=== PATIENT | female | born 1945 | race Caucasian/White ===

== ENCOUNTER 2017-06-29 10:20 | Emergency (ER) | payer MEDICARE, OTHER, SELFPAY ==
[2017-06-29 10:22] VITALS: BP 117/51; PULSE 70; RESP 19; TEMP 36.2; O2SAT 96; BMI 32.8
--- NOTE | 2017-06-29 10:34 | CT_ITS ---
STUDY: CTA CHEST REASON FOR EXAM: Female, 71 years old. Right-sided chest pain following a fall. RADIATION DOSAGE (If Supplied By Facility): CTDIvol = ( 14.44 ) mGy, DLP = ( 654.43 ) mGycm TECHNIQUE: The examination was performed with the intravenous administration of 100 ml of Isovue 370 contrast material. Post-processing of the angiographic images was performed, with multiplanar reformation and 3D reconstruction. Individualized dose optimization techniques were used for this CT. COMPARISON: None. FINDINGS: Small bilateral axillary lymph nodes. Normal enhancement of the main pulmonary artery and right and left pulmonary arteries. Normal enhancement of the bilateral peripheral pulmonary arteries. There is no demonstrated pulmonary embolism. Normal thoracic aorta and visualized great vessels. There is no demonstrated aortic dissection. There are calcifications of the coronary arteries. There are visualized mediastinal lymph nodes, which are within normal size limits, and with normal morphology. Normal hilar regions. Normal visualized trachea and bronchi. The lungs are well expanded. Focal increased markings in the posterior aspect of the left upper lobe abutting the left major fissure. Patchy infiltrate in the right middle lobe. Atelectasis and/or infiltrate in both lower lobes slightly more prominent on the right side. Minimal right pleural effusion. Normal pleura. Normal chest wall structures. There are degenerative changes of thoracic spine. Increased kyphosis. 1.5 cm cyst in the left lobe of the liver. CT/CTA Chest W/WO Contrast IMPRESSION: Mild degree of bibasilar atelectasis and/or infiltrate slightly worse on the right side. Patchy atelectasis and/or infiltrate in the left upper lobe and right middle lobe. Electronically Signed: Phillip Moran MD at 12:34 EST Tel [phone], Service support ,
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
[2017-06-29 10:58] VITALS: PULSE 68; RESP 20
[2017-06-29] MEDS: Ipratropium/Albuterol Sulfate 3 ML AMPUL.NEB INHALATION (10:58)
[2017-06-29 10:59] LABS: Absolute Lymphocyte Count 1.24 X10^3/ul (0.83-4.51); Absolute Neutrophil Count 3.3 X10^3/uL (2.0-7.7); Basophil# 0.05 X10^3/uL; Basophil% 0.9 % (0-1); Eosinophil# 0.07 X10^3/uL; Eosinophils% 1.2 % (0-5); Hematocrit 43.5 % (37-47); Hemoglobin 13.9 g/dl (12.0-15.0); Lymphocyte # 1.24 X10^3/ul (4.0); Lymphocyte % 21.9 % (19-41); Mean Corpuscular Hgb 26.9 pg (27.0-32.0); Mean Corpuscular Volume 84.1 fL (81-99); Mean Platelet Vol. 9.8 fl (6.2-12.0); Monocyte# 0.99 X10^3/uL; Monocyte% 17.5 % (0-10); Neutrophil # 3.31 X10^3/uL (2.7-7.7); Neutrophil % 58.3 % (47-70); POSITIVE COUNT NO; POSITIVE DIFFERENTIAL NO; POSITIVE MORPHOLOGY NO; Platelet Count 332 K/mm3 (150-450); RBC Distribution Width SD 48.6 fl (35.1-43.9); Red Blood Count 5.17 M/mm3 (4.2-5.4); White Blood Count 5.7 K/mm3 (4.4-11.0)
[2017-06-29] MEDS: Ondansetron 4 MG/2 ML Vial IV (11:03)
[2017-06-29 11:09] LABS: Anion Gap 5 (5-15); BUN 13 mg/dL (7-18); BUN/Creat Ratio 22.9 RATIO (10-20); Calcium,Total 8.8 mg/dL (8.5-10.1); Chloride 105 mmol/L (98-107); Creatinine, Serum 0.57 mg/dL (0.55-1.02); EST Glomerular Filtration Rate 112 mL/min (>60); Est Glom Filt Rate - Afr Amer 135 mL/min (>60); Glucose 103 mg/dL (74-106); Potassium 4.3 mmol/L (3.5-5.1); Sodium Level 140 mmol/L (136-145)
--- NOTE | 2017-06-29 12:51 | ED.DEP ---
ED Disposition - Plan for ED Patient: Chief Complaint: Chest Other Instructions: ED Contusion Chest Wall, ED Pneumonia Adult Prescriptions: Hydrocodone Bitart/Apap 5-325 [[place] 5/325] 1 - 2 tab PO Q4H PRN PRN 5 Days #20 tab PRN Reason: Pain Azithromycin [Zithromax] 250 mg PO DAILY #4 tab Referrals: Angeles Chaudhry MD [Primary Care Provider] - 3-5 Days
[2017-06-29 13:03] VITALS: BP 117/53; PULSE 60; RESP 18; O2SAT 98
[2017-06-29] MEDS: Azithromycin 250 MG Tablet 500 MG PO (13:05)
--- NOTE | 2017-06-29 13:16 | ED.RN ---
1310-VERBAL AND WRITTEN D/C INSTRUCTIONS GIVEN. ALL QUESTIONS ANSWERED. SKIN W/D. ABCS INTACT. VIA W/C OUT OF DEPARTMENT WITH VOLUNTEER.
== END 2017-06-29 13:18 | disposition home or self-care (01) ==
PROVIDERS: Emergency Provider Emergency Medicine; Family Provider Family Medicine; PCP Family Medicine
DX: S20.211A Contusion of right front wall of thorax, initial encounter (principal); W17.89XA Other fall from one level to another, initial encounter; Y93.9 Activity, unspecified; Y92.9 Unspecified place or not applicable; Y99.9 Unspecified external cause status; J18.9 Pneumonia, unspecified organism; R06.2 Wheezing; F32.9 Major depressive disorder, single episode, unspecified; Z79.82 Long term (current) use of aspirin; Z79.899 Other long term (current) drug therapy
CPT/HCPCS: 71275; 80048; 85025; 94640; 96374; 96375; 99284; Q9967; A4216; J2405

== ENCOUNTER → 2017-07-16 07:41 | Outpatient (CLI) | payer MEDICARE, OTHER, SELFPAY ==
--- NOTE | 2017-07-17 07:15 | PFTCOMP_ITS ---
COMPLETE PULMONARY FUNCTION TEST INTERPRETATION Brief HPI: Patient is a 71 year old female, currently under the care of myself, who presents to [facility] for complete pulmonary function tests secondary to diagnosis of chronic bronchitis. Respiratory therapist reports good effort and reproducible results. Interpretation: Forced expiration spirometry shows a moderately-severe large airways obstructive ventilatory defect with an FEV1 of 57 % predicted. There is no significant bronchodilator response by strict ATS criteria. Spirograms are of good quality and plateau slowly, indicating slowly emptying areas of the lungs. The respiratory flow volume loop shows decreased expiratory flow rates at all lung volumes consistent with airway obstruction. Lung volumes by body plethysmography show a decreased total lung capacity at 3.56 L, 70 % predicted. There is a trend towards air-trapping, but this does not reach clinical significance by ATS criteria. Diffusion capacity by carbon monoxide is at the lower limit of normal at 66 % predicted. The airway resistance is elevated. No previous pulmonary function tests were available for review. Impression: Moderately severe mixed ventilatory defect with a symmetric reduction diffusing capacity.
== END ==
PROVIDERS: Family Provider Family Medicine; PCP Family Medicine; Visit Provider Nurse Practitioner Acute Care
DX: J42 Unspecified chronic bronchitis (principal)
CPT/HCPCS: 94060; 94726; 94729

== ENCOUNTER → 2017-07-28 12:17 | Outpatient (CLI) | payer MEDICARE, OTHER, SELFPAY ==
[2017-07-28 12:37] VITALS: PULSE 66; PULSE 70; PULSE 80; PULSE 83; PULSE 85; PULSE 86; PULSE 90; O2SAT 91; O2SAT 92; O2SAT 93; O2SAT 94
--- NOTE | 2017-07-29 08:29 | WT_ITS ---
PSN 6 Minute Walk Test - 6 Minute Walk Test 6 Minute Walk Test: 6 Minute Walk Test PSN:6-Minute Walk Test Start: 07/28/17 12: 36 Freq: Status: Active Protocol: [id number] Document 07/28/17 12:37 SMB (Rec: 07/28/17 12:41 SMB [id number]) 6 Minute Walk Test Date Performed 07/28/17 Time Performed 12:20 Height 5 ft 3 in Weight: 83.915 kg Weight in Pounds 185.[address]: Chidi Parra Assistive device used: None Pre-test Oxygen Delivery Method Room Air Pulse Ox (%) 94 Pulse Rate (60-100 beats/min) 66 Dyspnea Berhane Scale (0-10) 0 Exertion Berhane Scale (6-20) 6 1st minute Oxygen Delivery Method Room Air Pulse Ox (%) 94 Pulse Rate (60-100 beats/min) 80 2nd minute Oxygen Delivery Method Room Air Pulse Ox (%) 93 Pulse Rate (60-100 beats/min) 83 3rd minute Oxygen Delivery Method Room Air Pulse Ox (%) 93 Pulse Rate (60-100 beats/min) 86 4th minute Oxygen Delivery Method Room Air Pulse Ox (%) 93 Pulse Rate (60-100 beats/min) 83 5th minute Oxygen Delivery Method Room Air Pulse Ox (%) 91 Pulse Rate (60-100 beats/min) 90 6th minute Oxygen Delivery Method Room Air Pulse Ox (%) 92 Pulse Rate (60-100 beats/min) 85 Dyspnea Berhane Scale (0-10) 0 Exertion Berhane Scale (6-20) 12 Post-test Oxygen Delivery Method Room Air Pulse Ox (%) 92 Pulse Rate (60-100 beats/min) 70 Full Laps Walked 16 Partial Lap, Number of Tiles Walked 0 Total Distance Walked (ft) 944 - Interpretation Interpretation: The patient was able to ambulate 944 feet over the course of 6 minutes on room air with no assistive devices or breaks. The patient experienced desaturation as low as 91% in the fifth minute, but no tachycardia was appreciated. These findings are consistent with a respiratory limitation exercise tolerance. - Recommendations Recommendations: No supplemental oxygen is indicated at this time. However, patient will need to be followed closely given level of desaturation.
== END ==
PROVIDERS: Family Provider Family Medicine; PCP Family Medicine; Visit Provider Nurse Practitioner Acute Care
DX: J96.01 Acute respiratory failure with hypoxia (principal)
CPT/HCPCS: 94618

== ENCOUNTER 2017-09-03 06:22 | Emergency (ER) | payer MEDICARE, OTHER, SELFPAY ==
[2017-09-03 06:23] VITALS: BP 143/65; PULSE 73; RESP 18; TEMP 37; O2SAT 96; BMI 31.8
--- NOTE | 2017-09-03 07:04 | ED.VISSUMM ---
- ER Visit Summary Date of Service: 09/03/17 Chief Complaint: Scalp laceration History of Present Illness: The patient is a 71 F mechanical fall at 3 AM. States getting out of bed with slipped hitting the bed rail. No loss of consciousness. No visual changes. No neck or back pain. No nausea or vomiting. Patient is on baby aspirin. Tetanus unknown. Physical Examination: General: Alert and oriented ?3, no acute distress HEENT: Normocephalic, 6 cm horizontal laceration occiput, no active bleeding, no depression of scope. Moist mucosa membranes Neck: supple, nontender. No midline tenderness. Cardiovascular: Regular rate and rhythm, no murmurs Respiratory: Normal breath sounds, symmetric, no distress Abdomen: Soft, nontender, nondistended Extremities: Nontender, no edema, pulses intact ?4 Neuro: no focal neurological deficits. GCS 15. Test Results: [] Emergency Department Course and Treatment: Patient vital signs stable. No active bleeding. Tetanus updated. Patient's age baby aspirin, discussed with patient recommendations for obtaining CT scan of the head, however she declines. Patient currently with no focal neurological deficits. Verbal consent for stapling which was performed with a total of 6 oneyda with good approximation. Wound care discussed. Patient will follow with PCP in 10 days for staple removal. Discussed with spouse and patient, worsening symptoms neurological deficits return immediately for reevaluation. Treatment Plan: [] Disposition: Discharge Impression: 1. Scalp laceration 2. Closed head injury This note was generated with [employer] dictation software. It may contain incorrect words, spelling, and punctuation that were not noted in review of the chart prior to signing ED Disposition - Plan for ED Patient: Disposition: Home or Assisted Living Chief Complaint: Laceration Diagnosis: Scalp laceration, Closed head injury Instructions: ED Laceration Scalp Stitch Or Stap, ED Head Injury Closed Referrals: Angeles Chaudhry MD [Primary Care Provider] - 10 Day for suture removal
[2017-09-03] MEDS: Diphth,Pertuss(Acell),Tet Vac 0.5 ML Vial IM (07:08)
[2017-09-03 07:09] VITALS: RESP 18
== END 2017-09-03 07:28 | disposition home or self-care (01) ==
PROVIDERS: Emergency Provider Emergency Medicine; Family Provider Family Medicine; PCP Family Medicine
DX: S01.01XA Laceration without foreign body of scalp, initial encounter (principal); W06.XXXA Fall from bed, initial encounter; Y93.9 Activity, unspecified; Y92.9 Unspecified place or not applicable; Y99.9 Unspecified external cause status; Z23 Encounter for immunization; J44.9 Chronic obstructive pulmonary disease, unspecified; I10 Essential (primary) hypertension; F32.9 Major depressive disorder, single episode, unspecified; Z79.82 Long term (current) use of aspirin; Z79.899 Other long term (current) drug therapy; Z87.891 Personal history of nicotine dependence
CPT/HCPCS: 12002; 90471; 90715; 99282

== ENCOUNTER → 2017-09-07 22:50 | Outpatient (CLI) | payer MEDICARE, OTHER, SELFPAY | PROVIDERS: Family Provider Family Medicine; PCP Family Medicine; Visit Provider Internal Medicine Critical Care Medicine | DX: G47.10 Hypersomnia, unspecified (principal) | CPT/HCPCS: 95810 ==

== ENCOUNTER → 2017-11-15 20:00 | Outpatient (CLI) | payer MEDICARE, OTHER, SELFPAY ==
[2017-11-15] MEDS: Zolpidem Tartrate 5 MG Tablet PO (22:00)
== END ==
PROVIDERS: Family Provider Family Medicine; PCP Family Medicine; Visit Provider Nurse Practitioner Acute Care
DX: G47.33 Obstructive sleep apnea (adult) (pediatric) (principal)
CPT/HCPCS: 95811

== ENCOUNTER 2017-12-11 14:17 | Emergency (ER) | payer MEDICARE, OTHER, SELFPAY ==
[2017-12-11 14:18] VITALS: BP 148/68; PULSE 70; RESP 21; TEMP 37.6; O2SAT 95; BMI 36.1
--- NOTE | 2017-12-11 14:47 | EKG12_ITS ---
Test Reason : CP Blood Pressure : / mmHG Vent. Rate : 069 BPM Atrial Rate : 069 BPM P-R Int : 134 ms QRS Dur : 092 ms QT Int : 424 ms P-R-T Axes : 041 -13 006 degrees QTc Int : 454 ms Normal sinus rhythm Leftward axis Confirmed by AILEEN GARCIAS, MILLICENT ([id number]), content editor MEGAN DILLON ([id number]) on 12/14/2017 1:00:00 PM Referred By: JEREMIAH/JHON Confirmed By:MILLICENT GALLAGHER MD
--- NOTE | 2017-12-11 14:47 | RAD_ITS ---
STUDY: X-RAY CHEST REASON FOR EXAM: Female, 72 years old. Chest pain. TECHNIQUE: Single AP portable view of the chest. COMPARISON: 05/21/2017. FINDINGS: There again are prominent markings in lung bases but no new infiltrate is seen. There is no demonstrated pleural abnormality. The cardiac silhouette remains enlarged. Normal mediastinum and mika. Normal visualized pulmonary arteries. There is atherosclerotic tortuosity of the aortic arch and descending thoracic aorta. The thoracic spine is obscured. Normal visualized ribs, clavicles, and shoulders. There is no demonstrated abnormality of the visualized soft tissue structures of the upper abdomen. RAD/Chest 1 View (Portable) IMPRESSION: Enlargement of the cardiac silhouette. No new infiltrate is seen. Electronically Signed: Benjamín Jane MD at 15:24 EDT Tel , Service support ,
[2017-12-11 14:55] LABS: Absolute Lymphocyte Count 1.48 X10^3/ul (0.83-4.51); Absolute Neutrophil Count 11.3 X10^3/uL (2.0-7.7); Basophil# 0.03 X10^3/uL; Basophil% 0.2 % (0-1); Eosinophil# 0.11 X10^3/uL; Eosinophils% 0.8 % (0-5); Hematocrit 41.8 % (37-47); Hemoglobin 13.6 g/dl (12.0-15.0); Lymphocyte # 1.48 X10^3/ul (4.0); Lymphocyte % 10.2 % (19-41); Mean Corp Hgb Conc 32.5 g/gl (32-36); Mean Corpuscular Hgb 27.1 pg (27.0-32.0); Mean Corpuscular Volume 83.3 fL (81-99); Mean Platelet Vol. 10.3 fl (6.2-12.0); Monocyte# 1.47 X10^3/uL; Monocyte% 10.2 % (0-10); Neutrophil # 11.34 X10^3/uL (2.7-7.7); Neutrophil % 78.4 % (47-70); POSITIVE COUNT NO; POSITIVE DIFFERENTIAL NO; POSITIVE MORPHOLOGY NO; Platelet Count 330 K/mm3 (150-450); RBC Distribution Width CV 15.3 % (11.6-14.6); RBC Distribution Width SD 46.5 fl (35.1-43.9); Red Blood Count 5.02 M/mm3 (4.2-5.4); White Blood Count 14.5 K/mm3 (4.4-11.0)
[2017-12-11] MEDS: Aspirin 81 MG TAB.CHEW 324 MG PO (14:59)
[2017-12-11] MEDS: 0.9% Normal Saline 1,000 ML 150 ML IV (14:59)
[2017-12-11 15:02] VITALS: O2SAT 95
[2017-12-11 15:08] LABS: Anion Gap 5 (5-15); BUN 14 mg/dL (7-18); BUN/Creat Ratio 19.9 RATIO (10-20); Calcium,Total 8.9 mg/dL (8.5-10.1); Chloride 103 mmol/L (98-107); EST Glomerular Filtration Rate 87 mL/min (>60); Est Glom Filt Rate - Afr Amer 105 mL/min (>60); Estimated Creatinine Clearance 42.68 ml/min; Glucose 102 mg/dL (74-106); Potassium 3.8 mmol/L (3.5-5.1); Sodium Level 137 mmol/L (136-145)
[2017-12-11 15:31] VITALS: BP 147/74; PULSE 75; RESP 20; O2SAT 94
--- NOTE | 2017-12-11 16:04 | ED.VISSUMM ---
- ER Visit Summary Date of Service: 12/11/17 Chief Complaint: Chest pain History of Present Illness: He started using CPAP 2 weeks ago for sleep apnea. Patient states after taking off her CPAP mask today she felt chest pressure. It persisted throughout the day. She does report increased pain with a deep breath. She has had prior stress test and cardiac cath with no known cardiac disease. Past history significant for COPD, hypertension, high cholesterol, sleep apnea, diverticulitis, depression. Physical Examination: Blood pressure is 148/68, temperature 99.7, heart rate 70, respiratory rate 21, pulse ox 95% on room air. Patient sitting upright in bed no acute distress. She is alert and talkative. Head and neck examination is unremarkable. Heart is regular rate and rhythm. Lung sounds are clear. She does have mild anterior chest wall tenderness. There is no crepitus. Abdomen is soft nontender. Lower extremity examination was no calf tenderness or edema. Test Results: EKG is sinus at 69 with no sign of acute ischemia. Portable chest x-ray shows enlargement of the cardiac silhouette. No new focal infiltrate noted. CBC was a white count of 14.5 with 70% neutrophils. Chemistry studies unremarkable. Troponin is less than 0.015. Emergency Department Course and Treatment: Patient was given aspirin and IV fluids. Repeat temperature is 98.1. Due to persistent pain she is given a dose of morphine and Zofran. On repeat evaluation she states her pain is significantly improved. She wishes to go home. Pain is reproducible with palpation over her chest and troponin obtained after >6 hours of symptoms is negative. I do not believe this represents cardiac etiology. Due to her elevated temperature and white count, I have advised her to monitor for further fever or signs of infection at home. She voices understanding and agreement. Treatment Plan: Disposition: Discharge Impression: Atypical chest pain This note was generated with [employer] dictation software. It may contain incorrect words, spelling, and punctuation that were not noted in review of the chart prior to signing ED Disposition - Plan for ED Patient: Disposition: Home or Assisted Living Chief Complaint: Chest Pain Instructions: ED Paraesthesias Referrals: Angeles Chaudhry MD [Primary Care Provider] - 3-5 Days if not improving
--- NOTE | 2017-12-11 16:07 | ED.DEP ---
ED Disposition - Plan for ED Patient: Disposition: Home or Assisted Living Chief Complaint: Chest Pain Instructions: ED Paraesthesias Referrals: Angeles Chaudhry MD [Primary Care Provider] - 3-5 Days if not improving
[2017-12-11] MEDS: Ondansetron 4 MG/2 ML Vial IV (16:20)
[2017-12-11] MEDS: Morphine 4 MG/ML Syringe IV (16:20)
--- NOTE | 2017-12-11 16:53 | ED.DEP ---
ED Disposition - Plan for ED Patient: Disposition: Home or Assisted Living Chief Complaint: Chest Pain Instructions: ED Chest Pain Atypical Unkn Cause Referrals: Angeles Chaudhry MD [Primary Care Provider] - 3-5 Days if not improving Additional Instructions: Return to ED immediately for any worsening symptoms or concerns. Monitor for signs of infection as discussed.
[2017-12-11 17:08] VITALS: BP 111/62; PULSE 70; RESP 17; O2SAT 94
== END 2017-12-11 17:11 | disposition home or self-care (01) ==
PROVIDERS: Emergency Provider Emergency Medicine; Family Provider Family Medicine; PCP Family Medicine
DX: R07.89 Other chest pain (principal); J44.9 Chronic obstructive pulmonary disease, unspecified; I10 Essential (primary) hypertension; E78.00 Pure hypercholesterolemia, unspecified; G47.33 Obstructive sleep apnea (adult) (pediatric); F32.9 Major depressive disorder, single episode, unspecified; Z79.82 Long term (current) use of aspirin; Z79.899 Other long term (current) drug therapy; Z87.19 Personal history of other diseases of the digestive system
CPT/HCPCS: 71045; 80048; 84484; 85025; 93005; 96361; 96374; 96375; 99284; J7030; J2405

== ENCOUNTER → 2017-12-21 06:48 | Outpatient (CLI) | payer MEDICARE, OTHER, SELFPAY ==
--- NOTE | 2017-12-21 11:30 | STRESSREP ---
Stress Test Report Date: 12/21/2017 Procedure: Exercise tolerance test/imaging study Indications: Chest pain Consent: Per the patient Procedure: The patient exercised on a Chidi protocol for 4 minutes completing Stage I and 1 minute of Stage II achieving a peak heart rate of 125 bpm (83 % predicted maximal heart rate) with a peak blood pressure 142/80 mmHg and a peak MET capacity of 5 METs. The baseline ECG demonstrated sinus bradycardia. The peak exercise ECG demonstrated no obvious ECG changes. There were occasional PVCs during exercise. The functional capacity was considered decreased. There was [no complaint of chest discomfort during exercise or recovery]. The examination was discontinued secondary to fatigue. Impression: 1. Technically inadequate (percent predicted maximal heart rate greater than 85%) exercise tolerance test 2. Peak exercise ECG with no obvious ECG changes 3. There were occasional PVCs during exercise. 4. Pharmacologic menses Regadenoson) evaluation pending Procedure: Pharmacologic stress nuclear imaging study The patient underwent pharmacologic (Regadenoson) evaluation with a peak heart rate of 86 beats per minute (57 predicted maximal heart rate) and a peak blood pressure of 136/76 mmHg. The baseline ECG demonstrated sinus bradycardia. The peak pharmacologic ECG demonstrated no obvious ECG changes. [There were no cardiac dysrhythmias pretest, during pharmacologic infusion, or recovery]. [There was no complaint of chest discomfort during pharmacologic infusion or recovery]. The examination was discontinued secondary to completion of protocol. Impression: 1. Pharmacologic (Regadenoson) evaluation 2. Peak pharmacologic ECG with no obvious ECG changes. 3. There were no cardiac dysrhythmias pretest, during pharmacologic infusion, or recovery 4. Nuclear images pending Myocardial perfusion imaging study: Technique: The patient was injected with 14.6 mCi of technetium 99m Cardiolite and subsequently rest SPECT Cardiolite nuclear imaging was obtained in the horizontal long, vertical long, and short axis views. The patient exercised on a Chidi protocol for 4 minutes completing Stage I and 1 minute of Stage II achieving a peak heart rate of 125 bpm (83 % predicted maximal heart rate) with a peak blood pressure 142/80 mmHg and a peak MET capacity of 5 METs. The patient underwent pharmacologic (Regadenoson) evaluation with a peak heart rate of 86 beats per minute (57 % percent predicted maximal heart rate) and a peak blood pressure of 136/76 mmHg. The patient was injected with 44.4 millicuries of technetium 99m Cardiolite and subsequently stress SPECT Cardiolite nuclear imaging was obtained in the horizontal long, vertical long, and short axis views. A gated Cardiolite study at peak stress was obtained. Interpretation: Rest and stress SPECT Cardiolite nuclear imaging status post realignment, normalization, and attenuation correction demonstrate areas of extracardiac/gastrointestinal tracer uptake near the inferior segments, otherwise, they appear to demonstrate relative uniform tracer uptake and myocardial perfusion appearing within normal limits. [There is end systolic thickening and brightening]. [The gated Cardiolite study demonstrates myocardial thickening and inward wall motion]. The reported LVEF is 71 %. Impression: 1. [Rest and stress SPECT Cardiolite nuclear imaging demonstrate relative uniform tracer uptake and myocardial perfusion appearing within normal limits]. 2. The gated Cardiolite study reports an LVEF of 71 %. This note was generated with [employer] software. It may contain incorrect words, spelling, and punctuation that were not noted in checking the note before signing.
--- NOTE | 2017-12-21 11:59 | STRESSREP_ITS ---
Stress Test Report Date: 12/21/2017 Procedure: Exercise tolerance test/imaging study Indications: Chest pain Consent: Per the patient Procedure: The patient exercised on a Chidi protocol for 4 minutes completing Stage I and 1 minute of Stage II achieving a peak heart rate of 125 bpm (83 % predicted maximal heart rate) with a peak blood pressure 142/80 mmHg and a peak MET capacity of 5 METs. The baseline ECG demonstrated sinus bradycardia. The peak exercise ECG demonstrated no obvious ECG changes. There were occasional PVCs during exercise. The functional capacity was considered decreased. There was [no complaint of chest discomfort during exercise or recovery]. The examination was discontinued secondary to fatigue. Impression: 1. Technically inadequate (percent predicted maximal heart rate greater than 85 %) exercise tolerance test 2. Peak exercise ECG with no obvious ECG changes 3. There were occasional PVCs during exercise. 4. Pharmacologic menses Regadenoson) evaluation pending Procedure: Pharmacologic stress nuclear imaging study The patient underwent pharmacologic (Regadenoson) evaluation with a peak heart rate of 86 beats per minute (57 predicted maximal heart rate) and a peak blood pressure of 136/76 mmHg. The baseline ECG demonstrated sinus bradycardia. The peak pharmacologic ECG demonstrated no obvious ECG changes. [There were no cardiac dysrhythmias pretest, during pharmacologic infusion, or recovery]. [There was no complaint of chest discomfort during pharmacologic infusion or recovery]. The examination was discontinued secondary to completion of protocol. Impression: 1. Pharmacologic (Regadenoson) evaluation 2. Peak pharmacologic ECG with no obvious ECG changes. 3. There were no cardiac dysrhythmias pretest, during pharmacologic infusion, or recovery 4. Nuclear images pending Myocardial perfusion imaging study: Technique: The patient was injected with 14.6 mCi of technetium 99m Cardiolite and subsequently rest SPECT Cardiolite nuclear imaging was obtained in the horizontal long, vertical long, and short axis views. The patient exercised on a Chidi protocol for 4 minutes completing Stage I and 1 minute of Stage II achieving a peak heart rate of 125 bpm (83 % predicted maximal heart rate) with a peak blood pressure 142/80 mmHg and a peak MET capacity of 5 METs. The patient underwent pharmacologic (Regadenoson) evaluation with a peak heart rate of 86 beats per minute (57 % percent predicted maximal heart rate) and a peak blood pressure of 136/76 mmHg. The patient was injected with 44.4 millicuries of technetium 99m Cardiolite and subsequently stress SPECT Cardiolite nuclear imaging was obtained in the horizontal long, vertical long, and short axis views. A gated Cardiolite study at peak stress was obtained. Interpretation: Rest and stress SPECT Cardiolite nuclear imaging status post realignment, normalization, and attenuation correction demonstrate areas of extracardiac/ gastrointestinal tracer uptake near the inferior segments, otherwise, they appear to demonstrate relative uniform tracer uptake and myocardial perfusion appearing within normal limits. [There is end systolic thickening and brightening]. [The gated Cardiolite study demonstrates myocardial thickening and inward wall motion]. The reported LVEF is 71 %. Impression: 1. [Rest and stress SPECT Cardiolite nuclear imaging demonstrate relative uniform tracer uptake and myocardial perfusion appearing within normal limits]. 2. The gated Cardiolite study reports an LVEF of 71 %. This note was generated with [employer] software. It may contain incorrect words, spelling, and punctuation that were not noted in checking the note before signing.
== END ==
PROVIDERS: Family Provider Family Medicine; PCP Family Medicine; Visit Provider Family Medicine
DX: R07.9 Chest pain, unspecified (principal)
CPT/HCPCS: 78452; 93017; A9500; A4216; J2785

== ENCOUNTER → 2018-01-13 07:36 | Outpatient (CLI) | payer MEDICARE, OTHER, SELFPAY ==
--- NOTE | 2018-01-13 11:25 | PFTCOMP ---
COMPLETE PULMONARY FUNCTION TEST INTERPRETATION Brief HPI: Patient is a 72 year old female, currently under the care of myself, who presents to [facility] for complete pulmonary function tests secondary to diagnosis of COPD. Respiratory therapist reports good effort and reproducible results. Interpretation: Forced expiration spirometry shows a severe large airways obstructive ventilatory defect with an FEV1 of 54% predicted. There is some bronchodilator response, but this does not reach clinical significance by strict ATS criteria. Spirograms are of good quality and plateau slowly, indicating slowly emptying areas of the lungs. The respiratory flow volume loop shows decreased expiratory flow rates at all lung volumes consistent with airway obstruction. Lung volumes by body plethysmography show a decreased total lung capacity at 3.27 L, 71% predicted. All other lung volumes are within normal limits. Diffusion capacity by carbon monoxide is normal at 76% predicted. The airway resistance is elevated. Compared to previous pulmonary function tests from 07/16/2017, there has been a significant improvement in DLCO. Impression: Severe mixed ventilatory defect with some improvement in DLCO compared to previous testing.
== END ==
PROVIDERS: Family Provider Family Medicine; PCP Family Medicine; Visit Provider Internal Medicine Critical Care Medicine
DX: J44.9 Chronic obstructive pulmonary disease, unspecified (principal)
CPT/HCPCS: 94060; 94726; 94729

== ENCOUNTER 2018-07-29 13:00 | Outpatient (RCR) | payer MEDICARE, OTHER, SELFPAY ==
[2018-07-05 16:51] VITALS: BMI 32.8
--- NOTE | 2018-07-11 10:08 | HP.PTEVAL_ITS ---
Patient's Visit Information TAM SANCHEZ is a 72 year old F referred to Physical Therapy by Bruce Virk MD with a diagnosis of LBP. Date of Evaluation: 07/11/18 Physical Therapist: Maximus Hudson, PHILLT, OCS, CSCS - Visit Plan Frequency: 2x /Week Duration: 4-6 Weeks Plan: 2x/week for 3-6, start with NS based pool therapy and L/s AROM and progress to General ex in pool - Subjective Findings: Was in [facility] for a month even with back pain. saw doctor prior to departure adn was given prednisone adn muscle relaxers. Pain started 05/18/18 for no sera-arent reason but was busy in the kitchen for the days prior. More stadning bending and twisting than usual. Could not get out of bed in [facility] as hse had spasms. Slept in chair with TENS and hot pad. Has CPAP. Pain is not keeping her up. Moving in the morning is no good. nHad catscan in ER in [facility]. Has history of lumbar tumor in 1992. Improving overall. Not employed, watches grandchildren. 2 yo, 4 yo adn 4 month old. Can't bend over to pick them up. Hard to watch them appropriately. No problem prior to . Lives with elvia who is in [facility] currently. Has steps which she does nto use. Hurts to stand too long. Comfortable sitting until she gets up. Can do basic ADLs. Seen chiropractor. No leg symptoms. - Pain LBP Pain Intensity (Out of 10): 0 Pain Intensity Range: 0, 6 - Objective Left leg shorter than other and wears pavan lift adn has back brace but it is in VAA. Tens unit in VAA also. Transfer out of chair is painful and noisy. Slow to stadn but I, UE help. Bed trasnfer is poor, rolling and getting to sit adn to supien is very painful. Stand and walk I but slow. L/S AROM ext very limited and painful, R SB> L SB painful in mid low back. flexion is tight but not painful. reflexes 1/3 patella and achilles. Sensation LE WNl to gross light touch. Strength LE 4+/5 without myotomal abnormalities. HS and gastroc mod tight. - SLR. - SLump. shear force seem to be the big problem, unstable. 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 Goal Time Frame: 4-6 Weeks Goal 3:: Pt I in appropriate HEP for minimize future problems. Goal Time Frame: 4-6 Weeks - Rehabilitation Potential Physical Therapy Diagnosis: LBP Rehabilitation Potential: Fair - Anticipated Interventions Patient/Client Instruction: Educate patient on: Condition, Plan of Care For the Purpose of:: To decrease pain, To increase ROM Therapeutic Exercise to Include: Strength training, Flexibilty training, In an aquatic setting, Passive ROM, Active ROM, Dynamic Lumbar Stabilization For the Purpose of:: To decrease pain, To increase ROM, To increase tolerance to activity/condition/position Thank you for the opportunity to evaluate your patient. For Medicare and Medicare HMO plans, please review the plan of care and approve it. It will need to be FAXED BACK to us at [phone] for Medicare purposes. For Medicare only, by signing this I certify the plan of care. Please let me know if there are questions or concerns regarding this plan of care. Physician Signature: Date:
--- NOTE | 2018-07-29 13:14 | HP.PTDCSUM ---
HP - PT D/C Summary It has been my pleasure to treat TAM SANCHEZ under orders from Bruce Virk MD, for the diagnosis of LBP for a total of 5 visit(s). Discharge Date: 07/29/18 Please see the following information for a summary of their discharge status. - Subjective Subjective: 99% better. Not taking anything for pain. Only if I twist wrong. Then transient twinges. Can't sleep in bed yet because it is hard to sit up because feet don't touch floor. Has learned alot about sitting position adn vaccuming. Wants to go back to [employer] and will do open pool. - Pain LBP Pain Intensity (Out of 10): 0 - Overall Improvement % Improvement: 99 - Objective Objective/Function: Good ROM without pain today in L/S except slight with R rotation. Trasnfers easily without pain, walks normal. EXCELLENT PROGRESS AND READY TO BE ON OWN. 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 Goal Progress: Goal Met Goal 3:: Pt I in appropriate HEP for minimize future problems. Goal Progress: in pool. - Plan Plan: D/C - D/C Information Discharge Comments: Will continue in the pool I and let doctor know if pain returns. If there are questions or concerns regarding this patient's physical therapy, please feel free to call me at [phone]. Thank you for the referral of this patient. Sincerely, Maximus Hudson, DPT, OCS, CSCS
== END 2018-07-29 17:00 | disposition home or self-care (01) ==
LOC: PT 13:00
PROVIDERS: Family Provider Family Medicine; PCP Family Medicine; Referring Provider Family Medicine; Visit Provider Family Medicine
DX: M54.9 Dorsalgia, unspecified (principal)
CPT/HCPCS: 97113; 97162; 97530

== ENCOUNTER 2018-08-29 07:41 | Inpatient (IN) | payer MEDICARE, OTHER, SELFPAY ==
[2018-08-22 09:28] VITALS: BMI 33.1
[2018-08-29] VITALS (12 sets, daily range): BP systolic 114–152; BP diastolic 52–83; PULSE 87–108; RESP 18–31; TEMP 36.7–37.5; O2SAT 94–98; BMI 32.4; BMI 33.1; BMI 33.2
--- NOTE | 2018-08-29 07:52 | EKG12_ITS ---
Test Reason : SOB Blood Pressure : / mmHG Vent. Rate : 097 BPM Atrial Rate : 097 BPM P-R Int : 144 ms QRS Dur : 096 ms QT Int : 372 ms P-R-T Axes : 049 -18 085 degrees QTc Int : 472 ms Normal sinus rhythm Cannot rule out Anterior infarct , age undetermined Abnormal ECG Confirmed by AILEEN GARCIAS, MILLICENT ([id number]), legal editor TARIQ VILA ([id number]) on 08/31/2018 1:14:07 PM Referred By: ANGELA Confirmed By:MILLICENT GALLAGHER MD
--- NOTE | 2018-08-29 07:55 | ED.DCSUM_ITS ---
- ER Visit Summary Date of Service: 08/29/18 Chief Complaint: Shortness of breath, cough, fever History of Present Illness: The patient is a 72 F with history of COPD who is not on home oxygen presents to the emergency department shortness of breath. The patient states that she was on 2 L of oxygen at night with her CPAP. She saw Dr. Parra the office over week ago. Her oxygen is been stopped because she is been doing well. She states that at the end of July, she had a mechanical fall. She states she was ironing and was reaching over. She lost her balance and fell. She struck her left ribs. She did not hit her head. Over the past 3 days, she has had worsening shortness of breath, fevers, chills, and cough with productive sputum. She has not been on antibiotics or steroids for over 4 months. She states that at home, she has been checking her pulse ox and if she walks any distance greater than 10 feet, it will drop into the low 80s. She is also been having chills. She denies any chest pain, but did have some pain over her lateral ribs. She denies any hemoptysis. She is been compliant with her medications. Physical Examination: Vital signs reviewed General: Well-nourished, well-developed Head: Normocephalic, atraumatic Eyes: Pupils equal and reactive, extraocular muscles intact Neck, supple, no lymphadenopathy Heart: Regular rate and rhythm Respiratory: No distress, wheezing in all lung richards, ecchymosis over the left breast and left lateral ribs without step-off Abdomen: Soft, nontender, nondistended, no peritoneal signs Back: Nontender Extremities: Nontender, no edema, no cords Skin: Normal color no rash Neuro: Alert and oriented, no focal or lateralizing deficits Test Results: [] Emergency Department Course and Treatment: The patient presents with cough and shortness of breath. She does have history of COPD, but is now requiring 4 L of supplemental oxygen. She has wheezing all richards and rhonchi in the left lung base. This is also where she has ecchymosis. IV was established. Patient was given fluids and steroids. She was given nebulized breathing treatments with improvement of aeration. Chest x-ray does show a left lower lobe infiltrate. She is a leukocytosis of 20,000. Patient does meet sepsis criteria based on tachycardia and tachypnea along with evidence of infection. However, she has no evidence of severe sepsis or endorgan dysfunction. She is covered with broad- spectrum antibiotics. Patient was discussed with the hospitalist and will be admitted. Treatment Plan: [] Disposition: Admission Impression: 1. Community-acquired pneumonia 2. Hypoxia 3. Sepsis This note was generated with [employer] software. It may contain incorrect words, spelling, and punctuation that were not noted in review of the chart prior to signing ED Disposition - Plan for ED Patient: Referrals: Angeles Chaudhry MD [STAFF PHYSICIAN] -
[2018-08-29] MEDS: 0.9% Normal Saline 1,000 ML 150 ML IV (08:10)
[2018-08-29] MEDS: MethylPREDNISolone 125 MG/2 ML Vial IV (08:10)
[2018-08-29 08:23] LABS: Absolute Neutrophil Count 16.9 X10^3/uL (2.0-7.7); Basophil# 0.03 X10^3/uL; Basophil% 0.1 % (0-1); Eosinophil# 0.06 X10^3/uL; Eosinophils% 0.3 % (0-5); Hematocrit 39.7 % (37-47); Hemoglobin 12.6 g/dl (12.0-15.0); Mean Corp Hgb Conc 31.7 g/gl (32-36); Mean Corpuscular Hgb 26.6 pg (27.0-32.0); Mean Corpuscular Volume 83.8 fL (81-99); Mean Platelet Vol. 9.7 fl (6.2-12.0); Monocyte# 2.32 X10^3/uL; Monocyte% 11.5 % (0-10); Neutrophil # 16.89 X10^3/uL (2.7-7.7); Platelet Count 278 K/mm3 (150-450); RBC Distribution Width CV 14.6 % (11.6-14.6); RBC Distribution Width SD 45.2 fl (35.1-43.9); Red Blood Count 4.74 M/mm3 (4.2-5.4); White Blood Count 20.1 K/mm3 (4.4-11.0)
[2018-08-29 08:30] LABS: Differential Indicated SCAN CRITERIA MET; POSITIVE COUNT NO; POSITIVE DIFFERENTIAL YES; POSITIVE MORPHOLOGY NO
--- NOTE | 2018-08-29 08:35 | RAD_ITS ---
STUDY: X-RAY - UNILATERAL RIBS ( LEFT ) WITH CHEST REASON FOR EXAM: Female, 72 years old. Left-sided rib pain following a recent fall. TECHNIQUE - RIBS: 2 view(s) of the ribs. TECHNIQUE - CHEST: Single PA view of the chest. COMPARISON: Comparison is made with prior chest radiograph dated December 11, 2017. FINDINGS - RIBS: Normal visualized ribs without a demonstrated fracture. FINDINGS - CHEST: EKG electrodes are seen. Atelectasis and/or early infiltrate at the left lung base with blunting of left costophrenic angle. Stable mild increased markings at the right lung base. There is moderate cardiac enlargement. Normal mediastinum and mika. Normal visualized pulmonary arteries. There is atherosclerotic calcification of the aortic arch with tortuosity. There are diffuse degenerative changes of the visualized thoracic spine. Normal visualized ribs, clavicles, and shoulders. There is no demonstrated abnormality of the visualized soft tissue structures of the upper abdomen. RAD/Ribs Uni Min 3V w/PA Chest IMPRESSION: RIBS: Normal x-ray examination of the ribs. CHEST: Atelectasis and/or early infiltrate at the left lung base with blunting of left costophrenic angle. Electronically Signed: Phillip Moran, at 9:01 EDT , Service support ,
[2018-08-29 08:40] LABS: Anion Gap 7 (5-15); BUN 13 mg/dL (7-18); BUN/Creat Ratio 17.2 RATIO (10-20); Calcium,Total 8.6 mg/dL (8.5-10.1); Chloride 100 mmol/L (98-107); Creatinine, Serum 0.76 mg/dL (0.55-1.02); EST Glomerular Filtration Rate 80 mL/min (>60); Est Glom Filt Rate - Afr Amer 97 mL/min (>60); Estimated Creatinine Clearance 42.68 ml/min; Glucose 121 mg/dL (74-106); Potassium 3.1 mmol/L (3.5-5.1); Sodium Level 136 mmol/L (136-145)
[2018-08-29 08:52] LABS: Lactic Acid 1.1 mmol/L (0.4-2.0)
[2018-08-29] MEDS: Ipratropium/Albuterol Sulfate 3 ML AMPUL.NEB INHALATION ×3 (08:52→19:28)
[2018-08-29] MEDS: Albuterol 2.5 MG/3 ML VIAL.NEB. INHALATION ×3 (08:52)
--- NOTE | 2018-08-29 09:06 | NURSING ---
DR PHIL GARCIA
--- NOTE | 2018-08-29 09:12 | PCM.HP.STD ---
Problem List (1) Obesity (BMI 30-39.9) Status: Chronic (2) SHAZIA (obstructive sleep apnea) Status: Chronic Comment: CPAP 9 cm of water (3) Hypersomnia Status: Acute (4) Stage 2 moderate COPD by GOLD classification Status: Chronic Comment: 07/2017, FEV1 57% (5) Osteoarthritis Status: Chronic (6) Diverticulitis Status: Chronic (7) Depression Status: Chronic (8) Pneumonia Status: Acute Qualifiers: Laterality: left Lung location: lower lobe of lung (9) acute viral bronchitis secondary to influenza A Status: Acute (10) Acute respiratory failure with hypoxia Status: Acute (11) COPD (chronic obstructive pulmonary disease) with chronic bronchitis Status: Suspected History of Present Illness Date of Admission: 08/29/18 Chief Complaint: Shortness of breath The patient is a 72 year old F with past medical history is again for COPD, obstructive sleep apnea who presented with shortness of breath. Patient symptoms started 2 weeks prior to her admission following a fall during which she bruised her left flank. She did notice significant difficulty breathing about 3 days prior to admission. This has gotten progressively worse. In addition patient did experience subjective fever as well as chills and productive cough. She presented to the emergency department imaging studies demonstrated Atelectasis and/or early infiltrate at the left lung base with blunting of left costophrenic angle. Patient was also found to have significant bronchospasm in the emergency department. A combination of pneumonia as well as COPD exacerbation made admitted to regular nursing floor for further management Past Medical History Past Medical History (Chronic Problems): Chronic Problems (Last Reviewed 08/29/18 @ 10:40 by Valente Castro MD) Obesity (BMI 30-39.9) (Chronic) SHAZIA (obstructive sleep apnea) (Chronic) CPAP 9 cm of water Stage 2 moderate COPD by GOLD classification (Chronic) 07/2017, FEV1 57% Osteoarthritis (Chronic) Diverticulitis (Chronic) Depression (Chronic) Medical History: Medical History (Last Reviewed 08/29/18 @ 10:40 by Valente Castro MD) Osteoarthritis (Chronic) M19.90 Diverticulitis (Chronic) K57.92 Depression (Chronic) F32.9 Pneumonia (Acute) J18.9 acute viral bronchitis secondary to influenza A (Acute) Acute respiratory failure with hypoxia (Acute) J96.01 COPD (chronic obstructive pulmonary disease) with chronic bronchitis (Suspected) J44.9 Bronchitis (Resolved) J40 Influenza A (Resolved) J10.1 Hypertension (Inactive) I10 Allergies No Known Allergies Allergy (Verified 08/22/18 09:29) Home Medications: Ambulatory Orders Medication Instructions Recorded Aspirin [Aspirin, Baby] 81 mg PO DAILY@0800 05/18/17 Cholecalciferol (Vitamin D3) 2,000 unit PO DAILY 05/18/17 [D3-2000] Fluoxetine [Prozac] 20 mg PO DAILY 05/18/17 Metoprolol Tartrate 25 mg PO DAILY 05/18/17 fluticasone fur. 100 mcg-umeclid 1 inh INHALATION DAILY #60 ea 03/10/18 62.5 mcg-vilant 25 mcg inhalat.powder benzonatate 100 mg capsule 100 mg PO TID PRN #30 cap 05/10/18 guaifenesin ER 1,200 mg tablet, 1,200 mg PO Q12H #30 tab 05/11/18 extended release 12 hr nortriptyline 50 mg capsule 50 mg PO QHS 08/22/18 Surgical History: Surgical History (Last Reviewed 08/29/18 @ 10:40 by Valente Castro MD) History of tonsillectomy and adenoidectomy (Resolved) Z98.890 H/O laminectomy (Resolved) Z98.890 Hx of cataract surgery (Resolved) Z98.49 History of bone graft (Resolved) Z98.890 (Resolved) H/O tubal ligation (Resolved) Z98.51 Smoking Status: Former smoker - *Family History Sibling Family History: Family History (Last Reviewed 08/29/18 @ 10:40 by Valente Castro MD) Father Hypertension Mother Cancer History Items: Cancer Review of Systems Constitutional: Reports: Chills, Fever, Malaise, Weakness HEENT: Denies: Head Aches, Sinus Congestion, Sinus Drainage Cardiovascular: Reports: Chest Pain Respiratory: Reports: Cough, Pleuritic Pain, Shortness of Breath Gastrointestinal: Denies: Abdominal Pain, Hematemesis, Hematochezia, Nausea, Melena, Vomiting Musculoskeletal: Denies: Joint Pain, Joint Tenderness Skin: Denies: Rash Neurological: Denies: Focal weakness, Numbness, Tingling Psychiatric: Denies: Homicidal Ideations, Suicidal Ideations Hematologic/ Lymphatic: Denies: Easy Bruising, Easy Bleeding VTE Information - Inpt Only VTE Present on Admission: No VTE Mechan Device Prophylaxis: Knee High ADAM Hose VTE Pharm Prophylaxis ordered?: Yes Objective: GENERAL: cooperative HEENT: Atraumatic; moist oral mucosa EYES; Anicteric, Normal Conjunctiva NECK; supple, normal thyroid, no distended JVD. RESPIRATORY: Diminished to auscultation bilaterally, CARDIOVASCULAR: Regular S1 S2, no audible murmurs GI: soft, non-tender, normoactive bowel sounds, : No Renal angle tenderness; EXTREMITIES: No edema, no clubbing, no cyanosis. MUSCULOSKELETAL: No Joint Tenderness; no muscle waisting NEURO: Awake; no lateralizing signs. SKIN: Bruising left flank PSYCH; Normal affect - Physical Exam Vital Signs Temp Pulse Resp BP Pulse Ox 98.7 F 106 H 31 H 152/72 H 97 08/29/18 07:43 08/29/18 08:17 08/29/18 08:17 08/29/18 07:43 08/29/18 07:43 Oxygen Flow Rate (L/min) 4 Oxygen Delivery Method Nasal Cannula Weight: 83.007 kg Body Mass Index (BMI) 32.4 Microbiology Past 72 Hours 08/29/18 08:10 Influenza Types A,B Direct FA (JUVENTINO) - Final Mucosa - Nose Laboratory Tests Past 24 Hrs 08/29/18 08/29/18 08/29/18 08:10 08:10 08:10 WBC 20.1 H RBC 4.74 Hgb 12.6 Hct 39.7 MCV 83.8 MCH 26.6 L MCHC 31.7 L RDW 14.6 RDW Differential 45.2 H Plt Count 278 MPV 9.7 Immature Gran % (Auto) 0.100 Neut % (Auto) 84.0 H Lymph % (Auto) 4.0 L [place] % (Auto) 11.5 H Eos % (Auto) 0.3 Baso % (Auto) 0.1 Absolute Neuts (auto) 16.9 H Absolute Lymphs (auto) 0.80 L Total Counted Not Reportable Differential Comment COMMENT Diff Path Review May foll Sodium 136 Potassium 3.1 L Chloride 100 Carbon Dioxide 29.0 Anion Gap 7 BUN 13 Creatinine 0.76 Estim Creat Clear Calc 42.68 Est GFR (MDRD) Af Amer 97 Est GFR (MDRD) Non-Af 80 BUN/Creatinine Ratio 17.2 Glucose 121 H Lactic Acid 1.1 Calcium 8.6 Troponin I < 0.015 Assessment/Plan All Active Problems (Last Reviewed 08/29/18 @ 10:40 by Valente Castro MD) Hypersomnia (Acute) Pneumonia (Acute) History of tonsillectomy and adenoidectomy (Resolved) H/O laminectomy (Resolved) Hx of cataract surgery (Resolved) History of bone graft (Resolved) (Resolved) H/O tubal ligation (Resolved) acute viral bronchitis secondary to influenza A (Acute) Acute respiratory failure with hypoxia (Acute) Bronchitis (Resolved) Influenza A (Resolved) Patient is a 72-year-old lady who presented with progressive shortness of breath 1. Community-acquired pneumonia possibly secondary to streptococcal pneumonia. Patient has been admitted to regular nursing floor antibiotics initiated per protocol with (Rocephin as well as azithromycin). Cultures were sent from the emergency department patient was also placed on aerosol treatment and oxygen titrated to keep oxygen saturation greater than 90 2. COPD with acute exacerbation precipitated by above. Management as discussed above in addition to patient being placed on systemic steroids 3. Obstructive sleep apnea 4. Hypertension-blood pressure controlled, home medications continued with dose adjustment as needed 5. Depression patient is on both nortriptyline as well as SSRI 6. DVT prophylaxis SC Lovenox Code Visit Inpatient E&M: 68217 Init Hosp L3
--- NOTE | 2018-08-29 09:17 | NURSING ---
MED SURG DYSPNEA KITTOE
[2018-08-29] MEDS: Ceftriaxone 1 GM/50 ML BAG IV (09:30)
--- NOTE | 2018-08-29 09:48 | NURSING ---
DR VILLARREAL IN ROOM
[2018-08-29] MEDS: Enoxaparin 40 MG/0.4 ML Syringe SC (11:28)
[2018-08-29 11:31] LABS: Color, Urine Straw (Yellow); Glucose, Dipstick Normal (Normal); Ketone-Dipstick 15 mg/dl (Negative); Leukocyte Esterase-Dipstick Negative /ul (Negative); Nitrite-Dipstick Negative (Negative); Occult Blood-Urine Negative /ul (Negative); Protein-Dipstick Negative (Negative); Specific Gravity, Urine 1.005 (1.002-1.030); Urine Bilirubin Dipstick Negative (Negative); Urine Clarity Clear (Clear); Urine Urobilinogen Normal (Normal); Urine pH 6.5 (5.0 - 8.0)
[2018-08-29] MEDS: guaiFENesin 10 ML UDC (200MG/10ML) 20 ML PO ×2 (13:03→17:39)
[2018-08-29] MEDS: guaiFENesin 1,200 MG Tablet 1200 MG PO (21:26)
[2018-08-29] MEDS: DiphenhydrAMINE 25 MG Capsule PO (21:26)
[2018-08-29] MEDS: Nortriptyline 25 MG Capsule 50 MG PO (21:29)
[2018-08-30] VITALS (13 sets, daily range): BP systolic 124–139; BP diastolic 55–74; PULSE 74–110; RESP 18–28; TEMP 36.6–36.8; O2SAT 94–98
[2018-08-30] MEDS: DiphenhydrAMINE 25 MG Capsule PO ×2 (00:13→21:56)
[2018-08-30] MEDS: Ipratropium/Albuterol Sulfate 3 ML AMPUL.NEB INHALATION (00:29)
--- NOTE | 2018-08-30 00:37 | CPS ---
pt had laryngospam during aerosol treatment. tx was stopped. took pt 10 minutes to recover. had to increase o2 to 4L Breath sounds still with wheezing throughout. RN aware.
[2018-08-30] MEDS: Albuterol 2.5 MG/3 ML VIAL.NEB. INHALATION ×6 (00:48→21:23)
[2018-08-30] MEDS: guaiFENesin 10 ML UDC (200MG/10ML) 20 ML PO ×2 (05:01→21:21)
[2018-08-30 06:14] LABS: Absolute Lymphocyte Count 0.64 X10^3/ul (0.83-4.51); Absolute Neutrophil Count 16.4 X10^3/uL (2.0-7.7); Hematocrit 36.1 % (37-47); Hemoglobin 11.5 g/dl (12.0-15.0); Lymphocyte # 0.64 X10^3/ul (4.0); Lymphocyte % 3.6 % (19-41); Mean Corp Hgb Conc 31.9 g/gl (32-36); Mean Corpuscular Hgb 26.3 pg (27.0-32.0); Mean Corpuscular Volume 82.6 fL (81-99); Mean Platelet Vol. 10.3 fl (6.2-12.0); Monocyte% 4.5 % (0-10); Neutrophil # 16.42 X10^3/uL (2.7-7.7); Neutrophil % 91.7 % (47-70); Platelet Count 306 K/mm3 (150-450); RBC Distribution Width CV 14.6 % (11.6-14.6); RBC Distribution Width SD 43.5 fl (35.1-43.9); Red Blood Count 4.37 M/mm3 (4.2-5.4); White Blood Count 17.9 K/mm3 (4.4-11.0)
[2018-08-30 06:21] LABS: POSITIVE COUNT NO; POSITIVE DIFFERENTIAL NO; POSITIVE MORPHOLOGY NO
[2018-08-30 06:33] LABS: Anion Gap 6 (5-15); BUN 10 mg/dL (7-18); BUN/Creat Ratio 16.9 RATIO (10-20); Calcium,Total 8.6 mg/dL (8.5-10.1); Chloride 108 mmol/L (98-107); Creatinine, Serum 0.59 mg/dL (0.55-1.02); EST Glomerular Filtration Rate 106 mL/min (>60); Est Glom Filt Rate - Afr Amer 128 mL/min (>60); Estimated Creatinine Clearance 42.68 ml/min; Glucose 177 mg/dL (74-106); Magnesium 2.2 mg/dL (1.6-2.6); Potassium 3.4 mmol/L (3.5-5.1); Sodium Level 139 mmol/L (136-145)
[2018-08-30] MEDS: Aspirin 81 MG TAB.CHEW PO (07:44)
--- NOTE | 2018-08-30 08:42 | PCM.PN.HOSP ---
Subjective: Patient is a 72-year-old lady who presented with progressive shortness of breath assessment of COPD exacerbation precipitated by community-acquired pneumonia made admitted to regular nursing floor for further management. Patient seen as of the morning of 08/30/2018 still has significant bronchospasm and persistent cough consult placed to pulmonary medicine as a result Objective: GENERAL: cooperative HEENT: Atraumatic; moist oral mucosa EYES; Anicteric, Normal Conjunctiva NECK; supple, normal thyroid, no distended JVD. RESPIRATORY: Diminished to auscultation bilaterally, with occasional wheezes CARDIOVASCULAR: Regular S1 S2, no audible murmurs GI: soft, non-tender, normoactive bowel sounds, : No Renal angle tenderness; EXTREMITIES: No edema, no clubbing, no cyanosis. MUSCULOSKELETAL: No Joint Tenderness; no muscle waisting NEURO: Awake; no lateralizing signs. SKIN: Bruising left flank; blisters low mid back PSYCH; Normal affect Vitals/I&O's: Vital Signs Temp Pulse Resp BP Pulse Ox 98.3 F 95 22 H 124/56 H 97 08/30/18 06:23 08/30/18 06:23 08/30/18 06:23 08/30/18 06:23 08/30/18 06:23 Oxygen Flow Rate (L/min) 2 Oxygen Delivery Method Nasal Cannula Weight: 84.935 kg Body Mass Index (BMI) 33.1 Intake and Output for Last 24 Hours 08/28/18 08/29/18 08/30/18 23:59 23:59 23:59 Intake Total 1313 / 1313 2325 / 2325 Output Total 1750 / 1750 1800 / 1800 Balance -437 / -437 525 / 525 Microbiology Past 72 Hours 08/29/18 10:42 Sputum, Expectorated/Coughed Gram Stain - Final 08/29/18 11:15 Urine, Clean Catch Streptococcus pneumoniae Antigen (M - Final 08/29/18 11:15 Urine, Clean Catch Legionella Antigen - Final 08/29/18 08:10 Mucosa - Nose Influenza Types A,B Direct FA (JUVENTINO) - Final Laboratory Results 08/29/18 08:10: Total Counted Not Reportable, Differential Comment COMMENT, Diff Path Review September08/29/18 08:10: Lactic Acid 1.1 08/29/18 11:15: Urine Color Straw, Urine Clarity Clear, Urine pH 6.5, Ur Specific [place] 1.005, Urine Protein Negative, Urine Glucose (UA) Normal, Urine Ketones 15 H, Urine Occult Blood Negative, Urine Nitrite Negative, Urine Bilirubin Negative, Urine Urobilinogen Normal, Ur Leukocyte Esterase Negative 08/30/18 05:18: Sodium 139, Potassium 3.4 L, Chloride 108 H, Carbon Dioxide 25.0, Anion Gap 6, BUN 10, Creatinine 0.59, Estim Creat Clear Calc 42.68, Est GFR (MDRD) Af Amer 128, Est GFR (MDRD) Non-Af 106, BUN/Creatinine Ratio 16.9, Glucose 177 H, Calcium 8.6, Magnesium 2.2 08/30/18 05:18: WBC 17.9 H, RBC 4.37, Hgb 11.5 L, Hct 36.1 L, MCV 82.6, MCH 26.3 L, MCHC 31.9 L, RDW 14.6, RDW Differential 43.5, Plt Count 306, MPV 10.3, Immature Gran % (Auto) 0.200, Neut % (Auto) 91.7 H, Lymph % (Auto) 3.6 L, [place] % (Auto) 4.5, Eos % (Auto) 0.0, Baso % (Auto) 0.0, Absolute Neuts (auto) 16.4 H, Absolute Lymphs (auto) 0.64 L, Total Counted Not Reportable Current Medications Acetaminophen (Tylenol) 650 mg PO Q4H PRN PRN PRN Reason: FEVER Acetaminophen (Tylenol) 650 mg PO Q6H PRN PRN PRN Reason: Mild Pain (scale 0-3)/T>100.7 Albuterol Sulfate (Ventolin Aerosols) 2.5 mg INHALATION Q2H PRN PRN PRN Reason: SHORTNESS OF BREATH Last Admin: 08/30/18 06:59 Dose: 2.5 mg Albuterol/Ipratropium (Duoneb) [address] [facility] Last Admin: 08/30/18 00:29 Dose: 3 ml Aspirin (Aspirin, Baby) 81 mg PO DAILY@0800 [facility] Last Admin: 08/30/18 07:44 Dose: 81 mg Benzonatate (Tessalon Perle) 100 mg PO TID PRN PRN Reason: cough Cholecalciferol (Vitamin D) 2,[address] [facility] Dextrose (D50w Syringe) 0 gm IV X1 PRN; Protocol PRN Reason: Hypoglycemia Diphenhydramine HCl (Benadryl) 25 - 50 mg PO QHS PRN PRN PRN Reason: SLEEP Last Admin: 08/30/18 00:13 Dose: 25 mg Enoxaparin Sodium (Lovenox) 40 mg SC DAILY@1000 NISHANT Last Admin: 08/29/18 11:28 Dose: 40 mg Fluoxetine HCl (Prozac) [address] [facility] Glucagon () 1 mg IM .X1 PRN PRN Reason: Hypoglycemia Guaifenesin (Mucinex) 1,[address] [facility] Last Admin: 08/29/18 21:26 Dose: 1,200 mg Guaifenesin (Robitussin) 20 ml PO Q4H PRN PRN PRN Reason: COUGH Last Admin: 08/30/18 05:01 Dose: 20 ml Ceftriaxone Sodium (Rocephin) 1 gm in 50 mls @ 100 mls/hr IV Q24 [facility] Azithromycin 500 mg/ Dextrose 255 mls @ 250 mls/hr IV Q24 [facility] Stop: 09/01/18 11:02 Potassium Chloride/Dextrose/Sod Cl (Kcl 20meq In D5.45ns 1000ml) 1,000 mls @ 100 mls/hr IV .Q10H [facility] Last Admin: 08/30/18 06:25 Dose: 100 mls/hr Melatonin (Melatonin) 3 mg PO QHS PRN PRN PRN Reason: INSOMNIA Methylprednisolone (Solu-Medrol) [address] [facility] Last Admin: 08/30/18 05:01 Dose: 40 mg Metoprolol Tartrate (Lopressor (Beta Suad)) [address] [facility] Nortriptyline HCl (Pamelor) [address] [facility] Last Admin: 08/29/18 21:29 Dose: 50 mg Oxycodone HCl (Oxyir) 5 mg PO Q4H PRN PRN PRN Reason: Moderate Pain (pain scale 4-5) Promethazine HCl (Phenergan) 25 mg IM Q6H PRN PRN PRN Reason: Breakthrough nausea/vomiting Senna/Docusate Sodium (Senokot-S, Mandy-Colace) 2 tablet PO BID PRN PRN PRN Reason: Constipation Sodium Chloride () 5 - 15 ml IV UD PRN PRN Reason: SALINE FLUSH Throat Lozenges (Cepacol Sore Throat Lozenge) 1 lozenge MUCOUS MEM Q2H PRN PRN PRN Reason: Sore throat or cough Medical Necessity - Tobacco Use Smoking Status: Former smoker Assessment/Plan All Active Problems (Last Reviewed 08/29/18 @ 10:40 by Valente Castro MD) Hypersomnia (Acute) Pneumonia (Acute) History of tonsillectomy and adenoidectomy (Resolved) H/O laminectomy (Resolved) Hx of cataract surgery (Resolved) History of bone graft (Resolved) (Resolved) H/O tubal ligation (Resolved) acute viral bronchitis secondary to influenza A (Acute) Acute respiratory failure with hypoxia (Acute) Bronchitis (Resolved) Influenza A (Resolved) Patient is a 72-year-old lady who presented with progressive shortness of breath 1. Community-acquired pneumonia possibly secondary to streptococcal pneumonia. Patient has been admitted to regular nursing floor antibiotics initiated per protocol with (Rocephin as well as azithromycin). Cultures were sent from the emergency department patient was also placed on aerosol treatment and oxygen titrated to keep oxygen saturation greater than 90 2. COPD with acute exacerbation precipitated by above. Management as discussed above in addition to patient being placed on systemic steroids. With patient still remaining bronchospastic consultation was placed to pulmonary medicine?Dr. Castillo 3. Obstructive sleep apnea 4. Hypertension-blood pressure controlled, home medications continued with dose adjustment as needed 5. Depression patient is on both nortriptyline as well as SSRI 6. DVT prophylaxis SC Lovenox Code Visit Inpatient E&M: 52572 [facility] Hosp L3
[2018-08-30] MEDS: FLUoxetine 20 MG Capsule PO (09:31)
[2018-08-30] MEDS: Metoprolol Tartrate 25 MG Tablet PO (09:31)
[2018-08-30] MEDS: Enoxaparin 40 MG/0.4 ML Syringe SC (09:35)
[2018-08-30] MEDS: Ceftriaxone 1 GM/50 ML BAG IV (09:35)
--- NOTE | 2018-08-30 09:47 | PCM.CONS.PUL ---
Reason for Consult Date of Consultation: 08/30/18 Reason for Consultation: COPD exacerbation History of Present Illness: The patient is a 72-year-old female, with a history as outlined below, who presented to the emergency department on August 29 with complaints of shortness of breath and a cough which has been productive of sputum. The patient is currently followed in the pulmonary medicine clinic by Dr. Parra and was last seen on August 22. Her last pulmonary function studies completed in December 2017 revealed evidence of a severe mixed ventilatory defect. She is currently on a triple therapy inhaler regimen with daily Trelegy. In addition to the aforementioned, the patient does have a known history of obstructive sleep apnea, for which she is currently prescribed nocturnal CPAP therapy with a pressure support of 9 cm of water. On presentation to the emergency department, the patient was noted to be afebrile and hemodynamically stable. She was initially documented to be saturating 97% on room air. Laboratory evaluation revealed elevated white blood cell count to 20,000. Chemistry profile revealed a potassium of 3.1. Lactate was within normal limits. Troponin was negative. Plain film chest x-ray revealed blunting of the left costophrenic angle with concerns for potential early infiltrate versus atelectasis. The patient was subsequently placed on antibiotics and admitted to the medical surgical floor. Past Medical History Past Medical History (Chronic Problems): Chronic Problems (Last Reviewed 08/29/18 @ 10:40 by Valente Castro MD) Obesity (BMI 30-39.9) (Chronic) SHAZIA (obstructive sleep apnea) (Chronic) CPAP 9 cm of water Stage 2 moderate COPD by GOLD classification (Chronic) 07/2017, FEV1 57% Osteoarthritis (Chronic) Diverticulitis (Chronic) Depression (Chronic) Medical History: Medical History (Last Reviewed 08/29/18 @ 10:40 by Valente Castro MD) Osteoarthritis (Chronic) M19.90 Diverticulitis (Chronic) K57.92 Depression (Chronic) F32.9 Pneumonia (Acute) J18.9 acute viral bronchitis secondary to influenza A (Acute) Acute respiratory failure with hypoxia (Acute) J96.01 COPD (chronic obstructive pulmonary disease) with chronic bronchitis (Suspected) J44.9 Bronchitis (Resolved) J40 Influenza A (Resolved) J10.1 Hypertension (Inactive) I10 Allergies latex Adverse Reaction (Verified 08/29/18 10:48) Other Home Medications: Ambulatory Orders Medication Instructions Recorded Aspirin [Aspirin, Baby] 81 mg PO DAILY@0800 05/18/17 Cholecalciferol (Vitamin D3) 2,000 unit PO DAILY 05/18/17 [D3-2000] Fluoxetine [Prozac] 20 mg PO DAILY 05/18/17 Metoprolol Tartrate 25 mg PO DAILY 05/18/17 benzonatate 100 mg capsule 100 mg PO TID PRN #30 cap 05/10/18 nortriptyline 50 mg capsule 50 mg PO QHS 08/22/18 Fluticasone/Umeclidin/Vilanter 1 inh INHALATION DAILY 08/29/18 [Trelegy Ellipta 100-62.5-25] Guaifenesin [Guaifenesin ER] 1,200 mg PO Q12H 08/29/18 Surgical History: Surgical History (Last Reviewed 08/29/18 @ 10:40 by Valente Castro MD) History of tonsillectomy and adenoidectomy (Resolved) Z98.890 H/O laminectomy (Resolved) Z98.890 Hx of cataract surgery (Resolved) Z98.49 History of bone graft (Resolved) Z98.890 (Resolved) H/O tubal ligation (Resolved) Z98.51 Smoking Status: Former smoker - *Family History Sibling Family History: Family History (Last Reviewed 08/29/18 @ 10:40 by Valente Castro MD) Father Hypertension Mother Cancer History Items: Cancer Review of Systems Constitutional: Reports: Malaise. Denies: Chills, Fever Eyes: Denies: Blurred vision, Double vision HEENT: Denies: Head Aches, Sinus Congestion, Sinus Drainage Cardiovascular: Reports: Chest Tightness. Denies: Chest Pain, Palpitations Respiratory: Reports: Cough, Shortness of Breath, Sputum production, Wheezing Gastrointestinal: Denies: Abdominal Pain, Nausea, Vomiting Genitourinary: Denies: Dysuria Musculoskeletal: Denies: Joint Pain, Joint Tenderness Skin: Denies: Rash, Wounds Neurological: Denies: Numbness, Tingling, Focal weakness Psychiatric: Denies: Anxiety, Depression, Homicidal Ideations, Suicidal Ideations Hematologic/ Lymphatic: Denies: Easy Bruising, Easy Bleeding Objective: The patient's most recent lab work, culture data and imaging studies have all been personally reviewed. Respiratory viral panel is pending. Strep and urine Legionella antigens were both negative. Blood cultures have shown no growth to date. Sputum Gram stain revealed 4+ gram-positive cocci. - Physical Exam General: Alert, Cooperative, No apparent distress HEENT: Atraumatic, PERRLA, Normocephalic Oral: No Gingival or Mucosal Lesions/ Ulcerations Neck: Supple, No Nodes, Trachea Midline Lungs: Diminished, - - Diffuse bilateral expiratory wheezes Cardiovascular: Regular rate, Regular Rhythm, Normal S1, Normal S2, No murmurs Abdomen: Bowel Sounds Present, Soft, Non Tender, Obese Extremities: No clubbing, No cyanosis, No edema Skin: No breakdown Musculoskeletal: No Tenderness to Palpation of Joints or Extremities, No Muscle Wasting Lymphatic: No Cervical, Supraclavicular, or Inguinal Adenopathy Neurological: Cranial nerves II-XII grossly intact, Neuro grossly intact Psych/Mental Status: Alert and oriented to time, place, person, mood and affect Vital Signs Temp Pulse Resp BP Pulse Ox 36.8 C 96 18 139/62 H 94 08/30/18 09:28 08/30/18 09:31 08/30/18 09:28 08/30/18 09:28 08/30/18 09:28 Oxygen Flow Rate (L/min) 2 Oxygen Delivery Method Nasal Cannula Weight: 187 lb 4 oz Body Mass Index (BMI) 33.1 Intake and Output for Last 24 Hours 08/28/18 08/29/18 08/30/18 23:59 23:59 23:59 Intake Total 1313 / 1313 2325 / 2325 Output Total 1750 / 1750 1800 / 1800 Balance -437 / -437 525 / 525 Microbiology Past 72 Hours 08/29/18 10:42 Gram Stain - Final Sputum, Expectorated/Coughed 08/29/18 11:15 Streptococcus pneumoniae Antigen (M - Final Urine, Clean Catch 08/29/18 11:15 Legionella Antigen - Final Urine, Clean Catch 08/29/18 08:10 Influenza Types A,B Direct FA (JUVENTINO) - Final Mucosa - Nose Laboratory Tests Past 24 Hrs 08/29/18 08/30/18 08/30/18 11:15 05:18 05:18 WBC 17.9 H RBC 4.37 Hgb 11.5 L Hct 36.1 L MCV 82.6 MCH 26.3 L MCHC 31.9 L RDW 14.6 RDW Differential 43.5 Plt Count 306 MPV 10.3 Immature Gran % (Auto) 0.200 Neut % (Auto) 91.7 H Lymph % (Auto) 3.6 L Edgar % (Auto) 4.5 Eos % (Auto) 0.0 Baso % (Auto) 0.0 Absolute Neuts (auto) 16.4 H Absolute Lymphs (auto) 0.64 L Total Counted Not Reportable Sodium 139 Potassium 3.4 L Chloride 108 H Carbon Dioxide 25.0 Anion Gap 6 BUN 10 Creatinine 0.59 Estim Creat Clear Calc 42.68 Est GFR (MDRD) Af Amer 128 Est GFR (MDRD) Non-Af 106 BUN/Creatinine Ratio 16.9 Glucose 177 H Calcium 8.6 Magnesium 2.2 Urine Color Straw Urine Clarity Clear Urine pH 6.5 Ur Specific [place] 1.005 Urine Protein Negative Urine Glucose (UA) Normal Urine Ketones 15 H Urine Occult Blood Negative Urine Nitrite Negative Urine Bilirubin Negative Urine Urobilinogen Normal Ur Leukocyte Esterase Negative Clinical Impression(s) from Imaging Studies Ribs w/Chest X-Ray 08/29/18 08:35 IMPRESSION: RIBS: Normal x-ray examination of the ribs. CHEST: Atelectasis and/or early infiltrate at the left lung base with blunting of left costophrenic angle. Electronically Signed: Phillip Moran, at 9:01 EDT , Service support , Assessment/Plan All Active Problems (Last Reviewed 08/29/18 @ 10:40 by Valente Castro MD) Hypersomnia (Acute) Pneumonia (Acute) History of tonsillectomy and adenoidectomy (Resolved) H/O laminectomy (Resolved) Hx of cataract surgery (Resolved) History of bone graft (Resolved) (Resolved) H/O tubal ligation (Resolved) acute viral bronchitis secondary to influenza A (Acute) Acute respiratory failure with hypoxia (Acute) Bronchitis (Resolved) Influenza A (Resolved) RECOMMENDATIONS: 1. Check MRSA panel, given gram-positive cocci noted on sputum Gram stain. 2. Continue antimicrobials. 3. Continue scheduled bronchodilators and IV steroids. 4. Wean supplemental oxygen as tolerated. 5. Continue nocturnal Pap therapy. IMPRESSIONS: 1. Acute hypoxemic respiratory insufficiency with concern for COPD exacerbation due to community-acquired pneumonia The patient presented with decompensation in her baseline respiratory status with radiographic evidence concerning for underlying infiltrate. The patient is producing sputum and is diffusely wheezy on exam. Agree with continuing antibiotics, along with bronchodilators and IV steroids for now. We will plan to check an MRSA screen, given that the patient's sputum Gram stain revealed 4+ gram-positive cocci. Respiratory viral panel is currently pending. Wean supplemental oxygen as tolerated to maintain saturations at or above 90%. Encourage incentive spirometer use. 2. Obstructive sleep apnea Continue nocturnal Pap therapy, per home regimen. 3. Hypokalemia Potassium repletion as ordered. This note was generated with [employer] dictation software. It may contain incorrect words, spelling, and punctuation that were not noted in checking the note before signing. Code Visit Inpatient E&M: 58961 Init Hosp L3
--- NOTE | 2018-08-30 10:27 | CASEMGMT ---
RN CM Assessment Presentation: Pneumonia, shortness of breath Intro role of CM and purpose of RN CM assessment. Demographics, PCP and Pharmacy verified. PCP: Dr. Gaston Lopez Specialists: Dr. Castillo Preferred Pharmacy: [facility] Pharmacy, [place], [place] Insurance: [facility] Prescription Benefit: yes LNOK: Living Arrangements: One story home, one step into home. Transportation: Drives DME: CPAP, Home oxygen through [facility] including concentrator, portable tanks. Pt stated that @ last appointment with Elma, pulmonary VESSEL SLAG WORKER, oxygen @ home was dc'd. Pt called to tell them not to grape picker yet as she was going to hospital. - call to [facility]. Verified that they did receive DC order. Per rep, if oxygen is required on discharge, pt will need new script, testing and physician note. -Pt with hx of falls. Discussed ambulatory device for stability. Pt is very resistant, states she feels it makes her feel her age. Pt does have friend who has offered her a rollator. encouraged pt to try this. HHC: none Patient DC goals:Home DC PLAN: Anticipate home. will need Home oxygen testing prior to dc and new script/documentation faxed to [facility] if home O2 is needed. Vaughn SALAZAR RN ACM
[2018-08-30] MEDS: guaiFENesin 1,200 MG Tablet 1200 MG PO ×2 (10:43→21:57)
[2018-08-30 12:31] LABS: Pathologist Review Reviewed
--- NOTE | 2018-08-30 14:10 | CASEMGMT ---
Social Work MS2 Reason for referral: advanced directives Referral source: MARCIANO Mckeon Date of referral: 08-30-2018 Date of intervention: 08-30-2018 Summary: Met with patient in room. Introduced to self, role, and reason for visit. When topic of advanced directives broached, the pateint reports should complete advanced directives and wishes to do so today. 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 Reviewed with patient the differences between power or core worker for health care and Living Will, what each means and allowed patient time to talk about wishes for future health care decision making. At the onset of discussion patient adamant that wanted daughters to be first in line for power of core worker, as both daughters are RN's. As the forms were being filling out the patient then started to reflect and become concerned that patient's could take issue with patient's decision regarding order of the [facility] designation. Additionally, both daughters live out of state. This senior medical writer encouraged patient, even before comment made by patient about order of designation, regarding having conversations with family members to ensure that family members are willing to follow patient's wishes. Discussed with patient that advanced directive completion is an important decision, and a good idea to talk to family members. Family member's identified as potential agents on advanced directives are: 1. Daughter, Lori Riley, [address] [place], [address]; [phone] 2. Daughter, Anh Nino, [address] [place] [address]; [phone] 3. (3rd marriage), Umesh Telles, [address] [place] [address]; [phone] Left patient blank advanced directives, questions and answer booklet, and Social Service Rack card with more information on advanced directives and number to call should patient want to complete as an outpatient. Left this senior medical writer's contact information in patient's room should patient make the decision to complete while in the hospital. Plan: Patient has been given advanced directive information, as well as case management social worker's contact information should patient decide to complete while still a patient, or even once discharged. -BELINDA Mckeon, RESTAURANT GENERAL MANAGER
[2018-08-30 14:41] LABS: M R Staph aureus DNA By PCR Negative (Negative); Probe Check PASS; Specimen Processing Control PASS
[2018-08-30] MEDS: 0.9% NaCl Peripheral Flush Adult/Peds IV (16:23)
[2018-08-30] MEDS: BENZOCAINE/MENTHOL 1 LOZENGE MUCOUS MEM (21:21)
[2018-08-30] MEDS: LORazepam 0.5 MG Tablet PO (21:57)
[2018-08-30] MEDS: Nortriptyline 25 MG Capsule 50 MG PO (21:57)
[2018-08-31] VITALS (9 sets, daily range): BP systolic 120–151; BP diastolic 62–78; PULSE 81–105; RESP 18–22; TEMP 35.9–36.6; O2SAT 91–96
[2018-08-31] MEDS: Albuterol 2.5 MG/3 ML VIAL.NEB. INHALATION ×4 (02:39→19:56)
[2018-08-31] MEDS: guaiFENesin 10 ML UDC (200MG/10ML) 20 ML PO ×2 (06:04→23:03)
[2018-08-31 06:25] LABS: Absolute Lymphocyte Count 0.59 X10^3/ul (0.83-4.51); Hematocrit 36.1 % (37-47); Hemoglobin 11.4 g/dl (12.0-15.0); Lymphocyte # 0.59 X10^3/ul (4.0); Lymphocyte % 3.1 % (19-41); Mean Corp Hgb Conc 31.6 g/gl (32-36); Mean Corpuscular Hgb 26.3 pg (27.0-32.0); Mean Corpuscular Volume 83.4 fL (81-99); Mean Platelet Vol. 10.3 fl (6.2-12.0); Monocyte# 1.13 X10^3/uL; Neutrophil # 17.01 X10^3/uL (2.7-7.7); Neutrophil % 90.4 % (47-70); Platelet Count 349 K/mm3 (150-450); RBC Distribution Width CV 14.8 % (11.6-14.6); RBC Distribution Width SD 44.7 fl (35.1-43.9); Red Blood Count 4.33 M/mm3 (4.2-5.4); White Blood Count 18.8 K/mm3 (4.4-11.0)
[2018-08-31 06:31] LABS: Anion Gap 8 (5-15); BUN 12 mg/dL (7-18); BUN/Creat Ratio 21.4 RATIO (10-20); Calcium,Total 8.8 mg/dL (8.5-10.1); Chloride 107 mmol/L (98-107); Creatinine, Serum 0.56 mg/dL (0.55-1.02); Differential Indicated SCAN CRITERIA MET; EST Glomerular Filtration Rate 113 mL/min (>60); Est Glom Filt Rate - Afr Amer 137 mL/min (>60); Estimated Creatinine Clearance 42.68 ml/min; Glucose 155 mg/dL (74-106); POSITIVE COUNT NO; POSITIVE DIFFERENTIAL YES; POSITIVE MORPHOLOGY NO; Sodium Level 141 mmol/L (136-145)
--- NOTE | 2018-08-31 07:42 | PCM.PN.HOSP ---
Subjective: Seen still remains significantly dyspneic with minimal activity. Physical examination did demonstrate significant wheezes. Consultation was placed to pulmonary medicine case was discussed with Dr. Castillo. Patient switch from IV site Medrol to prednisone. Objective: GENERAL: cooperative HEENT: Atraumatic; moist oral mucosa EYES; Anicteric, Normal Conjunctiva NECK; supple, normal thyroid, no distended JVD. RESPIRATORY: Diminished to auscultation bilaterally, with occasional wheezes CARDIOVASCULAR: Regular S1 S2, no audible murmurs GI: soft, non-tender, normoactive bowel sounds, : No Renal angle tenderness; EXTREMITIES: No edema, no clubbing, no cyanosis. MUSCULOSKELETAL: No Joint Tenderness; no muscle waisting NEURO: Awake; no lateralizing signs. SKIN: Bruising left flank; blisters low mid back PSYCH; Normal affect Vitals/I&O's: Vital Signs Temp Pulse Resp BP Pulse Ox 97.6 F L 95 18 140/72 H 94 08/31/18 02:10 08/31/18 02:38 08/31/18 02:38 08/31/18 02:10 08/31/18 02:10 Oxygen Flow Rate (L/min) 2 Oxygen Delivery Method Nasal Cannula Weight: 84.935 kg Body Mass Index (BMI) 33.1 Intake and Output for Last 24 Hours 08/29/18 08/30/18 08/31/18 23:59 23:59 23:59 Intake Total 1313 / 1313 4565 / 4565 1725 / 1725 Output Total 1750 / 1750 3200 / 3200 1000 / 1000 Balance -437 / -437 1365 / 1365 725 / 725 Microbiology Past 72 Hours 08/29/18 13:25 Mucosa - Nose Respiratory Panel (PCR) - Final 08/29/18 10:42 Sputum, Expectorated/Coughed Gram Stain - Final 08/29/18 10:42 Sputum, Expectorated/Coughed Respiratory Culture - Preliminary Appears to be normal respiratory anamaria. Further studies to follow. 08/29/18 11:15 Urine, Clean Catch Streptococcus pneumoniae Antigen (M - Final 08/29/18 11:15 Urine, Clean Catch Legionella Antigen - Final 08/29/18 08:10 Mucosa - Nose Influenza Types A,B Direct FA (JUVENTINO) - Final Laboratory Results 08/29/18 08:10: Diff Path Review Reviewed 08/30/18 10:40: MRSA (PCR) Negative 08/31/18 05:38: Sodium 141, Potassium 4.0, Chloride 107, Carbon Dioxide 26.0, Anion Gap 8, BUN 12, Creatinine 0.56, Estim Creat Clear Calc 42.68, Est GFR (MDRD) Af Amer 137, Est GFR (MDRD) Non-Af 113, BUN/Creatinine Ratio 21.4 H, Glucose 155 H, Calcium 8.8 08/31/18 05:38: WBC 18.8 H, RBC 4.33, Hgb 11.4 L, Hct 36.1 L, MCV 83.4, MCH 26.3 L, MCHC 31.6 L, RDW 14.8 H, RDW Differential 44.7 H, Plt Count 349, MPV 10.3, Immature Gran % (Auto) 0.500, Neut % (Auto) 90.4 H, Lymph % (Auto) 3.1 L, [place] % (Auto) 6.0, Eos % (Auto) 0.0, Baso % (Auto) 0.0, Absolute Neuts (auto) 17.0 H, Absolute Lymphs (auto) 0.59 L, Total Counted Not Reportable Current Medications Acetaminophen (Tylenol) 650 mg PO Q4H PRN PRN PRN Reason: FEVER Acetaminophen (Tylenol) 650 mg PO Q6H PRN PRN PRN Reason: Mild Pain (scale 0-3)/T>100.7 Albuterol Sulfate (Ventolin Aerosols) 2.5 mg INHALATION Q2H PRN PRN PRN Reason: SHORTNESS OF BREATH Last Admin: 08/31/18 02:39 Dose: 2.5 mg Albuterol Sulfate (Ventolin Aerosols) 2.5 mg INHALATION Q6H.RT [facility] Last Admin: 08/31/18 07:04 Dose: 2.5 mg Aspirin (Aspirin, Baby) 81 mg PO DAILY@0800 [facility] Last Admin: 08/30/18 07:44 Dose: 81 mg Benzonatate (Tessalon Perle) 100 mg PO TID PRN PRN Reason: cough Cholecalciferol (Vitamin D) 2,000 unit PO DAILY [facility] Last Admin: 08/30/18 09:31 Dose: 2,000 unit Dextrose (D50w Syringe) 0 gm IV X1 PRN; Protocol PRN Reason: Hypoglycemia Diphenhydramine HCl (Benadryl) 25 - 50 mg PO QHS PRN PRN PRN Reason: SLEEP Last Admin: 08/30/18 21:56 Dose: 25 mg Enoxaparin Sodium (Lovenox) 40 mg SC DAILY@1000 [facility] Last Admin: 08/30/18 09:35 Dose: 40 mg Fluoxetine HCl (Prozac) 20 mg PO DAILY [facility] Last Admin: 08/30/18 09:31 Dose: 20 mg Glucagon () 1 mg IM .X1 PRN PRN Reason: Hypoglycemia Guaifenesin (Mucinex) 1,200 mg PO BID [facility] Last Admin: 08/30/18 21:57 Dose: 1,200 mg Guaifenesin (Robitussin) 20 ml PO Q4H PRN PRN PRN Reason: COUGH Last Admin: 08/31/18 06:04 Dose: 20 ml Ceftriaxone Sodium (Rocephin) 1 gm in 50 mls @ 100 mls/hr IV Q24 [facility] Last Admin: 08/30/18 09:35 Dose: 100 mls/hr Azithromycin 500 mg/ Dextrose 255 mls @ 250 mls/hr IV Q24 [facility] Stop: 09/01/18 11:02 Last Admin: 08/30/18 10:43 Dose: 250 mls/hr Potassium Chloride/Dextrose/Sod Cl (Kcl 20meq In D5.45ns 1000ml) 1,000 mls @ 100 mls/hr IV .Q10H [facility] Last Admin: 08/31/18 04:32 Dose: 100 mls/hr Melatonin (Melatonin) 3 mg PO QHS PRN PRN PRN Reason: INSOMNIA Methylprednisolone (Solu-Medrol) 40 mg IV Q8 [facility] Last Admin: 08/31/18 05:39 Dose: 40 mg Metoprolol Tartrate (Lopressor (Beta Suad)) 25 mg PO DAILY [facility] Last Admin: 08/30/18 09:31 Dose: 25 mg Nortriptyline HCl (Pamelor) 50 mg PO QHS [facility] Last Admin: 08/30/18 21:57 Dose: 50 mg Oxycodone HCl (Oxyir) 5 mg PO Q4H PRN PRN PRN Reason: Moderate Pain (pain scale 4-5) Promethazine HCl (Phenergan) 25 mg IM Q6H PRN PRN PRN Reason: Breakthrough nausea/vomiting Senna/Docusate Sodium (Senokot-S, Mandy-Colace) 2 tablet PO BID PRN PRN PRN Reason: Constipation Sodium Chloride () 5 - 15 ml IV UD PRN PRN Reason: SALINE FLUSH Last Admin: 08/30/18 16:23 Dose: 10 ml Throat Lozenges (Cepacol Sore Throat Lozenge) 1 lozenge MUCOUS MEM Q2H PRN PRN PRN Reason: Sore throat or cough Last Admin: 08/30/18 21:21 Dose: 1 lozenge Medical Necessity - Tobacco Use Smoking Status: Former smoker Assessment/Plan All Active Problems (Last Reviewed 08/29/18 @ 10:40 by Valente Castro MD) Hypersomnia (Acute) Pneumonia (Acute) History of tonsillectomy and adenoidectomy (Resolved) H/O laminectomy (Resolved) Hx of cataract surgery (Resolved) History of bone graft (Resolved) (Resolved) H/O tubal ligation (Resolved) acute viral bronchitis secondary to influenza A (Acute) Acute respiratory failure with hypoxia (Acute) Bronchitis (Resolved) Influenza A (Resolved) Patient is a 72-year-old lady who presented with progressive shortness of breath 1. Community-acquired pneumonia possibly secondary to streptococcal pneumonia. Patient has been admitted to regular nursing floor antibiotics initiated per protocol with (Rocephin as well as azithromycin). Cultures were sent from the emergency department patient was also placed on aerosol treatment and oxygen titrated to keep oxygen saturation greater than 90 patient progress is rather been slow. A requisition was placed for patient to be assessed for home oxygen 2. COPD with acute exacerbation precipitated by above. Management as discussed above in addition to patient being placed on systemic steroids. With patient still remaining bronchospastic consultation was placed to pulmonary medicine?Dr. Castillo case was discussed with team on 08/31/18 3. Obstructive sleep apnea 4. Hypertension-blood pressure controlled, home medications continued with dose adjustment as needed 5. Depression patient is on both nortriptyline as well as SSRI 6. DVT prophylaxis SC Lovenox Code Visit Inpatient E&M: 20609 [facility] Hosp L2
--- NOTE | 2018-08-31 07:49 | PCM.PN.PUL ---
Subjective: The patient was seen and examined at the bedside this morning. Events from the last 24 hours have been reviewed. The patient is currently afebrile, hemodynamically stable and maintaining appropriate oxygen saturations on 2 L/min via nasal cannula. She does report feeling significantly better this morning. Objective: The patient's most recent lab work, culture data and imaging studies have all been personally reviewed. Respiratory viral panel was negative. Strep and urine Legionella antigens were both negative. Expectorated sputum culture appears to be normal respiratory anamaria. Blood cultures have revealed no growth to date. MRSA screen was negative. - Physical Exam General: Alert, Oriented x3, Cooperative, No apparent distress HEENT: Atraumatic, PERRLA, Normocephalic Oral: Moist Mucosa, No Gingival or Mucosal Lesions/ Ulcerations Neck: Supple, No Nodes, Trachea Midline, - Lungs: - - Left basilar rales with continued bilateral wheezes Cardiovascular: Regular rate, Regular Rhythm, Normal S1, Normal S2, No murmurs Abdomen: Bowel Sounds Present, Soft, Non Tender, Obese Extremities: No clubbing, No cyanosis, No edema Skin: No breakdown Musculoskeletal: No Tenderness to Palpation of Joints or Extremities, No Muscle Wasting Lymphatic: No Cervical, Supraclavicular, or Inguinal Adenopathy Neurological: Cranial nerves II-XII grossly intact, Neuro grossly intact Psych/Mental Status: Anxious Vital Signs Temp Pulse Resp BP Pulse Ox 36.4 C L 95 18 140/72 H 94 08/31/18 02:10 08/31/18 02:38 08/31/18 02:38 08/31/18 02:10 08/31/18 02:10 Oxygen Flow Rate (L/min) 2 Oxygen Delivery Method Nasal Cannula Weight: 187 lb 4 oz Body Mass Index (BMI) 33.1 Intake and Output for Last 24 Hours 08/29/18 08/30/18 08/31/18 23:59 23:59 23:59 Intake Total 1313 / 1313 4565 / 4565 1725 / 1725 Output Total 1750 / 1750 3200 / 3200 1000 / 1000 Balance -437 / -437 1365 / 1365 725 / 725 Microbiology Past 72 Hours 08/29/18 13:25 Respiratory Panel (PCR) - Final Mucosa - Nose 08/29/18 10:42 Gram Stain - Final Sputum, Expectorated/Coughed Respiratory Culture - Preliminary Appears to be normal respiratory anamaria. Further studies to follow. 08/29/18 11:15 Streptococcus pneumoniae Antigen (M - Final Urine, Clean Catch 08/29/18 11:15 Legionella Antigen - Final Urine, Clean Catch 08/29/18 08:10 Influenza Types A,B Direct FA (JUVENTINO) - Final Mucosa - Nose Laboratory Tests Past 24 Hrs 08/29/18 08/30/18 08/31/18 08:10 10:40 05:38 WBC RBC Hgb Hct MCV MCH MCHC RDW RDW Differential Plt Count MPV Immature Gran % (Auto) Neut % (Auto) Lymph % (Auto) Harper % (Auto) Eos % (Auto) Baso % (Auto) Absolute Neuts (auto) Absolute Lymphs (auto) Total Counted Diff Path Review Reviewed Sodium 141 Potassium 4.0 Chloride 107 Carbon Dioxide 26.0 Anion Gap 8 BUN 12 Creatinine 0.56 Estim Creat Clear Calc 42.68 Est GFR (MDRD) Af Amer 137 Est GFR (MDRD) Non-Af 113 BUN/Creatinine Ratio 21.4 H Glucose 155 H Calcium 8.8 MRSA (PCR) Negative 08/31/18 05:38 WBC 18.8 H RBC 4.33 Hgb 11.4 L Hct 36.1 L MCV 83.4 MCH 26.3 L MCHC 31.6 L RDW 14.8 H RDW Differential 44.7 H Plt Count 349 MPV 10.3 Immature Gran % (Auto) 0.500 Neut % (Auto) 90.4 H Lymph % (Auto) 3.1 L Harper % (Auto) 6.0 Eos % (Auto) 0.0 Baso % (Auto) 0.0 Absolute Neuts (auto) 17.0 H Absolute Lymphs (auto) 0.59 L Total Counted Not Reportable Diff Path Review Sodium Potassium Chloride Carbon Dioxide Anion Gap BUN Creatinine Estim Creat Clear Calc Est GFR (MDRD) Af Amer Est GFR (MDRD) Non-Af BUN/Creatinine Ratio Glucose Calcium MRSA (PCR) Clinical Impression(s) from Imaging Studies Ribs w/Chest X-Ray 08/29/18 08:35 IMPRESSION: RIBS: Normal x-ray examination of the ribs. CHEST: Atelectasis and/or early infiltrate at the left lung base with blunting of left costophrenic angle. Electronically Signed: Phillip Moran, at 9:01 EDT , Service support , Medical Necessity - Tobacco Use Smoking Status: Former smoker Assessment/Plan All Active Problems (Last Reviewed 08/29/18 @ 10:40 by Valente Castro MD) Hypersomnia (Acute) Pneumonia (Acute) History of tonsillectomy and adenoidectomy (Resolved) H/O laminectomy (Resolved) Hx of cataract surgery (Resolved) History of bone graft (Resolved) (Resolved) H/O tubal ligation (Resolved) acute viral bronchitis secondary to influenza A (Acute) Acute respiratory failure with hypoxia (Acute) Bronchitis (Resolved) Influenza A (Resolved) RECOMMENDATIONS: 1. Continue scheduled bronchodilators as ordered. 2. Continue IV antibiotics yet today. Can consider transitioning to p.o. regimen tomorrow. 3. Transition from IV steroids to prednisone 40 mg daily by mouth. 4. Continue to wean supplemental oxygen as tolerated. 5. Continue nocturnal CPAP therapy. 6. Encourage incentive spirometer use and mobilize patient as tolerated. 7. Perform walking oximetry study prior to consideration for discharge. IMPRESSIONS: 1. Acute hypoxemic respiratory insufficiency with concern for COPD exacerbation due to community-acquired pneumonia The patient presented with decompensation in her baseline respiratory status with radiographic evidence concerning for underlying infiltrate. The patient is producing sputum and was noted to be diffusely wheezy on exam. Although the patient's infectious workup has been unrevealing to date, agree with continuing antibiotics, along with bronchodilators and steroids. The patient's IV steroids will be transition to prednisone. We will consider transitioning to p.o. antibiotic regimen beginning tomorrow. Continue to wean supplemental oxygen as tolerated and encourage incentive spirometer use. Perform walking oximetry study prior to consideration for discharge. The patient will require a close follow-up office visit within 2 weeks of her discharge from the hospital in the pulmonary medicine clinic. 2. Obstructive sleep apnea Continue nocturnal Pap therapy, per home regimen. This note was generated with [employer] software. It may contain incorrect words, spelling, and punctuation that were not noted in checking the note before signing. Code Visit Inpatient E&M: 50021 Subs Hosp L2
[2018-08-31] MEDS: Aspirin 81 MG TAB.CHEW PO (08:01)
[2018-08-31] MEDS: Ceftriaxone 1 GM/50 ML BAG IV (10:08)
[2018-08-31] MEDS: guaiFENesin 1,200 MG Tablet 1200 MG PO ×2 (10:12→21:28)
[2018-08-31] MEDS: Metoprolol Tartrate 25 MG Tablet PO (10:12)
[2018-08-31] MEDS: FLUoxetine 20 MG Capsule PO (10:12)
[2018-08-31] MEDS: Enoxaparin 40 MG/0.4 ML Syringe SC (10:13)
[2018-08-31] MEDS: predniSONE 20 MG Tablet 40 MG PO (12:34)
--- NOTE | 2018-08-31 15:07 | NURSING ---
Pt requesting to speak with case management-- notified MARCIANO Rollins- CM- states they saw pt 08/30 and will be able to see pt tomorrow 09/01. Pt also requesting to speak to Ed Rothman in [place]- will attempt to request for him to stop in.
[2018-08-31] MEDS: 0.9% NaCl Peripheral Flush Adult/Peds IV (21:28)
[2018-08-31] MEDS: Nortriptyline 25 MG Capsule 50 MG PO (21:28)
[2018-08-31] MEDS: DiphenhydrAMINE 25 MG Capsule PO (23:03)
[2018-09-01] MEDS: Albuterol 2.5 MG/3 ML VIAL.NEB. INHALATION ×2 (02:08→06:56)
[2018-09-01 02:09] VITALS: PULSE 90; RESP 22
[2018-09-01 02:17] VITALS: BP 158/84; PULSE 81; RESP 18; TEMP 35.9; O2SAT 95
[2018-09-01 06:29] LABS: Absolute Lymphocyte Count 1.47 X10^3/ul (0.83-4.51); Absolute Neutrophil Count 13.1 X10^3/uL (2.0-7.7); Basophil# 0.02 X10^3/uL; Basophil% 0.1 % (0-1); Hematocrit 37.8 % (37-47); Lymphocyte # 1.47 X10^3/ul (4.0); Lymphocyte % 8.9 % (19-41); Mean Corp Hgb Conc 31.7 g/gl (32-36); Mean Corpuscular Hgb 26.5 pg (27.0-32.0); Mean Corpuscular Volume 83.4 fL (81-99); Mean Platelet Vol. 10.4 fl (6.2-12.0); Monocyte# 1.89 X10^3/uL; Monocyte% 11.4 % (0-10); Neutrophil # 13.06 X10^3/uL (2.7-7.7); Neutrophil % 78.9 % (47-70); Platelet Count 414 K/mm3 (150-450); RBC Distribution Width CV 14.7 % (11.6-14.6); RBC Distribution Width SD 44.2 fl (35.1-43.9); Red Blood Count 4.53 M/mm3 (4.2-5.4); White Blood Count 16.6 K/mm3 (4.4-11.0)
[2018-09-01 06:33] LABS: Differential Indicated SCAN CRITERIA MET; POSITIVE COUNT NO; POSITIVE DIFFERENTIAL YES; POSITIVE MORPHOLOGY NO
--- NOTE | 2018-09-01 06:43 | PCM.PN.PUL ---
Subjective: The patient was seen and examined at the bedside this morning. Events from the last 24 hours have been reviewed. The patient is currently afebrile, hemodynamically stable and maintaining appropriate oxygen saturations on room air. The patient reports improvement in her breathing quality this morning. She does report that she is anxious to be discharged home today. Objective: The patient's most recent lab work, culture data and imaging studies have all been personally reviewed. Respiratory viral panel was negative. Strep and urine Legionella antigens were both negative. Expectorated sputum culture appears to be normal respiratory anamaria. Blood cultures have revealed no growth to date. MRSA screen was negative. - Physical Exam General: Alert, Oriented x3, Cooperative, No apparent distress HEENT: Atraumatic, PERRLA, Normocephalic Oral: Moist Mucosa, No Gingival or Mucosal Lesions/ Ulcerations Neck: Supple, No Nodes, Trachea Midline Lungs: - - There is significantly improved air movement today versus yesterday. Although there is still some residual end expiratory wheezes, this is also significantly improved from previous. Cardiovascular: Regular rate, Regular Rhythm, Normal S1, Normal S2, No murmurs Abdomen: Bowel Sounds Present, Soft, Non Tender, Non-Distended, Obese Extremities: No clubbing, No cyanosis, No edema Skin: No breakdown Musculoskeletal: No Tenderness to Palpation of Joints or Extremities, No Muscle Wasting Lymphatic: No Cervical, Supraclavicular, or Inguinal Adenopathy Neurological: Cranial nerves II-XII grossly intact, Neuro grossly intact Psych/Mental Status: Alert and oriented to time, place, person, mood and affect Vital Signs Temp Pulse Resp BP Pulse Ox 35.9 C L 81 18 158/84 H 95 09/01/18 02:17 09/01/18 02:17 09/01/18 02:17 09/01/18 02:17 09/01/18 02:17 Oxygen Flow Rate (L/min) 2 Oxygen Delivery Method CPAP Weight: 187 lb 4 oz Body Mass Index (BMI) 33.1 Intake and Output for Last 24 Hours 08/30/18 08/31/18 09/01/18 23:59 23:59 23:59 Intake Total 4565 / 4565 4380 / 4380 900 / 900 Output Total 3200 / 3200 1800 / 1800 1000 / 1000 Balance 1365 / 1365 2580 / 2580 -100 / -100 Microbiology Past 72 Hours 08/29/18 10:42 Gram Stain - Final Sputum, Expectorated/Coughed Respiratory Culture - Final Mixed normal respiratory anamaria. No Streptococcus pneumoniae, beta-hemolytic Streptococcus or Staphylococcus aureus isolated. 08/29/18 08:10 Blood Culture - Preliminary Blood Culture (Wb) #2 - Anticubital Right No growth in 48 hours. 08/29/18 08:15 Blood Culture - Preliminary Blood Culture (Wb) - Left Hand No growth in 48 hours. 08/29/18 13:25 Respiratory Panel (PCR) - Final Mucosa - Nose 08/29/18 11:15 Streptococcus pneumoniae Antigen (M - Final Urine, Clean Catch 08/29/18 11:15 Legionella Antigen - Final Urine, Clean Catch 08/29/18 08:10 Influenza Types A,B Direct FA (JUVENTINO) - Final Mucosa - Nose Laboratory Tests Past 24 Hrs 08/31/18 09/01/18 09/01/18 05:38 05:35 05:35 WBC 16.6 H RBC 4.53 Hgb 12.0 Hct 37.8 MCV 83.4 MCH 26.5 L MCHC 31.7 L RDW 14.7 H RDW Differential 44.2 H Plt Count 414 MPV 10.4 Immature Gran % (Auto) 0.700 Neut % (Auto) 78.9 H Lymph % (Auto) 8.9 L Logan % (Auto) 11.4 H Eos % (Auto) 0.0 Baso % (Auto) 0.1 Absolute Neuts (auto) 13.1 H Absolute Lymphs (auto) 1.47 Total Counted Not Reportable Pending Sodium Pending Potassium Pending Chloride Pending Carbon Dioxide Pending Anion Gap Pending BUN Pending Creatinine Pending Est GFR (MDRD) Af Amer Pending Est GFR (MDRD) Non-Af Pending BUN/Creatinine Ratio Pending Glucose Pending Calcium Pending Clinical Impression(s) from Imaging Studies Ribs w/Chest X-Ray 08/29/18 08:35 IMPRESSION: RIBS: Normal x-ray examination of the ribs. CHEST: Atelectasis and/or early infiltrate at the left lung base with blunting of left costophrenic angle. Electronically Signed: Phillip Moran, at 9:01 EDT , Service support , Medical Necessity - Tobacco Use Smoking Status: Former smoker Assessment/Plan All Active Problems (Last Reviewed 08/29/18 @ 10:40 by Valente Castro MD) Hypersomnia (Acute) Pneumonia (Acute) History of tonsillectomy and adenoidectomy (Resolved) H/O laminectomy (Resolved) Hx of cataract surgery (Resolved) History of bone graft (Resolved) (Resolved) H/O tubal ligation (Resolved) acute viral bronchitis secondary to influenza A (Acute) Acute respiratory failure with hypoxia (Acute) Bronchitis (Resolved) Influenza A (Resolved) RECOMMENDATIONS: 1. Continue scheduled bronchodilators as ordered. Resume Trelegy at discharge. 2. Transition from IV antibiotics to Levaquin by mouth, with plans for 4 additional days of therapy. 3. Continue prednisone 40 mg daily by mouth. Wean prednisone by 10 mg every 3 days. 4. Continue nocturnal CPAP therapy, per home regimen. 5. Encourage incentive spirometer use and mobilize patient as tolerated. 6. Perform walking oximetry study prior to consideration for discharge. 7. Please have the patient follow-up in the pulmonary medicine clinic within 2 weeks of her discharge from the hospital. IMPRESSIONS: 1. Acute hypoxemic respiratory insufficiency with concern for COPD exacerbation due to community-acquired pneumonia Improved. The patient presented with decompensation in her baseline respiratory status with radiographic evidence concerning for underlying infiltrate. The patient was producing sputum and was noted to be diffusely wheezy on exam. Although the patient's infectious workup has been unrevealing to date, agree with continuing antibiotics, along with bronchodilators and steroids. The patient's antibiotics will be transition to Levaquin by mouth daily, with plans for 4 additional days of therapy. The patient will be continued on prednisone 40 mg daily, with plans to wean by 10 mg every 3 days at discharge. Continue to encourage incentive spirometer use and mobilize patient as tolerated. Please perform walking oximetry study prior to consideration for discharge from the hospital. The patient needs to follow-up in the pulmonary medicine clinic within 2 weeks of her discharge. 2. Obstructive sleep apnea Continue nocturnal Pap therapy, per home regimen. 3. Hypokalemia Electrolyte repletion as ordered. This note was generated with [employer] software. It may contain incorrect words, spelling, and punctuation that were not noted in checking the note before signing. Code Visit Inpatient E&M: 70122 Subs Hosp L2
[2018-09-01 06:45] LABS: Anion Gap 8 (5-15); BUN 17 mg/dL (7-18); BUN/Creat Ratio 25.3 RATIO (10-20); Calcium,Total 8.9 mg/dL (8.5-10.1); Chloride 104 mmol/L (98-107); Creatinine, Serum 0.67 mg/dL (0.55-1.02); EST Glomerular Filtration Rate 92 mL/min (>60); Est Glom Filt Rate - Afr Amer 111 mL/min (>60); Estimated Creatinine Clearance 42.68 ml/min; Glucose 87 mg/dL (74-106); Potassium 3.4 mmol/L (3.5-5.1); Sodium Level 142 mmol/L (136-145)
[2018-09-01 06:56] VITALS: PULSE 84; RESP 16; O2SAT 94
[2018-09-01] MEDS: Aspirin 81 MG TAB.CHEW PO (07:37)
[2018-09-01] MEDS: predniSONE 20 MG Tablet 40 MG PO (07:37)
[2018-09-01 07:39] VITALS: BP 146/69; PULSE 90; RESP 20; TEMP 36.8; O2SAT 93
[2018-09-01 07:40] VITALS: PULSE 90
[2018-09-01] MEDS: Metoprolol Tartrate 25 MG Tablet PO (07:40)
--- NOTE | 2018-09-01 09:41 | PCM.DC ---
You will use the following diet at home:: No restrictions Your food should be the consistency of: Regular Your liquids should be the consistency of: Regular/Thin Discharge Activity: Return to Normal Activity Weight Bearing Status: Full weight bearing Allergies/Adverse Reactions: Allergies latex Adverse Reaction (Verified 08/29/18 10:48) Other Medications to take at Discharge Aspirin [Aspirin, Baby] 81 mg PO DAILY@0800 05/18/17 Cholecalciferol (Vitamin D3) [D3-2000] 2,000 unit PO DAILY 05/18/17 Fluoxetine [Prozac] 20 mg PO DAILY 05/18/17 Metoprolol Tartrate 25 mg PO DAILY 05/18/17 benzonatate 100 mg capsule 100 mg PO TID PRN #30 cap 05/10/18 nortriptyline 50 mg capsule 50 mg PO QHS 08/22/18 Fluticasone/Umeclidin/Vilanter [Trelegy Ellipta 100-62.5-25] 1 inh INHALATION DAILY 08/29/18 Guaifenesin [Guaifenesin ER] 1,200 mg PO Q12H 08/29/18 Prednisone 20 mg PO UD #12 tablet 09/01/18 levoFLOXacin tablet [Levaquin tablet] 750 mg PO DAILY@0600 #4 tablet 09/01/18 The following prescriptions were given: levoFLOXacin tablet [Levaquin tablet] 750 mg PO DAILY@0600 #4 tablet Prednisone 20 mg PO UD #12 tablet Primary Care Physician: Angeles Chaudhry MD [STAFF PHYSICIAN] - Test Results: Test results from this visit will be discussed in further detail at your follow-up appointment, if applicable. Please Follow Up With: Chidi Parra MD When: as scheduled
--- NOTE | 2018-09-01 09:44 | DCINST_ITS ---
You will use the following diet at home:: No restrictions Your food should be the consistency of: Regular Your liquids should be the consistency of: Regular/Thin Discharge Activity: Return to Normal Activity Weight Bearing Status: Full weight bearing Allergies/Adverse Reactions: Allergies latex Adverse Reaction (Verified 08/29/18 10:48) Other Medications to take at Discharge Aspirin [Aspirin, Baby] 81 mg PO DAILY@0800 05/18/17 Cholecalciferol (Vitamin D3) [D3-2000] 2,000 unit PO DAILY 05/18/17 Fluoxetine [Prozac] 20 mg PO DAILY 05/18/17 Metoprolol Tartrate 25 mg PO DAILY 05/18/17 benzonatate 100 mg capsule 100 mg PO TID PRN #30 cap 05/10/18 nortriptyline 50 mg capsule 50 mg PO QHS 08/22/18 Fluticasone/Umeclidin/Vilanter [Trelegy Ellipta 100-62.5-25] 1 inh INHALATION DAILY 08/29/18 Guaifenesin [Guaifenesin ER] 1,200 mg PO Q12H 08/29/18 Prednisone 20 mg PO UD #12 tablet 09/01/18 levoFLOXacin tablet [Levaquin tablet] 750 mg PO DAILY@0600 #4 tablet 09/01/18 The following prescriptions were given: levoFLOXacin tablet [Levaquin tablet] 750 mg PO DAILY@0600 #4 tablet Prednisone 20 mg PO UD #12 tablet Primary Care Physician: Angeles Chaudhry MD [STAFF PHYSICIAN] - Test Results: Test results from this visit will be discussed in further detail at your follow- up appointment, if applicable. Please Follow Up With: Chidi Parra MD When: as scheduled
--- NOTE | 2018-09-01 09:49 | CASEMGMT ---
Addendum entered by Yan Mckeon 09/01/18 11:24: Call from [facility]. They will deliver rollator, but there is upcharge of approx $55.00. Pt is agreeable to pay this. Vaughn RODRIGUES Original Note: MARCIANO CM Note: Spoke with Dr. Draper and Dr. Castillo re: home oxygen. Per Dr. Castillo, pt does not need oxygen @ home and Dr. Draper spoke with pt and stated he updated her. Script for Rollator faxed to [facility] with request to bring to [facility] today. Plan is to return home on discharge with family support. Vaughn GALINDOM
[2018-09-01] MEDS: FLUoxetine 20 MG Capsule PO (09:56)
[2018-09-01] MEDS: levoFLOXacin 750 MG Tablet PO (09:56)
[2018-09-01] MEDS: guaiFENesin 1,200 MG Tablet 1200 MG PO (09:56)
[2018-09-01] MEDS: Enoxaparin 40 MG/0.4 ML Syringe SC (09:57)
--- NOTE | 2018-09-01 11:42 | CASEMGMT ---
SW assisted pt with completing LW/POA forms. SW gave pt originals and copies, copy placed on chart. BELINDA Schrader
[2018-09-01 12:15] LABS: Pathologist Review Reviewed
--- NOTE | 2018-09-01 19:37 | PCM.HOSP.N ---
Hospitalist Note Patient was seen and examined today, she appears to be stable for discharge home, she will require a wheeled walker device to stabilize her walking, I feel she is at risk for falling without this device and she is expected to use it properly and has been instructed on its use. Prescription was signed for the durable medical equipment today by myself.
--- NOTE | 2018-09-02 08:55 | PCM.DC.SUM ---
Discharge Date and Diagnosis Date of Admission: 08/29/18 Date of Discharge: 09/01/18 - Primary Discharge Diagnosis #1 Acute sepsis secondary to community-acquired pneumonia-suspected gram-positive bacterial #2 community-acquired pneumonia-felt to be gram-positive bacterial #3 acute exacerbation of COPD #4 obstructive sleep apnea #5 hypertension #6 acute hypoxic respiratory insufficiency #7 hypokalemia - Secondary Discharge Diagnosis Chronic Problems (Last Reviewed 08/29/18 @ 10:40 by Valente Castro MD) Obesity (BMI 30-39.9) (Chronic) SHAZIA (obstructive sleep apnea) (Chronic) CPAP 9 cm of water Stage 2 moderate COPD by GOLD classification (Chronic) 07/2017, FEV1 57% Osteoarthritis (Chronic) Diverticulitis (Chronic) Depression (Chronic) Hospital Course and Treatment Operations: None Procedures: None Summary of Care Provided: The patient is a 72 year old F was seen in the emergency room at [facility] with chief complaint of shortness of breath, cough, and fever. Patient has a history of chronic obstructive pulmonary disease and obstructive sleep apnea. Workup in the emergency room revealed the patient to require 4 L of supplemental oxygen, chest x-ray showed a left lower lobe infiltrate, CBC showed a leukocytosis of 20,000. Patient was given broad-spectrum antibiotics and admitted to [place] [address], she received aerosol treatments, supplemental oxygen, and seen by pulmonary medicine. Patient improved during her hospitalization and there were no untoward events. Patient was weaned off oxygen. On 09/01/18, patient was seen and examined and felt to be in stable condition for discharge home: On examination she appeared in good health and spirits. Vital signs as documented. Skin warm and dry and without overt rashes. Neck without JVD. Lungs-decreased breath sounds bilaterally, scattered expiratory wheezes were noted. Heart exam notable for regular rhythm, normal sounds and absence of murmurs, rubs or gallops. Abdomen unremarkable and without evidence of organomegaly, masses, or abdominal aortic enlargement. Extremities nonedematous. Neuro: Cranial nerves II through XII are grossly intact, no focal motor deficits were noted, sensation to light touch and pinprick is intact. Psych: Patient is alert and oriented x3, she does not appear anxious or depressed On 09/01/18, patient was seen and examined and felt to be stable for discharge home - Physical Exam Vital Signs Temp Pulse Resp BP Pulse Ox 98.3 F 90 20 H 146/69 H 93 09/01/18 07:39 09/01/18 07:40 09/01/18 07:39 09/01/18 07:39 09/01/18 07:39 Oxygen Flow Rate (L/min) 2 Oxygen Delivery Method Room Air Weight: 84.935 kg Body Mass Index (BMI) 33.1 Intake and Output for Last 24 Hours 08/31/18 09/01/18 09/02/18 23:59 23:59 23:59 Intake Total 4380 / 4380 900 / 900 Output Total 1800 / 1800 1000 / 1000 Balance 2580 / 2580 -100 / -100 Microbiology Past 72 Hours 08/29/18 10:42 Gram Stain - Final Sputum, Expectorated/Coughed Respiratory Culture - Final Mixed normal respiratory anamaria. No Streptococcus pneumoniae, beta-hemolytic Streptococcus or Staphylococcus aureus isolated. 08/29/18 08:10 Blood Culture - Preliminary Blood Culture (Wb) #2 - Anticubital Right No growth in 48 hours. 08/29/18 08:15 Blood Culture - Preliminary Blood Culture (Wb) - Left Hand No growth in 48 hours. 08/29/18 13:25 Respiratory Panel (PCR) - Final Mucosa - Nose Laboratory Tests Past 24 Hrs 09/01/18 05:35 Diff Path Review Reviewed Discharge Activity: Return to Normal Activity Weight Bearing Status: Full weight bearing Home Medications: Medications to take at Discharge Aspirin [Aspirin, Baby] 81 mg PO DAILY@0800 05/18/17 Cholecalciferol (Vitamin D3) [D3-2000] 2,000 unit PO DAILY 05/18/17 Fluoxetine [Prozac] 20 mg PO DAILY 05/18/17 Metoprolol Tartrate 25 mg PO DAILY 05/18/17 benzonatate 100 mg capsule 100 mg PO TID PRN #30 cap 05/10/18 nortriptyline 50 mg capsule 50 mg PO QHS 08/22/18 Fluticasone/Umeclidin/Vilanter [Trelegy Ellipta 100-62.5-25] 1 inh INHALATION DAILY 08/29/18 Guaifenesin [Guaifenesin ER] 1,200 mg PO Q12H 08/29/18 Prednisone 20 mg PO UD #12 tablet 09/01/18 levoFLOXacin tablet [Levaquin tablet] 750 mg PO DAILY@0600 #4 tablet 09/01/18 Following Prescrptions Were Given to Patient: levoFLOXacin tablet [Levaquin tablet] 750 mg PO DAILY@0600 #4 tablet Prednisone 20 mg PO UD #12 tablet Primary Care Physician: Angeles Chaudhry MD [STAFF PHYSICIAN] - Please Follow Up With: Chidi Parra MD When: as scheduled Disposition: Home Minutes spent on discharge:: 31 Patient Condition:: Stable Medical Necessity - Tobacco Use Smoking Status: Former smoker Meaningful Use Info Meaningful Use Diagnoses (Choose all that apply): None applicable Code Visit Inpatient E&M: 27634 Disch Hosp
--- NOTE | 2018-09-02 09:00 | DS.PCM_ITS ---
Discharge Date and Diagnosis Date of Admission: 08/29/18 Date of Discharge: 09/01/18 - Primary Discharge Diagnosis #1 Acute sepsis secondary to community-acquired pneumonia-suspected gram- positive bacterial #2 community-acquired pneumonia-felt to be gram-positive bacterial #3 acute exacerbation of COPD #4 obstructive sleep apnea #5 hypertension #6 acute hypoxic respiratory insufficiency #7 hypokalemia - Secondary Discharge Diagnosis Chronic Problems (Last Reviewed 08/29/18 @ 10:40 by Valente Castro MD) Obesity (BMI 30-39.9) (Chronic) SHAZIA (obstructive sleep apnea) (Chronic) CPAP 9 cm of water Stage 2 moderate COPD by GOLD classification (Chronic) 07/2017, FEV1 57% Osteoarthritis (Chronic) Diverticulitis (Chronic) Depression (Chronic) Hospital Course and Treatment Operations: None Procedures: None Summary of Care Provided: The patient is a 72 year old F was seen in the emergency room at [facility] with chief complaint of shortness of breath, cough, and fever. Patient has a history of chronic obstructive pulmonary disease and obstructive sleep apnea. Workup in the emergency room revealed the patient to require 4 L of supplemental oxygen, chest x-ray showed a left lower lobe infiltrate, CBC showed a leukocytosis of 20,000. Patient was given broad- spectrum antibiotics and admitted to [place] [address], she received aerosol treatments, supplemental oxygen, and seen by pulmonary medicine. Patient improved during her hospitalization and there were no untoward events. Patient was weaned off oxygen. On 09/01/18, patient was seen and examined and felt to be in stable condition for discharge home: On examination she appeared in good health and spirits. Vital signs as documented. Skin warm and dry and without overt rashes. Neck without JVD. Lungs-decreased breath sounds bilaterally, scattered expiratory wheezes were noted. Heart exam notable for regular rhythm, normal sounds and absence of murmurs, rubs or gallops. Abdomen unremarkable and without evidence of organomegaly, masses, or abdominal aortic enlargement. Extremities nonedematous. Neuro: Cranial nerves II through XII are grossly intact, no focal motor deficits were noted, sensation to light touch and pinprick is intact. Psych: Patient is alert and oriented x3, she does not appear anxious or depressed On 09/01/18, patient was seen and examined and felt to be stable for discharge home - Physical Exam Vital Signs Temp Pulse Resp BP Pulse Ox 98.3 F 90 20 H 146/69 H 93 09/01/18 07:39 09/01/18 07:40 09/01/18 07:39 09/01/18 07:39 09/01/18 07:39 Oxygen Flow Rate (L/min) 2 Oxygen Delivery Method Room Air Weight: 84.935 kg Body Mass Index (BMI) 33.1 Intake and Output for Last 24 Hours 08/31/18 09/01/18 09/02/18 23:59 23:59 23:59 Intake Total 4380 / 4380 900 / 900 Output Total 1800 / 1800 1000 / 1000 Balance 2580 / 2580 -100 / -100 Microbiology Past 72 Hours 08/29/18 10:42 Gram Stain - Final Sputum, Expectorated/Coughed Respiratory Culture - Final Mixed normal respiratory anamaria. No Streptococcus pneumoniae, beta-hemolytic Streptococcus or Staphylococcus aureus isolated. 08/29/18 08:10 Blood Culture - Preliminary Blood Culture (Wb) #2 - Anticubital Right No growth in 48 hours. 08/29/18 08:15 Blood Culture - Preliminary Blood Culture (Wb) - Left Hand No growth in 48 hours. 08/29/18 13:25 Respiratory Panel (PCR) - Final Mucosa - Nose Laboratory Tests Past 24 Hrs 09/01/18 05:35 Diff Path Review Reviewed Discharge Activity: Return to Normal Activity Weight Bearing Status: Full weight bearing Home Medications: Medications to take at Discharge Aspirin [Aspirin, Baby] 81 mg PO DAILY@0800 05/18/17 Cholecalciferol (Vitamin D3) [D3-2000] 2,000 unit PO DAILY 05/18/17 Fluoxetine [Prozac] 20 mg PO DAILY 05/18/17 Metoprolol Tartrate 25 mg PO DAILY 05/18/17 benzonatate 100 mg capsule 100 mg PO TID PRN #30 cap 05/10/18 nortriptyline 50 mg capsule 50 mg PO QHS 08/22/18 Fluticasone/Umeclidin/Vilanter [Trelegy Ellipta 100-62.5-25] 1 inh INHALATION DAILY 08/29/18 Guaifenesin [Guaifenesin ER] 1,200 mg PO Q12H 08/29/18 Prednisone 20 mg PO UD #12 tablet 09/01/18 levoFLOXacin tablet [Levaquin tablet] 750 mg PO DAILY@0600 #4 tablet 09/01/18 Following Prescrptions Were Given to Patient: levoFLOXacin tablet [Levaquin tablet] 750 mg PO DAILY@0600 #4 tablet Prednisone 20 mg PO UD #12 tablet Primary Care Physician: Angeles Chaudhry MD [STAFF PHYSICIAN] - Please Follow Up With: Chidi Parra MD When: as scheduled Disposition: Home Minutes spent on discharge:: 31 Patient Condition:: Stable Medical Necessity - Tobacco Use Smoking Status: Former smoker Meaningful Use Info Meaningful Use Diagnoses (Choose all that apply): None applicable Code Visit Inpatient E&M: 61808 Disch Hosp
--- NOTE | 2018-09-02 11:01 | CASEMGMT ---
MARCIANO FERRARA DC PHONE CALL DC DATE: 09/01/18 DC Disposition: Home LACE/STRATA: 03/26 Intro role of CM to patient via phone. Pt states she called Dr. Castillo's office this am and they will re-evaluate her need for home O2 @ night and fax script if needed. (pt did not qualify while in hospital and per Dr. Castillo-did not need @ home anymore). Pt also stated her rollator was too big and [employer] will exchange for another model. No further questions or concerns per patient. Vaughn SIUN RN ACM
== END 2018-09-01 11:55 | disposition home or self-care (01) | DRG 871 ==
LOC: ED 07:57 → MS2 09:27
PROVIDERS: Internal Medicine Critical Care Medicine; Admitting Provider Internal Medicine; Emergency Provider Emergency Medicine; Family Provider Family Medicine; PCP Family Medicine; Visit Provider Internal Medicine
DX: A41.9 Sepsis, unspecified organism (principal); J15.9 Unspecified bacterial pneumonia; J44.1 Chronic obstructive pulmonary disease with (acute) exacerbation; J44.0 Chronic obstructive pulmonary disease with (acute) lower respiratory infection; G47.33 Obstructive sleep apnea (adult) (pediatric); R06.89 Other abnormalities of breathing; R09.02 Hypoxemia; E87.6 Hypokalemia; I10 Essential (primary) hypertension; E66.9 Obesity, unspecified; Z68.33 Body mass index [BMI] 33.0-33.9, adult; F32.9 Major depressive disorder, single episode, unspecified; M19.90 Unspecified osteoarthritis, unspecified site; J98.01 Acute bronchospasm
CPT/HCPCS: 36415; 71101; 80048; 81002; 83605; 83735; 84484; 85025; 87040; 87070; 87205; 87449; 87633; 87641; 87804; 93005; 94640; 97802; 99284; J7030; J7050; A4216

== ENCOUNTER → 2018-10-14 08:51 | Outpatient (CLI) | payer MEDICARE, OTHER, SELFPAY ==
[2018-08-29 10:35] VITALS: BMI 33.1
[2018-09-21 09:56] VITALS: BMI 31.8
--- NOTE | 2018-10-14 08:54 | ECHOCS_ITS ---
Reason For Study: SOB Procedure This was a 2D Doppler, Color Flow transthoracic echocardiogram. The study was technically difficult. Exam performed in department. Left Ventricle Normal size and thickness. The estimated ejection fraction is 55 %. Stage 1 diastolic dysfunction. No regional wall motion abnormalities noted. Right Ventricle Normal RV size. Normal systolic function. Atria The left atrium is mildly enlarged. Normal right atrium. No doppler evidence for ASD. Mitral Valve There is no mitral valve stenosis. Mild (1+) mitral valve insufficiency. Tricuspid Valve There is no tricuspid stenosis. Unable to estimate RV systolic pressure due to insufficient tricuspid regurgitant envelope. Trivial tricuspid valve insufficiency. Aortic Valve Trisinus/trileaflet aortic valve. Mild diffuse aortic valve thickening. Mild aortic stenosis. No aortic valve insufficiency. Pulmonic Valve There is no pulmonic valvular stenosis. Trivial pulmonic valve insufficiency. Great Vessels Normal aortic root. Pericardium/Pleural No pericardial effusion. Medication 22 gauge I.V. with prn adaptor inserted into right arm. Diluted definity 4ml given slow IV push to enhance endocardial definition. MMode/2D Measurements & Calculations LVIDd: 4.9 cm IVSd: 1.1 cm Ao root diam: 3.5 cm LVIDs: 3.4 cm LVPWd: 1.1 cm RVDd: 3.5 cm FS: 31.2 % LAV(MOD-bp): 81.2 ml LA A4 area: 25.0 cm2 LA dimension(2D): 4.0 cm LAV(MOD-bp) Indexed: 43.7 ml/m2 LAV(MOD-sp2): 74.2 ml LAV(MOD-sp4): 87.5 ml RA A4 area: 16.2 cm2 Doppler Measurements & Calculations MV E max danika: 66.4 cm/sec Ao V2 max: 167.5 cm/sec LV V1 max: 125.1 cm/sec MV A max danika: 100.4 cm/sec Ao max P.2 mmHg LV V1 max P.3 mmHg MV E/A: 0.66 PA V2 max: 85.5 cm/sec TR max danika: 233.8 cm/sec TR max P.9 mmHg Interpretation Summary Diluted definity 4ml given slow IV push to enhance endocardial definition. The estimated ejection fraction is 55 %. Stage 1 diastolic dysfunction. The left atrium is mildly enlarged. Mild (1+) mitral valve insufficiency. Mild aortic stenosis. The study was technically difficult. Ordering Physician: Nohelia Brown Referring Physician: Nohelia Brown Performed By: Viky Meadows RDCS
--- NOTE | 2018-10-14 09:48 | BI_ITS ---
MAMMOGRAPHY - BILATERAL SCREENING REASON FOR EXAM: Female, 73 years old. Routine annual screening examination. PERTINENT HISTORY: Grandmother with breast cancer. Aunt with breast cancer TECHNIQUE: Digital bilateral breast thaddeus (3D mammographic acquisition) in the CC and MLO projections. 2-D mediolateral oblique (MLO) and craniocaudad (CC) views of both breasts were obtained. CAD: Full Field Digital Mammography with Computer Added Detection was performed. COMPARISON: Comparison is made with prior study dated April 16, 2017 and May 28, 2014. FINDINGS: Breast Composition: There are scattered areas of fibroglandular density. There are no dominant masses or suspicious calcifications. Stable asymmetry of breast tissue were slightly more breast tissue is seen in the retroareolar region of the left breast as compared to the right side. No other significant abnormalities are identified. There has been no significant change since the prior study. BI/SCREENING MAMM (CAD), BILAT IMPRESSION: Stable bilateral screening mammogram. Yearly follow-up mammogram recommended. (A) ASSESSMENT CATEGORY: BIRADS Category 2: Benign. A letter regarding these results will be sent to the patient by the facility within 30 days. Approximately 10% of breast cancers are not detected by mammography. A normal mammogram should not delay biopsy of a clinically suspicious abnormality. [id number] Electronically Signed: Phillip Moran, at 11:02 EDT , Service support ,
== END ==
PROVIDERS: Family Provider Family Medicine; PCP Family Medicine; Referring Provider Nurse Practitioner Acute Care; Visit Provider Nurse Practitioner Acute Care
DX: Z12.31 Encounter for screening mammogram for malignant neoplasm of breast (principal); I34.0 Nonrheumatic mitral (valve) insufficiency; G47.33 Obstructive sleep apnea (adult) (pediatric)
CPT/HCPCS: 77063; 77067; 93306; Q9957; A4216; C8929

== ENCOUNTER → 2018-10-27 16:08 | Outpatient (CLI) | payer MEDICARE, OTHER, SELFPAY ==
[2018-10-26 10:35] VITALS: BMI 32.9
--- NOTE | 2018-10-27 16:14 | RAD_ITS ---
STUDY: X-RAY - LUMBAR SPINE REASON FOR EXAM: Female, 73 years old. Low back pain TECHNIQUE: 4 view(s) of the lumbar spine were obtained. COMPARISON: None FINDINGS: Neutral view: There is an exaggerated lumbar lordosis. There is no substantial scoliosis. There is a normal alignment of the vertebrae. There is facet arthropathy L4-L5 L5-S1. Flexion view there is some straightening of the physiologic lordosis on the labeled flexion view. Extension view there is little interval change between the extension view and the upright neutral view. There is no evidence of loss of height or alignment. The height of the vertebral bodies of the lumbar spine are maintained. However there is a severe greater than 75% anterior wedge compression fracture the level of T12 causing mild kyphosis at that level. There is severe disc space narrowing at T12-L1 and to lesser degree L1-L2. There is atherosclerotic disease of the aorta. RAD/L/S Spine Min 4 Views IMPRESSION: Severe wedge compression deformity at the level of T12 greater than 75%. This is partially visualized on this study. Could consider dedicated thoracic spine CT or MRI. Exaggerated physiologic lordosis of the lumbar spine without evidence of acute loss of height or alignment or change in alignment on the flexion-extension efforts provided. Electronically Signed: Shraddha Phillip MD at 10:21 EDT Tel , Service support ,
[2018-10-27 17:40] LABS: Creatinine, Serum 0.61 mg/dL (0.55-1.02); EST Glomerular Filtration Rate 102 mL/min (>60); Est Glom Filt Rate - Afr Amer 124 mL/min (>60)
== END ==
PROVIDERS: Family Provider Family Medicine; PCP Family Medicine; Referring Provider Nurse Practitioner; Visit Provider Nurse Practitioner
DX: M48.00 Spinal stenosis, site unspecified (principal)
CPT/HCPCS: 36415; 72110; 82565

== ENCOUNTER → 2018-11-04 12:57 | Outpatient (CLI) | payer MEDICARE, OTHER, SELFPAY ==
[2018-10-26 10:35] VITALS: BMI 32.9
--- NOTE | 2018-11-04 13:45 | MRI_ITS ---
STUDY: MRI LUMBAR SPINE WITH AND WITHOUT CONTRAST REASON FOR EXAM: Female, 73 years old. Back pain history of tumor resection. TECHNIQUE: Standardized fat and water weighted pulse sequences were obtained in the sagittal and axial planes. 15 IV Dotarem was administered for the contrast portion of the examination. COMPARISON: X-ray 10/27/2018 FINDINGS: T12-L1: Acute severe compression fracture of T12 with kyphotic deformity and 2 mm retropulsion of the inferior endplate of T12 into the spinal canal producing mild spinal stenosis and mild bilateral neural foraminal stenosis. Normal lumbar lordosis. There is no substantial scoliosis. Normal conus medullaris that terminates at the L1. L1-2: Normal endplates. Normal disc height, hydration and morphology. Normal bilateral facet joints. Normal central canal and bilateral lateral recesses. Normal bilateral intervertebral neural foramina. L2-3: Status post posterior decompression. No spinal stenosis or neural foraminal stenosis. L3-4: Status post posterior decompression. No spinal stenosis or neural foraminal stenosis. L4-5: Normal endplates. Normal disc height, hydration and morphology. Normal bilateral facet joints. Normal central canal and bilateral lateral recesses. Normal bilateral intervertebral neural foramina. L5-S1: Normal endplates. Normal disc height, hydration and morphology. Normal bilateral facet joints. Normal central canal and bilateral lateral recesses. Normal bilateral intervertebral neural foramina. Normal visualized sacral ala. Normal visualized paraspinous soft tissue structures. There is no demonstrated abnormal enhancement. MRI/Spine Lumbar W/WO Contrast IMPRESSION: Acute severe compression fracture of T12 with focal kyphosis and 2 mm retropulsion of the inferior endplate into the spinal canal producing mild spinal stenosis. Electronically Signed: Juan R Delong MD at 15:43 EDT Tel , Service support ,
== END ==
PROVIDERS: Family Provider Family Medicine; PCP Family Medicine; Referring Provider Orthopaedic Surgery; Visit Provider Orthopaedic Surgery
DX: M48.061 Spinal stenosis, lumbar region without neurogenic claudication (principal)
CPT/HCPCS: 72158; A9575

== ENCOUNTER → 2018-12-16 08:39 | Outpatient (CLI) | payer MEDICARE, OTHER, SELFPAY ==
[2018-10-26 10:35] VITALS: BMI 32.9
[2018-12-16 10:45] LABS: Anion Gap 9 (5-15); BUN 19 mg/dL (7-18); BUN/Creat Ratio 26.8 RATIO (10-20); Chloride 100 mmol/L (98-107); Cholesterol 218 mg/dL (200); Creatinine, Serum 0.71 mg/dL (0.55-1.02); EST Glomerular Filtration Rate 86 mL/min (>60); Est Glom Filt Rate - Afr Amer 104 mL/min (>60); Glucose 96 mg/dL (74-106); High Density Lipoprotein 55 mg/dL; Potassium 4.4 mmol/L (3.5-5.1); Sodium Level 141 mmol/L (136-145); Triglycerides 164 mg/dL; Very Low Density Lipoprotein 33 mg/dL (5-40)
== END ==
PROVIDERS: Family Provider Family Medicine; PCP Family Medicine; Referring Provider Family Medicine; Visit Provider Family Medicine
DX: R00.2 Palpitations (principal)
CPT/HCPCS: 36415; 80048; 80061

== ENCOUNTER 2018-12-30 09:30 | Outpatient (RCR) | payer MEDICARE, OTHER, SELFPAY ==
[2018-10-26 10:35] VITALS: BMI 32.9
--- NOTE | 2018-11-23 10:56 | HP.PTEVAL ---
Patient's Visit Information TAM SANCHEZ is a 73 year old F referred to Physical Therapy by Mata Scott DO with a diagnosis of burst fracture t12 vertebrae. Date of Evaluation: 11/23/18 Physical Therapist: Maximus Hudson DPT, OCS, CSCS - Visit Plan Frequency: 2x /Week Duration: 4-6 Weeks Plan: 2x/week for 4-6 weeks for: Postural focus in all activities. Avoid flexion and extension spine. Work to machine based LE adn postural ex to I. Core strength progression to I. - Subjective Findings: Had back pain early in year and therapy helped. Fell in July and got pneumonia and it has gotten worse again. Back pain cam back in July where she could nto get out of bed. Screamed in pain and went to ER(pain was coming). They did ctscan and recommended MRI. Scan showed compression fractures. MRI a couple weeks ago confirmed compression fracture t11/12. Needs to strengthen her back. Started aquacizing this week whcih she has not done in a long time. Avoided some activities but better afterward. Lost 40# at [facility]. Sleeping is well with CPAP. Pain is if she moves wrong or reaches wrong and is transient spasm at t11/12. Spends day doing not alot. 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 Can shop with cart and is limited by endurance. Wants to go on a cruise in January and needs to be in better shape. 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 - Pain mid back pain. Pain Intensity (Out of 10): 0 Pain Intensity Range: 0, 10 - Objective Posture is flexed and structural kyphosis in thoracic spine. Flat lumbar lordosis. No tenderness to touch in thoracic or lumbar paraspinals today. Walks I and steps recip with one rail. Trasnfers are I. L/S AROM is max limited in extensiona dn unable to lie flat on back due to pain in thsoracic area. B SB mod limited. Flexion is mod limtied and slightly painful. reflexes 2/3 patella and achilles. Sensation LE WNL to gross light touch. strength LE 4-/5 without pain. HS mod tight. UE shoulder flexion resisted 4/5 strength and pian thoracic area but abd 4 and no pain. - Balance Scores Functional Gait Assessment Score: 26 % Disability: 13.3400 - Goals Goal 1:: Pt I in appropriate core strength, machine gym ex and strethes for management. Goal Time Frame: 4-6 Weeks Goal 2:: Patient feel 90% better overall with pain at 1/10 at worst. Goal Time Frame: 4-6 Weeks Goal 3:: Pt walk through grocery store without ccart to show readiness for cruise in january Goal Time Frame: 4-6 Weeks - Rehabilitation Potential Physical Therapy Diagnosis: compression fracture thoracic adn resulting pain and postural abnormalities. Rehabilitation Potential: Fair - Anticipated Interventions Patient/Client Instruction: Educate patient on: Condition, Plan of Care For the Purpose of:: To decrease pain, To increase tolerance to activity/condition/position, To improve ability of physical actions for home/community/work/leisure Therapeutic Exercise to Include: Strength training, Endurance training, Flexibilty training, Dynamic Lumbar Stabilization For the Purpose of:: To decrease pain, To increase ROM, To improve muscle performance and motor function, To improve ability of physical actions for home/community/work/leisure Thank you for the opportunity to evaluate your patient. For Medicare and Medicare HMO plans, please review the plan of care and approve it. It will need to be FAXED BACK to us at [phone] for Medicare purposes. For Medicare only, by signing this I certify the plan of care. Please let me know if there are questions or concerns regarding this plan of care. Physician Signature: Date:
--- NOTE | 2018-12-30 09:50 | HP.PTDCSUM ---
HP - PT D/C Summary It has been my pleasure to treat TAM SANCHEZ under orders from Mata Scott DO, for the diagnosis of burst fracture t12 vertebrae for a total of 9 visit(s). Discharge Date: 12/30/18 Please see the following information for a summary of their discharge status. - Subjective Subjective: Not as many bad spasms, only if moves wrong. Gets them 1-2x/day. Goes away when I stop twisting. Activities pretty normal. Doing elliptical at home 3x/week. Sleep is good. - Pain mid back pain. Pain Intensity (Out of 10): 0 - Overall Improvement % Improvement: 99 - Objective Objective/Function: Walks I and safely, L/S ROM is WNL and without pain today and even rotates without spasms. PT LOOKS VERY GOOD AND DOING MUCH BETTER ADN WILL CONTINUE VIA HEP, NO F/U WITH DOCTOR. - Goals Goal 1:: Pt I in appropriate core strength, machine gym ex and strethes for management. Goal Progress: aquacize adn ellitical Goal 2:: Patient feel 90% better overall with pain at 1/10 at worst. Goal Progress: Goal Met Goal 3:: Pt walk through grocery store without ccart to show readiness for cruise in january Goal Progress: Goal Met - Plan Plan: D/C - D/C Information Discharge Comments: Pt doing well and will continue I with exercises. If there are questions or concerns regarding this patient's physical therapy, please feel free to call me at [phone]. Thank you for the referral of this patient. Sincerely, Maximus Hudson, DPT, OCS, CSCS
== END 2018-12-30 19:00 | disposition home or self-care (01) ==
LOC: PT 09:30
PROVIDERS: Family Provider Family Medicine; PCP Family Medicine; Referring Provider Orthopaedic Surgery; Visit Provider Orthopaedic Surgery
DX: S22.081A Stable burst fracture of T11-T12 vertebra, initial encounter for closed fracture (principal)
CPT/HCPCS: 97110; 97162; 97530

== ENCOUNTER 2019-03-25 22:06 | Inpatient (IN) | payer MEDICARE, OTHER, SELFPAY ==
[2018-10-26 10:35] VITALS: BMI 32.9
[2019-03-25 22:06] VITALS: BP 152/69; BP 197/112; PULSE 98; PULSE 99; RESP 18; RESP 20; TEMP 36.7; O2SAT 93; O2SAT 94; BMI 36.5
--- NOTE | 2019-03-25 22:30 | CT_ITS ---
HISTORY: N/V, UPPER ABD PAIN SINCE 1800, HX HTN EXAMINATION: CT Abdomen And Pelvis W/O Contrast Injection TECHNIQUE: Multiple axial images were obtained of the abdomen without oral or IV contrast. A radiation dose optimization technique was used for this scan. IV Contrast dosage and agent: None. Oral contrast: None. COMPARISON: CTA chest 06/29/2017 lumbar spine MRI report but not images 11/04/2018 FINDINGS: Large body habitus with protuberant abdomen. Lower thorax: Mild cardiomegaly with prominent pericardial fat pad on the left and cardiac mild levoposition. No pericardial effusion. The gallbladder is mildly overdistended or hydropic with low density cholesterol type stones suspected but not definite. No biliary dilatation identified. Limited non-infusion exam. With comparison to previous CTA chest exam, left hepatic lobe 1.7 cm circumscribed cyst without significant change. Normal liver size. Negative spleen and pancreas. Small accessory spleen, unchanged. Both kidneys are normal in position and show central vascular calcifications. No hydronephrosis or hydroureter. The adrenal glands are not enlarged. GI tract: No obstruction. Diverticulosis coli without diverticulitis. Pelvis: Anteverted uterus which is normal in size. Normal urinary bladder. No free fluid or lymph node enlargement. Left inguinal small fat-containing hernia. Ventral abdominal Wall: Small fat-containing umbilical hernia. Bones: Vertebral plana with marked anterior wedge compression deformity of the T12 vertebral body and this is new compared to previous. Stable chronic mild compression deformity of the T11 superior endplate. L4 superior endplate subacute or chronic not compression fracture. CT/Abdomen/Pelvis without Cont IMPRESSION: 1. Overdistended or hydropic gallbladder with questionable low-density cholesterol type stones. Suggest further correlation with gallbladder ultrasound. 2. Diverticulosis coli without diverticulitis. 3. Lumbar and lower thoracic compression fractures, details above. As correlated with previous CTA chest and previous lumbar MRI report, the lower dorsal T11 and T12 compression fractures are chronic. Individualized dose optimization techniques were used for this CT. at 2357 Reported and signed by: Stewart Juarez MD Electronically Signed: Stewart Juarez, at 23:56 EDT Tel , Service support ,
--- NOTE | 2019-03-25 22:32 | ED.VIS.GI ---
History of Present Illness Chief Complaint: Abd Pain Informant: Patient - Abdominal Pain/Flank Pain Onset: Hours - 4 Context: Gradual Onset - about 10 min after eating chicken fingers Timing: Continuous - not colicky Location: Epigastric Current Severity: Severe Maximum Severity: Severe Worsened by: Food Relieved by: Nothing - tried tums, simethicone - Nausea/Vomiting/Emesis GI Symptom: Nausea, Vomiting Quality: Nonbilious. Negative for: Blood streaks, Coffee ground, Hematemesis - Diarrhea/Melena/Hematochezia GI Symptom: - - last BM this AM, normal. Negative for: Diarrhea, Melena, Hematochezia Associated Symptoms: Negative for: Dysuria, Frequency, Hematuria, Urgency Narrative: Had a similar episode of abdominal pain in the epigastrium as well a couple days ago, that was about 2 hours after eating some pasta with Parmesan cheese. No radiation into the back or shoulder. Only abdominal surgery in the past was a . Denies any urinary symptoms. No fevers. No chest discomfort. No shortness of breath or cough. Has a history of COPD that has been stable recently. No home oxygen. 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 Denies: Chills, Fever, Sweats Eyes: Denies: Visual changes - bilaterally, Diplopia ENT: Denies: Rhinorrhea, Sore throat Cardiovascular: Denies: Chest pain, Palpitations Respiratory: Denies: Dyspnea, Cough, Dyspnea on exertion Gastrointestinal: Reports: Abdominal pain, Nausea, Vomiting. Denies: Diarrhea, Melena, Hematochezia Genitourinary: Denies: Dysuria, Hematuria, Frequency Musculoskeletal: Reports: Back pain - Chronic, unrelated to abdominal pain. Denies: Extremity Pain Skin: Denies: Rash, Wounds Neurological: Denies: Headache, Weakness, Numbness Physical Exam Vital Signs/Narrative: Vital Signs Temp Pulse Resp BP Pulse Ox 03/25/19 22:06 98.0 F 99 20 H 197/112 H 94 Inital Vital Signs reviewed: Yes General: Well nourished, Well developed, No Acute Distress Head: Normocephalic, Atraumatic Eyes: Perrl, EOMI ENT: Moist mucous membranes, No rhinorrhea Neck: Supple, Nontender Cardiovascular: Regular rate, Regular rhythm, No murmurs Respiratory: No distress, CTA bilaterally, Chest nontender Abdomen: Soft, No masses, Tender - Epigastrium and right upper quadrant, Hypoactive bowel sounds. Negative for: Nondistended - Mildly distended, soft, Guarding, Rebound tenderness Back: Nontender, Normal Inspection. Negative for: CVA tenderness Extremities: Nontender, Edema - Trace bilateral lower extremity, symmetric. Negative for: Calf Tenderness Skin: Normal color, No rash, No Trauma Neurological: Alert, Oriented x3, Cranial nerves II-XII grossly intact, Normal Strength, Normal Sensation Psychological: Normal affect, Normal Mood Diagnostic/Tx/Re-eval Clinical Impression(s) from Imaging Studies Abdomen/Pelvis CT 03/25/19 22:30 IMPRESSION: 1. Overdistended or hydropic gallbladder with questionable low-density cholesterol type stones. Suggest further correlation with gallbladder ultrasound. 2. Diverticulosis coli without diverticulitis. 3. Lumbar and lower thoracic compression fractures, details above. As correlated with previous CTA chest and previous lumbar MRI report, the lower dorsal T11 and T12 compression fractures are chronic. Individualized dose optimization techniques were used for this CT. at 3332 Reported and signed by: Stewart Juarez MD Electronically Signed: Stewart Juarez, at 23:56 EDT Tel , Service support , Gallbladder Ultrasound 03/26/19 00:30 IMPRESSION: Acute cholecystitis with cholelithiasis suspected. No intra or extrahepatic biliary ductal dilatation, ascites, right hydronephrosis detected. Simple left hepatic cyst. Echogenic pancreas can be seen with fat deposition in the pancreas. Electronically Signed: Amy Ashford MD at 3:23 EST , Service support , Laboratory Results 03/25/19 03/25/19 22:28 22:28 WBC 11.0 RBC 5.20 Hgb 13.7 Hct 43.8 MCV 84.2 MCH 26.3 L MCHC 31.3 L RDW Std Deviation 45.0 H RDW Coeff of Kimberlyn 14.6 Plt Count 373 MPV 9.9 Immature Gran % (Auto) 0.500 Neut % (Auto) 75.2 H Lymph % (Auto) 14.1 L Maries % (Auto) 8.7 Eos % (Auto) 1.0 Baso % (Auto) 0.5 Absolute Neuts (auto) 8.3 H Absolute Lymphs (auto) 1.55 Nucleated RBC % 0 Sodium 140 Potassium 3.9 Chloride 104 Carbon Dioxide 28.0 Anion Gap 8 BUN 18 Creatinine 0.73 Estim Creat Clear Calc 42.07 Est GFR (MDRD) Af Amer 100 Est GFR (MDRD) Non-Af 83 BUN/Creatinine Ratio 24.5 H Glucose 126 H Calcium 9.1 Total Bilirubin 1.30 H AST 110 H ALT 65 H Alkaline Phosphatase 105 Total Protein 7.7 Albumin 3.4 Globulin 4.3 H Albumin/Globulin Ratio 0.8 L Lipase 92 - Rhythm Strip Rhythm Strip: Sinus Rhythm Rate: 75 Ectopy: None - EKG Initial EKG Interpretation: Sinus Rhythm, No Acute Injury Pattern - Medical Decision Making After analgesics and IV fluids patient is feeling much better. Ultrasound not available at the time the patient presents, so CT was obtained and shows what appears to be a hydropic gallbladder with questionable low-density cholesterol type stones. She is very tender in this area, had some mild liver enzyme elevations including a bilirubin of 1.3, consistent with acute cholecystitis here. Her total white blood count is 11.0 with a slight trend toward left on the differential, no bandemia. She is clinically hemodynamically stable. Plan is for admission to medical surgical floor. Discussed with Dr. taylor; she requested an emergent ultrasound be obtained due to the mild hyperbilirubinemia to rule out choledocholithiasis. Ultrasound was obtained and does not show any stones in the duct, which is 0.53 cm. She is agreeable with admission. Patient given Zosyn. She remained comfortable in the emergency department without re-dosing of medications. ED Disposition - Plan for ED Patient: Disposition: Acute Care Hospital [facility] Diagnosis: Acute calculous cholecystitis
[2019-03-25] MEDS: Morphine 4 MG/ML Syringe IV (22:37)
[2019-03-25] MEDS: Ondansetron 4 MG/2 ML Vial IV (22:37)
[2019-03-25] MEDS: 0.9% Normal Saline 1,000 ML 125 ML IV (22:37)
[2019-03-25 22:39] LABS: Absolute Lymphocyte Count 1.55 X10^3/uL (0.83-4.51); Absolute Neutrophil Count 8.3 X10^3/uL (2.0-7.7); Basophil# 0.05 X10^3/uL; Basophil% 0.5 % (0-1); Eosinophil# 0.11 X10^3/uL; Hematocrit 43.8 % (37-47); Hemoglobin 13.7 g/dL (12.0-15.0); Lymphocyte # 1.55 X10^3/ul (4.0); Lymphocyte % 14.1 % (19-41); Mean Corp Hgb Conc 31.3 g/dL (32-36); Mean Corpuscular Hgb 26.3 pg (27.0-32.0); Mean Corpuscular Volume 84.2 fL (81-99); Mean Platelet Vol. 9.9 fl (6.2-12.0); Monocyte# 0.96 X10^3/uL; Monocyte% 8.7 % (0-10); NRBC Flagged by Analyzer 0 % (0-5); Neutrophil # 8.27 X10^3/uL (2.7-7.7); Neutrophil % 75.2 % (47-70); Platelet Count 373 K/mm3 (150-450); RBC Distribution Width CV 14.6 % (11.6-14.6)
[2019-03-25 22:57] LABS: ALB/GLOB Ratio 0.8 RATIO (0.9-2.4); AST(SGOT) 110 U/L (15-37); Alanine Aminotransfer ALT/SGPT 65 U/L (13-56); Albumin, Serum 3.4 g/dL (3.2-5.0); Alkaline Phosphatase 105 U/L (45-117); Anion Gap 8 (5-15); BUN 18 mg/dL (7-18); BUN/Creat Ratio 24.5 RATIO (10-20); Calcium,Total 9.1 mg/dL (8.5-10.1); Chloride 104 mmol/L (98-107); Creatinine, Serum 0.73 mg/dL (0.55-1.02); EST Glomerular Filtration Rate 83 mL/min (>60); Est Glom Filt Rate - Afr Amer 100 mL/min (>60); Estimated Creatinine Clearance 42.07 ml/min; Globulin 4.3 g/dL (2.2-4.2); Glucose 126 mg/dL (74-106); Lipase 92 U/L (73-393); Potassium 3.9 mmol/L (3.5-5.1); Protein, Total 7.7 g/dL (6.4-8.2); Sodium Level 140 mmol/L (136-145)
[2019-03-25 23:31] LABS: Bacteria 0 SEEN /hpf (None Seen); Mucous, Urine 0 SEEN /hpf (<or=2+)
[2019-03-25 23:51] LABS: Color, Urine Yellow (Yellow); Glucose, Dipstick Normal (Normal); Ketone-Dipstick 5 mg/dl (Negative); Leukocyte Esterase-Dipstick 25 /ul (Negative); Nitrite-Dipstick Negative (Negative); Occult Blood-Urine 25 /ul (Negative); Protein-Dipstick 30 mg/dl (Negative); Specific Gravity, Urine 1.025 (1.002-1.030); Urine Clarity Sl. Cloudy (Clear); Urine Urobilinogen 4 mg/dl (Normal)
[2019-03-26] VITALS (22 sets, daily range): BP systolic 102–157; BP diastolic 50–69; PULSE 67–91; RESP 15–20; TEMP 36.7–37.3; O2SAT 77–100; BMI 36.4
[2019-03-26 00:27] LABS: Urine Bilirubin Dipstick 1 mg/dL (Negative)
[2019-03-26 00:29] LABS: Calcium Oxalate Crystals Ur 2+ /hpf (<or=2+); Red Blood Cells-Urine 0-5 SEEN /hpf (0-5); Squamous Epithelial Cells - UA 0-5 SEEN /hpf (5-10); White Blood Cells 0-5 SEEN /hpf (0-5)
--- NOTE | 2019-03-26 00:30 | US_ITS ---
STUDY: ABDOMINAL ULTRASOUND - RIGHT UPPER QUADRANT REASON FOR VISIT: Female, 73 years old right upper quadrant pain TECHNIQUE: Ultrasound evaluation of the right upper quadrant was performed with real-time and static jimenez-scale imaging. TECHNICAL QUALITY: Limited. Examination limited by bowel gas. COMPARISON: CT abdomen and pelvis 03/25/2019. CT chest 06/29/2017. FINDINGS: Liver: The liver measures 16.7 cm. There is increased echogenicity consistent with fatty infiltration. The bile ducts are within normal limits. There is hepatic color flow. The direction of portal flow is hepatopetal. There is a cyst of 1.4 x 1.6 x 1.2 cm a new left hepatic lobe medial segment as seen on CT. Gallbladder: 9.5 cm distended gallbladder. The gallbladder wall measures 3.4 mm. There is a positive sonographic Solo's sign. There is no pericholecystic fluid. There are multiple echogenic structures within the gallbladder, consistent with multiple gallstones. Common Bile Duct (C.B.D.): The common bile duct measures 5.3 mm. Pancreas: Normal size of the head, body and tail of the pancreas. There is increased echogenicity of the pancreas. There is no demonstrated pancreatic mass or cyst. Right Kidney: Normal size of the right kidney. The right kidney measures 10.5 x 5 x 4 2 cm. Normal renal cortex. The right cortex measures 1.5 cm. There is no demonstrated renal mass or cyst. There is no right hydronephrosis. US/Gallbladder IMPRESSION: Acute cholecystitis with cholelithiasis suspected. No intra or extrahepatic biliary ductal dilatation, ascites, right hydronephrosis detected. Simple left hepatic cyst. Echogenic pancreas can be seen with fat deposition in the pancreas. Electronically Signed: Amy Ashford MD at 3:23 EST , Service support ,
--- NOTE | 2019-03-26 03:16 | EKG12_ITS ---
Test Reason : PRE-OP Blood Pressure : / mmHG Vent. Rate : 075 BPM Atrial Rate : 075 BPM P-R Int : 122 ms QRS Dur : 086 ms QT Int : 420 ms P-R-T Axes : 040 -10 015 degrees QTc Int : 469 ms Normal sinus rhythm Low voltage QRS Borderline ECG Confirmed by AILEEN GARCIAS, MILLICENT ([id number]), editorial writer TARIQ VILA ([id number]) on 03/27/2019 9:59:07 AM Referred By: Selina Juárez Confirmed By:MILLICENT GALLAGHER MD
[2019-03-26] MEDS: 0.9% Normal Saline 1,000 ML 125 ML IV ×3 (05:23→23:37)
[2019-03-26] MEDS: 0.9% Saline Lock 10 ML Syringe IV ×2 (05:23→17:27)
[2019-03-26 05:24] LABS: Basophil# 0.05 X10^3/uL; Basophil% 0.6 % (0-1); Eosinophil# 0.09 X10^3/uL; Hematocrit 38.2 % (37-47); Hemoglobin 12.1 g/dL (12.0-15.0); Mean Corp Hgb Conc 31.7 g/dL (32-36); Mean Corpuscular Hgb 27.1 pg (27.0-32.0); Mean Corpuscular Volume 85.7 fL (81-99); Mean Platelet Vol. 9.9 fl (6.2-12.0); Monocyte# 0.89 X10^3/uL; Monocyte% 9.8 % (0-10); NRBC Flagged by Analyzer 0 % (0-5); Neutrophil # 6.02 X10^3/uL (2.7-7.7); Neutrophil % 66.3 % (47-70); Platelet Count 318 K/mm3 (150-450); RBC Distribution Width CV 14.8 % (11.6-14.6); RBC Distribution Width SD 46.7 fl (35.1-43.9); Red Blood Count 4.46 M/mm3 (4.2-5.4); White Blood Count 9.1 K/mm3 (4.4-11.0)
[2019-03-26 05:43] LABS: AST(SGOT) 211 U/L (15-37); Alanine Aminotransfer ALT/SGPT 143 U/L (13-56); Albumin, Serum 2.9 g/dL (3.2-5.0); Alkaline Phosphatase 111 U/L (45-117); Anion Gap 9 (5-15); BUN 17 mg/dL (7-18); BUN/Creat Ratio 23.4 RATIO (10-20); Calcium,Total 8.5 mg/dL (8.5-10.1); Chloride 105 mmol/L (98-107); Creatinine, Serum 0.72 mg/dL (0.55-1.02); EST Glomerular Filtration Rate 84 mL/min (>60); Est Glom Filt Rate - Afr Amer 101 mL/min (>60); Estimated Creatinine Clearance 42.07 ml/min; Globulin 3.6 g/dL (2.2-4.2); Glucose 101 mg/dL (74-106); Potassium 3.9 mmol/L (3.5-5.1); Protein, Total 6.5 g/dL (6.4-8.2); Sodium Level 141 mmol/L (136-145)
--- NOTE | 2019-03-26 06:23 | HP.PCM_ITS ---
History of Present Illness Date of Admission: 03/26/19 The patient is a 73 year old F presented to the ER due to having epigastric pain after eating. Patient states she had this last as well as last night. She had nausea and vomiting. Patient states this happened after eating. Patient had normal bowel movements. Currently patient's pain is controlled with pain medication. Patient's CT abdomen pelvis as well as ultrasound consistent with acute cholecystitis. Patient had normal white blood cell count patient's initial total bili was 1.3 however it has increased to 2.8 this morning. With elevated AST and ALT increased from previous Clinical Impression(s) from Imaging Studies Abdomen/Pelvis CT 03/25/19 22:30 IMPRESSION: 1. Overdistended or hydropic gallbladder with questionable low-density cholesterol type stones. Suggest further correlation with gallbladder ultrasound. 2. Diverticulosis coli without diverticulitis. 3. Lumbar and lower thoracic compression fractures, details above. As correlated with previous CTA chest and previous lumbar MRI report, the lower dorsal T11 and T12 compression fractures are chronic. Individualized dose optimization techniques were used for this CT. at 9668 Reported and signed by: Stewart Juarez MD Electronically Signed: Stewart Juarez, at 23:56 EDT Tel , Service support , Gallbladder Ultrasound 03/26/19 00:30 IMPRESSION: Acute cholecystitis with cholelithiasis suspected. No intra or extrahepatic biliary ductal dilatation, ascites, right hydronephrosis detected. Simple left hepatic cyst. Echogenic pancreas can be seen with fat deposition in the pancreas. Electronically Signed: Amy Ashford MD at 3:23 EST , Service support , Past Medical History Past Medical History (Chronic Problems): Chronic Problems (Last Reviewed 10/26/18 @ 10:48 by GAMAL Ward) Obesity (BMI 30-39.9) (Chronic) SHAZIA (obstructive sleep apnea) (Chronic) CPAP 9 cm of water Stage 2 moderate COPD by GOLD classification (Chronic) 07/2017, FEV1 57% Osteoarthritis (Chronic) Diverticulitis (Chronic) Depression (Chronic) COPD (chronic obstructive pulmonary disease) with chronic bronchitis (Chronic) Medical History: Medical History (Last Reviewed 10/26/18 @ 10:48 by Nohelia Brown NP-Alana) Osteoarthritis (Chronic) M19.90 Diverticulitis (Chronic) K57.92 Depression (Chronic) F32.9 Pneumonia (Acute) J18.9 acute viral bronchitis secondary to influenza A (Acute) Acute respiratory failure with hypoxia (Acute) J96.01 COPD (chronic obstructive pulmonary disease) with chronic bronchitis (Chronic) J44.9 Bronchitis (Resolved) J40 Influenza A (Resolved) J10.1 Hypertension (Inactive) I10 Allergies latex Adverse Reaction (Verified 03/25/19 22:06) Other Home Medications: Ambulatory Orders Medication Instructions Recorded Aspirin [Aspirin, Baby] 81 mg PO DAILY@0800 05/18/17 Cholecalciferol (Vitamin D3) 2,000 unit PO DAILY 05/18/17 [D3-2000] Fluoxetine [Prozac] 20 mg PO DAILY 05/18/17 Metoprolol Tartrate 25 mg PO DAILY 05/18/17 fluticasone fur. 100 mcg-umeclid 1 inh INHALATION DAILY #60 ea 10/18/18 62.5 mcg-vilant 25 mcg inhalat.powder Surgical History: Surgical History (Last Reviewed 10/26/18 @ 10:48 by Nohelia Brown NP-Alana) History of tonsillectomy and adenoidectomy (Resolved) Z98.890 H/O laminectomy (Resolved) Z98.890 Hx of cataract surgery (Resolved) Z98.49 History of bone graft (Resolved) Z98.890 (Resolved) H/O tubal ligation (Resolved) Z98.51 Surgical History: - - Back, Lives: Spouse/ Significant Other Smoking Status: Former smoker Alcohol: None Drugs: None - *Family History Sibling Family History: Family History (Last Reviewed 10/26/18 @ 10:48 by Nohelia Brown NP-Alana) Father Hypertension Mother Cancer History Items: Cancer VTE Information - Inpt Only VTE Present on Admission: Yes VTE Mechan Device Prophylaxis: SCD's VTE Pharm Prophylaxis ordered?: No Reason prophylaxis not ordered:: Medical Contraindication - surgery Patient Problems: Active and Suspected Problems (Last Reviewed 10/26/18 @ 10:48 by GAMAL Ward) Acute calculous cholecystitis (Acute) - Physical Exam Vitals/I&O's: Vital Signs Temp Pulse Resp BP Pulse Ox 99 F 73 16 123/62 H 93 03/26/19 04:50 03/26/19 04:50 03/26/19 04:50 03/26/19 04:50 03/26/19 04:50 Oxygen Delivery Method Room Air Weight: 205 lb 11.06 oz Body Mass Index (BMI) 36.4 Intake and Output for Last 24 Hours 03/24/19 03/25/19 03/26/19 23:59 23:59 22:59 Intake Total 1176.67 / 1176.67 Balance 1176.67 / 1176.67 Laboratory Results 03/25/19 22:28: WBC 11.0, RBC 5.20, Hgb 13.7, Hct 43.8, MCV 84.2, MCH 26.3 L, MCHC 31.3 L, RDW Std Deviation 45.0 H, RDW Coeff of Kimberlyn 14.6, Plt Count 373, MPV 9.9, Immature Gran % (Auto) 0.500, Neut % (Auto) 75.2 H, Lymph % (Auto) 14.1 L, Oldham % (Auto) 8.7, Eos % (Auto) 1.0, Baso % (Auto) 0.5, Absolute Neuts (auto) 8.3 H, Absolute Lymphs (auto) 1.55, Nucleated RBC % 0 03/25/19 22:28: Sodium 140, Potassium 3.9, Chloride 104, Carbon Dioxide 28.0, Anion Gap 8, BUN 18, Creatinine 0.73, Estim Creat Clear Calc 42.07, Est GFR (MDRD) Af Amer 100, Est GFR (MDRD) Non-Af 83, BUN/Creatinine Ratio 24.5 H, Glucose 126 H, Calcium 9.1, Total Bilirubin 1.30 H, AST 110 H, ALT 65 H, Alkaline Phosphatase 105, Total Protein 7.7, Albumin 3.4, Globulin 4.3 H, Albumin/Globulin Ratio 0.8 L, Lipase 92 03/25/19 23:20: Urine Color Yellow, Urine Clarity Sl. Cloudy, Urine pH 6.0, Ur Specific Franklin 1.025, Urine Protein 30 H, Urine Glucose (UA) Normal, Urine Ketones 5 H, Urine Occult Blood 25 H, Urine Nitrite Negative, Urine Bilirubin 1 H, Urine Urobilinogen 4 H, Ur Leukocyte Esterase 25 H, Urine RBC 0-5 SEEN, Urine WBC 0-5 SEEN, Ur Squamous Epith Cells 0-5 SEEN, Calcium Oxalate Crystal 2+, Urine Bacteria 0 SEEN, Urine Mucus 0 SEEN 03/26/19 05:04: WBC 9.1, RBC 4.46, Hgb 12.1, Hct 38.2, MCV 85.7, MCH 27.1, MCHC 31.7 L, RDW Std Deviation 46.7 H, RDW Coeff of Kimberlyn 14.8 H, Plt Count 318, MPV 9.9, Immature Gran % (Auto) 0.300, Neut % (Auto) 66.3, Lymph % (Auto) 22.0, Oldham % (Auto) 9.8, Eos % (Auto) 1.0, Baso % (Auto) 0.6, Absolute Neuts (auto) 6.0, Absolute Lymphs (auto) 2.00, Nucleated RBC % 0 03/26/19 05:04: Sodium 141, Potassium 3.9, Chloride 105, Carbon Dioxide 27.0, Anion Gap 9, BUN 17, Creatinine 0.72, Estim Creat Clear Calc 42.07, Est GFR (MDRD) Af Amer 101, Est GFR (MDRD) Non-Af 84, BUN/Creatinine Ratio 23.4 H, Glucose 101, Calcium 8.5, Total Bilirubin 2.80 H, Direct Bilirubin 1.90 H, AST 211 H, ALT 143 H, Alkaline Phosphatase 111, Total Protein 6.5, Albumin 2.9 L, Globulin 3.6 Current Medications Albuterol Sulfate (Ventolin Aerosols) 2.5 mg INHALATION Q6HWA.RT NISHANT Budesonide (Pulmicort Aerosol) 0.5 mg INHALATION Q12H.RT NISHANT Fluoxetine HCl (Prozac) 20 mg PO DAILY NISHANT Hydromorphone HCl (Dilaudid Inj) 0.25 - 0.5 mg IV Q2H PRN PRN PRN Reason: Pain Score 1-10/10 Sodium Chloride () 1,000 mls @ 125 mls/hr IV .Q8H NISHANT Last Infusion: 03/26/19 05:43 Dose: 125 mls/hr Documented by: Piperacillin Sod/Tazobactam (Sod 3.375 gm/ Sodium Chloride) 50 mls @ 12.5 mls/hr IV Q8 [facility] Last Admin: 03/26/19 06:14 Dose: 12.5 mls/hr Documented by: Pantoprazole Sodium 40 mg/ (Sodium Chloride) 110 mls @ 330 mls/hr IV Q24 NISHANT Last Infusion: 03/26/19 05:43 Dose: Infused Documented by: Sodium Chloride () 250 mls @ 15 mls/hr IV .[id number] PRN PRN Reason: Saline Flush Metoprolol Succinate (Toprol Xl (Beta Suad)) 25 mg PO DAILY NISHANT Ondansetron HCl (Zofran) 4 mg IV Q8H PRN PRN PRN Reason: NAUSEA Sodium Chloride () 10 - 40 ml IV UD PRN PRN Reason: SALINE FLUSH Last Admin: 03/26/19 05:23 Dose: 10 ml Documented by: Assessment/Plan All Active Problems (Last Reviewed 10/26/18 @ 10:48 by Nohelia Brown, IZZY-C) Acute calculous cholecystitis (Acute) Diastolic dysfunction (Acute) Hypersomnia (Acute) Pneumonia (Acute) History of tonsillectomy and adenoidectomy (Resolved) H/O laminectomy (Resolved) Hx of cataract surgery (Resolved) History of bone graft (Resolved) (Resolved) H/O tubal ligation (Resolved) acute viral bronchitis secondary to influenza A (Acute) Acute respiratory failure with hypoxia (Acute) Bronchitis (Resolved) Influenza A (Resolved) 73-year-old female with cholelithiasis, acute cholecystitis, elevated liver functions 1. Due to the increase in liver functions will talk with Dr. Alan whether patient would get an ERCP prior to laparoscopic cholecystectomy. 2. Reviewed the anatomy with the patient and discussed the procedure: laparoscopic cholecystectomy with possible cholangiograms, possible open. Review risks including but not limited to bleeding, infection, hernia, bile leak, retained gallstones requiring another procedure ERCP- Endoscopic Retrograde Cholangiopancreatography, injury to another organ (bile ducts, common bile duct, small bowel, etc.) may require transfer to a tertiary care facility. And conversion to an open procedure. All questions were answered. Addendum: pt will go for ERCP today and lap supa tomorrow. Selina Juárez M.D. Pager: [phone] [facility] [address] [place] [address], Outpatient [place], [address] [place] [address] Office: [phone] Code Visit Inpatient E&M: 52553 Init Hosp L2
[2019-03-26] MEDS: Budesonide Respules 0.5 MG/2 ML AMPUL.NEB. INHALATION ×2 (06:59→19:59)
[2019-03-26] MEDS: Albuterol 2.5 MG/3 ML VIAL.NEB. INHALATION ×2 (06:59→11:30)
[2019-03-26] MEDS: Metoprolol(XL)Succ 25 MG Tablet PO (09:40)
--- NOTE | 2019-03-26 09:45 | GALL_PTH ---
PATIENT: TAM SANCHEZ LOC: MS3 U#:[id number] AGE/SX: 73/F ROOM: MS310 RE03/26/[address]: Dr. Selina Juárez MD : 1945 BED: 1 DIS: 03/28/2019 SPEC #: [id number] RECD: 03/27/19 16:00 STATUS: TERESA PAOLOAmber #: [id number] NAVID: 03/26/19 09:[address]: Selina Juárez DEPT: SURGICAL PATHOLOGY RECD BY: Shilo Morel ENTERED: 03/28/19 07:35 SP TYPE: VINCENT BEAVER DR: MD Bruce Joseph Tissues: Gallbladder, NOS Procedures: Surgery Specimen Level III HEADER OPERATION: ERCP PRE-OP DIAGNOSIS: Acute calculus cholecystitis TISSUE SUBMITTED: Gallbladder MICROSCOPIC DIAGNOSIS Gallbladder, cholecystectomy: Chronic cholecystitis, cholelithiasis and focal cholesterolosis. SJ:deborah 03/29/19 MICROSCOPIC DESCRIPTION Slides are reviewed. GROSS DESCRIPTION Received is one container labeled with the patient's name and designated gallbladder. The specimen consists of a gallbladder measuring 11 cm in length and up to 4.5 cm in diameter. The external surface is pink-nieto, smooth and glistening for the most part. Focally it is granular, hemorrhagic and contains cautery artifact. The gallbladder contains green-yellow mucoid bile and multiple mulberry, yellowish stones measuring in aggregate 3 x 3 x 0.5 cm and 0.3 to 0.5 cm in greatest dimension. The mucosa also shows several yellowish streaks consistent with cholesterolosis. The mucosa is bile-stained and without any mass lesions. The gallbladder wall measures up to 0.5 cm in thickness. An increased amount of subserosal sludge is also noted Mult Au Matic Operator sections from the gallbladder and the cystic duct are submitted in one cassette. / SJ:rg 03/28/19 TC:3 CPT: 60932
--- NOTE | 2019-03-26 09:49 | NURSING ---
Report given to Kaitlin in PACU at this time.
--- NOTE | 2019-03-26 09:59 | PCM.PN.SRG ---
Patient Problems: Active and Suspected Problems (Last Reviewed 10/26/18 @ 10:48 by GAMAL Ward) Acute calculous cholecystitis (Acute) Subjective: Patient reports multiple episodes of right upper quadrant pain over the last week. The patient reports pain in her right upper quadrant currently. - Physical Exam Vitals/I&O's: Vital Signs Temp Pulse Resp BP Pulse Ox 98.7 F 68 16 116/52 L 94 03/26/19 09:53 03/26/19 09:53 03/26/19 09:53 03/26/19 09:53 03/26/19 09:53 Oxygen Delivery Method Room Air Weight: 205 lb 11.06 oz Body Mass Index (BMI) 36.4 Intake and Output for Last 24 Hours 03/24/19 03/25/19 03/26/19 23:59 23:59 22:59 Intake Total 1176.67 / 1176.67 Balance 1176.67 / 1176.67 General: Alert, Oriented x3, Cooperative Lungs: Normal air movement Cardiovascular: Regular rate, Regular Rhythm Abdomen: Soft, Non-Distended, Tender - Tender in the right upper quadrant Laboratory Results 03/25/19 22:28: WBC 11.0, RBC 5.20, Hgb 13.7, Hct 43.8, MCV 84.2, MCH 26.3 L, MCHC 31.3 L, RDW Std Deviation 45.0 H, RDW Coeff of Kimberlyn 14.6, Plt Count 373, MPV 9.9, Immature Gran % (Auto) 0.500, Neut % (Auto) 75.2 H, Lymph % (Auto) 14.1 L, [place] % (Auto) 8.7, Eos % (Auto) 1.0, Baso % (Auto) 0.5, Absolute Neuts (auto) 8.3 H, Absolute Lymphs (auto) 1.55, Nucleated RBC % 0 03/25/19 22:28: Sodium 140, Potassium 3.9, Chloride 104, Carbon Dioxide 28.0, Anion Gap 8, BUN 18, Creatinine 0.73, Estim Creat Clear Calc 42.07, Est GFR (MDRD) Af Amer 100, Est GFR (MDRD) Non-Af 83, BUN/Creatinine Ratio 24.5 H, Glucose 126 H, Calcium 9.1, Total Bilirubin 1.30 H, AST 110 H, ALT 65 H, Alkaline Phosphatase 105, Total Protein 7.7, Albumin 3.4, Globulin 4.3 H, Albumin/Globulin Ratio 0.8 L, Lipase 92 03/25/19 23:20: Urine Color Yellow, Urine Clarity Sl. Cloudy, Urine pH 6.0, Ur Specific [place] 1.025, Urine Protein 30 H, Urine Glucose (UA) Normal, Urine Ketones 5 H, Urine Occult Blood 25 H, Urine Nitrite Negative, Urine Bilirubin 1 H, Urine Urobilinogen 4 H, Ur Leukocyte Esterase 25 H, Urine RBC 0-5 SEEN, Urine WBC 0-5 SEEN, Ur Squamous Epith Cells 0-5 SEEN, Calcium Oxalate Crystal 2+, Urine Bacteria 0 SEEN, Urine Mucus 0 SEEN 03/26/19 05:04: WBC 9.1, RBC 4.46, Hgb 12.1, Hct 38.2, MCV 85.7, MCH 27.1, MCHC 31.7 L, RDW Std Deviation 46.7 H, RDW Coeff of Kimberlyn 14.8 H, Plt Count 318, MPV 9.9, Immature Gran % (Auto) 0.300, Neut % (Auto) 66.3, Lymph % (Auto) 22.0, [place] % (Auto) 9.8, Eos % (Auto) 1.0, Baso % (Auto) 0.6, Absolute Neuts (auto) 6.0, Absolute Lymphs (auto) 2.00, Nucleated RBC % 0 03/26/19 05:04: Sodium 141, Potassium 3.9, Chloride 105, Carbon Dioxide 27.0, Anion Gap 9, BUN 17, Creatinine 0.72, Estim Creat Clear Calc 42.07, Est GFR (MDRD) Af Amer 101, Est GFR (MDRD) Non-Af 84, BUN/Creatinine Ratio 23.4 H, Glucose 101, Calcium 8.5, Total Bilirubin 2.80 H, Direct Bilirubin 1.90 H, AST 211 H, ALT 143 H, Alkaline Phosphatase 111, Total Protein 6.5, Albumin 2.9 L, Globulin 3.6 Current Medications Albuterol Sulfate (Ventolin Aerosols) 2.5 mg INHALATION Q6HWA.RT NISHANT Albuterol/Ipratropium (Duoneb) 3 ml INHALATION Q6H.RT PRN PRN Reason: SOB &/OR WHEEZING Budesonide (Pulmicort Aerosol) 0.5 mg INHALATION Q12H.RT NISHANT Fluoxetine HCl (Prozac) 20 mg PO DAILY NISHANT Hydromorphone HCl (Dilaudid Inj) 0.25 - 0.5 mg IV Q2H PRN PRN PRN Reason: Pain Score 1-10/10 Sodium Chloride () 1,000 mls @ 125 mls/hr IV .Q8H [facility] Last Infusion: 03/26/19 05:43 Dose: 125 mls/hr Documented by: Piperacillin Sod/Tazobactam (Sod 3.375 gm/ Sodium Chloride) 50 mls @ 12.5 mls/hr IV Q8 [facility] Last Admin: 03/26/19 06:14 Dose: 12.5 mls/hr Documented by: Pantoprazole Sodium 40 mg/ (Sodium Chloride) 110 mls @ 330 mls/hr IV Q24 [facility] Last Infusion: 03/26/19 05:43 Dose: Infused Documented by: Sodium Chloride () 250 mls @ 15 mls/hr IV .[id number] PRN PRN Reason: Saline Flush Metoprolol Succinate (Toprol Xl (Beta Suad)) 25 mg PO DAILY [facility] Last Admin: 03/26/19 09:40 Dose: 25 mg Documented by: Ondansetron HCl (Zofran) 4 mg IV Q8H PRN PRN PRN Reason: NAUSEA Sodium Chloride () 10 - 40 ml IV UD PRN PRN Reason: SALINE FLUSH Last Admin: 03/26/19 05:23 Dose: 10 ml Documented by: Medical Necessity - Tobacco Use Smoking Status: Former smoker Assessment/Plan All Active Problems (Last Reviewed 10/26/18 @ 10:48 by Nohelia Brown NP-C) Acute calculous cholecystitis (Acute) Diastolic dysfunction (Acute) Hypersomnia (Acute) Pneumonia (Acute) History of tonsillectomy and adenoidectomy (Resolved) H/O laminectomy (Resolved) Hx of cataract surgery (Resolved) History of bone graft (Resolved) (Resolved) H/O tubal ligation (Resolved) acute viral bronchitis secondary to influenza A (Acute) Acute respiratory failure with hypoxia (Acute) Bronchitis (Resolved) Influenza A (Resolved) 73-year-old female with obstructive jaundice 1. The patient had CT scan and ultrasound yesterday. CT scan revealed a distended gallbladder ultrasound revealed a mildly thickened gallbladder wall with positive Solo sign and gallstones. Patient has slightly elevated LFTs yesterday which have increased this morning. I believe the patient does have choledocholithiasis with obstruction. I recommended ERCP prior to laparoscopic cholecystectomy. 2. I discussed ERCP with the patient in detail. I discussed the risks including but not limited to bleeding, infection, perforation of the bile duct or bowel, pancreatitis. The patient expresses understanding and is willing to proceed. I also discussed the possibility of having to place a stent. Edson Alan MD Pager: [facility] [address] [place] [address], [address] [place] [address] Office:
--- NOTE | 2019-03-26 10:25 | RAD_ITS ---
STUDY: ERCP. REASON FOR EXAM: Female, 73 years old. Acute cholecystitis. FLUOROSCOPY TIME (if supplied): ( 127 seconds ) minutes/seconds TECHNIQUE: An ERCP was performed by the surgeon. 2 images were submitted. COMPARISON: None. FINDINGS: A catheter is seen within the common bile duct. No intraluminal filling defect is seen. According to the history, a sphincterotomy was performed. 2 stones were removed. RAD/ERCP Biliary/Pancreas IMPRESSION: ERCP with removal of 2 stones and sphincterotomy. Electronically Signed: Phillip Moran, at 9:04 EST , Service support ,
--- NOTE | 2019-03-26 10:57 | OP.ENDO_ITS ---
03/26/2019 Bruce Virk Re : ERCP procedure for Nicole Telles Dear Moose This procedure was performed on Tuesday, March 26, 2019. My impressions and recommendations are as follows: Impressions : - The major papilla appeared normal. - A filling defect consistent with a stone and sludge was seen on the cholangiogram. - Choledocholithiasis was found. Complete removal was accomplished by biliary sphincterotomy and balloon extraction. - A biliary sphincterotomy was performed. - The biliary tree was swept. Recommendations : - Observe patient's clinical course. My findings are described in the full procedure note, which is enclosed. If I can be of further assistance, please feel free to contact me at Doctor phone number(s): , Work: . Sincerely, Edson Alan MD 03/26/2019 10:57:12 AM This report has been signed electronically.
--- NOTE | 2019-03-26 13:00 | NURSING ---
PT is aware of new order of clear liquid diet. This nurse got her some water and offered to get more, but she wanted to wait and take a nap.
[2019-03-26] MEDS: FLUoxetine 20 MG Capsule PO (17:27)
[2019-03-26] MEDS: Ipratropium/Albuterol Sulfate 3 ML AMPUL.NEB INHALATION (19:59)
[2019-03-26] MEDS: Acetaminophen 325 MG Tablet 650 MG PO (22:05)
[2019-03-26] MEDS: DiphenhydrAMINE 25 MG Capsule PO (22:07)
[2019-03-27] VITALS (19 sets, daily range): BP systolic 102–159; BP diastolic 46–72; PULSE 69–86; RESP 2–22; TEMP 36.6–37.3; O2SAT 18–98; BMI 37.1; BMI 36.4
[2019-03-27 05:42] LABS: Absolute Lymphocyte Count 0.67 X10^3/uL (0.83-4.51); Absolute Neutrophil Count 6.7 X10^3/uL (2.0-7.7); Basophil# 0.01 X10^3/uL; Basophil% 0.1 % (0-1); Hematocrit 39.9 % (37-47); Hemoglobin 12.2 g/dL (12.0-15.0); Lymphocyte # 0.67 X10^3/ul (4.0); Lymphocyte % 8.7 % (19-41); Mean Corp Hgb Conc 30.6 g/dL (32-36); Mean Corpuscular Hgb 26.5 pg (27.0-32.0); Mean Corpuscular Volume 86.6 fL (81-99); Monocyte# 0.23 X10^3/uL; NRBC Flagged by Analyzer 0 % (0-5); Neutrophil # 6.71 X10^3/uL (2.7-7.7); Neutrophil % 87.4 % (47-70); POSITIVE MORPHOLOGY YES; Platelet Count 318 K/mm3 (150-450); RBC Distribution Width SD 47.8 fl (35.1-43.9); Red Blood Count 4.61 M/mm3 (4.2-5.4); White Blood Count 7.7 K/mm3 (4.4-11.0)
[2019-03-27 05:46] LABS: Differential Indicated SCAN CRITERIA MET
[2019-03-27 06:10] LABS: AST(SGOT) 92 U/L (15-37); Alanine Aminotransfer ALT/SGPT 147 U/L (13-56); Albumin, Serum 2.9 g/dL (3.2-5.0); Alkaline Phosphatase 126 U/L (45-117); Anion Gap 10 (5-15); BUN 10 mg/dL (7-18); BUN/Creat Ratio 12.4 RATIO (10-20); Bilirubin, Direct 1.01 mg/dL (0.00-0.30); Calcium,Total 8.3 mg/dL (8.5-10.1); Chloride 107 mmol/L (98-107); Creatinine, Serum 0.81 mg/dL (0.55-1.02); EST Glomerular Filtration Rate 74 mL/min (>60); Est Glom Filt Rate - Afr Amer 90 mL/min (>60); Estimated Creatinine Clearance 51.93 ml/min; Globulin 3.6 g/dL (2.2-4.2); Glucose 136 mg/dL (74-106); Protein, Total 6.5 g/dL (6.4-8.2); Sodium Level 142 mmol/L (136-145)
[2019-03-27 06:26] LABS: Differential Comment SCANNED; Platelet Estimate SLT INC (ADEQ)
[2019-03-27] MEDS: 0.9% Normal Saline 1,000 ML 125 ML IV (06:28)
[2019-03-27] MEDS: Ipratropium/Albuterol Sulfate 3 ML AMPUL.NEB INHALATION ×2 (06:51→15:42)
[2019-03-27] MEDS: Budesonide Respules 0.5 MG/2 ML AMPUL.NEB. INHALATION (06:51)
--- NOTE | 2019-03-27 07:32 | PCM.PN.SRG ---
Patient Problems: Active and Suspected Problems (Last Reviewed 10/26/18 @ 10:48 by GAMAL Ward) Acute calculous cholecystitis (Acute) Subjective: Patient denies abdominal pain, LFTs are coming down, patient under gone ERCP yesterday with sphincterotomy - Physical Exam Vitals/I&O's: Vital Signs Temp Pulse Resp BP Pulse Ox 97.8 F 79 18 104/48 L 93 03/27/19 07:23 03/27/19 07:23 03/27/19 07:23 03/27/19 07:23 03/27/19 06:53 Oxygen Flow Rate (L/min) 2 Oxygen Delivery Method Room Air Weight: 205 lb 11.06 oz Body Mass Index (BMI) 36.4 Intake and Output for Last 24 Hours 03/26/19 03/26/19 03/27/19 00:59 23:59 23:59 Intake Total 1456.25 / 1456.25 Output Total 800 / 800 Balance 656.25 / 656.25 General: Alert, Oriented x3, Cooperative, No apparent distress HEENT: Atraumatic Lungs: Normal air movement Cardiovascular: Regular rate Abdomen: Soft, Non-Distended, Tender - Mildly epigastric and right upper quadrant Extremities: No cyanosis, No edema Neurological: Cranial nerves II-XII grossly intact Laboratory Results 03/27/19 05:24: WBC 7.7, RBC 4.61, Hgb 12.2, Hct 39.9, MCV 86.6, MCH 26.5 L, MCHC 30.6 L, RDW Std Deviation 47.8 H, RDW Coeff of Kimberlyn 15.0 H, Plt Count 318, MPV 10.0, Immature Gran % (Auto) 0.800, Neut % (Auto) 87.4 H, Lymph % (Auto) 8.7 L, [place] % (Auto) 3.0, Eos % (Auto) 0.0, Baso % (Auto) 0.1, Absolute Neuts (auto) 6.7, Absolute Lymphs (auto) 0.67 L, Nucleated RBC % 0, Differential Comment SCANNED, Platelet Estimate [facility] 03/27/19 05:24: Sodium 142, Potassium 4.0, Chloride 107, Carbon Dioxide 25.0, Anion Gap 10, BUN 10, Creatinine 0.81, Estim Creat Clear Calc 51.93, Est GFR (MDRD) Af Amer 90, Est GFR (MDRD) Non-Af 74, BUN/Creatinine Ratio 12.4, Glucose 136 H, Calcium 8.3 L, Total Bilirubin 1.50 H, Direct Bilirubin 1.01 H, AST 92 H, ALT 147 H, Alkaline Phosphatase 126 H, Total Protein 6.5, Albumin 2.9 L, Globulin 3.6 Current Medications Albuterol Sulfate (Ventolin Aerosols) 2.5 mg INHALATION Q6HWA.RT NISHANT Last Admin: 03/26/19 20:14 Dose: Not Given Documented by: Albuterol/Ipratropium (Duoneb) 3 ml INHALATION Q6H.RT PRN PRN Reason: SOB &/OR WHEEZING Last Admin: 03/27/19 06:51 Dose: 3 ml Documented by: Budesonide (Pulmicort Aerosol) 0.5 mg INHALATION Q12H.RT [facility] Last Admin: 03/27/19 06:51 Dose: 0.5 mg Documented by: Diphenhydramine HCl (Benadryl) 25 mg PO Q8H PRN PRN Reason: ITCHING Last Admin: 03/26/19 22:07 Dose: 25 mg Documented by: Fluoxetine HCl (Prozac) 20 mg PO DAILY [facility] Last Admin: 03/26/19 17:27 Dose: 20 mg Documented by: Hydromorphone HCl (Dilaudid Inj) 0.25 - 0.5 mg IV Q2H PRN PRN PRN Reason: Pain Score 1-10/10 Sodium Chloride () 1,000 mls @ 125 mls/hr IV .Q8H [facility] Last Admin: 03/27/19 06:28 Dose: 125 mls/hr Documented by: Piperacillin Sod/Tazobactam (Sod 3.375 gm/ Sodium Chloride) 50 mls @ 12.5 mls/hr IV Q8 [facility] Last Admin: 03/27/19 05:19 Dose: 12.5 mls/hr Documented by: Pantoprazole Sodium 40 mg/ (Sodium Chloride) 110 mls @ 330 mls/hr IV Q24 [facility] Last Infusion: 03/26/19 05:43 Dose: Infused Documented by: Sodium Chloride () 250 mls @ 15 mls/hr IV .[id number] PRN PRN Reason: Saline Flush Metoprolol Succinate (Toprol Xl (Beta Suad)) 25 mg PO DAILY [facility] Last Admin: 03/26/19 09:40 Dose: 25 mg Documented by: Ondansetron HCl (Zofran) 4 mg IV Q8H PRN PRN PRN Reason: NAUSEA Sodium Chloride () 10 - 40 ml IV UD PRN PRN Reason: SALINE FLUSH Last Admin: 03/26/19 17:27 Dose: 10 ml Documented by: Medical Necessity - Tobacco Use Smoking Status: Former smoker Assessment/Plan All Active Problems (Last Reviewed 10/26/18 @ 10:48 by Nohelia Brown, IZZY-C) Acute calculous cholecystitis (Acute) Diastolic dysfunction (Acute) Hypersomnia (Acute) Pneumonia (Acute) History of tonsillectomy and adenoidectomy (Resolved) H/O laminectomy (Resolved) Hx of cataract surgery (Resolved) History of bone graft (Resolved) (Resolved) H/O tubal ligation (Resolved) acute viral bronchitis secondary to influenza A (Acute) Acute respiratory failure with hypoxia (Acute) Bronchitis (Resolved) Influenza A (Resolved) 73-year-old female with cholelithiasis, acute cholecystitis, elevated liver functions postop day 1 status post ERCP 1. We will plan for laparoscopic cholecystectomy with cholangiograms possible open today about 1115. Risks and benefits were reviewed patient had no further questions this time. Selina Juárez M.D. Pager: [phone] [facility] [address] [place] [address], [address] [place] [address] Office: [phone]
[2019-03-27] MEDS: Metoprolol(XL)Succ 25 MG Tablet PO (09:28)
--- NOTE | 2019-03-27 10:29 | NURSING ---
PT TRANSPORTED TO [facility] VIA BED
--- NOTE | 2019-03-27 11:55 | CASEMGMT ---
Case Management Progress Note: This publicity writer went to bedside x2 to complete initial assessment and patient was not in room. RNCM to continue to follow to complete initial assessment and Care Coordination Needs. Deborah Cali, RNCM
--- NOTE | 2019-03-27 12:50 | RAD_ITS ---
STUDY: INTRAOPERATIVE INTRA CHOLANGIOGRAM. REASON FOR EXAM: Female, 73 years old. Cholecystectomy. Recent ERCP. FLUOROSCOPY TIME (if supplied): ( 28.3 seconds. ) minutes/seconds TECHNIQUE: And intraoperative cholangiogram was performed by the surgeon. Imaging was submitted. COMPARISON: Comparison is made with prior ERCP performed on March 26, 2019. FINDINGS: Contrast was injected. Imaging was submitted. Multiple rounded filling defects are seen in the common bile duct. These may represent multiple stones. Some may represent air bubbles. A small amount of contrast is seen entering the duodenum. RAD/Cholangiogram/ O R,Initial IMPRESSION: Multiple well-defined rounded filling defects in the common bile duct. These may represent tiny stones and some air bubbles. Correlation with MRI is recommended. Electronically Signed: Phillip Moran, at 9:06 EST , Service support ,
[2019-03-27] MEDS: Lactated Ringers 1,000 ML 100 ML IV (13:00)
[2019-03-27] MEDS: Bupivacaine Mpf 0.5% 30 ML VIAL (14:31)
--- NOTE | 2019-03-27 14:35 | OP.PCM_ITS ---
Report of Operation Date of Procedure: 03/27/19 Pre-Operative Diagnosis: Choledocholithiasis status post ERCP and sphincte rotomy, acute cholecystitis, cholelithiasis Post-Operative Diagnosis: Acute cholecystitis, cholelithiasis, questionable air bubbles in common bile duct on cholangiogram Surgery/Procedure Performed:: Laparoscopic cholecystectomy with cholangiograms environmental services director: Krysten Cormier Type of Anesthesia:: General/Supplemental Anesthesiologist: Bry Garnica Special Medications: Patient on Zosyn 3.375 g IV on the floor due to acute cholecystitis Specimen's removed: Gallbladder Estimated Blood Loss (mL): 50 cc Fluids Replaced: 1700 cc Description of Procedure: Indications this is a 73 year-old female who developed abdominal pain/nausea/vomiting and on workup was found to have choledocholithiasis, this patient underwent ERCP yesterday. Patient also found to have cholelithiasis, with a normal common bile duct. Laparoscopic cholecystectomy was elected. Description procedure: The patient was placed on operating table in supine position. General Anesthesia was induced. A timeout was completed verifying correct patient, procedure, site, position and special equipment prior to beginning procedure. The abdomen was prepped and draped in usual sterile fashion. An incision was made in the natural skin line above the umbilicus. The fascia was elevated and incised. The peritoneum was elevated and incised. Entry into the peritoneum was confirmed visually and no bowel was noted in the vicinity of the incision. Saunders trocar was placed. The abdomen was insufflated with carbon dioxide to a pressure of 12-15 mmHg. Patient tolerated insufflation well. The laparoscope was then inserted and abdomen inspected. No injuries from initial trocar placement were noted. Additional trochars were then inserted in the following locations 5 mm trocar in the epigastrium and 2 more 5 mm trochars along the right costal margin. The abdomen was inspected no abnormalities were found. The table is placed in reverse Trendelenburg position with the right side up. The adhesions between the gallbladder and omentum were lysed sharply. The dome of the gallbladder was grasped with atraumatic grasper passed through the lateral port and retracted over the dome of the liver. Infundibulum was then grasped with atraumatic grasper through the midclavicular port and retracted to the right lower quadrant. This maneuver exposed Calot's triangle. The peritoneum overlying the gallbladder infundibulum was then incised and cystic duct and artery identified and circumferentially dissected. Hahn catheter was used for cholangiograms. The cholangiogram showed multiple defects questionable air bubbles in the common bile duct common bile duct with some contrast getting into the duodenum, good filling of the right and left bile ducts as well. The cystic duct and artery were then doubly clipped and divided close to the gallbladder. The gallbladder then dissected from its peritoneal attachments by electrocautery. Hemostasis was checked and the gallbladder and contained stones were removed using the endoscopic retrieval bag through the umbilical port. The gallbladder is passed off table as specimen. The gallbladder fossa was copiously irrigated with saline and hemostasis obtained. There is no evidence of bleeding from the gallbladder fossa or cystic artery leakage of bile from the cystic duct stump. Secondary trochars removed under direct vision. No bleeding was noted the trocar sites. The laparoscope was withdrawn and umbilical trocar removed. The abdomen was allowed to collapse. The fascia of the 12 mm trocar was closed with a [id number] 0 Vicryl suture. The skin was closed with sutures of 4-0 Monocryl and Steri-Strips. The orogastric tube was removed and the patient was extubated. The patient tolerated procedure well and was taken to the postanesthesia care unit in stable condition. - Complications None
[2019-03-27] MEDS: FLUoxetine 20 MG Capsule PO (17:51)
[2019-03-27] MEDS: oxyCODONE 5 MG Tablet PO (21:18)
[2019-03-28] VITALS (9 sets, daily range): BP systolic 118–120; BP diastolic 54–62; PULSE 64–80; RESP 16–20; TEMP 36.6–37.1; O2SAT 85–97
[2019-03-28] MEDS: Lactated Ringers 1,000 ML 100 ML IV (01:04)
[2019-03-28] MEDS: DiphenhydrAMINE 25 MG Capsule PO (01:08)
[2019-03-28] MEDS: oxyCODONE 5 MG Tablet PO ×2 (04:57→13:10)
[2019-03-28] MEDS: Ipratropium/Albuterol Sulfate 3 ML AMPUL.NEB INHALATION ×2 (06:46→13:33)
[2019-03-28 06:48] LABS: Absolute Lymphocyte Count 1.64 X10^3/uL (0.83-4.51); Absolute Neutrophil Count 12.1 X10^3/uL (2.0-7.7); Basophil# 0.03 X10^3/uL; Basophil% 0.2 % (0-1); Hematocrit 32.4 % (37-47); Hemoglobin 9.8 g/dL (12.0-15.0); Lymphocyte # 1.64 X10^3/ul (4.0); Lymphocyte % 10.6 % (19-41); Mean Corp Hgb Conc 30.2 g/dL (32-36); Mean Corpuscular Hgb 26.7 pg (27.0-32.0); Mean Corpuscular Volume 88.3 fL (81-99); Mean Platelet Vol. 10.5 fl (6.2-12.0); Monocyte# 1.52 X10^3/uL; Monocyte% 9.9 % (0-10); NRBC Flagged by Analyzer 0 % (0-5); Neutrophil # 12.11 X10^3/uL (2.7-7.7); Neutrophil % 78.7 % (47-70); POSITIVE DIFFERENTIAL YES; Platelet Count 299 K/mm3 (150-450); RBC Distribution Width CV 15.5 % (11.6-14.6); RBC Distribution Width SD 50.5 fl (35.1-43.9); Red Blood Count 3.67 M/mm3 (4.2-5.4); White Blood Count 15.4 K/mm3 (4.4-11.0)
[2019-03-28] MEDS: Budesonide Respules 0.5 MG/2 ML AMPUL.NEB. INHALATION (06:54)
[2019-03-28 07:03] LABS: Differential Indicated SCAN CRITERIA MET
[2019-03-28 07:07] LABS: AST(SGOT) 82 U/L (15-37); Alanine Aminotransfer ALT/SGPT 150 U/L (13-56); Albumin, Serum 2.7 g/dL (3.2-5.0); Alkaline Phosphatase 104 U/L (45-117); Anion Gap 6 (5-15); BUN 14 mg/dL (7-18); BUN/Creat Ratio 23.2 RATIO (10-20); Bilirubin, Direct 0.39 mg/dL (0.00-0.30); Chloride 106 mmol/L (98-107); EST Glomerular Filtration Rate 104 mL/min (>60); Est Glom Filt Rate - Afr Amer 126 mL/min (>60); Estimated Creatinine Clearance 42.07 ml/min; Globulin 2.9 g/dL (2.2-4.2); Glucose 96 mg/dL (74-106); Potassium 3.7 mmol/L (3.5-5.1); Protein, Total 5.6 g/dL (6.4-8.2); Sodium Level 142 mmol/L (136-145)
--- NOTE | 2019-03-28 07:10 | PCM.PN.SRG ---
Patient Problems: Active and Suspected Problems (Last Reviewed 10/26/18 @ 10:48 by Nohelia Brown NP-C) Acute calculous cholecystitis (Acute) Subjective: Patient is resting comfortably in chair. She notes incisional discomfort. Her symptoms pre-op have greatly improved. Denies nausea, vomiting. She was actively receiving a breathing treatment. Patient is a patient of Dr. Parra and does develop pneumonia easily per patient. - Physical Exam Vitals/I&O's: Vital Signs Temp Pulse Resp BP Pulse Ox 98.5 F 70 18 118/54 L 97 03/28/19 05:00 03/28/19 06:46 03/28/19 06:46 03/28/19 05:00 03/28/19 06:46 Oxygen Flow Rate (L/min) 2 Oxygen Delivery Method Nasal Cannula Weight: 209 lb 10.554 oz Body Mass Index (BMI) 37.1 Intake and Output for Last 24 Hours 03/26/19 03/27/19 03/28/19 23:59 23:59 23:59 Intake Total 3956.25 / 3956.25 200 / 200 Output Total 1000 / 1000 350 / 350 Balance 2956.25 / 2956.25 -150 / -150 General: Alert, Oriented x3, Cooperative Lungs: Wheezes Cardiovascular: Regular rate, No murmurs Abdomen: Soft, Hypoactive Bowel Sounds, Distended, Obese, Tender - generalized discomfort, - - Incisions c/d/i. No erythema or infection noted Laboratory Results 03/28/19 06:07: WBC 15.4 H, RBC 3.67 L, Hgb 9.8 L, Hct 32.4 L, MCV 88.3, MCH 26.7 L, MCHC 30.2 L, RDW Std Deviation 50.5 H, RDW Coeff of Kimberlyn 15.5 H, Plt Count 299, MPV 10.5, Immature Gran % (Auto) 0.600, Neut % (Auto) 78.7 H, Lymph % (Auto) 10.6 L, [place] % (Auto) 9.9, Eos % (Auto) 0.0, Baso % (Auto) 0.2, Absolute Neuts (auto) 12.1 H, Absolute Lymphs (auto) 1.64, Nucleated RBC % 0 03/28/19 06:07: Sodium 142, Potassium 3.7, Chloride 106, Carbon Dioxide 30.0, Anion Gap 6, BUN 14, Creatinine 0.60, Estim Creat Clear Calc 42.07, Est GFR (MDRD) Af Amer 126, Est GFR (MDRD) Non-Af 104, BUN/Creatinine Ratio 23.2 H, Glucose 96, Calcium 8.0 L, Total Bilirubin 0.90, Direct Bilirubin 0.39 H, AST 82 H, ALT 150 H, Alkaline Phosphatase 104, Total Protein 5.6 L, Albumin 2.7 L, Globulin 2.9 Current Medications Albuterol Sulfate (Ventolin Aerosols) 2.5 mg INHALATION Q6HWA.RT NISHANT Last Admin: 03/27/19 19:30 Dose: Not Given Documented by: Albuterol/Ipratropium (Duoneb) 3 ml INHALATION Q6H.RT PRN PRN Reason: SOB &/OR WHEEZING Last Admin: 03/28/19 06:46 Dose: 3 ml Documented by: Budesonide (Pulmicort Aerosol) 0.5 mg INHALATION Q12H.RT [facility] Last Admin: 03/28/19 06:54 Dose: 0.5 mg Documented by: Diphenhydramine HCl (Benadryl) 25 mg PO Q8H PRN PRN Reason: ITCHING Last Admin: 03/28/19 01:08 Dose: 25 mg Documented by: Fluoxetine HCl (Prozac) 20 mg PO DAILY [facility] Last Admin: 03/27/19 17:51 Dose: 20 mg Documented by: Hydromorphone HCl (Dilaudid Inj) 0.25 - 0.5 mg IV Q2H PRN PRN PRN Reason: Pain Score 1-10/10 Sodium Chloride () 1,000 mls @ 80 mls/hr IV .[id number] [facility] Last Infusion: 03/27/19 13:00 Dose: Infused Documented by: Pantoprazole Sodium 40 mg/ (Sodium Chloride) 110 mls @ 330 mls/hr IV Q24 [facility] Last Admin: 03/27/19 17:52 Dose: Not Given Documented by: Sodium Chloride () 250 mls @ 15 mls/hr IV .[id number] PRN PRN Reason: Saline Flush Lactated Ringer's () 1,000 mls @ 100 mls/hr IV .Q10H [facility] Last Admin: 03/28/19 01:04 Dose: 100 mls/hr Documented by: Metoprolol Succinate (Toprol Xl (Beta Suad)) 25 mg PO DAILY [facility] Last Admin: 03/27/19 09:28 Dose: 25 mg Documented by: Nutritional Formula (Lactose Free) (Ensure Clear) 120 ml PO TIDCM [facility] Last Admin: 03/27/19 17:54 Dose: Not Given Documented by: Ondansetron HCl (Zofran) 4 mg IV Q8H PRN PRN PRN Reason: NAUSEA Oxycodone HCl (Oxyir) 5 - 10 mg PO Q4H PRN PRN PRN Reason: Pain Score 6-10/10 Last Admin: 03/28/19 04:57 Dose: 5 mg Documented by: Sodium Chloride () 10 - 40 ml IV UD PRN PRN Reason: SALINE FLUSH Last Admin: 03/26/19 17:27 Dose: 10 ml Documented by: Medical Necessity - Tobacco Use Smoking Status: Former smoker Assessment/Plan All Active Problems (Last Reviewed 10/26/18 @ 10:48 by Nohelia Brown, BEVEL OPERATOR-C) Acute calculous cholecystitis (Acute) Diastolic dysfunction (Acute) Hypersomnia (Acute) Pneumonia (Acute) History of tonsillectomy and adenoidectomy (Resolved) H/O laminectomy (Resolved) Hx of cataract surgery (Resolved) History of bone graft (Resolved) (Resolved) H/O tubal ligation (Resolved) acute viral bronchitis secondary to influenza A (Acute) Acute respiratory failure with hypoxia (Acute) Bronchitis (Resolved) Influenza A (Resolved) I am following this patient in conjunction with Dr. Juárez S/p ERCP and Laparoscopic cholecystectomy with IOC. Cholangiogram demonstrated multiple air bubbles within the CBD Dr. Alan evaluated patient this morning noting no need to repeat ERCP at this time unless patient develops pain again Patient progressing well Labs pending Recommended patient walk and take deep breaths frequently throughout the day Will discuss with Dr. Juárez We will continue to monitor this patient Possible discharge later today pending progress Code Visit Inpatient E&M: 61434 [facility] - No charge
[2019-03-28] MEDS: Furosemide 40 MG/4 ML Vial IV (08:12)
[2019-03-28] MEDS: FLUoxetine 20 MG Capsule PO (08:12)
[2019-03-28] MEDS: Metoprolol(XL)Succ 25 MG Tablet PO (08:12)
[2019-03-28] MEDS: Bisacodyl 5 MG Tablet PO (08:16)
[2019-03-28] MEDS: BENZOCAINE/MENTHOL 1 LOZENGE MUCOUS MEM (08:18)
[2019-03-28] MEDS: Ensure Clear 120 ML Liquid PO (08:19)
--- NOTE | 2019-03-28 09:36 | PCM.DC.GB ---
Discharge Diet: Light diet - advance as tolerated Discharge Activity: May not drive while taking narcotic pain medications. May shower in (days): 1 - 24 hours from surgery Lifting Restrictions: no lifting >20 lb x 3 week, no strenous exercise for 5 weeks Call your doctor if your incision/area has: Continuous Slow Oozing, Sudden Increased Bleeding, Increased Pain/ Swelling, Increased Redness, Foul Smelling Discharge, Swelling at the incision site Call your doctor if you observe: Fever of 101 or Higher Remove Dressing in (days):: 0 - ok to remove op sites later today, Steri should stay on for 7 to 10 days did not follow-up in 10 days okay to remove Additional Instructions: Okay to take ibuprofen 400-600 mg PO q6hr PRN along with the Percocet. Avoid Tylenol since there is already Tylenol in the Percocet. Take all pain meds with food. Percocet can cause constipation recommend taking daily stool softener (i.e. Colace/docusate) while taking the pain meds. Recommend starting some MiraLAX today a couple doses if no bowel movement. If still no bowel movement following day recommend taking magnesium citrate half the bottle and waiting 4-6 hours if still no results take the other half the bottle. Allergies/Adverse Reactions: Allergies latex Adverse Reaction (Verified 03/25/19 22:06) Other Medications to take at Discharge Aspirin [Aspirin, Baby] 81 mg PO DAILY@0800 05/18/17 Cholecalciferol (Vitamin D3) [D3-2000] 2,000 unit PO DAILY 05/18/17 Fluoxetine [Prozac] 20 mg PO DAILY 05/18/17 Metoprolol Tartrate 25 mg PO DAILY 05/18/17 fluticasone fur. 100 mcg-umeclid 62.5 mcg-vilant 25 mcg inhalat.powder 1 inh INHALATION DAILY #60 ea 10/18/18 Oxycodone HCl/Acetaminophen [Percocet 5/325] 1 - 2 tab PO Q6H PRN PRN 4 Days #20 tab 03/27/19 The following prescriptions were given: Oxycodone HCl/Acetaminophen [Percocet 5/325] 1 - 2 tab PO Q6H PRN PRN 4 Days #20 tab PRN Reason: Pain Transmission Status: Received by [facility] Primary Care Physician: Bruce Virk [Primary Care Provider] - Test Results: Test results from this visit will be discussed in further detail at your follow-up appointment, if applicable. Please Follow Up With: Selina Juárez MD - After 5 PM and on the weekends call [phone] with any concerns When: All the office [phone] for a follow-up appointment in 2 weeks Proposed Discharge Date: 03/28/19
--- NOTE | 2019-03-28 09:39 | PCM.DC.SUM ---
Discharge Date and Diagnosis - Problem List Patient Problems: Active and Suspected Problems (Last Reviewed 10/26/18 @ 10:48 by GAMAL Ward) Acute calculous cholecystitis (Acute) Date of Admission: 03/26/19 Date of Discharge: 03/28/19 - Primary Discharge Diagnosis Active and Suspected Problems (Last Reviewed 10/26/18 @ 10:48 by GAMAL Ward) Acute calculous cholecystitis (Acute) Choledocholithiasis - Secondary Discharge Diagnosis Chronic Problems (Last Reviewed 10/26/18 @ 10:48 by GAMAL Ward) Obesity (BMI 30-39.9) (Chronic) SHAZIA (obstructive sleep apnea) (Chronic) CPAP 9 cm of water Stage 2 moderate COPD by GOLD classification (Chronic) 07/2017, FEV1 57% Osteoarthritis (Chronic) Diverticulitis (Chronic) Depression (Chronic) COPD (chronic obstructive pulmonary disease) with chronic bronchitis (Chronic) Hospital Course and Treatment Imaging Results: Clinical Impression(s) from Imaging Studies Abdomen/Pelvis CT 03/25/19 22:30 IMPRESSION: 1. Overdistended or hydropic gallbladder with questionable low-density cholesterol type stones. Suggest further correlation with gallbladder ultrasound. 2. Diverticulosis coli without diverticulitis. 3. Lumbar and lower thoracic compression fractures, details above. As correlated with previous CTA chest and previous lumbar MRI report, the lower dorsal T11 and T12 compression fractures are chronic. Individualized dose optimization techniques were used for this CT. at 2357 Reported and signed by: Stewart Juarez MD Electronically Signed: Stewart Juarez, at 23:56 EDT Tel , Service support , Gallbladder Ultrasound 03/26/19 00:30 IMPRESSION: Acute cholecystitis with cholelithiasis suspected. No intra or extrahepatic biliary ductal dilatation, ascites, right hydronephrosis detected. Simple left hepatic cyst. Echogenic pancreas can be seen with fat deposition in the pancreas. Electronically Signed: Amy Ashford MD at 3:23 EST , Service support , Endo Retro Cholangiopancreatogram 03/26/19 10:25 IMPRESSION: ERCP with removal of 2 stones and sphincterotomy. Electronically Signed: Phillip Moran, at 9:04 EST , Service support , Cholangiogram 03/27/19 12:50 IMPRESSION: Multiple well-defined rounded filling defects in the common bile duct. These may represent tiny stones and some air bubbles. Correlation with MRI is recommended. Electronically Signed: Phillip Moran, at 9:06 EST , Service support , Pulmonology- per pt request-pt known to practice Operations: cholecystecomy - Laparoscopic 03/27/1219, ERCP Procedures: None Summary of Care Provided: The patient is a 73 year old F presented to the ER due to epigastric pain. Work-up did show acute cholecystitis with slight elevation of liver function enzymes. Patient was scheduled to go for lap scopic cholecystectomy on 03/26 however she did have increased liver functions that she underwent an ERCP by Dr. Alan. Patient underwent a laparoscopic cholecystectomy on 03/27/19 by myself. Cholangiograms did show questionable filling defects which are likely air bubbles. Patient's repeat LFTs did improve today. Patient has tolerated clear diet denies any nausea or vomiting. Patient states she has not had a bowel movement about 3 days. Given patient Colace as well as some MiraLAX today. Patient did request consult to pulmonology as she is known to them and is concerned that her lungs could get bad quickly. She did have initial wheezing this morning per patient however currently they are clear to auscultation she did get 1 dose of Lasix 40 mg IV x1. Patient tolerating regular diet was able be discharged home. Patient Problems: Active and Suspected Problems (Last Reviewed 10/26/18 @ 10:48 by GAMAL Ward) Acute calculous cholecystitis (Acute) - Physical Exam Vitals/I&O's: Vital Signs Temp Pulse Resp BP Pulse Ox 98.2 F 80 20 H 118/62 92 03/28/19 08:32 03/28/19 08:32 03/28/19 08:32 03/28/19 08:32 03/28/19 08:32 Oxygen Flow Rate (L/min) 2 Oxygen Delivery Method Room Air Weight: 209 lb 10.554 oz Body Mass Index (BMI) 37.1 Intake and Output for Last 24 Hours 03/26/19 03/27/19 03/28/19 23:59 23:59 23:59 Intake Total 3956.25 / 3956.25 940.5 / 940.5 Output Total 1000 / 1000 350 / 350 Balance 2956.25 / 2956.25 590.5 / 590.5 General: Alert, Oriented x3, Cooperative, No apparent distress HEENT: Atraumatic Lungs: Clear to auscultation - biLaterally Cardiovascular: Regular rate Abdomen: Soft, Distended - Mild to moderate, Tender - Near incisions clean dry and intact, no peritoneal signs Neurological: Cranial nerves II-XII grossly intact Psych/Mental Status: Normal Affect Laboratory Results 03/28/19 06:07: WBC 15.4 H, RBC 3.67 L, Hgb 9.8 L, Hct 32.4 L, MCV 88.3, MCH 26.7 L, MCHC 30.2 L, RDW Std Deviation 50.5 H, RDW Coeff of Kimberlyn 15.5 H, Plt Count 299, MPV 10.5, Immature Gran % (Auto) 0.600, Neut % (Auto) 78.7 H, Lymph % (Auto) 10.6 L, Hudson % (Auto) 9.9, Eos % (Auto) 0.0, Baso % (Auto) 0.2, Absolute Neuts (auto) 12.1 H, Absolute Lymphs (auto) 1.64, Nucleated RBC % 0, Diff Path Review September03/28/19 06:07: Sodium 142, Potassium 3.7, Chloride 106, Carbon Dioxide 30.0, Anion Gap 6, BUN 14, Creatinine 0.60, Estim Creat Clear Calc 42.07, Est GFR (MDRD) Af Amer 126, Est GFR (MDRD) Non-Af 104, BUN/Creatinine Ratio 23.2 H, Glucose 96, Calcium 8.0 L, Total Bilirubin 0.90, Direct Bilirubin 0.39 H, AST 82 H, ALT 150 H, Alkaline Phosphatase 104, Total Protein 5.6 L, Albumin 2.7 L, Globulin 2.9 Current Medications Albuterol Sulfate (Ventolin Aerosols) 2.5 mg INHALATION Q6HWA.RT [facility] Last Admin: 03/28/19 08:01 Dose: Not Given Documented by: Albuterol/Ipratropium (Duoneb) 3 ml INHALATION Q6H.RT PRN PRN Reason: SOB &/OR WHEEZING Last Admin: 03/28/19 06:46 Dose: 3 ml Documented by: Bisacodyl (Dulcolax) 5 mg PO DAILY [facility] Last Admin: 03/28/19 08:16 Dose: 5 mg Documented by: Budesonide (Pulmicort Aerosol) 0.5 mg INHALATION Q12H.RT [facility] Last Admin: 03/28/19 06:54 Dose: 0.5 mg Documented by: Diphenhydramine HCl (Benadryl) 25 mg PO Q8H PRN PRN Reason: ITCHING Last Admin: 03/28/19 01:08 Dose: 25 mg Documented by: Docusate Sodium (Colace) 100 mg PO DAILY [facility] Fluoxetine HCl (Prozac) 20 mg PO DAILY [facility] Last Admin: 03/28/19 08:12 Dose: 20 mg Documented by: Hydromorphone HCl (Dilaudid Inj) 0.25 - 0.5 mg IV Q2H PRN PRN PRN Reason: Pain Score 1-10/10 Pantoprazole Sodium 40 mg/ (Sodium Chloride) 110 mls @ 330 mls/hr IV Q24 [facility] Last Admin: 03/28/19 09:10 Dose: 330 mls/hr Documented by: Sodium Chloride () 250 mls @ 15 mls/hr IV .[id number] PRN PRN Reason: Saline Flush Metoprolol Succinate (Toprol Xl (Beta Suad)) 25 mg PO DAILY [facility] Last Admin: 03/28/19 08:12 Dose: 25 mg Documented by: Nutritional Formula (Lactose Free) (Ensure Clear) 120 ml PO TIDCM [facility] Last Admin: 03/28/19 08:19 Dose: 120 ml Documented by: Ondansetron HCl (Zofran) 4 mg IV Q8H PRN PRN PRN Reason: NAUSEA Oxycodone HCl (Oxyir) 5 - 10 mg PO Q4H PRN PRN PRN Reason: Pain Score 6-10/10 Last Admin: 03/28/19 04:57 Dose: 5 mg Documented by: Sodium Chloride () 10 - 40 ml IV UD PRN PRN Reason: SALINE FLUSH Last Admin: 03/26/19 17:27 Dose: 10 ml Documented by: Throat Lozenges (Cepacol Sore Throat Lozenge) 1 lozenge MUCOUS MEM Q2H PRN PRN PRN Reason: SORE THROAT Last Admin: 03/28/19 08:18 Dose: 1 lozenge Documented by: Discharge Diet: Light diet - advance as tolerated Discharge Activity: May not drive while taking narcotic pain medications. May shower in (days): 1 - 24 hours from surgery Call your doctor if your incision/area has: Continuous Slow Oozing, Sudden Increased Bleeding, Increased Pain/ Swelling, Increased Redness, Foul Smelling Discharge, Swelling at the incision site Call your doctor if you observe: Fever of 101 or Higher Remove Dressing in (days):: 0 - ok to remove op sites later today, Steri should stay on for 7 to 10 days did not follow-up in 10 days okay to remove Home Medications: Medications to take at Discharge Aspirin [Aspirin, Baby] 81 mg PO DAILY@0800 05/18/17 Cholecalciferol (Vitamin D3) [D3-2000] 2,000 unit PO DAILY 05/18/17 Fluoxetine [Prozac] 20 mg PO DAILY 05/18/17 Metoprolol Tartrate 25 mg PO DAILY 05/18/17 fluticasone fur. 100 mcg-umeclid 62.5 mcg-vilant 25 mcg inhalat.powder 1 inh INHALATION DAILY #60 ea 10/18/18 Oxycodone HCl/Acetaminophen [Percocet 5/325] 1 - 2 tab PO Q6H PRN PRN 4 Days #20 tab 03/27/19 Following Prescrptions Were Given to Patient: Oxycodone HCl/Acetaminophen [Percocet 5/325] 1 - 2 tab PO Q6H PRN PRN 4 Days #20 tab PRN Reason: Pain Transmission Status: Received by [facility] Primary Care Physician: Bruce Virk [Primary Care Provider] - Please Follow Up With: Selina Juárez MD - After 5 PM and on the weekends call [phone] with any concerns When: All the office [phone] for a follow-up appointment in 2 weeks Additional Instructions: Okay to take ibuprofen 400-600 mg PO q6hr PRN along with the Percocet. Avoid Tylenol since there is already Tylenol in the Percocet. Take all pain meds with food. Percocet can cause constipation recommend taking daily stool softener (i.e. Colace/docusate) while taking the pain meds. Recommend starting some MiraLAX today a couple doses if no bowel movement. If still no bowel movement following day recommend taking magnesium citrate half the bottle and waiting 4-6 hours if still no results take the other half the bottle. Disposition: Home Patient Condition:: Good Medical Necessity - Tobacco Use Smoking Status: Former smoker Meaningful Use Info Meaningful Use Diagnoses (Choose all that apply): None applicable
--- NOTE | 2019-03-28 10:00 | CON.PCM_ITS ---
Reason for Consult Date of Consultation: 03/28/19 Reason for Consultation: History of COPD/wheezing History of Present Illness: The patient is a 73-year-old female, with a history as outlined below, who presented to the emergency department on March 25 with complaints of abdominal pain. Subsequent work-up revealed evidence of acute cholecystitis. General surgery was consulted and underwent ERCP followed by laparoscopic cholecystectomy. Estimated blood loss was 50 cc with 1.7 L of fluid replaced intraoperatively. The patient does have a known history of gold stage II COPD along with underlying obstructive sleep apnea, for which she is followed by Dr. Parra on an outpatient basis. In addition, the patient has known heart failure with preserved ejection fraction, based upon echocardiogram from September 2018. At the present time, the patient is documented to be overall net +6.7 L for the admission. She remains afebrile, hemodynamically stable and is maintaining appropriate oxygen saturations on room air. She is currently scheduled to receive scheduled duo nebs and budesonide. The patient apparently had wheezing on the morning of March 28, which prompted a consultation be placed for evaluation. Past Medical History Past Medical History (Chronic Problems): Chronic Problems (Last Reviewed 10/26/18 @ 10:48 by Nohelia Brown NP-C) Obesity (BMI 30-39.9) (Chronic) SHAZIA (obstructive sleep apnea) (Chronic) CPAP 9 cm of water Stage 2 moderate COPD by GOLD classification (Chronic) 07/2017, FEV1 57% Osteoarthritis (Chronic) Diverticulitis (Chronic) Depression (Chronic) COPD (chronic obstructive pulmonary disease) with chronic bronchitis (Chronic) Medical History: Medical History (Last Reviewed 10/26/18 @ 10:48 by Nohelia Brown NP-C) Osteoarthritis (Chronic) M19.90 Diverticulitis (Chronic) K57.92 Depression (Chronic) F32.9 Pneumonia (Acute) J18.9 acute viral bronchitis secondary to influenza A (Acute) Acute respiratory failure with hypoxia (Acute) J96.01 COPD (chronic obstructive pulmonary disease) with chronic bronchitis (Chronic) J44.9 Bronchitis (Resolved) J40 Influenza A (Resolved) J10.1 Hypertension (Inactive) I10 Allergies latex Adverse Reaction (Verified 03/25/19 22:06) Other Home Medications: Ambulatory Orders Medication Instructions Recorded Aspirin [Aspirin, Baby] 81 mg PO DAILY@0800 05/18/17 Cholecalciferol (Vitamin D3) 2,000 unit PO DAILY 05/18/17 [D3-2000] Fluoxetine [Prozac] 20 mg PO DAILY 05/18/17 Metoprolol Tartrate 25 mg PO DAILY 05/18/17 fluticasone fur. 100 mcg-umeclid 1 inh INHALATION DAILY #60 ea 10/18/18 62.5 mcg-vilant 25 mcg inhalat.powder Oxycodone HCl/Acetaminophen 1 - 2 tab PO Q6H PRN PRN 4 Days 03/27/19 [Percocet 5/325] #20 tab Surgical History: Surgical History (Last Reviewed 10/26/18 @ 10:48 by GAMAL Ward) History of tonsillectomy and adenoidectomy (Resolved) Z98.890 H/O laminectomy (Resolved) Z98.890 Hx of cataract surgery (Resolved) Z98.49 History of bone graft (Resolved) Z98.890 (Resolved) H/O tubal ligation (Resolved) Z98.51 Surgical History: - - Back, Lives: Spouse/ Significant Other Smoking Status: Former smoker Alcohol: None Drugs: None - *Family History Sibling Family History: Family History (Last Reviewed 10/26/18 @ 10:48 by GAMAL Ward) Father Hypertension Mother Cancer History Items: Cancer Review of Systems Constitutional: Denies: Chills, Fever, Weight Change HEENT: Denies: Head Aches, Sinus Congestion, Sinus Drainage Cardiovascular: Denies: Chest Pain, Palpitations Respiratory: Denies: Cough, Shortness of breath at rest, Sputum production Gastrointestinal: Reports: Abdominal Pain. Denies: Nausea, Vomiting Genitourinary: Denies: Dysuria Musculoskeletal: Denies: Joint Pain, Joint Tenderness Skin: Denies: Rash, Wounds Neurological: Denies: Numbness, Tingling, Focal weakness Psychiatric: Denies: Anxiety, Depression, Homicidal Ideations, Suicidal I deations Hematologic/ Lymphatic: Denies: Easy Bruising, Easy Bleeding Patient Problems: Active and Suspected Problems (Last Reviewed 10/26/18 @ 10:48 by Nohelia Brown NP-C) Acute calculous cholecystitis (Acute) Objective: The patient's most recent lab work, culture data and imaging studies have all been personally reviewed. - Physical Exam Vitals/I&O's: Vital Signs Temp Pulse Resp BP Pulse Ox 98.2 F 80 20 H 118/62 92 03/28/19 08:32 03/28/19 08:32 03/28/19 08:32 03/28/19 08:32 03/28/19 08:32 Oxygen Flow Rate (L/min) 2 Oxygen Delivery Method Room Air Weight: 209 lb 10.554 oz Body Mass Index (BMI) 37.1 Intake and Output for Last 24 Hours 03/26/19 03/27/19 03/28/19 23:59 23:59 23:59 Intake Total 3956.25 / 3956.25 1050.5 / 1050.5 Output Total 1000 / 1000 350 / 350 Balance 2956.25 / 2956.25 700.5 / 700.5 General: Alert, Oriented x3, Cooperative, No apparent distress, - - Sitting in bedside recliner. HEENT: Atraumatic, PERRLA, Normocephalic Oral: No Gingival or Mucosal Lesions/ Ulcerations Neck: Supple, No Nodes, Trachea Midline Lungs: No rhonchi, No wheeze, No rales, Diminished, - - No conversational dyspnea Cardiovascular: Regular rate, Regular Rhythm, Normal S1, Normal S2, No murmurs Abdomen: Bowel Sounds Present, Soft, Obese Extremities: No clubbing, No cyanosis, No edema Skin: No breakdown Musculoskeletal: No Tenderness to Palpation of Joints or Extremities Lymphatic: No Cervical, Supraclavicular, or Inguinal Adenopathy Neurological: Cranial nerves II-XII grossly intact, Neuro grossly intact Psych/Mental Status: Alert and oriented to time, place, person, mood and affect Labs (Last 48 Hours) 03/27/19 03/27/19 03/28/19 05:24 05:24 06:07 WBC 7.7 15.4 H RBC 4.61 3.67 L Hgb 12.2 9.8 L Hct 39.9 32.4 L MCV 86.6 88.3 MCH 26.5 L 26.7 L MCHC 30.6 L 30.2 L RDW Std Deviation 47.8 H 50.5 H RDW Coeff of Kimberlyn 15.0 H 15.5 H Plt Count 318 299 MPV 10.0 10.5 Immature Gran % (Auto) 0.800 0.600 Neut % (Auto) 87.4 H 78.7 H Lymph % (Auto) 8.7 L 10.6 L Bibb % (Auto) 3.0 9.9 Eos % (Auto) 0.0 0.0 Baso % (Auto) 0.1 0.2 Absolute Neuts (auto) 6.7 12.1 H Absolute Lymphs (auto) 0.67 L 1.64 Nucleated RBC % 0 0 Differential Comment SCANNED Diff Path Review May foll Platelet Estimate SLT INC Sodium 142 Potassium 4.0 Chloride 107 Carbon Dioxide 25.0 Anion Gap 10 BUN 10 Creatinine 0.81 Estim Creat Clear Calc 51.93 Est GFR (MDRD) Af Amer 90 Est GFR (MDRD) Non-Af 74 BUN/Creatinine Ratio 12.4 Glucose 136 H Calcium 8.3 L Total Bilirubin 1.50 H Direct Bilirubin 1.01 H AST 92 H ALT 147 H Alkaline Phosphatase 126 H Total Protein 6.5 Albumin 2.9 L Globulin 3.6 03/28/19 06:07 WBC RBC Hgb Hct MCV MCH MCHC RDW Std Deviation RDW Coeff of Kimberlyn Plt Count MPV Immature Gran % (Auto) Neut % (Auto) Lymph % (Auto) Bibb % (Auto) Eos % (Auto) Baso % (Auto) Absolute Neuts (auto) Absolute Lymphs (auto) Nucleated RBC % Differential Comment Diff Path Review Platelet Estimate Sodium 142 Potassium 3.7 Chloride 106 Carbon Dioxide 30.0 Anion Gap 6 BUN 14 Creatinine 0.60 Estim Creat Clear Calc 42.07 Est GFR (MDRD) Af Amer 126 Est GFR (MDRD) Non-Af 104 BUN/Creatinine Ratio 23.2 H Glucose 96 Calcium 8.0 L Total Bilirubin 0.90 Direct Bilirubin 0.39 H AST 82 H ALT 150 H Alkaline Phosphatase 104 Total Protein 5.6 L Albumin 2.7 L Globulin 2.9 Clinical Impression(s) from Imaging Studies Abdomen/Pelvis CT 03/25/19 22:30 IMPRESSION: 1. Overdistended or hydropic gallbladder with questionable low-density cholesterol type stones. Suggest further correlation with gallbladder ultrasound. 2. Diverticulosis coli without diverticulitis. 3. Lumbar and lower thoracic compression fractures, details above. As correlated with previous CTA chest and previous lumbar MRI report, the lower dorsal T11 and T12 compression fractures are chronic. Individualized dose optimization techniques were used for this CT. at 6641 Reported and signed by: Stewart Juarez MD Electronically Signed: Stewart Juarez, at 23:56 EDT Tel , Service support , Gallbladder Ultrasound 03/26/19 00:30 IMPRESSION: Acute cholecystitis with cholelithiasis suspected. No intra or extrahepatic biliary ductal dilatation, ascites, right hydronephrosis detected. Simple left hepatic cyst. Echogenic pancreas can be seen with fat deposition in the pancreas. Electronically Signed: Amy Ashford MD at 3:23 EST , Service support , Endo Retro Cholangiopancreatogram 03/26/19 10:25 IMPRESSION: ERCP with removal of 2 stones and sphincterotomy. Electronically Signed: Phillip Moran, at 9:04 EST , Service support , Cholangiogram 03/27/19 12:50 IMPRESSION: Multiple well-defined rounded filling defects in the common bile duct. These may represent tiny stones and some air bubbles. Correlation with MRI is recommended. Electronically Signed: Phillip Moran, at 9:06 EST , Service support , Current Medications Albuterol Sulfate (Ventolin Aerosols) 2.5 mg INHALATION Q6HWA.RT NISHANT Last Admin: 03/28/19 08:01 Dose: Not Given Documented by: Albuterol/Ipratropium (Duoneb) 3 ml INHALATION Q6H.RT PRN PRN Reason: SOB &/OR WHEEZING Last Admin: 03/28/19 06:46 Dose: 3 ml Documented by: Bisacodyl (Dulcolax) 5 mg PO DAILY [facility] Last Admin: 03/28/19 08:16 Dose: 5 mg Documented by: Budesonide (Pulmicort Aerosol) 0.5 mg INHALATION Q12H.RT [facility] Last Admin: 03/28/19 06:54 Dose: 0.5 mg Documented by: Diphenhydramine HCl (Benadryl) 25 mg PO Q8H PRN PRN Reason: ITCHING Last Admin: 03/28/19 01:08 Dose: 25 mg Documented by: Docusate Sodium (Colace) 100 mg PO DAILY [facility] Fluoxetine HCl (Prozac) 20 mg PO DAILY [facility] Last Admin: 03/28/19 08:12 Dose: 20 mg Documented by: Hydromorphone HCl (Dilaudid Inj) 0.25 - 0.5 mg IV Q2H PRN PRN PRN Reason: Pain Score 1-10/10 Pantoprazole Sodium 40 mg/ (Sodium Chloride) 110 mls @ 330 mls/hr IV Q24 [facility] Last Infusion: 03/28/19 09:49 Dose: Infused Documented by: Sodium Chloride () 250 mls @ 15 mls/hr IV .[id number] PRN PRN Reason: Saline Flush Metoprolol Succinate (Toprol Xl (Beta Suad)) 25 mg PO DAILY [facility] Last Admin: 03/28/19 08:12 Dose: 25 mg Documented by: Nutritional Formula (Lactose Free) (Ensure Clear) 120 ml PO TIDCM [facility] Last Admin: 03/28/19 08:19 Dose: 120 ml Documented by: Ondansetron HCl (Zofran) 4 mg IV Q8H PRN PRN PRN Reason: NAUSEA Oxycodone HCl (Oxyir) 5 - 10 mg PO Q4H PRN PRN PRN Reason: Pain Score 6-10/10 Last Admin: 03/28/19 04:57 Dose: 5 mg Documented by: Sodium Chloride () 10 - 40 ml IV UD PRN PRN Reason: SALINE FLUSH Last Admin: 03/26/19 17:27 Dose: 10 ml Documented by: Throat Lozenges (Cepacol Sore Throat Lozenge) 1 lozenge MUCOUS MEM Q2H PRN PRN PRN Reason: SORE THROAT Last Admin: 03/28/19 08:18 Dose: 1 lozenge Documented by: Assessment/Plan All Active Problems (Last Reviewed 10/26/18 @ 10:48 by Nohelia Brown NP-C) Acute calculous cholecystitis (Acute) Diastolic dysfunction (Acute) Hypersomnia (Acute) Pneumonia (Acute) History of tonsillectomy and adenoidectomy (Resolved) H/O laminectomy (Resolved) Hx of cataract surgery (Resolved) History of bone graft (Resolved) (Resolved) H/O tubal ligation (Resolved) acute viral bronchitis secondary to influenza A (Acute) Acute respiratory failure with hypoxia (Acute) Bronchitis (Resolved) Influenza A (Resolved) RECOMMENDATIONS: 1. Continue scheduled duo nebs and budesonide. 2. Gentle diuresis as needed. 3. Encourage incentive spirometer use and mobilize patient as tolerated. 4. Follow-up in the pulmonary medicine clinic as scheduled. IMPRESSIONS: 1. Baseline gold stage II COPD While initially reported to be wheezing this morning, the patient does not appear to be in an acute exacerbation. She is up from a volume perspective for the hospitalization, and in light of her underlying diastolic dysfunction, the wheezing noted this morning may have been secondary to her volume status. She does appear to have responded favorably to the use of IV diuretics this morning. I would recommend continuing scheduled bronchodilators and budesonide as ordered. The patient was strongly encouraged to utilize her incentive spirometer and to mobilize as tolerated. 2. Known obstructive sleep apnea Continue nocturnal Pap therapy per outpatient regimen. This note was generated with [employer] dictation software. It may contain incorrect words, spelling, and punctuation that were not noted in checking the note before signing. Code Visit Inpatient E&M: 06054 Init Hosp L2
--- NOTE | 2019-03-28 10:24 | CASEMGMT ---
RN CM Assessment Patient up walking halls with portable Oxygen, upon return to room- Introduced role of RN CM to patient.? Patient is alert, oriented and able?to participate in RN CM Assessment. ?Care providers, pharmacy, and demographics verified. Presentation: Abd/Flank Pain, N/V. Admit Dx: Acute Cholecystitis Re-Admit: No. Admit 08/29-09/01/18 for Dyspnea Barriers/Issues: None. POD#1 today s/p Lap Cholecystectomy 03/27/19. 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 PCP: Bruce Virk Specialists: Terry- Dr Parra Preferred Pharmacy: [facility] Insurance: [employer] A[employer]Red Aril, [employer] Rx Benefit:?Yes, [employer] ?LNOK: Umesh Telles LW/HPOA: Both on file with [facility], HPOA- Umesh Telles Living Arrangements:? Lives with her in a SS home w/basement. Grandson lives in basement. 1 step to enter home. ADL?s: Ambulates independently and uses [facility] as needed. Independent with ADLs Transportation: Both patient and drive DME: [facility], CPAP- [employer] with O2 bleed, Home O2 2L prn- [facility]. Portable O2 tanks. HHC: None SNF: None Goal: Home with ambulatory walking test prior to DC to see if Home O2 Order needs changed. DC PLAN: Home with possible change in Home O2 order, CM to f/u on ambulatory walking test. Patient does not have her own portable O2 tank with her, this CM advised patient to have her ride bring to hospital upon DC. NANETTE Hays
--- NOTE | 2019-03-28 11:39 | CASEMGMT ---
LW/POA forms scanned into summary tab of echart. Umesh Telles is listed as healthcare POA. BELINDA Schrader
[2019-03-28 12:46] LABS: Pathologist Review Reviewed
--- NOTE | 2019-03-29 15:01 | CASEMGMT ---
MARCIANO FERRARA DC PHONE CALL DC DATE: 03/28/19 DC Disposition: Home Diagnosis on Discharge: cholecystitis LACE/STRATA: 02/23 Intro role of CM to patient via phone. Pt states she is feeling well, does not have questions re: instructions, prescriptions or f/u. Pt states her care was excellent and she does not have any care improvement suggestions. Vaughn SIUN RN ACM
== END 2019-03-28 13:50 | disposition home or self-care (01) | DRG 418 ==
LOC: ED 03-26 02:06 → MS3 03-26 03:43
PROVIDERS: Surgery; Admitting Provider Surgery; Emergency Provider Emergency Medicine; Family Provider Family Medicine; PCP Family Medicine; Referring Provider Surgery; Visit Provider Surgery
PROC: 0FC98ZZ Extirpation of Matter from Common Bile Duct, Via Natural or Artificial Opening Endoscopic (ICD-10-PCS; CPT 43260; principal; 2019-03-26 09:15)
PROC: 0FT44ZZ Resection of Gallbladder, Percutaneous Endoscopic Approach (ICD-10-PCS; CPT 47610; principal; 2019-03-27 11:10)
DX: K80.63 Calculus of gallbladder and bile duct with acute cholecystitis with obstruction (principal); K82.1 Hydrops of gallbladder; I50.32 Chronic diastolic (congestive) heart failure; I11.0 Hypertensive heart disease with heart failure; J44.9 Chronic obstructive pulmonary disease, unspecified; E78.00 Pure hypercholesterolemia, unspecified; M19.90 Unspecified osteoarthritis, unspecified site; G47.33 Obstructive sleep apnea (adult) (pediatric); F32.9 Major depressive disorder, single episode, unspecified; F41.9 Anxiety disorder, unspecified; E66.9 Obesity, unspecified; Z68.37 Body mass index [BMI] 37.0-37.9, adult; Z79.82 Long term (current) use of aspirin; Z79.899 Other long term (current) drug therapy; Z87.891 Personal history of nicotine dependence
CPT/HCPCS: 36415; 74176; 74300; 74330; 76000; 76705; 80048; 80053; 80076; 81001; 83690; 85025; 88304; 93005; 94640; 99284; J7030; J7050; J7120; A4216; J1610; J1940; J2405

== ENCOUNTER 2019-04-02 07:49 | Inpatient (IN) | payer MEDICARE, OTHER, SELFPAY ==
[2019-03-27 09:34] VITALS: BMI 37.1
[2019-04-02] VITALS (16 sets, daily range): BP systolic 97–139; BP diastolic 50–94; PULSE 64–99; RESP 16–20; TEMP 36.6–38.4; O2SAT 89–97; BMI 34.0; BMI 34.3
--- NOTE | 2019-04-02 08:08 | CT_ITS ---
STUDY: CT ABDOMEN AND PELVIS WITH CONTRAST REASON FOR EXAM: Female, 73 years old. Right-sided abdominal pain. Recent gallbladder removal RADIATION DOSAGE (If Supplied By Facility): CTDIvol = ( 15.08 ) mGy, DLP = ( 1074.94 ) mGycm TECHNIQUE: Transaxial images were obtained from the dome of the diaphragm to the symphysis pubis with oral contrast. Oral and amp; IV Gastrografin and amp; 100mL Isovue-300 100 was administered. Sagittal and coronal images were reconstructed. Individualized dose optimization techniques were used for this CT. COMPARISON: March 25, 2019 FINDINGS: The visualized lung bases are unremarkable. Cardiomegaly is noted Grossly unremarkable liver. Nonenhancing left lobe cyst. Patient is status post cholecystectomy. Ill-defined fluid collection noted in the right upper quadrant region within the gallbladder fossa. Unsure if this represents expected postsurgical change versus abscess and/or possible bile leak. No discrete evidence of retained stone on CT. Normal spleen. There is diffuse atrophy of the pancreas. Normal bilateral adrenal glands. Normal right kidney. Normal left kidney. Normal visualized stomach. Normal small intestine. There are multiple colonic diverticula consistent with diverticulosis. There is non-visualization of the appendix. Normal abdominal aorta. Normal inferior vena cava. Normal retroperitoneum. Normal urinary bladder. There is atrophy of the uterus. Normal abdominal wall. There are diffuse degenerative changes of the visualized lumbar spine. CT/Abdomen/Pelvis WITH Contrast IMPRESSION: Patient is status post recent cholecystectomy. There is prominent ill-defined fluid within the region of the right upper quadrant/gallbladder fossa. Unsure if this represents abscess, expected postoperative soft tissue change and/or bile leak. No definitive evidence of retained stone on this exam. Electronically Signed: Joao Thakkar DO at 10:35 EST Tel , Service support ,
--- NOTE | 2019-04-02 08:13 | ED.DCSUM_ITS ---
- ER Visit Summary Date of Service: 04/02/19 Chief Complaint: Abdominal pain History of Present Illness: The patient is a 73 F who presents the emergency department with right upper quadrant abdominal pain. 03/26 she underwent laparoscopic cholecystectomy and ERCP. She was discharged on Wednesday. She tells me that she was fine through but then began to develop some right upper abdominal pain. This is progressively worsened. She notes that her pulse ox is lower than normal being in the mid to high 80s and she put herself back on home oxygen. She feels bloated. She notes her urine is darker than normal. She feels that she might have thrush. She was able to have a bowel movement but did not have one today. She was unaware of any fever but does note chills. Patient notes that she was positive about 3 L while in the hospital took Lasix at discharge. She states her legs had improved but over the past several days he began to swell again. Physical Examination: Temperature 101.1 heart rate of 81 respirations are 20 pulse ox 95% on 3 L Gen: Well-nourished well-developed Head: Normocephalic atraumatic Eyes: Perrl EOMI ENT: TMs clear no rhinorrhea dry mucous membranes there is evidence of oral thrush Neck: Supple no lymphadenopathy no JVD nontender CVS: Regular rate rhythm no murmurs normal S1-S2 Respiratory: No distress clear to auscultation bilaterally chest nontender Abdomen: Patient has right upper quadrant tenderness guarding and rebound. Surgical sites appear to be healing. Abdomen feels slightly distended Back: Nontender Extremity: Nontender 2+ lower extremity edema symmetric Skin: Normal color no rash Neuro: alert orientated ?3 CN II-XII intact normal strength Psych: Normal affect normal mood Test Results: White count is 11.8 hemoglobin 10.1. Total bilirubin of 1 transaminases in the normal range. Lactic acid 1.2. Chest x-ray negative. CT the abdomen pelvis demonstrates a large fluid collection that is ill-defined in the right upper quadrant. I do not see definitive air bubbles. Emergency Department Course and Treatment: was in the emergency department also evaluated the patient shortly after initial examination. Patient received Tylenol, clotrimazole triage, as well as morphine and Zofran. She also was placed on Zosyn. Plan will be admission into the hospital for further care. Impression: 1. Acute abdominal pain 2. Postoperative bile leak 3. Oral thrush This note was generated with [employer] dictation software. It may contain incorrect words, spelling, and punctuation that were not noted in review of the chart prior to signing ED Disposition - Plan for ED Patient:
--- NOTE | 2019-04-02 08:15 | RAD_ITS ---
STUDY: X-RAY CHEST REASON FOR EXAM: Female, 73 years old. Abdominal pain, recent cholecystectomy. TECHNIQUE: AP portable upright chest COMPARISON: 08/29/2018 chest x-ray, CT abdomen and pelvis 03/25/2018 FINDINGS: Mild cardiomegaly. Normal mediastinal silhouette, mika and pleural margins. Somewhat low inspiratory effort. Mild elevation of the right hemidiaphragm. No definitive effusion. No pneumothorax. No focal pulmonary infiltrate. No acute osseous or upper abdominal process. RAD/Chest 1 View (Portable) IMPRESSION: No acute cardiopulmonary process is evident. Electronically Signed: Juan R Knight MD at 9:00 EST Tel , Service support ,
[2019-04-02] MEDS: Ondansetron 4 MG/2 ML Vial IV (08:35)
[2019-04-02] MEDS: Morphine 4 MG/ML Syringe IV (08:35)
[2019-04-02] MEDS: Acetaminophen 500 MG Tablet 1000 MG PO (08:35)
[2019-04-02 08:38] LABS: Absolute Lymphocyte Count 1.05 X10^3/uL (0.83-4.51); Absolute Neutrophil Count 8.9 X10^3/uL (2.0-7.7); Basophil# 0.05 X10^3/uL; Basophil% 0.4 % (0-1); Eosinophil# 0.17 X10^3/uL; Eosinophils% 1.4 % (0-5); Hematocrit 32.1 % (37-47); Hemoglobin 10.1 g/dL (12.0-15.0); Lymphocyte # 1.05 X10^3/ul (4.0); Lymphocyte % 8.9 % (19-41); Mean Corp Hgb Conc 31.5 g/dL (32-36); Mean Corpuscular Hgb 27.4 pg (27.0-32.0); Mean Corpuscular Volume 87.2 fL (81-99); Mean Platelet Vol. 10.4 fl (6.2-12.0); Monocyte# 1.59 X10^3/uL; Monocyte% 13.5 % (0-10); NRBC Flagged by Analyzer 0 % (0-5); Neutrophil # 8.85 X10^3/uL (2.7-7.7); Neutrophil % 75.3 % (47-70); POSITIVE DIFFERENTIAL YES; Platelet Count 318 K/mm3 (150-450); RBC Distribution Width CV 15.5 % (11.6-14.6); RBC Distribution Width SD 49.6 fl (35.1-43.9); Red Blood Count 3.68 M/mm3 (4.2-5.4); White Blood Count 11.8 K/mm3 (4.4-11.0)
[2019-04-02 08:43] LABS: International Normalized Ratio 1.2; Partial Thromboplast Time 32.9 Seconds (24.1-36.2); Prothrombin Time (Protime)PT. 15.2 SECONDS (11.7-14.9)
[2019-04-02 08:44] LABS: Differential Indicated SCAN CRITERIA MET
[2019-04-02 08:57] LABS: AST(SGOT) 17 U/L (15-37); Alanine Aminotransfer ALT/SGPT 56 U/L (13-56); Albumin, Serum 2.7 g/dL (3.2-5.0); Alkaline Phosphatase 152 U/L (45-117); Amylase 10 U/L (25-115); Anion Gap 7 (5-15); BUN 12 mg/dL (7-18); BUN/Creat Ratio 22.7 RATIO (10-20); Calcium,Total 8.4 mg/dL (8.5-10.1); Chloride 101 mmol/L (98-107); Creatinine, Serum 0.53 mg/dL (0.55-1.02); EST Glomerular Filtration Rate 121 mL/min (>60); Est Glom Filt Rate - Afr Amer 146 mL/min (>60); Estimated Creatinine Clearance 42.07 ml/min; Globulin 3.8 g/dL (2.2-4.2); Glucose 109 mg/dL (74-106); Lipase 52 U/L (73-393); Potassium 3.8 mmol/L (3.5-5.1); Protein, Total 6.5 g/dL (6.4-8.2); Sodium Level 139 mmol/L (136-145)
[2019-04-02 08:58] LABS: Lactic Acid 1.2 mmol/L (0.4-2.0)
[2019-04-02] MEDS: Ipratropium/Albuterol Sulfate 3 ML AMPUL.NEB INHALATION ×2 (09:41→19:20)
[2019-04-02] MEDS: Piperacil/Tazobactam 3.375 GM/50 ML ML IV ×3 (09:46→22:47)
[2019-04-02] MEDS: Clotrimazole 10 MG Troche MUCOUS MEM (09:49)
[2019-04-02 10:35] LABS: Bacteria 0 SEEN /hpf (None Seen); Mucous, Urine 0 SEEN /hpf (<or=2+); Red Blood Cells-Urine 0 SEEN /hpf (0-5); Squamous Epithelial Cells - UA 0 SEEN /hpf (5-10); White Blood Cells 0 SEEN /hpf (0-5)
[2019-04-02 10:49] LABS: Color, Urine Yellow (Yellow); Glucose, Dipstick Normal (Normal); Ketone-Dipstick Negative (Negative); Leukocyte Esterase-Dipstick Negative /ul (Negative); Nitrite-Dipstick Negative (Negative); Occult Blood-Urine Negative /ul (Negative); Protein-Dipstick Negative (Negative); Urine Bilirubin Dipstick Negative (Negative); Urine Clarity Clear (Clear); Urine Urobilinogen Normal (Normal)
--- NOTE | 2019-04-02 11:23 | NURSING ---
Dr. Alan called and talked with pt on phone in room.
--- NOTE | 2019-04-02 12:41 | PCM.HP.STD ---
Problem List (1) Acute calculous cholecystitis Status: Acute History of Present Illness Date of Admission: 04/02/19 The patient is a 73 year old F who is 5 days postoperative from a laparoscopic cholecystectomy. The patient had ERCP with stone removal from the common bile duct and subsequent lap scopic cholecystectomy. She went home and was doing well until today. She developed severe right upper quadrant pain and fevers. She reported no nausea or vomiting. She said she is still passing flatus. Past Medical History Past Medical History (Chronic Problems): Chronic Problems (Last Reviewed 10/26/18 @ 10:48 by Nohelia Brown NP-C) Obesity (BMI 30-39.9) (Chronic) SHAZIA (obstructive sleep apnea) (Chronic) CPAP 9 cm of water Stage 2 moderate COPD by GOLD classification (Chronic) 07/2017, FEV1 57% Osteoarthritis (Chronic) Diverticulitis (Chronic) Depression (Chronic) COPD (chronic obstructive pulmonary disease) with chronic bronchitis (Chronic) Medical History: Medical History (Last Reviewed 10/26/18 @ 10:48 by Nohelia Brown NP-C) Osteoarthritis (Chronic) M19.90 Diverticulitis (Chronic) K57.92 Depression (Chronic) F32.9 Pneumonia (Acute) J18.9 acute viral bronchitis secondary to influenza A (Acute) Acute respiratory failure with hypoxia (Acute) J96.01 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 100 mcg-umeclid 1 inh INHALATION DAILY #60 ea 10/18/18 62.5 mcg-vilant 25 mcg inhalat.powder Surgical History: Surgical History (Last Reviewed 10/26/18 @ 10:48 by Nohelia Brown NP-C) History of tonsillectomy and adenoidectomy (Resolved) Z98.890 H/O laminectomy (Resolved) Z98.890 Hx of cataract surgery (Resolved) Z98.49 History of bone graft (Resolved) Z98.890 (Resolved) H/O tubal ligation (Resolved) Z98.51 Surgical History: - - Back, Smoking Status: Former smoker - *Family History Sibling Family History: Family History (Last Reviewed 10/26/18 @ 10:48 by GAMAL Ward) Father Hypertension Mother Cancer History Items: Cancer Review of Systems Constitutional: Reports: Anorexia, Fever. Denies: Chills HEENT: Denies: Difficulty Swallowing Cardiovascular: Denies: Chest Pain Respiratory: Denies: Cough, Shortness of Breath Gastrointestinal: Reports: Abdominal Pain. Denies: Constipation, Diarrhea, Dyspepsia, Hematemesis, Hematochezia, Nausea, Vomiting Genitourinary: Denies: Dysuria Musculoskeletal: Denies: Joint Tenderness Skin: Denies: Jaundice, Pruritis Neurological: Denies: Balance problems Hematologic/ Lymphatic: Denies: Anemia VTE Information - Inpt Only VTE Present on Admission: No VTE Mechan Device Prophylaxis: SCD's - Physical Exam Vitals/I&O's: Vital Signs Temp Pulse Resp BP Pulse Ox 99.0 F 99 18 97/66 95 04/02/19 11:44 04/02/19 11:44 04/02/19 11:44 04/02/19 11:44 04/02/19 11:44 Oxygen Flow Rate (L/min) 2 Oxygen Delivery Method Nasal Cannula Weight: 193 lb 12.581 oz Body Mass Index (BMI) 34.3 General: Alert, Oriented x3, Cooperative Neck: No JVD Lungs: Normal air movement Cardiovascular: Regular rate, Regular Rhythm Abdomen: Soft, Non-Distended, Guarding - Guarding on the right side, Tender Laboratory Results 04/02/19 08:20: WBC 11.8 H, RBC 3.68 L, Hgb 10.1 L, Hct 32.1 L, MCV 87.2, MCH 27.4, MCHC 31.5 L, RDW Std Deviation 49.6 H, RDW Coeff of Kimberlyn 15.5 H, Plt Count 318, MPV 10.4, Immature Gran % (Auto) 0.500, Neut % (Auto) 75.3 H, Lymph % (Auto) 8.9 L, [place] % (Auto) 13.5 H, Eos % (Auto) 1.4, Baso % (Auto) 0.4, Absolute Neuts (auto) 8.9 H, Absolute Lymphs (auto) 1.05, Nucleated RBC % 0, Diff Path Review May 04/02/19 08:20: Sodium 139, Potassium 3.8, Chloride 101, Carbon Dioxide 31.0, Anion Gap 7, BUN 12, Creatinine 0.53 L, Estim Creat Clear Calc 42.07, Est GFR (MDRD) Af Amer 146, Est GFR (MDRD) Non-Af 121, BUN/Creatinine Ratio 22.7 H, Glucose 109 H, Calcium 8.4 L, Total Bilirubin 1.00, Direct Bilirubin 0.40 H, AST 17, ALT 56, Alkaline Phosphatase 152 H, Total Protein 6.5, Albumin 2.7 L, Globulin 3.8, Amylase 10 L, Lipase 52 L 04/02/19 08:20: Lactic Acid 1.2 04/02/19 08:20: PT 15.2 H, INR 1.2, APTT 32.9 04/02/19 10:30: Urine Color Yellow, Urine Clarity Clear, Urine pH 7.0, Ur Specific [place] 1.010, Urine Protein Negative, Urine Glucose (UA) Normal, Urine Ketones Negative, Urine Occult Blood Negative, Urine Nitrite Negative, Urine Bilirubin Negative, Urine Urobilinogen Normal, Ur Leukocyte Esterase Negative, Urine RBC 0 SEEN, Urine WBC 0 SEEN, Ur Squamous Epith Cells 0 SEEN, Urine Bacteria 0 SEEN, Urine Mucus 0 SEEN Clinical Impression(s) from Imaging Studies Abdomen/Pelvis CT 04/02/19 08:08 IMPRESSION: Patient is status post recent cholecystectomy. There is prominent ill-defined fluid within the region of the right upper quadrant/gallbladder fossa. Unsure if this represents abscess, expected postoperative soft tissue change and/or bile leak. No definitive evidence of retained stone on this exam. Electronically Signed: Joao Thakkar DO at 10:35 EST Tel , Service support , Chest X-Ray 04/02/19 08:15 IMPRESSION: No acute cardiopulmonary process is evident. Electronically Signed: Juan R Knight MD at 9:00 EST Tel , Service support , Current Medications Piperacillin Sod/Tazobactam Sod (Zosyn) 3.375 gm in 50 mls @ 12.5 mls/hr IV Q8 NISHANT Sodium Chloride () 250 mls @ 15 mls/hr IV .[id number] PRN PRN Reason: Saline Flush Lactated Ringer's () 1,000 mls @ 75 mls/hr IV .[id number] NISHANT Metoprolol Tartrate (Lopressor (Beta Suad)) 25 mg PO DAILY NISHANT Sodium Chloride () 10 - 40 ml IV UD PRN PRN Reason: SALINE FLUSH Assessment/Plan All Active Problems (Last Reviewed 10/26/18 @ 10:48 by Nohelia Brown, APPRENTICE PHOTOGRAPHER-C) Acute calculous cholecystitis (Acute) Diastolic dysfunction (Acute) Hypersomnia (Acute) Pneumonia (Acute) History of tonsillectomy and adenoidectomy (Resolved) H/O laminectomy (Resolved) Hx of cataract surgery (Resolved) History of bone graft (Resolved) (Resolved) H/O tubal ligation (Resolved) acute viral bronchitis secondary to influenza A (Acute) Acute respiratory failure with hypoxia (Acute) Bronchitis (Resolved) Influenza A (Resolved) 73-year-old female with fluid collection and sepsis post laparoscopic cholecystectomy 1. Patient presented with right upper quadrant pain and involuntary guarding. She had elevated white count with left shift. CMP was essentially normal with a normal lipase and fairly normal liver function test. The patient had a CT scan which showed a large fluid collection in the right upper quadrant. Subsequently the patient's blood pressure has decreased somewhat since presentation. She is not tachycardic. She was given Zosyn in the emergency room. 2. Given the large fluid collection in the right upper quadrant and the patient's peritonitis and fever I recommend drainage immediately. Given the shape of the fluid collection I believe that percutaneous drainage may not fully drain the fluid. This may be a biloma or abscess. I would recommend the patient laparoscopic drainage today. If it is a biloma I will plan for ERCP tomorrow with stent placement. If it is abscess I will continue antibiotics and treat as such. I discussed the risks of laparoscopy including but not limited to bleeding, infection, injury to colon or bowel. The patient understands and is willing to proceed with laparoscopic washout and drainage. Edson Alan MD Pager: [facility] [address] [place] [address] [address] [place] [address] Office:
[2019-04-02] MEDS: Bupivacaine Mpf 0.5% 30 ML VIAL (13:38)
--- NOTE | 2019-04-02 13:46 | OP.PCM_ITS ---
Problem List (1) Acute calculous cholecystitis Status: Acute Report of Operation Date of Procedure: 04/02/19 Pre-Operative Diagnosis: Fluid collection intra-abdominal Post-Operative Diagnosis: Intra-abdominal hematoma Surgery/Procedure Performed:: Exploratory laparoscopy with evacuation of hematoma Specimen's removed: Culture of hematoma fluid Drains: YAZAN x1 Description of Procedure: The patient was brought back to the operating room and general anesthesia was induced. The abdomen was prepped and draped in usual sterile fashion. The prior epigastric incision was re-incised and a 5 mm port was placed into this and under Visiport visualization it was placed into the abdomen. The abdomen was insufflated to 15 mmHg. Next the 2 right upper quadrant incisions were reopened and 5 mm ports were placed through these incisions. The omentum and surrounding tissue was reflected inferiorly and the patient appeared to have a large hematoma. There was no bile associated with this or purulent material but there was a lot of inflammation. The hematoma contents were suctioned into a Lukey tube and sent for culture. The remainder of the hematoma was suctioned. The clips were identified and appear to be in place with no overt bleeding. The gallbladder bed was inspected and appeared to have no overt bleeding. The hematoma was suctioned completely dry and the area was irrigated and suctioned once more. A piece of Surgicel snow was placed over the gallbladder fossa. Next a 15 Armenian round drain was placed into the lateral 5 mm port and placed in the gallbladder fossa. This was sutured in place using a nylon suture. The other ports were then removed and the air was allowed to desufflate from the abdomen. The incisions were injected with local anesthetic and closed with interrupted 4-0 Monocryl suture and Steri-Strips. Drain sponge was placed around the drain and the patient was awoken and taken to PACU in stable c ondition. - Admit VTE Documentation VTE Present on Admission: No
[2019-04-02] MEDS: Albuterol 2.5 MG/3 ML VIAL.NEB. INHALATION (14:15)
[2019-04-02] MEDS: Lactated Ringers 1,000 ML 75 ML IV (14:20)
[2019-04-02] MEDS: Morphine 2 MG/ML Syringe IV ×2 (15:01→17:48)
[2019-04-02] MEDS: FLUoxetine 20 MG Capsule PO (17:47)
[2019-04-02] MEDS: Metoprolol Tartrate 25 MG Tablet PO (17:48)
[2019-04-02] MEDS: 0.9% Normal Saline 1,000 ML 75 ML IV (18:19)
[2019-04-02] MEDS: NYSTATIN 500,000 UNIT/5 ML UDC 500000 UNIT PO ×2 (18:25→22:47)
--- NOTE | 2019-04-02 19:19 | NURSING ---
firm area around umbilical area.. pt states has hernia in that area.
[2019-04-02] MEDS: Budesonide Respules 0.5 MG/2 ML AMPUL.NEB. INHALATION (19:20)
--- NOTE | 2019-04-02 23:46 | CPS ---
Assisted pt with setting up home CPAP. 2L oxygen bled in and humidifier filled. No further needs at this time.
[2019-04-03] VITALS (27 sets, daily range): BP systolic 93–183; BP diastolic 49–124; PULSE 66–112; RESP 10–40; TEMP 36.3–37.3; O2SAT 91–98; BMI 34.3
[2019-04-03] MEDS: oxyCODONE 5 MG Tablet PO (00:12)
[2019-04-03] MEDS: Acetaminophen 325 MG Tablet 650 MG PO (03:20)
[2019-04-03] MEDS: Piperacil/Tazobactam 3.375 GM/50 ML ML IV ×2 (05:52→14:15)
[2019-04-03 05:58] LABS: Absolute Lymphocyte Count 0.56 X10^3/uL (0.83-4.51); Absolute Neutrophil Count 8.2 X10^3/uL (2.0-7.7); Hematocrit 27.7 % (37-47); Hemoglobin 8.6 g/dL (12.0-15.0); Lymphocyte # 0.56 X10^3/ul (4.0); Mean Corpuscular Hgb 27.1 pg (27.0-32.0); Mean Corpuscular Volume 87.4 fL (81-99); Mean Platelet Vol. 10.8 fl (6.2-12.0); Monocyte# 0.49 X10^3/uL; Monocyte% 5.3 % (0-10); NRBC Flagged by Analyzer 0 % (0-5); Neutrophil # 8.21 X10^3/uL (2.7-7.7); Neutrophil % 88.3 % (47-70); POSITIVE DIFFERENTIAL YES; Platelet Count 297 K/mm3 (150-450); RBC Distribution Width CV 15.2 % (11.6-14.6); RBC Distribution Width SD 48.9 fl (35.1-43.9); Red Blood Count 3.17 M/mm3 (4.2-5.4); White Blood Count 9.3 K/mm3 (4.4-11.0)
[2019-04-03 06:09] LABS: ALB/GLOB Ratio 0.6 RATIO (0.9-2.4); AST(SGOT) 21 U/L (15-37); Alanine Aminotransfer ALT/SGPT 50 U/L (13-56); Albumin, Serum 2.3 g/dL (3.2-5.0); Alkaline Phosphatase 121 U/L (45-117); Anion Gap 5 (5-15); BUN 9 mg/dL (7-18); BUN/Creat Ratio 14.8 RATIO (10-20); Calcium,Total 8.1 mg/dL (8.5-10.1); Chloride 102 mmol/L (98-107); Creatinine, Serum 0.61 mg/dL (0.55-1.02); EST Glomerular Filtration Rate 102 mL/min (>60); Est Glom Filt Rate - Afr Amer 124 mL/min (>60); Estimated Creatinine Clearance 42.07 ml/min; Globulin 3.7 g/dL (2.2-4.2); Glucose 175 mg/dL (74-106); Potassium 4.1 mmol/L (3.5-5.1); Sodium Level 138 mmol/L (136-145)
[2019-04-03 06:11] LABS: Differential Indicated SCAN CRITERIA MET
[2019-04-03] MEDS: Morphine 2 MG/ML Syringe IV ×2 (06:26→13:14)
[2019-04-03] MEDS: 0.9% Saline Lock 10 ML Syringe IV ×2 (06:26→09:12)
[2019-04-03] MEDS: 0.9% Normal Saline 1,000 ML 75 ML IV (06:31)
[2019-04-03] MEDS: Ipratropium/Albuterol Sulfate 3 ML AMPUL.NEB INHALATION ×3 (06:34→18:45)
[2019-04-03] MEDS: Budesonide Respules 0.5 MG/2 ML AMPUL.NEB. INHALATION ×2 (06:35→21:24)
--- NOTE | 2019-04-03 07:48 | PCM.PN.SRG ---
Subjective: Patient reports she is in less pain than she was yesterday. She is not having any nausea vomiting and tolerating clear liquids. - Physical Exam Vitals/I&O's: Vital Signs Temp Pulse Resp BP Pulse Ox 98 F 79 18 103/49 L 93 04/03/19 03:11 04/03/19 03:11 04/03/19 03:11 04/03/19 06:22 04/03/19 03:11 Oxygen Flow Rate (L/min) 2 Oxygen Delivery Method Nasal Cannula Weight: 193 lb 12.581 oz Body Mass Index (BMI) 34.3 Intake and Output for Last 24 Hours 04/01/19 04/02/19 04/03/19 23:59 23:59 23:59 Intake Total 1708.25 / 2128.25 1791.75 / 1791.75 Output Total 80 / 730 1450 / 1450 Balance 1628.25 / 1398.25 341.75 / 341.75 General: Alert, Oriented x3, No apparent distress HEENT: Atraumatic Lungs: Normal air movement Cardiovascular: Regular rate, Regular Rhythm Abdomen: Soft, Non Tender, Non-Distended Laboratory Results 04/02/19 08:20: WBC 11.8 H, RBC 3.68 L, Hgb 10.1 L, Hct 32.1 L, MCV 87.2, MCH 27.4, MCHC 31.5 L, RDW Std Deviation 49.6 H, RDW Coeff of Kimberlyn 15.5 H, Plt Count 318, MPV 10.4, Immature Gran % (Auto) 0.500, Neut % (Auto) 75.3 H, Lymph % (Auto) 8.9 L, [place] % (Auto) 13.5 H, Eos % (Auto) 1.4, Baso % (Auto) 0.4, Absolute Neuts (auto) 8.9 H, Absolute Lymphs (auto) 1.05, Nucleated RBC % 0, Diff Path Review September04/02/19 08:20: Sodium 139, Potassium 3.8, Chloride 101, Carbon Dioxide 31.0, Anion Gap 7, BUN 12, Creatinine 0.53 L, Estim Creat Clear Calc 42.07, Est GFR (MDRD) Af Amer 146, Est GFR (MDRD) Non-Af 121, BUN/Creatinine Ratio 22.7 H, Glucose 109 H, Calcium 8.4 L, Total Bilirubin 1.00, Direct Bilirubin 0.40 H, AST 17, ALT 56, Alkaline Phosphatase 152 H, Total Protein 6.5, Albumin 2.7 L, Globulin 3.8, Amylase 10 L, Lipase 52 L 04/02/19 08:20: Lactic Acid 1.2 04/02/19 08:20: PT 15.2 H, INR 1.2, APTT 32.9 04/02/19 10:30: Urine Color Yellow, Urine Clarity Clear, Urine pH 7.0, Ur Specific [place] 1.010, Urine Protein Negative, Urine Glucose (UA) Normal, Urine Ketones Negative, Urine Occult Blood Negative, Urine Nitrite Negative, Urine Bilirubin Negative, Urine Urobilinogen Normal, Ur Leukocyte Esterase Negative, Urine RBC 0 SEEN, Urine WBC 0 SEEN, Ur Squamous Epith Cells 0 SEEN, Urine Bacteria 0 SEEN, Urine Mucus 0 SEEN 04/03/19 05:14: WBC 9.3, RBC 3.17 L, Hgb 8.6 L, Hct 27.7 L, MCV 87.4, MCH 27.1, MCHC 31.0 L, RDW Std Deviation 48.9 H, RDW Coeff of Kimberlyn 15.2 H, Plt Count 297, MPV 10.8, Immature Gran % (Auto) 0.400, Neut % (Auto) 88.3 H, Lymph % (Auto) 6.0 L, [place] % (Auto) 5.3, Eos % (Auto) 0.0, Baso % (Auto) 0.0, Absolute Neuts (auto) 8.2 H, Absolute Lymphs (auto) 0.56 L, Nucleated RBC % 0 04/03/19 05:14: Sodium 138, Potassium 4.1, Chloride 102, Carbon Dioxide 31.0, Anion Gap 5, BUN 9, Creatinine 0.61, Estim Creat Clear Calc 42.07, Est GFR (MDRD) Af Amer 124, Est GFR (MDRD) Non-Af 102, BUN/Creatinine Ratio 14.8, Glucose 175 H, Calcium 8.1 L, Total Bilirubin 0.60, AST 21, ALT 50, Alkaline Phosphatase 121 H, Total Protein 6.0 L, Albumin 2.3 L, Globulin 3.7, Albumin/Globulin Ratio 0.6 L Current Medications Acetaminophen (Tylenol) 650 mg PO Q6H PRN PRN PRN Reason: Pain Score 1-5/10 Last Admin: 04/03/19 03:20 Dose: 650 mg Documented by: Albuterol/Ipratropium (Duoneb) 3 ml INHALATION Q6HWA.RT REPLACED BY [facility] Last Admin: 04/03/19 06:34 Dose: 3 ml Documented by: Bisacodyl (Dulcolax) 10 mg PO X1 ONE Stop: 04/03/19 07:48 Budesonide (Pulmicort Aerosol) 0.5 mg INHALATION Q12H.RT REPLACED BY [facility] Last Admin: 04/03/19 06:35 Dose: 0.5 mg Documented by: Docusate Sodium (Colace) 100 mg PO BID REPLACED BY [facility] Fluoxetine HCl (Prozac) 20 mg PO DAILY REPLACED BY [facility] Last Admin: 04/02/19 17:47 Dose: 20 mg Documented by: Piperacillin Sod/Tazobactam Sod (Zosyn) 3.375 gm in 50 mls @ 12.5 mls/hr IV Q8 REPLACED BY [facility] Last Admin: 04/03/19 05:52 Dose: 12.5 mls/hr Documented by: Sodium Chloride () 250 mls @ 15 mls/hr IV .[id number] PRN PRN Reason: Saline Flush Last Infusion: 04/03/19 05:54 Dose: 0 mls/hr Documented by: Metoprolol Tartrate (Lopressor (Beta Suad)) 25 mg PO DAILY REPLACED BY [facility] Last Admin: 04/02/19 17:48 Dose: 25 mg Documented by: Morphine Sulfate () 2 - 4 mg IV Q2H PRN PRN PRN Reason: Pain Score 6-10/10 Last Admin: 04/03/19 06:26 Dose: 2 mg Documented by: Nystatin (Nystatin) 500,000 unit PO 4X/DAY REPLACED BY [facility] Last Admin: 04/02/19 22:47 Dose: 500,000 unit Documented by: Ondansetron HCl (Zofran) 4 mg IV Q6H PRN PRN PRN Reason: NAUSEA/VOMITING Oxycodone HCl (Oxyir) 5 - 10 mg PO Q4H PRN PRN PRN Reason: Pain Score 6-10/10 Last Admin: 04/03/19 00:12 Dose: 10 mg Documented by: Sodium Chloride () 10 - 40 ml IV UD PRN PRN Reason: SALINE FLUSH Last Admin: 04/03/19 06:26 Dose: 10 ml Documented by: Medical Necessity - Tobacco Use Smoking Status: Former smoker Assessment/Plan All Active Problems (Last Reviewed 10/26/18 @ 10:48 by Nohelia Brown NP-Alana) Acute calculous cholecystitis (Acute) Diastolic dysfunction (Acute) Hypersomnia (Acute) Pneumonia (Acute) History of tonsillectomy and adenoidectomy (Resolved) H/O laminectomy (Resolved) Hx of cataract surgery (Resolved) History of bone graft (Resolved) (Resolved) H/O tubal ligation (Resolved) acute viral bronchitis secondary to influenza A (Acute) Acute respiratory failure with hypoxia (Acute) Bronchitis (Resolved) Influenza A (Resolved) 73-year-old female with postoperative hematoma 1. The patient had a large postoperative hematoma which was evacuated yesterday. Her drain was placed. Her hemoglobin has slightly dropped and her drainage is decreased but she is still having bright red blood around the drain. This may mean that the drain is clotted off. I will allow her to have a regular diet today but keep her n.p.o. after midnight in case further surgery is warranted tomorrow. I will recheck her hemoglobin tonight and tomorrow morning. If the bleeding continues and does not subside holding her aspirin then I will take her back for another exploration tomorrow to attempt to stop what ever oozing is found. 2. Patient also has thrush. I have started nystatin. I will also continue Zosyn until the culture of the hematoma has returned. She is afebrile and her white count has normalized. Edson Alan MD Pager: [facility] [address] [place] [address], [address] [place] [address] Office:
[2019-04-03] MEDS: Bisacodyl 5 MG Tablet 10 MG PO (08:56)
[2019-04-03] MEDS: NYSTATIN 500,000 UNIT/5 ML UDC 500000 UNIT PO (08:56)
[2019-04-03] MEDS: FLUoxetine 20 MG Capsule PO (08:56)
[2019-04-03] MEDS: Docusate Sodium 100 MG Capsule PO (08:56)
--- NOTE | 2019-04-03 11:00 | CASEMGMT ---
RN CM Face to Face with patient. SEE RN CM assessment from 03/28/19, no changes noted. RN CM introduced self and role at [facility]. Patient lying in bed, alert and oriented. Patient willing to participate in assessment and is able to answer all questions appropriately. Care providers, pharmacy, and demographics verified. Patient wishes to discharge home, denies need for home health at this time. Patient states he has no further needs or concerns at this time. CM to follow for discharge planning needs that may arise. Patient was inpatient from 03/26/19-03/28/19. Patient had laparoscopic cholecystectomy with cholangiograms on 03/27/19. Patient discharged to home with baseline home oxygen, prescription for oxycodone. Patient has follow-up appt with Franck scheduled for 04/10/19. Patient returned 04/02/19 to ED for abdominal pain, temp, CT showed a large fluid collection that is ill-defined in the right upper quadrant. Patient taken to surgery for exploratory laparoscopy with evacuation of hematoma. Disposition Plan: Patient to discharge home with family support and follow-up plans in place. Ana SALAZAR, RN, CM
--- NOTE | 2019-04-03 15:07 | PN_ITS ---
Progress Note The patient has continued to have bright red blood around her drain throughout the day. She reports that her abdomen is more distended and more painful. I believe she is continuing to bleed in her abdomen I will take her back for repeat exploration with laparoscopy to try to stop the bleeding and see if I can elucidate the cause. I discussed the risks of the surgery as well as possibility of open procedure with the patient. The patient understands risks and is willing to proceed with surgery. Edson Alan MD Pager: [facility] [address] [place] [address], [address] [place] [address] Office: [facility] Vital Signs/Narrative: Vital Signs Temp Pulse Resp BP Pulse Ox 04/03/19 14:52 98.2 F 92 20 H 124/54 H 94 04/03/19 13:23 70 16
[2019-04-03] MEDS: Bupivacaine Mpf 0.5% 30 ML VIAL (17:04)
--- NOTE | 2019-04-03 17:09 | PCM.OPRPT ---
Problem List (1) Acute calculous cholecystitis Status: Acute Report of Operation Date of Procedure: 04/03/19 Pre-Operative Diagnosis: Postoperative bleeding Post-Operative Diagnosis: Same Surgery/Procedure Performed:: Exploratory laparoscopy with cauterization of bleeding Description of Surgical Findings:: The patient had some bright red blood in her abdomen. There is no clotting or bleeding in the gallbladder fossa. The falciform port seem to be the source of the bleeding. Description of Procedure: Patient was brought back to the operating room and general anesthesia was induced. The abdomen was prepped and draped in usual sterile fashion. The drain was removed and using the port and a 5 mm port and Visiport technique the abdomen was entered with a 5 mm port. The abdomen was insufflated to 15 mmHg. The previous skin incisions in the right upper quadrant and epigastric region were incised and 5 mm ports were placed. Another small incision was made inferior to the umbilicus and a 5 mm port was placed into this. Using these trochars the abdomen was suctioned. The gallbladder fossa was inspected and appeared to not have any clot or active bleeding. There was active bleeding coming from the epigastric port through the falciform. Using a combination of therapy and Enseal the falciform was taken down and cauterized. The abdomen was further inspected and the blood was suctioned dry. The abdomen was irrigated and suctioned once more. The gallbladder fossa and falciform were covered with Surgicel snow powder. Next the ports were removed and the abdomen was allowed to desufflate. The incisions were anesthetized and closed with interrupted 4-0 Monocryl suture and Steri-Strips and bandages.
--- NOTE | 2019-04-03 18:12 | NURSING ---
called report to Jose in ICU at this time
[2019-04-03 19:23] LABS: Hematocrit 31.9 % (37-47); Hemoglobin 9.8 g/dL (12.0-15.0)
[2019-04-04] VITALS (21 sets, daily range): BP systolic 93–134; BP diastolic 48–79; PULSE 64–92; RESP 12–22; TEMP 36.8–37.1; O2SAT 17–99
[2019-04-04] MEDS: Morphine 2 MG/ML Syringe IV ×5 (00:20→17:02)
[2019-04-04] MEDS: 0.9% Saline Lock 10 ML Syringe IV ×2 (00:20→04:27)
--- NOTE | 2019-04-04 00:48 | CPS ---
EPAP titrated from 6-8; better meet pt.'s home CPAP setting (9)
[2019-04-04 04:56] LABS: Absolute Lymphocyte Count 0.85 X10^3/uL (0.83-4.51); Absolute Neutrophil Count 11.2 X10^3/uL (2.0-7.7); Basophil# 0.03 X10^3/uL; Basophil% 0.2 % (0-1); Hematocrit 30.6 % (37-47); Hemoglobin 9.3 g/dL (12.0-15.0); Lymphocyte # 0.85 X10^3/ul (4.0); Lymphocyte % 6.2 % (19-41); Mean Corp Hgb Conc 30.4 g/dL (32-36); Mean Corpuscular Hgb 26.9 pg (27.0-32.0); Mean Corpuscular Volume 88.4 fL (81-99); Mean Platelet Vol. 10.4 fl (6.2-12.0); Monocyte# 1.53 X10^3/uL; Monocyte% 11.1 % (0-10); NRBC Flagged by Analyzer 0 % (0-5); Neutrophil # 11.22 X10^3/uL (2.7-7.7); Neutrophil % 81.7 % (47-70); POSITIVE DIFFERENTIAL YES; Platelet Count 378 K/mm3 (150-450); RBC Distribution Width CV 15.6 % (11.6-14.6); RBC Distribution Width SD 50.4 fl (35.1-43.9); Red Blood Count 3.46 M/mm3 (4.2-5.4); White Blood Count 13.7 K/mm3 (4.4-11.0)
[2019-04-04 04:59] LABS: Differential Indicated SCAN CRITERIA MET
[2019-04-04 05:04] LABS: Anion Gap 8 (5-15); BUN 13 mg/dL (7-18); BUN/Creat Ratio 19.5 RATIO (10-20); Calcium,Total 8.3 mg/dL (8.5-10.1); Chloride 106 mmol/L (98-107); Creatinine, Serum 0.67 mg/dL (0.55-1.02); EST Glomerular Filtration Rate 92 mL/min (>60); Est Glom Filt Rate - Afr Amer 112 mL/min (>60); Estimated Creatinine Clearance 42.07 ml/min; Glucose 129 mg/dL (74-106); Potassium 3.9 mmol/L (3.5-5.1); Sodium Level 144 mmol/L (136-145)
[2019-04-04] MEDS: Budesonide Respules 0.5 MG/2 ML AMPUL.NEB. INHALATION ×2 (06:49→19:20)
[2019-04-04] MEDS: Ipratropium/Albuterol Sulfate 3 ML AMPUL.NEB INHALATION ×2 (06:49→13:03)
--- NOTE | 2019-04-04 07:49 | PCM.PN.SRG ---
Subjective: Patient returned to the OR yesterday evening for repeat laparoscopy. There was bleeding found at the falciform ligament from the port site. The patient did well overnight. She reports no nausea or vomiting. She is not passing flatus. - Physical Exam Vitals/I&O's: Vital Signs Temp Pulse Resp BP Pulse Ox 98.5 F 71 13 128/63 H 99 04/04/19 04:00 04/04/19 06:51 04/04/19 06:51 04/04/19 06:00 04/04/19 06:51 Oxygen Flow Rate (L/min) 2 Oxygen Delivery Method Nasal Cannula Weight: 211 lb 3.245 oz Body Mass Index (BMI) 34.3 Intake and Output for Last 24 Hours 04/02/19 04/03/19 04/04/19 23:59 23:59 23:59 Intake Total 1708.25 / 2128.25 2464.25 / 2464.25 40 / 40 Output Total 80 / 730 1450 / 1450 350 / 350 Balance 1628.25 / 1398.25 1014.25 / 1014.25 -310 / -310 General: Alert, Oriented x3, Cooperative, No apparent distress HEENT: Atraumatic Lungs: Normal air movement Cardiovascular: Regular rate, Regular Rhythm Abdomen: Soft, Distended, Tender Extremities: No clubbing Microbiology Past 72 Hours 04/02/19 Unknown Biopsy - Other Gram Stain - Final 04/02/19 Unknown Biopsy - Other Wound Culture - Preliminary No growth-Final to follow 04/02/19 Unknown Biopsy - Other Anaerobic Culture - Preliminary No growth in 48 hours. Laboratory Results 04/03/19 18:53: Hgb 9.8 L, Hct 31.9 L 04/04/19 04:35: WBC 13.7 H, RBC 3.46 L, Hgb 9.3 L, Hct 30.6 L, MCV 88.4, MCH 26.9 L, MCHC 30.4 L, RDW Std Deviation 50.4 H, RDW Coeff of Kimberlyn 15.6 H, Plt Count 378, MPV 10.4, Immature Gran % (Auto) 0.800, Neut % (Auto) 81.7 H, Lymph % (Auto) 6.2 L, [place] % (Auto) 11.1 H, Eos % (Auto) 0.0, Baso % (Auto) 0.2, Absolute Neuts (auto) 11.2 H, Absolute Lymphs (auto) 0.85, Nucleated RBC % 0, Diff Path Review September04/04/19 04:35: Sodium 144, Potassium 3.9, Chloride 106, Carbon Dioxide 30.0, Anion Gap 8, BUN 13, Creatinine 0.67, Estim Creat Clear Calc 42.07, Est GFR (MDRD) Af Amer 112, Est GFR (MDRD) Non-Af 92, BUN/Creatinine Ratio 19.5, Glucose 129 H, Calcium 8.3 L Current Medications Acetaminophen (Tylenol) 650 mg PO Q6H PRN PRN PRN Reason: Pain Score 1-09/30 Last Admin: 04/03/19 03:20 Dose: 650 mg Documented by: Albuterol/Ipratropium (Duoneb) 3 ml INHALATION Q6HWA.RT [facility] Last Admin: 04/04/19 06:49 Dose: 3 ml Documented by: Budesonide (Pulmicort Aerosol) 0.5 mg INHALATION Q12H.RT [facility] Last Admin: 04/04/19 06:49 Dose: 0.5 mg Documented by: Docusate Sodium (Colace) 100 mg PO BID [facility] Last Admin: 04/03/19 22:59 Dose: Not Given Documented by: Fluoxetine HCl (Prozac) 20 mg PO DAILY [facility] Last Admin: 04/03/19 08:56 Dose: 20 mg Documented by: Sodium Chloride () 250 mls @ 15 mls/hr IV .[id number] PRN PRN Reason: Saline Flush Last Infusion: 04/03/19 14:00 Dose: 0 mls/hr Documented by: Sodium Chloride () 250 mls @ 15 mls/hr IV .[id number] PRN PRN Reason: Saline Flush Sodium Chloride () 1,000 mls @ 50 mls/hr IV .Q20H [facility] Metoprolol Tartrate (Lopressor (Beta Suad)) 25 mg PO DAILY [facility] Last Admin: 04/03/19 18:31 Dose: Not Given Documented by: Morphine Sulfate () 2 - 4 mg IV Q2H PRN PRN PRN Reason: Pain Score 6-10 Last Admin: 04/04/19 04:25 Dose: 2 mg Documented by: Nystatin (Nystatin) 500,000 unit PO 4X/DAY [facility] Last Admin: 04/03/19 23:00 Dose: Not Given Documented by: Ondansetron HCl (Zofran) 4 mg IV Q6H PRN PRN PRN Reason: NAUSEA/VOMITING Oxycodone HCl (Oxyir) 5 - 10 mg PO Q4H PRN PRN PRN Reason: Pain Score 6-10/10 Last Admin: 04/03/19 00:12 Dose: 10 mg Documented by: Sodium Chloride () 10 - 40 ml IV UD PRN PRN Reason: SALINE FLUSH Last Admin: 04/04/19 04:27 Dose: 10 ml Documented by: Sodium Chloride () 10 - 40 ml IV UD PRN PRN Reason: SALINE FLUSH Medical Necessity - Tobacco Use Smoking Status: Former smoker Assessment/Plan All Active Problems (Last Reviewed 10/26/18 @ 10:48 by Nohelia Brown, PROPERTY CARETAKER-C) Acute calculous cholecystitis (Acute) Diastolic dysfunction (Acute) Hypersomnia (Acute) Pneumonia (Acute) History of tonsillectomy and adenoidectomy (Resolved) H/O laminectomy (Resolved) Hx of cataract surgery (Resolved) History of bone graft (Resolved) (Resolved) H/O tubal ligation (Resolved) acute viral bronchitis secondary to influenza A (Acute) Acute respiratory failure with hypoxia (Acute) Bronchitis (Resolved) Influenza A (Resolved) 73-year-old female with postoperative bleed from cholecystectomy 1. Patient is stable this morning. She did well overnight on her CPAP. She is currently on 2 L with no shortness of breath. She is not tachypneic. She describes abdominal pain but she says it is better than yesterday. She is not passing any gas and her abdomen is distended. She has a postoperative ileus and I will keep her n.p.o. until she starts passing flatus. 2. She had acute blood loss anemia from surgery. Hemoglobin is currently stable. Continue to monitor. 3. Transfer out of the ICU to the floor 4. Low rate IV fluids to be initiated. Hold on any anticoagulation due to bleeding. Continue SCDs. Edson Alan MD Pager: [facility] [address] [place] [address], [address] [place] [address] Office:
[2019-04-04] MEDS: Docusate Sodium 100 MG Capsule PO ×2 (07:53→20:20)
[2019-04-04] MEDS: Metoprolol Tartrate 25 MG Tablet PO (07:53)
[2019-04-04] MEDS: NYSTATIN 500,000 UNIT/5 ML UDC 500000 UNIT PO ×3 (07:54→20:20)
[2019-04-04] MEDS: Acetaminophen 325 MG Tablet 650 MG PO (07:54)
[2019-04-04] MEDS: FLUoxetine 20 MG Capsule PO (07:54)
--- NOTE | 2019-04-04 08:04 | PCM.CON.CC ---
Problem List (1) Acute calculous cholecystitis Status: Acute (2) Diastolic dysfunction Status: Acute (3) Obesity (BMI 30-39.9) Status: Chronic (4) SHAZIA (obstructive sleep apnea) Status: Chronic Comment: CPAP 9 cm of water (5) Stage 2 moderate COPD by GOLD classification Status: Chronic Comment: 07/2017, FEV1 57% (6) Osteoarthritis Status: Chronic (7) Diverticulitis Status: Chronic (8) History of tonsillectomy and adenoidectomy Status: Resolved (9) H/O laminectomy Status: Resolved (10) Hx of cataract surgery Status: Resolved (11) History of bone graft Status: Resolved (12) Status: Resolved (13) H/O tubal ligation Status: Resolved Reason for Consult Date of Consultation: 04/04/19 Reason for Consultation: COPD/recurrent surgery History of Present Illness: The patient is a 73 year old F, with past medical history listed below and well-known to me from the office, who presents to [facility] on 04/02/2019 secondary to abdominal pain. On 03/26/2019, patient underwent laparoscopic cholecystectomy and ERCP and had been discharged 1 week ago. However, patient started to develop progressive right upper quadrant pain. Patient was noted to be hypoxic and had noted that her urine was darker than normal. Patient had reported subjective chills at that time, but no definitive fever. Patient had noted her legs were swelling despite taking Lasix at discharge. In the ER, patient was noted to be 95% on 3 L with a temperature of 101.1 ?F. Surgical sites were reportedly clean, dry and intact. Patient did have a slight leukocytosis at 11.[address] of the abdomen had demonstrated a large fluid collection in the right upper quadrant. Dr. Juan Marie was notified and patient was placed on Zosyn and admitted to the hospital. Yesterday, patient was taken to the OR and fluid collection was noted to be a blood collection. Patient was noted to have active bleeding coming from the epigastric port site. Patient had intervention and this was visually documented. Given patient's repeated surgery and history of respiratory issues, patient was monitored in the intensive care unit overnight. This morning, patient continues to report some distention of the abdomen with some soreness with deep inhalation. Patient states she has been compliant with incentive spirometer. Patient denies any dyspnea, chest pain or productive cough. Patient reports she has been able to use her baseline respiratory medications. Patient has been compliant with supplemental oxygen. Review of systems otherwise negative from a constitutional, HEENT, respiratory, cardiovascular, GI, genitourinary, musculoskeletal, skin, neurologic, psychiatric and hematologic system unless stated above. Past Medical History Past Medical History (Chronic Problems): Chronic Problems (Last Reviewed 10/26/18 @ 10:48 by Nohelia Brown WATER COMMISSIONER-C) Obesity (BMI 30-39.9) (Chronic) SHAZIA (obstructive sleep apnea) (Chronic) CPAP 9 cm of water Stage 2 moderate COPD by GOLD classification (Chronic) 07/2017, FEV1 57% Osteoarthritis (Chronic) Diverticulitis (Chronic) Depression (Chronic) COPD (chronic obstructive pulmonary disease) with chronic bronchitis (Chronic) Medical History: Medical History (Last Reviewed 10/26/18 @ 10:48 by Nohleia Brown NP-C) Osteoarthritis (Chronic) M19.90 Diverticulitis (Chronic) K57.92 Depression (Chronic) F32.9 Pneumonia (Acute) J18.9 acute viral bronchitis secondary to influenza A (Acute) Acute respiratory failure with hypoxia (Acute) J96.01 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 100 mcg-umeclid 1 inh INHALATION DAILY #60 ea 10/18/18 62.5 mcg-vilant 25 mcg inhalat.powder Surgical History: Surgical History (Last Reviewed 10/26/18 @ 10:48 by Nohelia Brown NP-C) History of tonsillectomy and adenoidectomy (Resolved) Z98.890 H/O laminectomy (Resolved) Z98.890 Hx of cataract surgery (Resolved) Z98.49 History of bone graft (Resolved) Z98.890 (Resolved) H/O tubal ligation (Resolved) Z98.51 Surgical History: - - Back, Smoking Status: Former smoker - *Family History Sibling Family History: Family History (Last Reviewed 10/26/18 @ 10:48 by GAMAL Ward) Father Hypertension Mother Cancer History Items: Cancer Review of Systems Comment: See HPI Objective: Patient does have well-controlled moderate obstructive sleep apnea and has been compliant with therapy for an average of 7 hours per night on 9 cm of water as an outpatient. Patient does have diastolic dysfunction noted on recent echo and stage II COPD by pulmonary function testing. Patient is treated with triple therapy at baseline (FVC 59%, FEV1 54%, TLC 71%, DLCO 76%) - Physical Exam Vitals/I&O's: Vital Signs Temp Pulse Resp BP Pulse Ox 36.9 C 86 13 125/58 H 99 04/04/19 04:00 04/04/19 07:53 04/04/19 06:51 04/04/19 07:53 04/04/19 06:51 Oxygen Flow Rate (L/min) 2 Oxygen Delivery Method Nasal Cannula Weight: 95.8 kg Body Mass Index (BMI) 34.3 Intake and Output for Last 24 Hours 04/02/19 04/03/19 04/04/19 23:59 23:59 23:59 Intake Total 1708.25 / 2128.25 2464.25 / 2464.25 40 / 40 Output Total 80 / 730 1450 / 1450 350 / 350 Balance 1628.25 / 1398.25 1014.25 / 1014.25 -310 / -310 General: Alert, Oriented x3, Cooperative, - - Mild discomfort with laughing and deep inhalation. Obese. HEENT: Atraumatic, PERRLA, EOMI, Normocephalic, - - No scleral icterus or injection noted. Oral: Moist Mucosa, No Gingival or Mucosal Lesions/ Ulcerations Neck: Supple, No JVD, No Nodes, Trachea Midline Lungs: No rhonchi, No wheeze, No rales, Diminished, - - Mild splinting with deep inhalation Cardiovascular: Regular rate, Regular Rhythm, Normal S1, Normal S2, No murmurs, No rub noted, No Gallop Abdomen: Soft, Bowel Sounds Not Present, Distended, Tender - No rebound noted. No guarding noted. Extremities: No clubbing, No cyanosis, No edema Skin: No rashes, No breakdown, - - 1 dressing saturated. Musculoskeletal: No Tenderness to Palpation of Joints or Extremities Lymphatic: No Cervical, Supraclavicular, or Inguinal Adenopathy Neurological: Cranial nerves II-XII grossly intact, Neuro grossly intact, Motor Exam 5/5 strength throughout Psych/Mental Status: Alert and oriented to time, place, person, mood and affect Microbiology Past 72 Hours 04/02/19 Unknown Biopsy - Other Gram Stain - Final 04/02/19 Unknown Biopsy - Other Wound Culture - Preliminary No growth-Final to follow 04/02/19 Unknown Biopsy - Other Anaerobic Culture - Preliminary No growth in 48 hours. Laboratory Results 04/03/19 18:53: Hgb 9.8 L, Hct 31.9 L 04/04/19 04:35: WBC 13.7 H, RBC 3.46 L, Hgb 9.3 L, Hct 30.6 L, MCV 88.4, MCH 26.9 L, MCHC 30.4 L, RDW Std Deviation 50.4 H, RDW Coeff of Kimberlyn 15.6 H, Plt Count 378, MPV 10.4, Immature Gran % (Auto) 0.800, Neut % (Auto) 81.7 H, Lymph % (Auto) 6.2 L, [place] % (Auto) 11.1 H, Eos % (Auto) 0.0, Baso % (Auto) 0.2, Absolute Neuts (auto) 11.2 H, Absolute Lymphs (auto) 0.85, Nucleated RBC % 0, Diff Path Review September04/04/19 04:35: Sodium 144, Potassium 3.9, Chloride 106, Carbon Dioxide 30.0, Anion Gap 8, BUN 13, Creatinine 0.67, Estim Creat Clear Calc 42.07, Est GFR (MDRD) Af Amer 112, Est GFR (MDRD) Non-Af 92, BUN/Creatinine Ratio 19.5, Glucose 129 H, Calcium 8.3 L Current Medications Acetaminophen (Tylenol) 650 mg PO Q6H PRN PRN PRN Reason: Pain Score 1-5/10 Last Admin: 04/04/19 07:54 Dose: 650 mg Documented by: Albuterol/Ipratropium (Duoneb) 3 ml INHALATION Q6HWA.RT [facility] Last Admin: 04/04/19 06:49 Dose: 3 ml Documented by: Budesonide (Pulmicort Aerosol) 0.5 mg INHALATION Q12H.RT [facility] Last Admin: 04/04/19 06:49 Dose: 0.5 mg Documented by: Docusate Sodium (Colace) 100 mg PO BID [facility] Last Admin: 04/04/19 07:53 Dose: 100 mg Documented by: Fluoxetine HCl (Prozac) 20 mg PO DAILY [facility] Last Admin: 04/04/19 07:54 Dose: 20 mg Documented by: Sodium Chloride () 250 mls @ 15 mls/hr IV .[id number] PRN PRN Reason: Saline Flush Last Infusion: 04/03/19 14:00 Dose: 0 mls/hr Documented by: Sodium Chloride () 250 mls @ 15 mls/hr IV .[id number] PRN PRN Reason: Saline Flush Sodium Chloride () 1,000 mls @ 50 mls/hr IV .Q20H [facility] Metoprolol Tartrate (Lopressor (Beta Suad)) 25 mg PO DAILY [facility] Last Admin: 04/04/19 07:53 Dose: 25 mg Documented by: Morphine Sulfate () 2 - 4 mg IV Q2H PRN PRN PRN Reason: Pain Score 6-10/10 Last Admin: 04/04/19 07:55 Dose: 4 mg Documented by: Nystatin (Nystatin) 500,000 unit PO 4X/DAY [facility] Last Admin: 04/04/19 07:54 Dose: 500,000 unit Documented by: Ondansetron HCl (Zofran) 4 mg IV Q6H PRN PRN PRN Reason: NAUSEA/VOMITING Oxycodone HCl (Oxyir) 5 - 10 mg PO Q4H PRN PRN PRN Reason: Pain Score 6-10/10 Last Admin: 04/03/19 00:12 Dose: 10 mg Documented by: Sodium Chloride () 10 - 40 ml IV UD PRN PRN Reason: SALINE FLUSH Last Admin: 04/04/19 04:27 Dose: 10 ml Documented by: Sodium Chloride () 10 - 40 ml IV UD PRN PRN Reason: SALINE FLUSH Assessment/Plan RECOMMENDATIONS: 1. Diet per surgery 2. Encourage incentive spirometer, wean oxygen as tolerated 3. Continue therapeutic substitution, no indication for systemic steroids 4. Home CPAP with all sleep, okay to discontinue BiPAP 5. Walking oximetry prior to discharge 6. Okay to leave the intensive care unit from my perspective IMPRESSIONS: 1. Acute hypoxic respiratory insufficiency secondary to probable atelectasis/COPD She with multiple abdominal surgeries in the last week. Patient likely has an element of atelectasis leading to current findings. Patient also has a history of diastolic dysfunction, so fluid status will have to be watched closely. Stressed to the patient the importance of incentive spirometer and avoiding postoperative complications. Will wean oxygen as tolerated. Increase activity as tolerated as this will help with recovery of bowel function and lung recruitment. No indication for systemic steroids. We will continue with therapeutic substitution for COPD. 2. Acute cholecystitis status post cholecystectomy/ileus/acute blood loss anemia Complicated postoperative course. Patient appears to be doing well at this time. Not surprised by patient's development of ileus. Patient is on ice chips right now and tolerating well. Will defer advancement of diet to surgery. Patient is not reporting any flatulence at this time. Patient did have an element of blood loss, so monitoring H&H would be appropriate. Patient is off anticoagulation secondary to bleeding complications. SCDs in place. 3. Obesity/obstructive sleep apnea/hypertension/advanced age/osteoarthritis Complicates care, management, recovery and prognosis. Patient should continue to use CPAP with any sleep given need for narcotics. Okay to resume antihypertensives from my perspective. Code Visit Inpatient E&M: 09147 Init Hosp L2
[2019-04-04] MEDS: 0.9% Normal Saline 1,000 ML 50 ML IV (08:06)
[2019-04-04 10:30] LABS: Pathologist Review Reviewed
[2019-04-04] MEDS: Pantoprazole Sodium 40 MG Tablet PO (10:34)
[2019-04-04 13:46] LABS: Pathologist Review Reviewed
[2019-04-05] VITALS (7 sets, daily range): BP systolic 101–121; BP diastolic 51–93; PULSE 72–87; RESP 16–21; TEMP 36.7–37.3; O2SAT 76–95
[2019-04-05] MEDS: 0.9% Normal Saline 1,000 ML 50 ML IV (00:34)
[2019-04-05] MEDS: Morphine 2 MG/ML Syringe IV ×3 (00:34→08:36)
[2019-04-05] MEDS: Ipratropium/Albuterol Sulfate 3 ML AMPUL.NEB INHALATION ×3 (00:35→13:33)
[2019-04-05 05:30] LABS: Absolute Lymphocyte Count 2.03 X10^3/uL (0.83-4.51); Absolute Neutrophil Count 4.5 X10^3/uL (2.0-7.7); Basophil# 0.02 X10^3/uL; Basophil% 0.3 % (0-1); Eosinophil# 0.04 X10^3/uL; Eosinophils% 0.5 % (0-5); Lymphocyte # 2.03 X10^3/ul (4.0); Lymphocyte % 25.5 % (19-41); Mean Corp Hgb Conc 29.6 g/dL (32-36); Mean Corpuscular Hgb 26.6 pg (27.0-32.0); Mean Corpuscular Volume 89.7 fL (81-99); Mean Platelet Vol. 10.3 fl (6.2-12.0); Monocyte# 1.29 X10^3/uL; Monocyte% 16.2 % (0-10); NRBC Flagged by Analyzer 0 % (0-5); Neutrophil # 4.52 X10^3/uL (2.7-7.7); Neutrophil % 56.9 % (47-70); Platelet Count 307 K/mm3 (150-450); RBC Distribution Width CV 15.6 % (11.6-14.6); RBC Distribution Width SD 51.3 fl (35.1-43.9); Red Blood Count 3.01 M/mm3 (4.2-5.4)
[2019-04-05 05:42] LABS: Anion Gap 6 (5-15); BUN 15 mg/dL (7-18); BUN/Creat Ratio 26.7 RATIO (10-20); Calcium,Total 7.8 mg/dL (8.5-10.1); Chloride 108 mmol/L (98-107); Creatinine, Serum 0.56 mg/dL (0.55-1.02); EST Glomerular Filtration Rate 113 mL/min (>60); Est Glom Filt Rate - Afr Amer 136 mL/min (>60); Estimated Creatinine Clearance 42.07 ml/min; Glucose 89 mg/dL (74-106); Potassium 3.5 mmol/L (3.5-5.1); Sodium Level 145 mmol/L (136-145)
[2019-04-05] MEDS: Budesonide Respules 0.5 MG/2 ML AMPUL.NEB. INHALATION (07:13)
--- NOTE | 2019-04-05 08:14 | PN.SURG_ITS ---
Subjective: Patient reports she is passing flatus and tolerating clears. Her abdomen is less tender. - Physical Exam Vitals/I&O's: Vital Signs Temp Pulse Resp BP Pulse Ox 98.0 F 72 18 116/54 L 95 04/05/19 05:42 04/05/19 05:42 04/05/19 05:42 04/05/19 05:42 04/05/19 05:42 Oxygen Flow Rate (L/min) 2 Oxygen Delivery Method CPAP Weight: 211 lb 3.245 oz Body Mass Index (BMI) 34.3 Intake and Output for Last 24 Hours 04/03/19 04/04/19 04/05/19 23:59 23:59 23:59 Intake Total 2464.25 / 2464.25 400 / 400 923.33 / 923.33 Output Total 1450 / 1450 350 / 350 Balance 1014.25 / 1014.25 50 / 50 923.33 / 923.33 General: Alert, Oriented x3, Cooperative Lungs: Normal air movement Cardiovascular: Regular rate, Regular Rhythm Abdomen: Soft, Tender Microbiology Past 72 Hours 04/02/19 Unknown Biopsy - Other Gram Stain - Final 04/02/19 Unknown Biopsy - Other Wound Culture - Final No growth aerobically. 04/02/19 Unknown Biopsy - Other Anaerobic Culture - Preliminary No growth in 48 hours. 04/02/19 09:03 Blood Culture (Wb) - No Site/Description Given Blood Culture - Preliminary No growth in 48 hours. 04/02/19 08:20 Blood Culture (Wb) - Right Forearm Blood Culture - Preliminary No growth in 48 hours. Laboratory Results 04/02/19 08:20: Diff Path Review Reviewed 04/04/19 04:35: Diff Path Review Reviewed 04/05/19 05:22: WBC 8.0, RBC 3.01 L, Hgb 8.0 L, Hct 27.0 L, MCV 89.7, MCH 26.6 L , MCHC 29.6 L, RDW Std Deviation 51.3 H, RDW Coeff of Kimberlyn 15.6 H, Plt Count 307, MPV 10.3, Immature Gran % (Auto) 0.600, Neut % (Auto) 56.9, Lymph % (Auto) 25.5, [place] % (Auto) 16.2 H, Eos % (Auto) 0.5, Baso % (Auto) 0.3, Absolute Neuts (auto) 4.5, Absolute Lymphs (auto) 2.03, Nucleated RBC % 0 04/05/19 05:22: Sodium 145, Potassium 3.5, Chloride 108 H, Carbon Dioxide 31.0, Anion Gap 6, BUN 15, Creatinine 0.56, Estim Creat Clear Calc 42.07, Est GFR (MDRD) Af Amer 136, Est GFR (MDRD) Non-Af 113, BUN/Creatinine Ratio 26.7 H, Glucose 89, Calcium 7.8 L Current Medications Acetaminophen (Tylenol) 650 mg PO Q6H PRN PRN PRN Reason: Pain Score 1-5 Last Admin: 04/04/19 07:54 Dose: 650 mg Documented by: Albuterol/Ipratropium (Duoneb) 3 ml INHALATION Q6HWA.RT [facility] Last Admin: 04/05/19 07:13 Dose: 3 ml Documented by: Budesonide (Pulmicort Aerosol) 0.5 mg INHALATION Q12H.RT [facility] Last Admin: 04/05/19 07:13 Dose: 0.5 mg Documented by: Docusate Sodium (Colace) 100 mg PO BID [facility] Last Admin: 04/04/19 20:20 Dose: 100 mg Documented by: Fluoxetine HCl (Prozac) 20 mg PO DAILY [facility] Last Admin: 04/04/19 07:54 Dose: 20 mg Documented by: Sodium Chloride () 250 mls @ 15 mls/hr IV .[id number] PRN PRN Reason: Saline Flush Last Infusion: 04/03/19 14:00 Dose: 0 mls/hr Documented by: Sodium Chloride () 250 mls @ 15 mls/hr IV .[id number] PRN PRN Reason: Saline Flush Metoprolol Tartrate (Lopressor (Beta Suad)) 25 mg PO DAILY [facility] Last Admin: 04/04/19 07:53 Dose: 25 mg Documented by: Morphine Sulfate () 2 - 4 mg IV Q2H PRN PRN PRN Reason: Pain Score 6-10 Last Admin: 04/05/19 05:48 Dose: 4 mg Documented by: Nystatin (Nystatin) 500,000 unit PO 4X/DAY [facility] Last Admin: 04/04/19 20:20 Dose: 500,000 unit Documented by: Ondansetron HCl (Zofran) 4 mg IV Q6H PRN PRN PRN Reason: NAUSEA/VOMITING Oxycodone HCl (Oxyir) 5 - 10 mg PO Q4H PRN PRN PRN Reason: Pain Score 6-10/10 Last Admin: 04/03/19 00:12 Dose: 10 mg Documented by: Pantoprazole Sodium (Protonix) 40 mg PO DAILY [facility] Last Admin: 04/04/19 10:34 Dose: 40 mg Documented by: Sodium Chloride () 10 - 40 ml IV UD PRN PRN Reason: SALINE FLUSH Last Admin: 04/04/19 04:27 Dose: 10 ml Documented by: Sodium Chloride () 10 - 40 ml IV UD PRN PRN Reason: SALINE FLUSH Medical Necessity - Tobacco Use Smoking Status: Former smoker Assessment/Plan All Active Problems (Last Reviewed 10/26/18 @ 10:48 by Nohelia Brown NP-C) Acute calculous cholecystitis (Acute) Diastolic dysfunction (Acute) Hypersomnia (Acute) Pneumonia (Acute) History of tonsillectomy and adenoidectomy (Resolved) H/O laminectomy (Resolved) Hx of cataract surgery (Resolved) History of bone graft (Resolved) (Resolved) H/O tubal ligation (Resolved) acute viral bronchitis secondary to influenza A (Acute) Acute respiratory failure with hypoxia (Acute) Bronchitis (Resolved) Influenza A (Resolved) 73-year-old female with postoperative bleed 1. The patient seems to be doing better and started passing flatus yesterday evening. I started on a clear liquid diet overnight which she has tolerated. Her hemoglobin did drop from 9.3-8.0. I will recheck an H&H at noon and keep her on clears until that comes back. If that comes back stable she can try regular diet and possibly may be discharged home. Edson Alan MD Pager: [facility] [address] [place] [address], [address] [place] [address] Office:
[2019-04-05] MEDS: Docusate Sodium 100 MG Capsule PO (08:30)
[2019-04-05] MEDS: Metoprolol Tartrate 25 MG Tablet PO (08:30)
[2019-04-05] MEDS: NYSTATIN 500,000 UNIT/5 ML UDC 500000 UNIT PO (08:30)
[2019-04-05] MEDS: Pantoprazole Sodium 40 MG Tablet PO (08:36)
[2019-04-05] MEDS: FLUoxetine 20 MG Capsule PO (08:36)
[2019-04-05] MEDS: 0.9% Saline Lock 10 ML Syringe IV (08:37)
--- NOTE | 2019-04-05 09:40 | PCM.PN.INT ---
Subjective: Patient transferred out of the intensive care unit yesterday. Patient does report flatus and feels subjectively improved compared to yesterday. Patient denies any respiratory complaints. Patient states she was able to ambulate around the halls yesterday. Patient was compliant with CPAP overnight. General: Alert, Oriented x3, Cooperative, No apparent distress, Well developed, Well nourished HEENT: Atraumatic, PERRLA, EOMI, Normocephalic Oral: Moist Mucosa, No Gingival or Mucosal Lesions/ Ulcerations Neck: Supple, No JVD, No Nodes, Trachea Midline Lungs: No rhonchi, No wheeze, No rales, Diminished, - - Symmetric expansion. Cardiovascular: Regular rate, Regular Rhythm, Normal S1, Normal S2, No murmurs, No rub noted, No Gallop Abdomen: Bowel Sounds Present, Soft, Tender - To palpation, but no rebound or guarding appreciated. Extremities: No clubbing, No cyanosis, Capillary Refill Less than 3 Seconds, Edema - Lower extremities Skin: No rashes, No breakdown Musculoskeletal: No Tenderness to Palpation of Joints or Extremities Lymphatic: No Cervical, Supraclavicular, or Inguinal Adenopathy Neurological: Cranial nerves II-XII grossly intact, Neuro grossly intact, Motor Exam 5/5 strength throughout Psych/Mental Status: Alert and oriented to time, place, person, mood and affect Vital Signs Temp Pulse Resp BP Pulse Ox 37.1 C 87 18 121/93 H 94 04/05/19 08:35 04/05/19 08:35 04/05/19 08:35 04/05/19 08:35 04/05/19 08:35 Oxygen Flow Rate (L/min) 2 Oxygen Delivery Method Nasal Cannula Weight: 95.8 kg Body Mass Index (BMI) 34.3 Intake and Output for Last 24 Hours 04/03/19 04/04/19 04/05/19 23:59 23:59 23:59 Intake Total 2464.25 / 2464.25 400 / 400 1331.66 / 1331.66 Output Total 1450 / 1450 350 / 350 Balance 1014.25 / 1014.25 50 / 50 1331.66 / 1331.66 Labs (Last 48 Hours) 04/02/19 04/03/19 04/04/19 08:20 18:53 04:35 WBC 13.7 H RBC 3.46 L Hgb 9.8 L 9.3 L Hct 31.9 L 30.6 L MCV 88.4 MCH 26.9 L MCHC 30.4 L RDW Std Deviation 50.4 H RDW Coeff of Kimberlyn 15.6 H Plt Count 378 MPV 10.4 Immature Gran % (Auto) 0.800 Neut % (Auto) 81.7 H Lymph % (Auto) 6.2 L Greene % (Auto) 11.1 H Eos % (Auto) 0.0 Baso % (Auto) 0.2 Absolute Neuts (auto) 11.2 H Absolute Lymphs (auto) 0.85 Nucleated RBC % 0 Diff Path Review Reviewed Reviewed Sodium Potassium Chloride Carbon Dioxide Anion Gap BUN Creatinine Estim Creat Clear Calc Est GFR (MDRD) Af Amer Est GFR (MDRD) Non-Af BUN/Creatinine Ratio Glucose Calcium 04/04/19 04/05/19 04/05/19 04:35 05:22 05:22 WBC 8.0 RBC 3.01 L Hgb 8.0 L Hct 27.0 L MCV 89.7 MCH 26.6 L MCHC 29.6 L RDW Std Deviation 51.3 H RDW Coeff of Kimberlyn 15.6 H Plt Count 307 MPV 10.3 Immature Gran % (Auto) 0.600 Neut % (Auto) 56.9 Lymph % (Auto) 25.5 Greene % (Auto) 16.2 H Eos % (Auto) 0.5 Baso % (Auto) 0.3 Absolute Neuts (auto) 4.5 Absolute Lymphs (auto) 2.03 Nucleated RBC % 0 Diff Path Review Sodium 144 145 Potassium 3.9 3.5 Chloride 106 108 H Carbon Dioxide 30.0 31.0 Anion Gap 8 6 BUN 13 15 Creatinine 0.67 0.56 Estim Creat Clear Calc 42.07 42.07 Est GFR (MDRD) Af Amer 112 136 Est GFR (MDRD) Non-Af 92 113 BUN/Creatinine Ratio 19.5 26.7 H Glucose 129 H 89 Calcium 8.3 L 7.8 L Microbiology 04/02/19 Unknown Biopsy - Other Gram Stain - Final 04/02/19 Unknown Biopsy - Other Wound Culture - Final No growth aerobically. 04/02/19 Unknown Biopsy - Other Anaerobic Culture - Preliminary No growth in 48 hours. 04/02/19 09:03 Blood Culture (Wb) - No Site/Description Given Blood Culture - Preliminary No growth in 48 hours. 04/02/19 08:20 Blood Culture (Wb) - Right Forearm Blood Culture - Preliminary No growth in 48 hours. Medical Necessity - Tobacco Use Smoking Status: Former smoker Assessment/Plan All Active Problems (Last Reviewed 10/26/18 @ 10:48 by Nohelia Brown [employer]) Acute calculous cholecystitis (Acute) Diastolic dysfunction (Acute) Hypersomnia (Acute) Pneumonia (Acute) History of tonsillectomy and adenoidectomy (Resolved) H/O laminectomy (Resolved) Hx of cataract surgery (Resolved) History of bone graft (Resolved) (Resolved) H/O tubal ligation (Resolved) acute viral bronchitis secondary to influenza A (Acute) Acute respiratory failure with hypoxia (Acute) Bronchitis (Resolved) Influenza A (Resolved) RECOMMENDATIONS: 1. Diet per surgery 2. Encourage incentive spirometer and ambulation as tolerated 3. Continue therapeutic substitution, no indication for systemic steroids 4. Home CPAP with all sleep, okay to discontinue BiPAP 5. Walking oximetry prior to discharge 6. Wean oxygen as tolerated IMPRESSIONS: 1. Acute hypoxic respiratory insufficiency secondary to probable atelectasis/COPD She with multiple abdominal surgeries in the last week. Patient likely has an element of atelectasis leading to current findings. Patient also has a history of diastolic dysfunction, so fluid status will have to be watched closely. Patient's weight is up, so diuretics may be required in the future. Stressed to the patient the importance of incentive spirometer in avoiding postoperative complications. Will wean oxygen as tolerated. Increase activity as tolerated as this will help with recovery of bowel function and lung recruitment. No indication for systemic steroids. We will continue with therapeutic substitution for COPD. 2. Acute cholecystitis status post cholecystectomy/ileus/acute blood loss anemia Complicated postoperative course. Patient appears to be doing well at this time. Ileus appears to be resolved. Patient is on ice chips right now and tolerating well. Patient did have an element of blood loss initially, so monitoring H&H would be appropriate. Patient is off anticoagulation secondary to bleeding complications. SCDs in place. 3. Obesity/obstructive sleep apnea/hypertension/advanced age/osteoarthritis Complicates care, management, recovery and prognosis. Patient should continue to use CPAP with any sleep given need for narcotics. Okay to resume antihypertensives from my perspective. Code Visit Inpatient E&M: 87885 Subs Hosp L2
[2019-04-05 12:12] LABS: Hematocrit 27.9 % (37-47); Hemoglobin 8.3 g/dL (12.0-15.0)
--- NOTE | 2019-04-05 13:20 | PCM.DC.GB ---
Discharge Diet: Light diet - advance as tolerated Discharge Activity: Return to Normal Activity, May Shower May shower in (days): 1 - with the bandage in place. Additional Activity Instructions:: Pain medication may cause nausea. You should typically eat light foods as you take your pain medications. Pain medication may also cause constipation. If this is a problem for you, please discuss with your doctor. Call your doctor if your incision/area has: Continuous Slow Oozing, Sudden Increased Bleeding, Increased Pain/ Swelling, Increased Redness, Foul Smelling Discharge, Fever of 101 or Higher Call your doctor if you observe: Fever of 101 or Higher Suture Line Care: Avoid Pulling/Pushing, Avoid Pinching/Bending Additional Dressing/Incision Instructions:: Leave operative bandaids on for 2 days. When you remove dressing, leave Steri-Strips on until your follow-up appointment, or until the Steri-Strips fall off on their own. Allergies/Adverse Reactions: Allergies latex Adverse Reaction (Verified 04/02/19 07:49) Other Medications to take at Discharge Cholecalciferol (Vitamin D3) [D3-2000] 2,000 unit PO DAILY 05/18/17 Fluoxetine [Prozac] 20 mg PO DAILY 05/18/17 Metoprolol Tartrate 25 mg PO DAILY 05/18/17 fluticasone fur. 100 mcg-umeclid 62.5 mcg-vilant 25 mcg inhalat.powder 1 inh INHALATION DAILY #60 ea 10/18/18 Docusate Sodium [Colace] 100 mg PO BID capsule 04/05/19 Oxycodone [Oxyir] 5 - 10 mg PO Q4H PRN PRN 5 Days #30 tablet 04/05/19 The following prescriptions were given: Oxycodone [Oxyir] 5 - 10 mg PO Q4H PRN PRN 5 Days #30 tablet PRN Reason: Pain Score 6-10/10 Transmission Status: Sent to [facility] Primary Care Physician: Bruce Virk [Primary Care Provider] - Test Results: Test results from this visit will be discussed in further detail at your follow-up appointment, if applicable. Please Follow Up With: Edson Alan MD When: Call for follow up appt with either Dr Alan or [facility] [phone]
--- NOTE | 2019-04-06 15:14 | PCM.DC.SUM ---
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 There is prominent ill-defined fluid within the region of the right upper quadrant/gallbladder fossa. Unsure if this represents abscess, expected postoperative soft tissue change and/or bile leak. No definitive evidence of retained stone on this exam. Electronically Signed: Joao Thakkar DO at 10:35 EST Tel , Service support , Chest X-Ray 04/02/19 08:15 IMPRESSION: No acute cardiopulmonary process is evident. Electronically Signed: Juan R Knight MD at 9:00 EST Tel , Service support , [employer]: - - Exploratory laparoscopy x2 Summary of Care Provided: The patient is a 73 year old F presented to the emergency room postop day 5 from laparoscopic cholecystectomy with right upper quadrant pain. CT scan showed fluid collection in the gallbladder fossa. She was taken for expiratory laparoscopy and hematoma was identified. His drain was placed. The following day the patient was still experiencing pain and bleeding from the drain site. The patient was returned to surgery and another exploratory laparoscopy was performed and the patient was having bleeding from her falciform ligament. This was stopped and the following day the patient was stabilized and her hemoglobin was stable. She started to pass gas and her postoperative ileus resolved. The patient was started on a diet and the following day the patient was discharged home in stable condition. - Physical Exam Vitals/I&O's: Vital Signs Temp Pulse Resp BP Pulse Ox 99.2 F H 80 16 101/51 L 93 04/05/19 14:15 04/05/19 14:15 04/05/19 14:15 04/05/19 14:15 04/05/19 14:15 Oxygen Flow Rate (L/min) 2 Oxygen Delivery Method Room Air Weight: 211 lb 3.245 oz Body Mass Index (BMI) 34.3 Intake and Output for Last 24 Hours 04/04/19 04/05/19 04/06/19 23:59 23:59 23:59 Intake Total 400 / 400 1731.66 / 1731.66 Output Total 350 / 350 Balance 50 / 50 1731.66 / 1731.66 Microbiology Past 72 Hours 04/02/19 Unknown Biopsy - Other Gram Stain - Final 04/02/19 Unknown Biopsy - Other Wound Culture - Final No growth aerobically. 04/02/19 Unknown Biopsy - Other Anaerobic Culture - Preliminary No growth in 48 hours. 04/02/19 09:03 Blood Culture (Wb) - No Site/Description Given Blood Culture - Preliminary No growth in 48 hours. 04/02/19 08:20 Blood Culture (Wb) - Right Forearm Blood Culture - Preliminary No growth in 48 hours. Discharge Diet: Light diet - advance as tolerated Discharge Activity: Return to Normal Activity, May Shower May shower in (days): 1 - with the bandage in place. Additional Activity Instructions:: Pain medication may cause nausea. You should typically eat light foods as you take your pain medications. Pain medication may also cause constipation. If this is a problem for you, please discuss with your doctor. Call your doctor if your incision/area has: Continuous Slow Oozing, Sudden Increased Bleeding, Increased Pain/ Swelling, Increased Redness, Foul Smelling Discharge, Fever of 101 or Higher Call your doctor if you observe: Fever of 101 or Higher Suture Line Care: Avoid Pulling/Pushing, Avoid Pinching/Bending Additional Dressing/Incision Instructions:: Leave operative bandaids on for 2 days. When you remove dressing, leave Steri-Strips on until your follow-up appointment, or until the Steri-Strips fall off on their own. Home Medications: Medications to take at Discharge Cholecalciferol (Vitamin D3) [D3-2000] 2,000 unit PO DAILY 05/18/17 Fluoxetine [Prozac] 20 mg PO DAILY 05/18/17 Metoprolol Tartrate 25 mg PO DAILY 05/18/17 fluticasone fur. 100 mcg-umeclid 62.5 mcg-vilant 25 mcg inhalat.powder 1 inh INHALATION DAILY #60 ea 10/18/18 Docusate Sodium [Colace] 100 mg PO BID cap 04/05/19 Oxycodone [Oxyir] 5 - 10 mg PO Q4H PRN PRN 5 Days #30 tab 04/05/19 Following Prescrptions Were Given to Patient: Oxycodone [Oxyir] 5 - 10 mg PO Q4H PRN PRN 5 Days #30 tab PRN Reason: Pain Score 6-10/10 Transmission Status: Received by [facility] Primary Care Physician: Bruce Virk [Primary Care Provider] - Please Follow Up With: Edson Alan MD When: Call for follow up appt with either Dr Alan or [facility] [phone] Medical Necessity - Tobacco Use Smoking Status: Former smoker Meaningful Use Info Meaningful Use Diagnoses (Choose all that apply): None applicable
--- NOTE | 2019-04-06 15:26 | CASEMGMT ---
MARCIANO FERRARA Discharge Follow-Up Phone Call. Lace: 12 Strata: 4 Discharge Date: 04/05/19 Adm Dx: Post-op bleed Attempted discharge follow-up phone call. No answer. Message left for pt to return call to MS3 Ana TARIQ CM, if she has any questions about the discharge instructions, medications, or follow-up appts. Phone number provided. Nelly SALAZAR RN, CM
== END 2019-04-05 14:45 | disposition home or self-care (01) | DRG 908 ==
LOC: ED 10:18 → MS3 11:51 → ICU 04-03 18:26 → MS3 04-04 11:03
PROVIDERS: Admitting Provider Surgery; Emergency Provider Emergency Medicine; Family Provider Family Medicine; PCP Family Medicine; Referring Provider Surgery; Visit Provider Surgery
PROC: 0WCG4ZZ Extirpation of Matter from Peritoneal Cavity, Percutaneous Endoscopic Approach (ICD-10-PCS; CPT 49320; principal; 2019-04-02 12:30)
PROC: 0W3G4ZZ Control Bleeding in Peritoneal Cavity, Percutaneous Endoscopic Approach (ICD-10-PCS; CPT 49320; principal; 2019-04-03 14:45)
DX: K91.870 Postprocedural hematoma of a digestive system organ or structure following a digestive system procedure (principal); B37.0 Candidal stomatitis; D62 Acute posthemorrhagic anemia; K56.7 Ileus, unspecified; Z90.49 Acquired absence of other specified parts of digestive tract; K91.840 Postprocedural hemorrhage of a digestive system organ or structure following a digestive system procedure; G47.33 Obstructive sleep apnea (adult) (pediatric); M19.90 Unspecified osteoarthritis, unspecified site; I10 Essential (primary) hypertension; E66.9 Obesity, unspecified; J44.9 Chronic obstructive pulmonary disease, unspecified; F32.9 Major depressive disorder, single episode, unspecified; Z68.34 Body mass index [BMI] 34.0-34.9, adult
CPT/HCPCS: 36415; 71045; 74177; 80048; 80053; 80076; 81001; 82150; 83605; 83690; 85014; 85018; 85025; 85610; 85730; 87040; 87070; 87075; 87205; 94003; 94640; 94762; 99251; 99284; J7030; J7050; J7120; Q9967; A4216; C1760; G0463; J2405

== ENCOUNTER → 2019-04-10 13:14 | Outpatient (CLI) | payer MEDICARE, OTHER, SELFPAY ==
[2019-04-03 14:57] VITALS: BMI 34.3
[2019-04-10 13:28] LABS: Absolute Lymphocyte Count 1.75 X10^3/uL (0.83-4.51); Absolute Neutrophil Count 6.8 X10^3/uL (2.0-7.7); Basophil# 0.05 X10^3/uL; Basophil% 0.5 % (0-1); Hematocrit 35.4 % (37-47); Lymphocyte # 1.75 X10^3/ul (4.0); Lymphocyte % 17.9 % (19-41); Mean Corp Hgb Conc 31.1 g/dL (32-36); Mean Corpuscular Hgb 26.6 pg (27.0-32.0); Mean Corpuscular Volume 85.5 fL (81-99); Monocyte# 0.97 X10^3/uL; Monocyte% 9.9 % (0-10); NRBC Flagged by Analyzer 0 % (0-5); Neutrophil # 6.83 X10^3/uL (2.7-7.7); Neutrophil % 70.1 % (47-70); Platelet Count 509 K/mm3 (150-450); RBC Distribution Width CV 14.5 % (11.6-14.6); RBC Distribution Width SD 44.9 fl (35.1-43.9); Red Blood Count 4.14 M/mm3 (4.2-5.4); White Blood Count 9.8 K/mm3 (4.4-11.0)
== END ==
PROVIDERS: Family Provider Family Medicine; PCP Family Medicine; Referring Provider Surgery; Visit Provider Surgery
DX: D64.9 Anemia, unspecified (principal)
CPT/HCPCS: 36415; 85025

== ENCOUNTER → 2019-11-14 08:30 | Outpatient (CLI) | payer MEDICARE, OTHER, SELFPAY ==
[2019-05-15 07:06] VITALS: BMI 34.3
--- NOTE | 2019-11-14 14:27 | PFTCOMP ---
COMPLETE PULMONARY FUNCTION TEST INTERPRETATION Brief HPI: Patient is a 74 year old female, currently under the care of myself, who presents to [facility] for complete pulmonary function tests secondary to diagnosis of COPD. Respiratory therapist reports good effort and reproducible results. Interpretation: Forced expiration spirometry shows a severe large airways obstructive ventilatory defect with an FEV1 of 47% predicted. There is no significant bronchodilator response by strict ATS criteria. Spirograms are of good quality and plateau slowly, indicating slowly emptying areas of the lungs. The respiratory flow volume loop shows decreased expiratory flow rates at all lung volumes consistent with airway obstruction. Lung volumes by body plethysmography show a decreased total lung capacity at 2.86 L, 62% predicted. All other lung volumes are reduced symmetrically. FRC and RV are elevated out of proportion. Lung volume measurements are consistent with air-trapping. Diffusion capacity by carbon monoxide is at the lower limit of normal at 69% predicted. The airway resistance is elevated. Compared to previous pulmonary function tests from 01/13/2018, there is been a significant reduction in FVC, FEV1 and TLC. Impression: Irreversible severe mixed ventilatory defect with a symmetric reduction diffusing capacity and significant worsening compared to 2018.
== END ==
PROVIDERS: Family Provider Family Medicine; PCP Family Medicine; Referring Provider Internal Medicine Critical Care Medicine; Visit Provider Internal Medicine Critical Care Medicine
DX: J44.9 Chronic obstructive pulmonary disease, unspecified (principal)
CPT/HCPCS: 94060; 94726; 94729

== ENCOUNTER → 2019-12-25 09:56 | Outpatient (CLI) | payer MEDICARE, OTHER, SELFPAY ==
[2019-05-15 07:06] VITALS: BMI 34.3
[2019-12-25 10:30] VITALS: PULSE 55; PULSE 62; PULSE 68; PULSE 70; PULSE 73; PULSE 79; PULSE 82; O2SAT 88; O2SAT 91; O2SAT 92; O2SAT 93; O2SAT 94; O2SAT 95
--- NOTE | 2019-12-25 10:32 | CPS ---
Patient wears 2 lpm oxygen at home with exertion. Patient brought own O2 tank with her. Patient started testing on room air, by the 2nd minute SpO2 88%. Placed patient on 2 lpm O2 pulse dose, recovered SpO2 93%. By the 4.5 minute monica, SpO2 88%, turned pulse dose O2 up to 3 lpm for the rest of testing.
--- NOTE | 2019-12-25 14:36 | WT_ITS ---
PSN 6 Minute Walk Test - 6 Minute Walk Test 6 Minute Walk Test: 6 Minute Walk Test PSN:6-Minute Walk Test Start: 12/25/19 10:30 Freq: Status: Active Protocol: RESP.6MINW Document 12/25/19 10:30 ASAEL (Rec: 12/25/19 10:35 ASAEL [id number]) 6 Minute Walk Test Date Performed 12/25/19 Time Performed 10:00 Height 5 ft 3 in Weight: 89.811 kg Weight in Pounds 198.[address]: Chidi Parra Assistive device used: None Pre-test Oxygen Delivery Method Room Air Pulse Ox (%) 93 Pulse Rate (60-100 beats/min) 55 L Dyspnea Berhane Scale (0-10) 0 Exertion Berhane Scale (6-20) 6 1st minute Oxygen Delivery Method Room Air Pulse Ox (%) 92 Pulse Rate (60-100 beats/min) 79 2nd minute Oxygen Delivery Method Room Air Pulse Ox (%) 88 Pulse Rate (60-100 beats/min) 82 3rd minute Oxygen Flow Rate (L/min) (L/min) 2 Oxygen Delivery Method Nasal Cannula Pulse Ox (%) 93 Pulse Rate (60-100 beats/min) 70 4th minute Oxygen Flow Rate (L/min) (L/min) 2 Oxygen Delivery Method Nasal Cannula Pulse Ox (%) 91 Pulse Rate (60-100 beats/min) 73 5th minute Oxygen Flow Rate (L/min) (L/min) 3 Oxygen Delivery Method Nasal Cannula Pulse Ox (%) 94 Pulse Rate (60-100 beats/min) 68 6th minute Oxygen Flow Rate (L/min) (L/min) 3 Oxygen Delivery Method Nasal Cannula Pulse Ox (%) 93 Pulse Rate (60-100 beats/min) 73 Dyspnea Berhane Scale (0-10) 2 Exertion Berhane Scale (6-20) 13 Post-test Oxygen Flow Rate (L/min) (L/min) 3 Oxygen Delivery Method Nasal Cannula Pulse Ox (%) 95 Pulse Rate (60-100 beats/min) 62 Full Laps Walked 9 Partial Lap, Number of Tiles Walked 20 Total Distance Walked (ft) 551 12/25/19 10:32 Cardiopulmonary Services by Galina Ye Patient wears 2 lpm oxygen at home with exertion. Patient brought own O2 tank with her. Patient started testing on room air, by the 2nd minute SpO2 88%. Placed patient on 2 lpm O2 pulse dose, recovered SpO2 93%. By the 4.5 minute monica, SpO2 88%, turned pulse dose O2 up to 3 lpm for the rest of testing. Initialized on 12/25/19 10:32 - END OF NOTE - Interpretation Interpretation: The patient was noted to be 93% on room air at rest. However, in the second min wales, patient desaturated to 88% was placed on 2 L pulse dose. Patient required 3 L pulse dose to maintain saturations throughout testing. In total, the patient traveled 551 feet over the course of 6 minutes with no assistive devices and 2 breaks. These findings are consistent with a respiratory limitation exercise tolerance. - Recommendations Recommendations: The patient requires no supplemental oxygen at rest, but should be using 2 L nasal cannula oxygen with any exertion.
== END ==
PROVIDERS: PCP Family Medicine; Referring Provider Nurse Practitioner Acute Care; Visit Provider Nurse Practitioner Acute Care
DX: J96.01 Acute respiratory failure with hypoxia (principal)
CPT/HCPCS: 94618

== ENCOUNTER → 2020-02-02 08:13 | Outpatient (CLI) | payer MEDICARE, OTHER, SELFPAY ==
[2019-05-15 07:06] VITALS: BMI 34.3
--- NOTE | 2020-02-02 08:33 | BI_ITS ---
MAMMOGRAPHY - BILATERAL SCREENING REASON FOR EXAM: Female, 74 years old. Routine annual screening examination. PERTINENT HISTORY: Grandmother with breast cancer. Aunt with breast cancer. TECHNIQUE: Digital bilateral breast honey (3D mammographic acquisition) in the CC and MLO projections. 2-D mediolateral oblique (MLO) and craniocaudad (CC) views of both breasts were obtained. CAD: Full Field Digital Mammography with Computer Added Detection was performed. COMPARISON: Comparison is made with prior study dated 10/14/2018 and 04/16/2017. FINDINGS: Breast Composition: There are scattered areas of fibroglandular density. There are no dominant masses or suspicious calcifications. No other significant abnormalities are identified. There has been no significant change since the prior study. BI/SCREEN MAMM (CAD) W/HONEY BILAT IMPRESSION: Stable bilateral screening mammogram. Yearly follow-up mammogram recommended. (A) ASSESSMENT CATEGORY: BIRADS Category 1: Negative. A letter regarding these results will be sent to the patient by the facility within 30 days. Approximately 10% of breast cancers are not detected by mammography. A normal mammogram should not delay biopsy of a clinically suspicious abnormality. [id number] Electronically Signed: Phillip Moran, at 9:42 EDT , Service support ,
== END ==
PROVIDERS: PCP Family Medicine; Referring Provider Family Medicine; Visit Provider Family Medicine
DX: Z12.31 Encounter for screening mammogram for malignant neoplasm of breast (principal)
CPT/HCPCS: 77063; 77067

== ENCOUNTER → 2020-02-19 09:30 | Outpatient (CLI) | payer MEDICARE, OTHER, SELFPAY ==
[2019-05-15 07:06] VITALS: BMI 34.3
[2020-02-19 12:42] LABS: Vitamin D,25 Hydroxy 49.8 ng/mL
[2020-02-19 12:47] LABS: Anion Gap 3 (5-15); BUN 16 mg/dL (7-18); BUN/Creat Ratio 25.9 RATIO (10-20); Calcium,Total 8.7 mg/dL (8.5-10.1); Chloride 107 mmol/L (98-107); Cholesterol 201 mg/dL (200); Creatinine, Serum 0.62 mg/dL (0.55-1.02); EST Glomerular Filtration Rate 101 mL/min (>60); Est Glom Filt Rate - Afr Amer 122 mL/min (>60); Glucose 98 mg/dL (74-106); High Density Lipoprotein 44 mg/dL; Potassium 3.9 mmol/L (3.5-5.1); Sodium Level 140 mmol/L (136-145); Thyroid Stim Hormone (TSH) 1.61 uIU/mL (0.358-3.74); Triglycerides 240 mg/dL; Very Low Density Lipoprotein 48 mg/dL (5-40)
== END ==
PROVIDERS: PCP Family Medicine; Visit Provider Family Medicine
DX: Z00.00 Encounter for general adult medical examination without abnormal findings (principal); E55.9 Vitamin D deficiency, unspecified
CPT/HCPCS: 36415; 80048; 80061; 82306; 84443

== ENCOUNTER → 2020-03-05 12:18 | Outpatient (CLI) | payer MEDICARE, OTHER, SELFPAY ==
[2019-05-15 07:06] VITALS: BMI 34.3
--- NOTE | 2020-03-05 12:25 | BD_ITS ---
STUDY: DUAL ENERGY X-RAY ABSORPTIOMETRY / DXA REASON FOR EXAM: Female, 74 years old. 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 COMPARISON: None. FINDINGS: Lumbar Spine (L1-L4): g/cm2 (0.876) / T-score (-2.7) / Z-score (-1.0) Findings are suggestive of osteoporosis with a high fracture risk. Left Femur Total: g/cm2 (0.775) / T-score (-1.8) / Z-score (-0.2) Left Femoral Neck: g/cm2 (0.663) / T-score (-2.7) / Z-score (-0.9) Right Femur Total: g/cm2 (0.839) / T-score (-1.3) / Z-score (0.3) Right Femoral Neck: g/cm2 (0.764) / T-score (-2.0) / Z-score (-0.1) BD/Dexa Bone Density Study IMPRESSION: The patient is considered osteoporotic as outlined below according to World Colin Organization (WHO) criteria with a high fracture risk. Reference Information: The T-score is the number of standard deviations above or below the standard which is normal for young adults at their peak bone mineral density. The World Health Organization (WHO) interprets the T-scores as follows: Above -1 Normal bone density Between -1 and -2.5 Osteopenia Equal to / or below -2.5 Osteoporosis As a practical clinical guideline, osteopenia may be graded as follows: Mild -1 through -1.5 Moderate -1.6 through -2.0 Severe -2.1 through -2.4 The Z-score is the number of standard deviations above or below age-matched controls. A Z-score of less than -1.5 would be considered abnormal. References: 1. NIH Osteoporosis and Related Bone Diseases www osteo.org 2. International Society for Clinical Densitometry www iscd.org 3. National Osteoporosis Foundation www nof.org Electronically Signed: Phillip Moran, at 13:59 EDT , Service support ,
== END ==
PROVIDERS: PCP Family Medicine; Referring Provider Family Medicine; Visit Provider Family Medicine
DX: Z78.0 Asymptomatic menopausal state (principal)
CPT/HCPCS: 77080

== ENCOUNTER → 2020-08-27 08:11 | Outpatient (CLI) | payer MEDICARE, OTHER, SELFPAY ==
[2020-08-27 10:46] LABS: Anion Gap 3 (5-15); BUN 23 mg/dL (7-18); Chloride 100 mmol/L (98-107); Cholesterol 157 mg/dL (200); Creatinine, Serum 0.72 mg/dL (0.55-1.02); EST Glomerular Filtration Rate 84 mL/min (>60); Est Glom Filt Rate - Afr Amer 102 mL/min (>60); Glucose 97 mg/dL (74-106); High Density Lipoprotein 49 mg/dL; Potassium 3.9 mmol/L (3.5-5.1); Sodium Level 137 mmol/L (136-145); Triglycerides 124 mg/dL; Very Low Density Lipoprotein 25 mg/dL (5-40)
== END ==
PROVIDERS: PCP Family Medicine; Visit Provider Family Medicine
DX: E78.00 Pure hypercholesterolemia, unspecified (principal); I10 Essential (primary) hypertension
CPT/HCPCS: 36415; 80048; 80061

== ENCOUNTER → 2021-01-28 09:28 | Outpatient (CLI) | payer MEDICARE, OTHER, SELFPAY ==
[2020-08-27 09:04] VITALS: BMI 29.9
--- NOTE | 2021-01-30 08:22 | PFT ---
INTRODUCTION: The patient is a 75-year-old female that presents for pulmonary function studies secondary to a diagnosis of COPD. Respiratory therapy reported good patient effort. Bronchodilators were used during testing. INTERPRETATION: Forced expiration spirometry demonstrates no evidence of a large airways obstructive ventilatory defect. There was no significant response to aerosolized bronchodilators. Spirograms are of good quality and plateau normally. Body plethysmography was performed and revealed a decreased TLC to 3.42 L, 78% of predicted, indicative of a mild restrictive ventilatory impairment. Diffusing capacity by single breath CO was within normal limits. IMPRESSION: Mild restrictive ventilatory impairment with preserved lung volumes.
== END ==
PROVIDERS: PCP Family Medicine; Referring Provider Nurse Practitioner Acute Care; Visit Provider Nurse Practitioner Acute Care
DX: J44.9 Chronic obstructive pulmonary disease, unspecified (principal)
CPT/HCPCS: 94060; 94726; 94729

== ENCOUNTER → 2021-01-29 12:31 | Outpatient (CLI) | payer MEDICARE, OTHER, SELFPAY ==
[2020-08-27 09:04] VITALS: BMI 29.9
[2021-01-29 13:20] VITALS: PULSE 58; PULSE 59; PULSE 67; PULSE 79; PULSE 84; PULSE 86; PULSE 87; O2SAT 97; O2SAT 98
--- NOTE | 2021-01-30 09:34 | PCM.PSN.6M ---
PSN 6 Minute Walk Test 6 Minute Walk Test 6 Minute Walk Test: 6 Minute Walk Test PSN:6-Minute Walk Test Start: 01/29/21 13:20 Freq: Status: Active Protocol: RESP.6MINW Document 01/29/21 13:20 ASAEL (Rec: 01/29/21 13:23 ASAEL [id number]) 6 Minute Walk Test Date Performed 01/29/21 Time Performed 12:30 Height 5 ft 2 in Weight: 65.317 kg Weight in Pounds 144.[address]: Chidi Parra Assistive device used: None Pre-test Oxygen Delivery Method Room Air Pulse Ox (%) 98 Pulse Rate (60-100 beats/min) 58 L Dyspnea Berhane Scale (0-10) 0 Exertion Berhane Scale (6-20) 6 1st minute Oxygen Delivery Method Room Air Pulse Ox (%) 98 Pulse Rate (60-100 beats/min) 67 2nd minute Oxygen Delivery Method Room Air Pulse Ox (%) 98 Pulse Rate (60-100 beats/min) 79 3rd minute Oxygen Delivery Method Room Air Pulse Ox (%) 98 Pulse Rate (60-100 beats/min) 84 4th minute Oxygen Delivery Method Room Air Pulse Ox (%) 97 Pulse Rate (60-100 beats/min) 87 5th minute Oxygen Delivery Method Room Air Pulse Ox (%) 98 Pulse Rate (60-100 beats/min) 86 6th minute Oxygen Delivery Method Room Air Pulse Ox (%) 97 Pulse Rate (60-100 beats/min) 87 Dyspnea Berhane Scale (0-10) 0 Exertion Berhane Scale (6-20) 11 Post-test Oxygen Delivery Method Room Air Pulse Ox (%) 97 Pulse Rate (60-100 beats/min) 59 L Full Laps Walked 18 Partial Lap, Number of Tiles Walked 15 Total Distance Walked (ft) 1077 Interpretation Interpretation: The patient ambulated 1077 feet over the course of 6 minutes beginning on room air without assistive devices. Pretesting oxygen saturation was noted to be 98% on room air. With ambulation, the garth oxygen saturation was 97%. There was no significant exertional oxygen desaturation. Recommendations Recommendations: There is no indication for the use of supplemental oxygen at this time.
== END ==
PROVIDERS: PCP Family Medicine; Referring Provider Nurse Practitioner Acute Care; Visit Provider Nurse Practitioner Acute Care
DX: J44.9 Chronic obstructive pulmonary disease, unspecified (principal)
CPT/HCPCS: 94618

== ENCOUNTER → 2021-02-26 08:30 | Outpatient (CLI) | payer MEDICARE, OTHER, SELFPAY ==
[2021-02-26 10:41] LABS: Anion Gap 6 (5-15); BUN 19 mg/dL (7-18); BUN/Creat Ratio 30.6 RATIO (10-20); Calcium,Total 8.4 mg/dL (8.5-10.1); Chloride 106 mmol/L (98-107); Cholesterol 186 mg/dL (200); Creatinine, Serum 0.62 mg/dL (0.55-1.02); EST Glomerular Filtration Rate 100 mL/min (>60); Est Glom Filt Rate - Afr Amer 121 mL/min (>60); Glucose 92 mg/dL (74-106); High Density Lipoprotein 57 mg/dL; Potassium 3.5 mmol/L (3.5-5.1); Sodium Level 141 mmol/L (136-145); Triglycerides 115 mg/dL; Very Low Density Lipoprotein 23 mg/dL (5-40)
== END ==
PROVIDERS: PCP Family Medicine; Referring Provider Family Medicine; Visit Provider Family Medicine
DX: I10 Essential (primary) hypertension (principal)
CPT/HCPCS: 36415; 80048; 80061

== ENCOUNTER 2021-09-10 10:31 | Outpatient (CLI) | payer MEDICARE, OTHER, SELFPAY ==
--- NOTE | 2021-09-10 10:33 | BI_ITS ---
MAMMOGRAPHY - BILATERAL SCREENING 3-D TOMOSYNTHESIS REASON FOR EXAM: Female, 75 years old. SCREENING PERTINENT HISTORY: No significant family history. TECHNIQUE: 2-D mammograms and 3-D Tomosynthesis of the breast (s) were performed. CAD was performed. COMPARISON: 02/02/2020 FINDINGS: The breast composition is composed of scattered fibroglandular density. Scattered benign calcifications are seen. No dense spiculated masses or suspicious microcalcifications are identified. No architectural distortion is identified. There is no skin thickening or retraction. There has been no significant change since the prior study. BI/SCRN MAMM (CAD)W/HONEY BILAT IMPRESSION: No mammographic signs of malignancy. Routine yearly mammograms recommended. ASSESSMENT CATEGORY: BIRADS Category 1: Negative. A letter regarding these results will be sent to the patient by the facility within 30 days. FOLLOW UP RECOMMENDATION: Yearly follow up mammogram recommended. (A) Approximately 10% of breast cancers are not detected by mammography. A normal mammogram should not delay biopsy of a clinically suspicious abnormality. Electronically Signed: Juan R Delong MD at 14:01 EDT ,
== END 2021-09-10 23:59 | disposition home or self-care (01) ==
LOC: OPBI 10:31
PROVIDERS: PCP Family Medicine; Visit Provider Family Medicine
DX: Z12.31 Encounter for screening mammogram for malignant neoplasm of breast (principal)
CPT/HCPCS: 77063; 77067

== ENCOUNTER → 2021-09-23 | Outpatient (CLI) | payer MEDICARE, OTHER, SELFPAY ==
[2021-09-23 10:32] LABS: Anion Gap 6 (5-15); BUN 20 mg/dL (7-18); BUN/Creat Ratio 36.3 RATIO (10-20); Chloride 103 mmol/L (98-107); Cholesterol 181 mg/dL (200); Creatinine, Serum 0.55 mg/dL (0.55-1.02); EST Glomerular Filtration Rate 114 mL/min (>60); Est Glom Filt Rate - Afr Amer 138 mL/min (>60); Glucose 96 mg/dL (74-106); High Density Lipoprotein 53 mg/dL; Potassium 4.2 mmol/L (3.5-5.1); Sodium Level 140 mmol/L (136-145); Triglycerides 160 mg/dL; Very Low Density Lipoprotein 32 mg/dL (5-40)
== END | disposition home or self-care (01) ==
LOC: MFPLAB 09:43
PROVIDERS: PCP Family Medicine; Referring Provider Family Medicine; Visit Provider Family Medicine
DX: I10 Essential (primary) hypertension (principal)
CPT/HCPCS: 36415; 80048; 80061

== ENCOUNTER → 2022-10-01 | Outpatient (CLI) | payer MEDICARE, OTHER, SELFPAY ==
[2022-10-01 12:31] LABS: ALB/GLOB Ratio 0.6 RATIO (0.9-2.4); AST(SGOT) 16 U/L (15-37); Alanine Aminotransfer ALT/SGPT 24 U/L (13-56); Albumin, Serum 3.1 g/dL (3.2-5.0); Alkaline Phosphatase 55 U/L (45-117); Anion Gap 9 (5-15); BUN 23 mg/dL (7-18); BUN/Creat Ratio 33.3 RATIO (10-20); Chloride 101 mmol/L (98-107); Cholesterol 186 mg/dL (200); Creatinine, Serum 0.69 mg/dL (0.55-1.02); EST Glomerular Filtration Rate 88 mL/min (>60); Est Glom Filt Rate - Afr Amer 106 mL/min (>60); Globulin 5.5 g/dL (2.2-4.2); Glucose 102 mg/dL (74-106); High Density Lipoprotein 45 mg/dL; Potassium 3.5 mmol/L (3.5-5.1); Protein, Total 8.6 g/dL (6.4-8.2); Sodium Level 137 mmol/L (136-145); Triglycerides 140 mg/dL; Very Low Density Lipoprotein 28 mg/dL (5-40)
== END | disposition home or self-care (01) ==
LOC: MTLAB 10:01
PROVIDERS: PCP Family Medicine; Referring Provider Family Medicine; Visit Provider Family Medicine
DX: E78.00 Pure hypercholesterolemia, unspecified (principal)
CPT/HCPCS: 36415; 80053; 80061

== ENCOUNTER → 2022-10-06 | Outpatient (CLI) | payer MEDICARE, OTHER, SELFPAY ==
--- NOTE | 2022-10-06 07:24 | BI_ITS ---
MAMMOGRAPHY - BILATERAL SCREENING REASON FOR EXAM: Female, 77 years old. Routine annual screening examination. PERTINENT HISTORY: Grandmother with breast cancer. Aunts with breast cancer. TECHNIQUE: Digital bilateral breast honey (3D mammographic acquisition) in the CC and MLO projections. 2-D mediolateral oblique (MLO) and craniocaudad (CC) views of both breasts were obtained. CAD: Full Field Digital Mammography with Computer Added Detection was performed. COMPARISON: Comparison is made with prior study dated September 10, 2021 and February 02, 2020. FINDINGS: Breast Composition: There are scattered areas of fibroglandular density. There are no dominant masses or suspicious calcifications. Stable small benign-appearing bilateral axillary vessels. No other significant abnormalities are identified. There has been no significant change since the prior study. BI/SCRN MAMM (CAD)W/HONEY BILAT IMPRESSION: Stable bilateral screening mammogram. Yearly follow-up mammogram recommended. (A) ASSESSMENT CATEGORY: BIRADS Category 3: Probably Benign - Short-Interval Follow-up Suggested. A letter regarding these results will be sent to the patient by the facility within 30 days. Approximately 10% of breast cancers are not detected by mammography. A normal mammogram should not delay biopsy of a clinically suspicious abnormality. [id number] Electronically Signed: Phillip Moran MD at 9:05 EDT ,
== END | disposition home or self-care (01) ==
LOC: OPBI 07:22
PROVIDERS: PCP Family Medicine; Referring Provider Family Medicine; Visit Provider Family Medicine
DX: Z12.31 Encounter for screening mammogram for malignant neoplasm of breast (principal); Z80.3 Family history of malignant neoplasm of breast
CPT/HCPCS: 77063; 77067

== ENCOUNTER → 2023-04-05 | Outpatient (CLI) | payer MEDICARE, OTHER, SELFPAY ==
[2023-04-05 13:08] LABS: ALB/GLOB Ratio 0.4 RATIO (0.9-2.4); AST(SGOT) 12 U/L (15-37); Alanine Aminotransfer ALT/SGPT 19 U/L (13-56); Albumin, Serum 2.6 g/dL (3.2-5.0); Alkaline Phosphatase 45 U/L (45-117); Anion Gap 6 (5-15); BUN 18 mg/dL (7-18); BUN/Creat Ratio 24.3 RATIO (10-20); Chloride 102 mmol/L (98-107); Cholesterol 161 mg/dL (200); Creatinine, Serum 0.74 mg/dL (0.55-1.02); EST Glomerular Filtration Rate 81 mL/min (>60); Est Glom Filt Rate - Afr Amer 98 mL/min (>60); Glucose 97 mg/dL (74-106); High Density Lipoprotein 45 mg/dL; Potassium 4.1 mmol/L (3.5-5.1); Protein, Total 8.6 g/dL (6.4-8.2); Sodium Level 138 mmol/L (136-145); Triglycerides 178 mg/dL; Very Low Density Lipoprotein 36 mg/dL (5-40)
== END | disposition home or self-care (01) ==
LOC: MFPLAB 10:45
PROVIDERS: PCP Family Medicine; Visit Provider Family Medicine
DX: E78.00 Pure hypercholesterolemia, unspecified (principal)
CPT/HCPCS: 36415; 80053; 80061

== ENCOUNTER → 2023-06-03 | Outpatient (CLI) | payer MEDICARE, OTHER, SELFPAY ==
--- NOTE | 2023-06-03 10:57 | BD_ITS ---
STUDY: DUAL ENERGY X-RAY ABSORPTIOMETRY / DXA REASON FOR EXAM: Female, 77 years old. [id number] TECHNIQUE: Bone Mineral Density (BMD) measurements of lumbar spine and bilateral hips were obtained. COMPARISON: Comparison is made with prior study March 05, 2020. FINDINGS: Lumbar Spine (L1-L4): g/cm2 (0.768) / T-score (-3.0) / Z-score (-0.4) Findings are suggestive of osteoporosis with a high fracture risk. Left Femur Total: g/cm2 (0.751) / T-score (-1.6) / Z-score (0.3) Left Femoral Neck: g/cm2 (0.669) / T-score (-1.6) / Z-score (0.5) Right Femur Total: g/cm2 (0.818) / T-score (-1.0) / Z-score (0.9) Right Femoral Neck: g/cm2 (0.688) / T-score (-1.4) / Z-score (0.7) The T-Scores on the most recent prior examination were: Lumbar Spine (L1-L4): There has been improvement of bone density since the previous examination. Left Femur Total: which represents an improvement of 5%. Right Femur Total: which represents an improvement of 5.1%. BD/Dexa Bone Density Study IMPRESSION: The patient is considered osteoporotic as outlined below according to World Colin Organization (WHO) criteria with a high fracture risk. There has been improvement of bone density since the previous examination. Reference Information: The T-score is the number of standard deviations above or below the standard which is normal for young adults at their peak bone mineral density. The World Health Organization (WHO) interprets the T-scores as follows: Above -1 Normal bone density Between -1 and -2.5 Osteopenia Equal to / or below -2.5 Osteoporosis As a practical clinical guideline, osteopenia may be graded as follows: Mild -1 through -1.5 Moderate -1.6 through -2.0 Severe -2.1 through -2.4 The Z-score is the number of standard deviations above or below age-matched controls. A Z-score of less than -1.5 would be considered abnormal. References: 1. NIH Osteoporosis and Related Bone Diseases www osteo.org 2. International Society for Clinical Densitometry www iscd.org 3. National Osteoporosis Foundation www nof.org Electronically Signed: Phillip Moran MD at 15:35 EST ,
--- OUTSIDE RECORDS SUMMARY | 2023-06-03 11:48 | XMS RPT_ITS | CCD ---
Author Name Unknown Address [facility] [place] [address] Organization [facility] Care Team Providers Care Slimer Name Role Phone BINH HERRERA Attending Unavailable TARA GAMEZ Referring Unavailable MILLICENT BAKER Primary Care Unavailable Results Test Name Value Interpretation Reference Range Facil ity Encounters Encounter Date Encounter Type Care Provider Facility Start: 12-25-2019 Patient encounter procedure BINH HERRERA Facility:[facility] Payers Date Payer Category Payer Medicare [id number] 2019 Private Health Insurance [id number] 1945 Unknown [id number] Summary Purpose Family History No Family History Records FoundNo Family History Records Found Advance Directives No Advanced Directives Records FoundNo Advanced Directives Records Found Procedure Findings Note HNO ID: [id number] Author: Rosi Grande Service: ? Author Type: Physician Type: Brief Op Note Filed: 10/25/2018 1:57 PM Note Text: BRIEF OPERATIVE NOTE SURGERY DATE: 10/25/2018 Incision/Procedure Start Time: 13:32 Incision Close/Procedure End Time: 14:04 Surgeon(s)/Proceduralist(s) and Acquisition Professional(s): Harjinder Procedures: Colonoscopy with biopsies Anesthesia: MAC Findings: rectal polypoid lesions Estimated Blood Loss: minimal Specimens: rectal lesions, diverticulosis, hemorrhoids Complications: None Preop Diagnosis: screening for colon cancer Postop Diagnosis: rectal polypoid lesions, diverticulosis, hemorrhoids SIGNATURE: Tam Grande MD PATIENT NAME: Tam Pinontaliagracia DATE: October 25, 2018 TIME: 1:55 PM PAGER/CONTACT #: Additional Source Comments INFORMATION SOURCE (unrecogn ized section and content) DATE CREATED AUTHOR AUTHOR'S ORGANIZ ATION 12/26/2019 [facility] FOR RECORDS PERTAINING TO PATIENTS WHO ARE OR HAVE BEEN ENROLLED IN A CHEMICAL DEPENDENCY/SUBSTANCEABUSE PROGRAM, SOME INFORMATION MAY BE OMITTED. This clinical summary was aggregated from multiple sources. Caution should be exercised in using it in the provision of clinical care. This summary normalizes information from multiple sources, and as a consequence, information in this document may materially change the coding, format and clinical context of patient data. In addition, data may be omitted in some cases. CLINICAL DECISIONS SHOULD BE BASED ON THE PRIMARY CLINICAL RECORDS. [employer] provides no warranty or guarantee of the accuracy or completeness of information in this document.
== END | disposition home or self-care (01) ==
LOC: OPBD 10:40
PROVIDERS: PCP Family Medicine; Referring Provider Family Medicine; Visit Provider Family Medicine
DX: M81.0 Age-related osteoporosis without current pathological fracture (principal)
CPT/HCPCS: 77080

== ENCOUNTER → 2023-07-06 | Outpatient (CLI) | payer MEDICARE, OTHER, SELFPAY ==
--- NOTE | 2023-07-06 15:05 | RAD_ITS ---
STUDY: X-RAY CHEST REASON FOR EXAM: Female, 77 years old. cough TECHNIQUE: AP portable COMPARISON: April 02, 2019 FINDINGS: .. Asymmetric prominence of markings in the right lower lobe which may represent focal pneumonia or atelectasis. There is no demonstrated pleural abnormality. Heart is enlarged.. Normal mediastinum and mika. Normal visualized pulmonary arteries. Normal visualized aortic arch and descending thoracic aorta. Dorsal spine demonstrates degenerative change. Normal visualized ribs, clavicles, and shoulders. There is no demonstrated abnormality of the visualized soft tissue structures of the upper abdomen. RAD/Chest PA and Lateral IMPRESSION: Findings consistent with mild right basilar atelectasis or infiltrate Electronically Signed: Wale Downey MD at 16:17 EST ,
== END | disposition home or self-care (01) ==
LOC: MTRAD 15:00
PROVIDERS: PCP Family Medicine; Referring Provider Physician Assistant; Visit Provider Physician Assistant
DX: R05.9 Cough, unspecified (principal)
CPT/HCPCS: 71046

== ENCOUNTER 2023-07-07 20:49 | Inpatient (IN) | payer MEDICARE, OTHER, SELFPAY ==
[2023-07-07] VITALS (8 sets, daily range): BP systolic 145–159; BP diastolic 83–90; PULSE 79–104; RESP 18–24; TEMP 36.2–36.4; O2SAT 96–99; BMI 32.3
--- OUTSIDE RECORDS SUMMARY | 2023-07-07 21:35 | XMS RPT_ITS | CCD ---
Author Name Unknown Address [facility] [place] [address] Organization [facility] Care Team Providers Care Sidehand Name Role Phone BINH HERRERA Attending Unavailable TARA GAMEZ Referring Unavailable MILLICENT BAKER Primary Care Unavailable Results Test Name Value Interpretation Reference Range Facil ity Encounters Encounter Date Encounter Type Care Provider Facility Start: 12-25-2019 Patient encounter procedure BINH HERRERA Facility:[facility] Payers Date Payer Category Payer Medicare [id number] 2019 Private Health Insurance [id number] 1945 Unknown [id number] Summary Purpose Family History No Family History Records FoundNo Family History Records Found Advance Directives No Advanced Directives Records FoundNo Advanced Directives Records Found Procedure Findings Note HNO ID: [id number] Author: Rosi Grande Service: ? Author Type: Physician Type: Brief Op Note Filed: 10/25/2018 1:57 PM Note Text: BRIEF OPERATIVE NOTE SURGERY DATE: 10/25/2018 Incision/Procedure Start Time: 13:32 Incision Close/Procedure End Time: 14:04 Surgeon(s)/Proceduralist(s) and Transonic Engineer(s): Harjinder Procedures: Colonoscopy with biopsies Anesthesia: MAC Findings: rectal polypoid lesions Estimated Blood Loss: minimal Specimens: rectal lesions, diverticulosis, hemorrhoids Complications: None Preop Diagnosis: screening for colon cancer Postop Diagnosis: rectal polypoid lesions, diverticulosis, hemorrhoids SIGNATURE: Tam Grande MD PATIENT NAME: Tam Pinonconrado DATE: October 25, 2018 TIME: 1:55 PM PAGER/CONTACT #: Additional Source Comments INFORMATION SOURCE (unrecogn ized section and content) DATE CREATED AUTHOR AUTHOR'S ORGANIZ ATION 12/26/2019 [facility] FOR RECORDS PERTAINING TO PATIENTS WHO ARE [...] BE BASED ON THE PRIMARY CLINICAL RECORDS. [employer] provides no warranty or guarantee of the accuracy or completeness of information in this document.
--- NOTE | 2023-07-07 21:56 | EKG12_ITS ---
Test Reason : DYSRHYTHMIA Blood Pressure : / mmHG Vent. Rate : 078 BPM Atrial Rate : 078 BPM P-R Int : 112 ms QRS Dur : 088 ms QT Int : 412 ms P-R-T Axes : -01 -26 -31 degrees QTc Int : 469 ms Normal sinus rhythm Borderline Leftward axis Confirmed by Jonathan Wiley ([id number]), editor sound TARIQ VILA ([id number]) on 07/08/2023 8:05:13 AM Referred By: BRIAN Confirmed By:Jonathan Wiley
[2023-07-07] MEDS: MethylPREDNISolone 125 MG/2 ML Vial IV (22:08)
[2023-07-07 22:16] LABS: Absolute Lymphocyte Count 0.65 X10^3/uL (0.83-4.51); Absolute Neutrophil Count 5.7 X10^3/uL (2.0-7.7); Basophil# 0.01 X10^3/uL; Basophil% 0.2 % (0-1); Hematocrit 32.1 % (37-47); Hemoglobin 9.8 g/dL (12.0-15.0); Lymphocyte # 0.65 X10^3/ul (0.83-4.51); Lymphocyte % 9.8 % (19-41); Mean Corp Hgb Conc 30.5 g/dL (32-36); Mean Corpuscular Hgb 24.8 pg (27.0-32.0); Mean Corpuscular Volume 81.3 fL (81-99); Mean Platelet Vol. 9.8 fl (6.2-12.0); Monocyte# 0.18 X10^3/uL; Monocyte% 2.7 % (0-10); NRBC Flagged by Analyzer 0 % (0-5); Neutrophil # 5.74 X10^3/uL (2.7-7.7); Neutrophil % 86.4 % (47-70); Platelet Count 241 K/mm3 (150-450); RBC Distribution Width CV 17.5 % (11.6-14.6); RBC Distribution Width SD 51.3 fl (35.1-43.9); Red Blood Count 3.95 M/mm3 (4.2-5.4); White Blood Count 6.6 K/mm3 (4.4-11.0)
[2023-07-07] MEDS: Ipratropium/Albuterol Sulfate 3 ML AMPUL.NEB INHALATION (22:22)
[2023-07-07] MEDS: Albuterol 2.5 MG/3 ML VIAL.NEB. INHALATION (22:23)
[2023-07-07 22:36] LABS: Anion Gap 12 (5-15); BUN 21 mg/dL (7-18); BUN/Creat Ratio 22.9 RATIO (10-20); Calcium,Total 10.6 mg/dL (8.5-10.1); Chloride 96 mmol/L (98-107); Creatinine, Serum 0.92 mg/dL (0.55-1.02); EST Glomerular Filtration Rate 63 mL/min (>60); Est Glom Filt Rate - Afr Amer 77 mL/min (>60); Estimated Creatinine Clearance 53.02 ml/min; Glucose 159 mg/dL (74-106); Potassium 3.5 mmol/L (3.5-5.1); Sodium Level 135 mmol/L (136-145); Troponin-I HS 12 pg/mL (3.0-54.0)
--- NOTE | 2023-07-07 23:12 | CPS ---
x1 Albuterol given to pt. in ER as well
[2023-07-08] VITALS (14 sets, daily range): BP systolic 135–160; BP diastolic 77–91; PULSE 64–92; RESP 18–20; TEMP 36.6–37.1; O2SAT 93–997; BMI 35.4
--- NOTE | 2023-07-08 00:12 | PCM.HP.STD ---
[facility] - General General Date of Admission: 07/08/23 Date of Service: 07/08/23 Chief Complaint: SOB, Wheezing and Cough. [facility] Narrative TAM SANCHEZ, is a 77 F with a past medical history of essential hypertension, obesity; with BMI of 32.3 this admission, SHAZIA, history of tobacco abuse; with subsequent COPD, depression, history of laminectomy, history of colonic diverticulitis and OA who presents to [facility] ER complaining of SOB, wheezing and cough. Ms. Sanchez reports her symptoms began approximately one week prior to admission with the gradual-onset of progressively worsening cough and chest congestion with KUHN that progressed to SOB at rest. She states that her symptoms are very similar to her previous bouts of pneumonia complicated by AE COPD. She went to urgent care on July 06, 2023, and was diagnosed with RLL pneumonia with AE COPD with screening negative for COVID-19 and influenza. She was then prescribed oral Levaquin and steroids which she took in addition to heavy use of her rescue inhalers and nebulizers without significant improvement so she decided to come in for further evaluation and treatment. She denies associated fever, chills, nausea, vomiting, headache or lightheadedness but she does admit to Right thigh pain with bruising after she tripped over her dog a few days ago. In the ER she was diagnosed with RLL pneumonia with clinical evidence of AE COPD causing acute hypoxic respiratory insufficiency complicated by laboratory evidence of mild hypercalcemia of 10.6 mg/dL present on admission and she was then admitted to the general medical floor for ongoing care for a stay that is expected to be greater than 48 hours. [facility] Medical History (Updated 07/08/23 @ 03:[address] Valente Jara, ) Acute respiratory failure with hypoxia acute viral bronchitis secondary to influenza A Anxiety Asthma Bronchitis Chest pain COPD (chronic obstructive pulmonary disease) COPD (chronic obstructive pulmonary disease) with chronic bronchitis COVID-19 CPAP (continuous positive airway pressure) dependence Depression Diverticulitis Former smoker Hypertension Influenza A Irregular heart beat Migraines On home oxygen therapy Osteoarthritis Osteoporosis Pneumonia Right lower lobe pneumonia Sleep apnea Home Medications furosemide 40 mg tablet (Lasix) 40 mg PO DAILY PRN 05/15/19 [History Last Taken Unknown] ipratropium bromide 0.02 % solution for inhalation 2.5 ml inhalation Q6H PRN 01/11/20 [History Last Taken Unknown] metoprolol tartrate 25 mg tablet 12.5 mg PO DAILY HR 08/27/20 [History Last Taken Unknown] albuterol sulfate 90 mcg/actuation aerosol inhaler (Ventolin HFA) 2 puff inhalation Q6H PRN shortness of breath or wheezing #18 grams 02/04/23 [Rx Last Taken Unknown] clotrimazole-betamethasone 1 %-0.05 % topical cream 1 applic topical BID 2 weeks #45 grams 04/19/23 [Rx Last Taken Unknown] fluoxetine 20 mg capsule 40 mg PO DAILY anxiety 04/19/23 [History Last Taken Unknown] benzonatate 200 mg capsule 200 mg PO TID PRN cough #20 caps 07/06/23 [Rx Last Taken Unknown] levofloxacin 500 mg tablet 500 mg PO DAILY #7 tabs 07/06/23 [Rx Last Taken Unknown] prednisone 20 mg tablet 20 mg PO BID #10 tabs 07/06/23 [Rx Last Taken Unknown] aspirin 81 mg capsule 81 mg PO DAILY 07/07/23 [History Last Taken Unknown] diphenhydramine HCl 25 mg capsule (Banophen) 25 mg PO QHS 07/08/23 [History Last Taken Unknown] Allergy/AdvReac Type Severity Reaction Status Date / Time latex AdvReac Other Verified 07/07/23 20:51 Family History Father Hypertension Mother Cancer uterus Surgical History H/O laminectomy H/O tubal ligation History of appendectomy History of bone graft History of cholecystectomy History of tonsillectomy and adenoidectomy Hx of cataract surgery S/P cholecystectomy S/P laparoscopy Social History household members: spouse number of children: 2 current occupational status: retired Smoking Status: Former smoker how long ago did patient quit smokin, 1pk/day second hand exposure: Yes alcohol intake: current alcohol intake frequency: a few times a week Alcohol type: beer, wine and hard liquor substance use type: does not use seatbelt use: always do you feel safe at home: Yes additional social history: - Redd ROS ROS Narrative Review of systems: Constitutional: Patient denies fever or chills. Eyes: Patient denies visual changes or discharge from eyes. ENT: Patient admits to sinus congestion and cough but denies sore throat or ear pain. CV: Patient denies chest pain or palpitations. Lungs: Patient admits to wheezing and frequent, non-productive cough. GI: Patient denies nausea, vomiting or abdominal pain. : Patient denies dysuria, hematuria or urinary frequency. MSK: Patient admits to pain in her Right thigh with brusing after recently tripping over her dog. Psych: Patient denies depression or anxiety. Neuro: Patient admits to jitteriness after steroids and nebulizers but denies headache or focal neurologic weakness. Hematology: Patient admits to bruising but denies bleeding. Endo: Patient denies polyuria, polydipsia or polyphagia. 14 point ROS otherwise negative except for positives noted above in HPI. Vital Signs Vital Signs Vital Signs: 07/07/23 20:51 07/07/23 21:18 07/07/23 22:14 Temperature 97.2 F L Temperature Source Temporal Pulse Rate 79 Respiratory Rate 18 Respiratory Effort Short of Breath Respiratory Depth Deep Respiratory Pattern Tachypnea Blood Pressure 145/90 H Blood Pressure Mean 108 Pulse Ox 98 96 Oxygen Delivery Method Nasal Cannula Nasal Cannula Room Air Oxygen Flow Rate (L/min) 2 2 07/07/23 21:51 07/07/23 22:22 07/07/23 22:53 Temperature 97.6 F L Temperature Source Temporal Pulse Rate 79 84 90 Respiratory Rate 21 H 24 H 21 H Respiratory Effort Respiratory Depth Respiratory Pattern Tachypnea Blood Pressure 159/83 H 159/83 H Blood Pressure Mean 108 108 Pulse Ox 97 98 Oxygen Delivery Method Nasal Cannula Nasal Cannula Oxygen Flow Rate (L/min) 2 07/07/23 22:00 07/07/23 23:00 Temperature Temperature Source Pulse Rate 104 H 83 Respiratory Rate 22 H 21 H Respiratory Effort Respiratory Depth Respiratory Pattern Blood Pressure Blood Pressure Mean Pulse Ox 98 99 Oxygen Delivery Method Nasal Cannula Nasal Cannula Oxygen Flow Rate (L/min) 2 2 Weight Weight: 182 lb 8.684 oz Body Mass Index (BMI) 32.3 Physical Exam Const alert and oriented x3 Constitutional Narrative: Mild labored respiration noted with frequent cough but with a very pleasant disposition. General Appearance: cooperative HEENT normocephalic, head/scalp atraumatic, hearing grossly normal bilaterally and moist oral mucous membranes Eyes PERRL and EOMs intact bilaterally Neck no lymphadenopathy and supple Resp Resp Narrative: Diminished breath sounds throughout with scattered wheezing and rhonci that partially clear with cough. Auscultation: rhonchi and wheezes Cardio regular rate and regular rhythm GI normal to inspection, nondistended, normoactive bowel sounds, soft to palpation, non-tender and non-distended Extremity normal to inspection and full ROM Skin Skin Narrative: Patient has bruising over the lateral aspect of her Right thigh from the hip to the knee with mild TTP. Neuro oriented x3, CN's II-XII intact bilaterally, moves all extremities and no focal motor deficits Sensorium / Orientation: awake, alert, oriented to person, oriented to place and oriented to time Speech: speech normal Motor Exam: strength 5/5 throughout Psych affect normal Results Medical Records Data Attestation: I reviewed the patient's medical records Lab / Micro Data Attestation: I reviewed the patient's lab results. 07/07/23 22:11 07/07/23 22:11 Labs: Laboratory Results - last 24 hr 07/07/23 22:11: WBC 6.6, RBC 3.95 L, Hgb 9.8 L, Hct 32.1 L, MCV 81.3, MCH 24.8 L, MCHC 30.5 L, RDW Std Deviation 51.3 H, RDW Coeff of Kimberlyn 17.5 H, Plt Count 241, MPV 9.8, Immature Gran % (Auto) 0.900, Neut % (Auto) 86.4 H, Lymph % (Auto) 9.8 L, George % (Auto) 2.7, Eos % (Auto) 0.0, Baso % (Auto) 0.2, Absolute Neuts (auto) 5.7, Absolute Lymphs (auto) 0.65 L, Nucleated RBC % 0, Sodium 135 L, Potassium 3.5, Chloride 96 L, Carbon Dioxide 27.0, Anion Gap 12, BUN 21 H, Creatinine 0.92, Estim Creat Clear Calc 53.02, Est GFR (MDRD) Af Amer 77, Est GFR (MDRD) Non-Af 63, BUN/Creatinine Ratio 22.9 H, Glucose 159 H, Calcium 10.6 H, Troponin I High Sens 12 Assessment & Plan Assessment/Plan (1) Right lower lobe pneumonia: QUALIFIERS: Pneumonia type: due to unspecified organism Qualified Code(s): J18.9 - Pneumonia, unspecified organism (2) COPD with acute exacerbation: (3) Hypercalcemia: PLAN: Plan 1. RLL pneumonia with clinical evidence of AE COPD - Admit to general medical floor. Continue antibiotics and steroids along with scheduled and prn nebulizers. Give Tylenol prn pain or fever. 2. Acute hypoxic respiratory insufficiency due to #1 - Wean supplemental oxygen as tolerated. 3. Mild hypercalcemia of 10.6 mg/dL present on admission - Check PTH and Vitamin D levels. 4. Recent mechanical fall with bruising over the lateral Right thigh - Continue supportive care with PT and OT to evaluate with help appreciated in advance. 5. Essential hypertension - Continue home regimen plus give prn IV Hydralazine for systolic blood pressure > 160 mm Hg. 6. Obesity; with BMI of 32.3 this admission with SHAZIA - Weight loss will be recommended. Resume CPAP as previous. 7. Depression - Continue home regimen as previous. 8. History of laminectomy - Noted. 9. History of colonic diverticulitis - Noted. 10. OA - Stable. Give Tylenol prn. 11. DVT prophylaxis - Lovenox 40 mg sq daily. Total time: Approximately 55 minutes. Charges/Coding Visit Charges Inpatient E&M: 48553 Init Hosp L2
--- NOTE | 2023-07-08 00:15 | EDS_ITS ---
HPI History of Present Illness Chief Complaint: Shortness of Breath Narrative Narrative: 77-year-old female presenting with dyspnea. She has a history of COPD. Symptom onset on Wednesday. She states she is continually been more wheezy. She states she has DuoNebs at home which she pulled out though sure probably old. She went to urgent care yesterday and states she was diagnosed with pneumonia in the right lower lobe. COVID, influenza were negative. Patient started on Levaquin and she has had 2 doses. Has been on prednisone 40 mg. She notes that she is only on 2 L at bedtime but does not use oxygen throughout her day. She does not wear oxygen and has been hypoxic into the 80s. She is currently wearing oxygen and states she still feels short of breath. She has not had a fever or chills. He does states she has had some sputum changes and cough. [facility] Medical History Acute respiratory failure with hypoxia acute viral bronchitis secondary to influenza A Bronchitis COPD (chronic obstructive pulmonary disease) with chronic bronchitis COVID-19 Depression Diverticulitis Hypertension Influenza A Osteoarthritis Pneumonia Right lower lobe pneumonia Home Medications furosemide 40 mg tablet (Lasix) 40 mg PO DAILY PRN 05/15/19 [History Last Taken Unknown] ipratropium bromide 0.02 % solution for inhalation 2.5 ml inhalation Q6H PRN 01/11/20 [History Last Taken Unknown] metoprolol tartrate 25 mg tablet 12.5 mg PO DAILY HR 08/27/20 [History Last Taken Unknown] albuterol sulfate 90 mcg/actuation aerosol inhaler (Ventolin HFA) 2 puff inhalation Q6H PRN shortness of breath or wheezing #18 grams 02/04/23 [Rx Last Taken Unknown] clotrimazole-betamethasone 1 %-0.05 % topical cream 1 applic topical BID 2 weeks #45 grams 04/19/23 [Rx Last Taken Unknown] fluoxetine 20 mg capsule 40 mg PO DAILY anxiety 04/19/23 [History Last Taken Unknown] benzonatate 200 mg capsule 200 mg PO TID PRN cough #20 caps 07/06/23 [Rx Last Taken Unknown] levofloxacin 500 mg tablet 500 mg PO DAILY #7 tabs 07/06/23 [Rx Last Taken Unknown] prednisone 20 mg tablet 20 mg PO BID #10 tabs 07/06/23 [Rx Last Taken Unknown] aspirin 81 mg capsule 81 mg PO DAILY 07/07/23 [History Last Taken Unknown] diphenhydramine HCl 25 mg capsule (Banophen) 25 mg PO QHS 07/08/23 [History Last Taken Unknown] Allergy/AdvReac Type Severity Reaction Status Date / Time latex AdvReac Other Verified 07/07/23 20:51 Family History Father Hypertension Mother Cancer uterus Surgical History H/O laminectomy H/O tubal ligation History of bone graft History of tonsillectomy and adenoidectomy Hx of cataract surgery S/P cholecystectomy S/P laparoscopy Social History household members: spouse number of children: 2 current occupational status: retired Smoking Status: Former smoker how long ago did patient quit smokin, 1pk/day second hand exposure: Yes alcohol intake: current alcohol intake frequency: a few times a week Alcohol type: beer, wine and hard liquor substance use type: does not use seatbelt use: always do you feel safe at home: Yes additional social history: - [employer] ED Constitutional Constitutional ED: Denies chills, fever(s) or sweats Eyes Eyes: Denies blurry vision or change in vision ENT ENT ED: Denies ear pain or sore throat Cardiovascular Cardiovascular: Denies chest pain, palpitations or racing heartbeat Respiratory/Chest Respiratory/Chest: Reports cough and dyspnea; Denies sputum Gastrointestinal Gastrointestinal: Denies abdominal pain, constipation, diarrhea, nausea or vomiting Genitourinary Genitourinary ED: Denies dysuria, hematuria or urinary frequency Musculoskeletal Musculoskeletal: Denies arthralgias, myalgias or neck pain Integumentary Denies abscess, Abrasions or rash Neurologic Neurologic: Denies headache(s), paresthesias or weakness Psychiatric Psychiatric: Denies anxiety, depression, suicidal ideation or suicidal thoughts Endocrine Endocrinology: Denies polydipsia or polyuria EXAM Physical Exam Const Vital Signs: 07/07/23 20:51 07/07/23 21:18 07/07/23 22:14 Temperature 97.2 F L Temperature Source Temporal Pulse Rate 79 Respiratory Rate 18 Respiratory Effort Short of Breath Respiratory Depth Deep Respiratory Pattern Tachypnea Blood Pressure 145/90 H Blood Pressure Mean 108 Pulse Ox 98 96 Oxygen Delivery Method Nasal Cannula Nasal Cannula Room Air Oxygen Flow Rate (L/min) 2 2 07/07/23 21:51 07/07/23 22:22 07/07/23 22:53 Temperature 97.6 F L Temperature Source Temporal Pulse Rate 79 84 90 Respiratory Rate 21 H 24 H 21 H Respiratory Effort Respiratory Depth Respiratory Pattern Tachypnea Blood Pressure 159/83 H 159/83 H Blood Pressure Mean 108 108 Pulse Ox 97 98 Oxygen Delivery Method Nasal Cannula Nasal Cannula Oxygen Flow Rate (L/min) 2 07/07/23 22:00 07/07/23 23:00 Temperature Temperature Source Pulse Rate 104 H 83 Respiratory Rate 22 H 21 H Respiratory Effort Respiratory Depth Respiratory Pattern Blood Pressure Blood Pressure Mean Pulse Ox 98 99 Oxygen Delivery Method Nasal Cannula Nasal Cannula Oxygen Flow Rate (L/min) 2 2 Positive well nourished General Appearance ED: NAD; Negative for pallor HEENT Reports moist mucous membranes atraumatic Eyes PERRL and EOMs intact bilaterally Resp Resp Narrative: Speaks in full sentences. No tripoding. No respiratory distress. Auscultation: wheezes throughout Cardio regular rate and regular rhythm Neuro oriented x3 and CN's II-XII intact bilaterally Sensorium / Orientation: alert Motor Exam: strength 5/5 throughout Psych mental status grossly normal Skin General Skin Exam: Negative for jaundice or pallor MDM MDM MDM Narrative Medical decision making narrative: Patient presenting with pneumonia. She had a chest x-ray yesterday. I was able to look this up but does not look that she had an infiltrate. I do not see her viral testing but she states she was negative for COVID and influenza. CBC was obtained to assess white blood cell count, hemoglobin, platelets. BMP to assess renal function electrolytes. High-sensitivity troponin and EKG to assess for ischemia. CBC unremarkable near baseline. Renal function and electrolytes also unremarkable. High-sensitivity troponin is 12. EKG on my interpretation shows a normal sinus rhythm at 78 bpm without signs of ischemic change or dysrhythmia. Given patient is hypoxic I will admit her to the hospital. She was given DuoNebs and Solu-Medrol. Impression: 1. COPD exacerbation 2. Pneumonia 3. Hypoxic respiratory failure Lab Data Attestation: I reviewed the patient's lab results. Labs: Laboratory Results - last 24 hr 07/07/23 22:11 WBC 6.6 RBC 3.95 L Hgb 9.8 L Hct 32.1 L MCV 81.3 MCH 24.8 L MCHC 30.5 L RDW Std Deviation 51.3 H RDW Coeff of Kimberlyn 17.5 H Plt Count 241 MPV 9.8 Immature Gran % (Auto) 0.900 Neut % (Auto) 86.4 H Lymph % (Auto) 9.8 L Wood % (Auto) 2.7 Eos % (Auto) 0.0 Baso % (Auto) 0.2 Absolute Neuts (auto) 5.7 Absolute Lymphs (auto) 0.65 L Nucleated RBC % 0 Sodium 135 L Potassium 3.5 Chloride 96 L Carbon Dioxide 27.0 Anion Gap 12 BUN 21 H Creatinine 0.92 Estim Creat Clear Calc 53.02 Est GFR (MDRD) Af Amer 77 Est GFR (MDRD) Non-Af 63 BUN/Creatinine Ratio 22.9 H Glucose 159 H Calcium 10.6 H Troponin I High Sens 12 Discharge Plan Triage Chief Complaint: Shortness of Breath ED Provider: Sachin Quispe Dx/Rx/DC Orders Prescriptions: No Action furosemide [Lasix] 40 mg tablet 40 mg PO DAILY PRN ipratropium bromide 0.02 % solution 2.5 ml INHALATION Q6H PRN clotrimazole-betamethasone 1-0.05 % cream 1 applic topical BID 14 Days Qty: 45 1RF levofloxacin 500 mg tablet 500 mg PO DAILY Qty: 7 0RF prednisone 20 mg tablet 20 mg PO BID Qty: 10 0RF benzonatate 200 mg capsule 200 mg PO TID PRN (Reason: cough) Qty: 20 0RF metoprolol tartrate 25 mg tablet 12.5 mg PO DAILY fluoxetine 20 mg capsule 40 mg PO DAILY aspirin 81 mg capsule 81 mg PO DAILY diphenhydramine HCl [Banophen] 25 mg capsule 25 mg PO QHS albuterol sulfate [Ventolin HFA] 90 mcg/actuation HFA aerosol inhaler 2 puff INHALATION Q6H PRN (Reason: shortness of breath or wheezing) Qty: 18 2RF Primary Care Provider: Bruce Virk Referrals: Bruce Virk MD [Primary Care Provider] -
[2023-07-08] MEDS: DiphenhydrAMINE 25 MG Capsule PO ×2 (00:20→22:12)
--- OUTSIDE RECORDS SUMMARY | 2023-07-08 00:59 | XMS RPT_ITS | CCD ---
Author Name Unknown Address [facility] [place] [address] Organization [facility] Care Team Providers Care Apartment Rental Agent Name Role Phone BINH HERRERA Attending Unavailable TARA GAMEZ Referring Unavailable MILLICENT BAKER Primary Care Unavailable Results Test Name Value Interpretation Reference Range Facil ity Encounters Encounter Date Encounter Type Care Provider Facility Start: 12-25-2019 Patient encounter procedure BINH HERRERA Facility:[facility] Payers Date Payer Category Payer Medicare [id number] 2019 Private Health Insurance [id number] 1945 Unknown [id number] Summary Purpose Family History No Family History Records FoundNo Family History Records Found Advance Directives No Advanced Directives Records FoundNo Advanced Directives Records Found Procedure Findings Note HNO ID: [id number] Author: Rosi Grande Service: ? Author Type: Physician Type: Brief Op Note Filed: 10/25/2018 1:57 PM Note Text: BRIEF OPERATIVE NOTE SURGERY DATE: 10/25/2018 Incision/Procedure Start Time: 13:32 Incision Close/Procedure End Time: 14:04 Surgeon(s)/Proceduralist(s) and Knitting Supervisor(s): Harjinder Procedures: Colonoscopy with biopsies Anesthesia: MAC [...] DATE CREATED AUTHOR AUTHOR'S ORGANIZ ATION 12/26/[address] [facility] FOR RECORDS PERTAINING TO PATIENTS WHO ARE [...] BE BASED ON THE PRIMARY CLINICAL RECORDS. [employer] provides no warranty or guarantee of the accuracy or completeness of information in this document.
--- OUTSIDE RECORDS SUMMARY | 2023-07-08 01:21 | XMS RPT_ITS | CCD ---
Author Name Unknown Address [facility] [place] [address] Organization [facility] Care Team Providers Care Sheet Fed Printer Name Role Phone BINH HERRERA Attending Unavailable TARA GAMEZ Referring Unavailable MILLICENT BAKER Primary Care Unavailable Results Test Name Value Interpretation Reference Range Facil ity Encounters Encounter Date Encounter Type Care Provider Facility Start: 12-25-2019 Patient encounter procedure BINH HERRERA Facility:[facility] Payers Date Payer Category Payer Medicare [id number] 2019 Private Health Insurance [id number] 1945 Unknown [id number] Summary Purpose Family History No Family History Records FoundNo Family History Records Found Advance Directives No Advanced Directives Records FoundNo Advanced Directives Records Found Procedure Findings Note HNO ID: [id number] Author: Rosi Grande Service: ? Author Type: Physician Type: Brief Op Note Filed: 10/25/2018 1:57 PM Note Text: BRIEF OPERATIVE NOTE SURGERY DATE: 10/25/2018 Incision/Procedure Start Time: 13:32 Incision Close/Procedure End Time: 14:04 Surgeon(s)/Proceduralist(s) and Pelletizer(s): Harjinder Procedures: Colonoscopy with biopsies Anesthesia: MAC [...] CREATED AUTHOR AUTHOR'S ORGANIZ ATION 12/26/2019 [facility] FOR RECORDS PERTAINING TO PATIENTS WHO [...] BE BASED ON THE PRIMARY CLINICAL RECORDS. [employer] provides no warranty or guarantee of the accuracy or completeness of information in this document.
[2023-07-08] MEDS: 0.9% Normal Saline (1000mL) 1,000 ML 70 ML IV (02:19)
[2023-07-08 02:47] LABS: PTHIN 50.4 pg/mL (18.4-80.1)
[2023-07-08] MEDS: guaiFENesin 1,200 MG Tablet 1200 MG PO ×2 (04:12→22:13)
[2023-07-08] MEDS: Doxycycline 100 MG in Dextrose 5%-Water (250mL Bag) 250 ML 250 MG IV ×2 (04:12→22:13)
[2023-07-08] MEDS: Albuterol 2.5 MG/3 ML VIAL.NEB. INHALATION ×3 (04:30→15:10)
--- NOTE | 2023-07-08 04:33 | CPS ---
patient has home unit in room with 2L bleed in
[2023-07-08] MEDS: Benzonatate 100 MG Capsule 200 MG PO (06:54)
[2023-07-08 07:49] LABS: Absolute Lymphocyte Count 0.39 X10^3/uL (0.83-4.51); Absolute Neutrophil Count 5.2 X10^3/uL (2.0-7.7); Basophil# 0.01 X10^3/uL; Basophil% 0.2 % (0-1); Hematocrit 27.6 % (37-47); Hemoglobin 8.5 g/dL (12.0-15.0); Lymphocyte # 0.39 X10^3/ul (0.83-4.51); Lymphocyte % 6.7 % (19-41); Mean Corp Hgb Conc 30.8 g/dL (32-36); Mean Corpuscular Hgb 24.9 pg (27.0-32.0); Mean Corpuscular Volume 80.7 fL (81-99); Mean Platelet Vol. 10.2 fl (6.2-12.0); Monocyte# 0.13 X10^3/uL; Monocyte% 2.2 % (0-10); NRBC Flagged by Analyzer 0 % (0-5); Neutrophil # 5.22 X10^3/uL (2.7-7.7); Neutrophil % 89.7 % (47-70); POSITIVE DIFFERENTIAL YES; Platelet Count 208 K/mm3 (150-450); RBC Distribution Width CV 17.4 % (11.6-14.6); RBC Distribution Width SD 51.3 fl (35.1-43.9); Red Blood Count 3.42 M/mm3 (4.2-5.4); White Blood Count 5.8 K/mm3 (4.4-11.0)
[2023-07-08 08:22] LABS: Anion Gap 9 (5-15); BUN 15 mg/dL (7-18); BUN/Creat Ratio 22.3 RATIO (10-20); Calcium,Total 9.5 mg/dL (8.5-10.1); Chloride 99 mmol/L (98-107); Creatinine, Serum 0.67 mg/dL (0.55-1.02); EST Glomerular Filtration Rate 90 mL/min (>60); Est Glom Filt Rate - Afr Amer 109 mL/min (>60); Estimated Creatinine Clearance 56.92 ml/min; Glucose 176 mg/dL (74-106); Magnesium 2.5 mg/dL (1.6-2.6); Phosphorus 2.9 mg/dL (2.5-4.9); Potassium 3.7 mmol/L (3.5-5.1); Sodium Level 135 mmol/L (136-145); Thyroid Stim Hormone (TSH) 0.15 uIU/mL (0.358-3.74)
[2023-07-08] MEDS: Acetaminophen 325 MG Tablet 650 MG PO (09:28)
[2023-07-08] MEDS: Enoxaparin 40 MG/0.4 ML Syringe SC (09:28)
[2023-07-08] MEDS: Ascorbic Acid 500 MG Tablet 1000 MG PO ×2 (09:29→18:36)
[2023-07-08] MEDS: MethylPREDNISolone 125 MG/2 ML Vial 60 MG IV ×2 (09:29→22:13)
[2023-07-08] MEDS: Metoprolol Tartrate 25 MG Tablet 12.5 MG PO (09:29)
[2023-07-08] MEDS: Fluoxetine HCl 40 MG CAPSULE PO (09:30)
[2023-07-08] MEDS: Aspirin 81 MG TAB.CHEW PO (09:30)
[2023-07-08] MEDS: Famotidine 20 MG Tablet PO (09:30)
[2023-07-08] MEDS: Zinc Sulfate 50 mg zinc (220 mg) ORAL capsule PO (09:30)
--- NOTE | 2023-07-08 10:48 | CASEMGMT ---
MARCIANO FERRARA Assessment Face to Face with patient for initial transition planning/care coordination assessment. MARCIANO FERRARA introduced self and role at [facility], pt voices understanding. Pt is A&Ox4 and is resting comfortably in the chair and is calm. Care providers, pharmacy, and demographics verified. Admitting dx: RLL Pneumonia, AE COPD LACE Strata: 2 PCP: [facility] Specialists: Fidel Perez Pharmacy: [facility] during this stay Insurance: [facility], [employer] Prescription Benefit: Yes LNOK: Umesh Telles (H) Living Arrangements: Pt lives with her and GS (30) in a single story home with a BM with HR. Pt states she does not use the BM as she has a FFSU. Pt states there are 1 step to enter the home with no issues. ADLs/IADLs: Pt states she is normally Ind but requires some help whenever she is feeling sick. Pt has family and friends that are able to help her at home. Transportation: Pt drives. Pt states her friend will drive her home from the hospital. DME: Cane and walker but does not use. Walk in shower with GB. Pt states she has home o2 through [facility]. [facility] called at this time and they state the pt current order is 2L NC with activity. Pt states she normally wears 2L through her CPAP at night only. Pt states she has a Pulse Ox and found herself at 80% and started to wear O2 continuously prior to coming into the hospital. Pt states that she has a concentrator at home as well as portable tanks. Pt also states that she has a COPD vest. HHC/SNF: Denies history or needs Pt?s goal: Return to PLOF and home with no additional therapy. Plan: Pt 6-Click is 24. PT/OT order is in and eval pending. Pt states that she does not want or need HHC, OP therapy, or SNF at this time. Will follow for additional oxygen needs. Yodit Scott RN, CM
[2023-07-08] MEDS: Ipratropium 0.5 MG/2.5 ML SOLUTION INHALATION (15:10)
--- NOTE | 2023-07-08 17:17 | PCM.HOSP.N ---
Hospitalist Note Patient was seen and examined today, she does not complain of any shortness of breath at rest, she is on nasal cannula oxygen at 2 L/min. On auscultation, breath sounds are diminished bilaterally, heart rate and rhythm is regular. Will continue present medications
[2023-07-08] MEDS: Ipratropium/Albuterol Sulfate 3 ML AMPUL.NEB INHALATION (19:15)
[2023-07-08] MEDS: 0.9% Saline Lock 10 ML Syringe IV (22:13)
--- NOTE | 2023-07-08 22:13 | CPS ---
Pt has her CPAP with 3L o2 bled in.
[2023-07-09] VITALS (12 sets, daily range): BP systolic 131–149; BP diastolic 67–79; PULSE 64–87; RESP 18–22; TEMP 36.4–36.9; O2SAT 87–98; BMI 36.4
[2023-07-09] MEDS: Ipratropium/Albuterol Sulfate 3 ML AMPUL.NEB INHALATION ×4 (00:50→19:02)
[2023-07-09] MEDS: Acetaminophen 325 MG Tablet 650 MG PO ×2 (05:19→20:57)
[2023-07-09 07:07] LABS: Absolute Neutrophil Count 5.4 X10^3/uL (2.0-7.7); Basophil# 0.01 X10^3/uL; Basophil% 0.2 % (0-1); Hematocrit 27.3 % (37-47); Hemoglobin 8.3 g/dL (12.0-15.0); Lymphocyte % 4.9 % (19-41); Mean Corp Hgb Conc 30.4 g/dL (32-36); Mean Corpuscular Hgb 24.6 pg (27.0-32.0); Mean Corpuscular Volume 80.8 fL (81-99); Mean Platelet Vol. 10.3 fl (6.2-12.0); Monocyte# 0.33 X10^3/uL; Monocyte% 5.4 % (0-10); NRBC Flagged by Analyzer 0 % (0-5); Neutrophil # 5.35 X10^3/uL (2.7-7.7); POSITIVE DIFFERENTIAL YES; Platelet Count 211 K/mm3 (150-450); RBC Distribution Width CV 17.5 % (11.6-14.6); RBC Distribution Width SD 51.3 fl (35.1-43.9); Red Blood Count 3.38 M/mm3 (4.2-5.4); White Blood Count 6.1 K/mm3 (4.4-11.0)
[2023-07-09] MEDS: Zinc Sulfate 50 mg zinc (220 mg) ORAL capsule PO (08:10)
[2023-07-09] MEDS: Fluoxetine HCl 40 MG CAPSULE PO (08:10)
[2023-07-09] MEDS: guaiFENesin 1,200 MG Tablet 1200 MG PO (08:10)
[2023-07-09] MEDS: Ascorbic Acid 500 MG Tablet 1000 MG PO ×2 (08:11→16:54)
[2023-07-09] MEDS: Enoxaparin 40 MG/0.4 ML Syringe SC (08:11)
[2023-07-09] MEDS: Aspirin 81 MG TAB.CHEW PO (08:11)
[2023-07-09] MEDS: Metoprolol Tartrate 25 MG Tablet 12.5 MG PO (08:11)
[2023-07-09] MEDS: MethylPREDNISolone 125 MG/2 ML Vial 60 MG IV ×2 (08:12→20:54)
[2023-07-09] MEDS: Doxycycline 100 MG in Dextrose 5%-Water (250mL Bag) 250 ML 250 MG IV ×2 (09:55→20:58)
[2023-07-09] MEDS: 0.9% Normal Saline (250mL Bag) 250 ML 15 ML IV (12:12)
--- NOTE | 2023-07-09 15:40 | CASEMGMT ---
Pt is requiring more oxygen than her current O2 order per the RN O2 testing. Updated [facility] Pt has a portable tank in her room for the time of DC.
--- NOTE | 2023-07-09 18:04 | PN.HOSP_ITS ---
Reason for Visit Reason for Visit: Diagnoses Hypercalcemia (07/08/23) Pneumonia, unspecified organism (07/08/23) Chronic obstructive pulmonary disease with (acute) exacerbation (07/08/23) Subjective Subjective Patient was seen and examined today, she has been off oxygen today but she still feels as if she is short of breath. Objective Data Objective Data Vital Signs: Vital Signs Temp Pulse Resp BP Pulse Ox O2 Del Method O2 Flow Rate 97.6 F L 70 18 145/78 H 87 Nasal Cannula 2 07/09/23 14:42 07/09/23 14:42 07/09/23 14:42 07/09/23 14:42 07/09/23 15:17 07/09/23 14:42 07/09/23 15:17 Oxygen Flow Rate (L/min) [ 3 AMBULATING with Oxygen #2] Oxygen Flow Rate (L/min) [ 2 AMBULATING with Oxygen #1] Oxygen Flow Rate (L/min) [At 2 REST with Oxygen] Oxygen Flow Rate (L/min) 2 Oxygen Delivery Method Nasal Cannula Weight: 84.2 kg Body Mass Index (BMI) 36.4 Intake & Output: Intake and Output for Last 24 Hours 07/07/23 07/08/23 07/09/23 23:59 23:59 23:59 Intake Total 2389.83 / 2389.83 545 / 545 Balance 2389.83 / 2389.83 545 / 545 Lab / Micro Data 07/09/23 06:25 07/08/23 06:39 Labs: Laboratory Results - last 24 hr 07/09/23 06:25: WBC 6.1, RBC 3.38 L, Hgb 8.3 L, Hct 27.3 L, MCV 80.8 L, MCH 24.6 L, MCHC 30.4 L, RDW Std Deviation 51.3 H, RDW Coeff of Kimberlyn 17.5 H, Plt Count 211, MPV 10.3, Immature Gran % (Auto) 1.500 H, Neut % (Auto) 88.0 H, Lymph % (Auto) 4.9 L, [place] % (Auto) 5.4, Eos % (Auto) 0.0, Baso % (Auto) 0.2, Absolute Neuts (auto) 5.4, Absolute Lymphs (auto) 0.30 L, Nucleated RBC % 0 Micro: Microbiology 07/08/23 07:55 Mucosa - Nasopharyngeal Respiratory Panel (PCR) - Final Physical Exam Const alert, oriented x3 and no apparent distress General Appearance: cooperative, well kempt and well developed Orientation / Consciousness: awake, oriented to person, oriented to place and oriented to time HEENT normocephalic, head/scalp atraumatic and moist oral mucous membranes Eyes PERRL, EOMs intact bilaterally and conjunctivae normal Neck supple, no JVD, thyroid normal and no carotid bruits General: trachea midline Resp normal respiratory effort, no retractions and no use of accessory muscles Resp Narrative: Breath sounds are diminished bilaterally Auscultation: Negative for rales, rhonchi or wheezes Cardio regular rate, regular rhythm, S1 normal heart sound, S2 normal heart sound, no murmurs, no rub and no gallops GI normal to inspection, nondistended, normoactive bowel sounds, soft to palpation, non-tender and non-distended Extremity normal to inspection and no clubbing, cyanosis or edema Skin no rashes or lesions noted General Skin Exam: no breakdown Neuro oriented x3, CN's II-XII intact bilaterally, moves all extremities, no focal motor deficits and no sensory deficits noted Sensorium / Orientation: awake and alert Speech: speech normal Psych affect normal Assessment & Plan Assessment/Plan (1) Right lower lobe pneumonia: QUALIFIERS: Pneumonia type: due to unspecified organism Qualified Code(s): J18.9 - Pneumonia, unspecified organism PLAN: Plan 1. Right lower lobe pneumonia-continue present treatment at this time including aerosol treatments and IV antibiotics #2 hypoxia secondary to #1-patient is currently on room air at this time, pulse ox will be monitored #3 exacerbation of COPD-patient is on IV corticosteroids and aerosol treatments #4 essential hypertension-continue home medications Total clinical time spent by myself addressing the patient's medical issues, reviewing all of the data, and collaborating with patient's care team: 25 minutes Charges/Coding Visit Charges Inpatient E&M: 48015 [facility] Hosp L1
[2023-07-09] MEDS: DiphenhydrAMINE 25 MG Capsule PO (20:56)
[2023-07-09] MEDS: guaiFENesin/D-Methorphan TAB.SR.12H 1 TABLET PO (21:02)
[2023-07-10] VITALS (13 sets, daily range): BP systolic 141–179; BP diastolic 75–133; PULSE 69–86; RESP 16–23; TEMP 36.6–37.1; O2SAT 95–98; BMI 38.5
[2023-07-10] MEDS: Metoprolol Tartrate 25 MG Tablet 12.5 MG PO (06:04)
[2023-07-10] MEDS: 0.9% Saline Lock 10 ML Syringe IV ×2 (06:07→06:20)
[2023-07-10] MEDS: Ipratropium/Albuterol Sulfate 3 ML AMPUL.NEB INHALATION ×3 (07:01→19:13)
[2023-07-10] MEDS: Fluoxetine HCl 40 MG CAPSULE PO (10:37)
[2023-07-10] MEDS: Aspirin 81 MG TAB.CHEW PO (10:38)
[2023-07-10] MEDS: Ascorbic Acid 500 MG Tablet 1000 MG PO ×2 (10:38→16:14)
[2023-07-10] MEDS: Enoxaparin 40 MG/0.4 ML Syringe SC (10:39)
[2023-07-10] MEDS: guaiFENesin/D-Methorphan TAB.SR.12H 1 TABLET PO ×2 (10:39→22:08)
[2023-07-10] MEDS: MethylPREDNISolone 125 MG/2 ML Vial 60 MG IV ×2 (10:40→22:09)
[2023-07-10] MEDS: Doxycycline 100 MG in Dextrose 5%-Water (250mL Bag) 250 ML 250 MG IV ×2 (10:41→22:05)
--- NOTE | 2023-07-10 15:30 | PN.HOSP_ITS ---
Reason for Visit Reason for Visit: Diagnoses Hypercalcemia (07/08/23) Pneumonia, unspecified organism (07/08/23) Chronic obstructive pulmonary disease with (acute) exacerbation (07/08/23) Subjective Subjective Patient was seen and examined today, she states she does not feel well and she still short of breath. She also complains about weakness. Objective Data Objective Data Vital Signs: Vital Signs Temp Pulse Resp BP Pulse Ox O2 Del Method O2 Flow Rate 97.8 F 74 20 H 141/75 H 96 Nasal Cannula 2 07/10/23 10:33 07/10/23 12:41 07/10/23 12:41 07/10/23 10:56 07/10/23 10:33 07/10/23 10:33 07/10/23 10:33 Oxygen Flow Rate (L/min) [ 3 AMBULATING with Oxygen #2] Oxygen Flow Rate (L/min) [ 2 AMBULATING with Oxygen #1] Oxygen Flow Rate (L/min) [At 2 REST with Oxygen] Oxygen Flow Rate (L/min) 2 Oxygen Delivery Method Nasal Cannula Weight: 89 kg Body Mass Index (BMI) 38.5 Intake & Output: Intake and Output for Last 24 Hours 07/08/23 07/09/23 07/10/23 23:59 23:59 23:59 Intake Total 2389.83 / 2389.83 805 / 805 500 / 500 Output Total 240 / 240 Balance 2389.83 / 2389.83 805 / 805 260 / 260 Lab / Micro Data 07/09/23 06:25 07/08/23 06:39 Micro: Microbiology 07/08/23 07:55 Mucosa - Nasopharyngeal Respiratory Panel (PCR) - Final Physical Exam Narrative alert, oriented x3 and no apparent distress General Appearance: cooperative, well kempt and well developed Orientation / Consciousness: awake, oriented to person, oriented to place and oriented to time HEENT normocephalic, head/scalp atraumatic and moist oral mucous membranes Eyes PERRL, EOMs intact bilaterally and conjunctivae normal Neck supple, no JVD, thyroid normal and no carotid bruits General: trachea midline Resp normal respiratory effort, no retractions and no use of accessory muscles Resp Narrative: Breath sounds are diminished bilaterally Auscultation: Negative for rales, rhonchi or wheezes Cardio regular rate, regular rhythm, S1 normal heart sound, S2 normal heart sound, no murmurs, no rub and no gallops GI normal to inspection, nondistended, normoactive bowel sounds, soft to palpation, non-tender and non-distended Extremity normal to inspection and no clubbing, cyanosis or edema Skin no rashes or lesions noted General Skin Exam: no breakdown Neuro oriented x3, CN's II-XII intact bilaterally, moves all extremities, no focal motor deficits and no sensory deficits noted Sensorium / Orientation: awake and alert Speech: speech normal Psych affect normal Assessment & Plan Assessment/Plan (1) COPD with acute exacerbation: (2) Right lower lobe pneumonia: QUALIFIERS: Pneumonia type: due to unspecified organism Qualified Code(s): J18.9 - Pneumonia, unspecified organism PLAN: Plan 1. Right lower lobe pneumonia-continue present treatment at this time including aerosol treatments and IV antibiotics #2 hypoxia secondary to #1-patient is currently on 2 L nasal cannula at this time, pulse ox will be monitored #3 exacerbation of COPD-patient is on IV corticosteroids and aerosol treatments #4 essential hypertension-continue home medications Total clinical time spent by myself addressing the patient's medical issues, reviewing all of the data, and collaborating with patient's care team: 25 bailee mayito Charges/Coding Visit Charges Inpatient E&M: 74802 [facility] Hosp L1
[2023-07-10] MEDS: Benzonatate 100 MG Capsule 200 MG PO (16:17)
[2023-07-10] MEDS: Acetaminophen 325 MG Tablet 650 MG PO ×2 (16:17→22:06)
[2023-07-10] MEDS: DiphenhydrAMINE 25 MG Capsule PO (22:10)
[2023-07-11] VITALS (9 sets, daily range): BP systolic 137–177; BP diastolic 63–99; PULSE 72–89; RESP 16–21; TEMP 36.2–36.8; O2SAT 91–98; BMI 37.8
[2023-07-11] MEDS: Acetaminophen 325 MG Tablet 650 MG PO (06:02)
[2023-07-11] MEDS: Ipratropium/Albuterol Sulfate 3 ML AMPUL.NEB INHALATION (07:28)
[2023-07-11] MEDS: hydrALAZINE 20 MG/ML Vial 10 MG IV (08:44)
[2023-07-11] MEDS: Ascorbic Acid 500 MG Tablet 1000 MG PO (08:45)
[2023-07-11] MEDS: Aspirin 81 MG TAB.CHEW PO (08:45)
[2023-07-11] MEDS: 0.9% Saline Lock 10 ML Syringe IV (08:46)
[2023-07-11] MEDS: Metoprolol Tartrate 25 MG Tablet 12.5 MG PO (10:20)
[2023-07-11] MEDS: guaiFENesin/D-Methorphan TAB.SR.12H 1 TABLET PO (10:23)
[2023-07-11] MEDS: Fluoxetine HCl 40 MG CAPSULE PO (10:23)
[2023-07-11] MEDS: MethylPREDNISolone 125 MG/2 ML Vial 60 MG IV (10:24)
[2023-07-11] MEDS: Doxycycline 100 MG in Dextrose 5%-Water (250mL Bag) 250 ML 250 MG IV (10:25)
--- NOTE | 2023-07-11 10:28 | DCINST_ITS ---
Discharge Instructions Diet Discharge Diet: No restrictions Activity Discharge Activity: Return to Normal Activity Weight Bearing Status: Full weight bearing Follow Up Care Test Results: Test results from this visit will be discussed in further detail at your follow- up appointment, if applicable. Discharge Plan Admission Admit Date/Time: 07/08/23 00:24 Primary Reason for Your Visit: pneumonia Attending Provider: Gaston Draper Primary Care Provider: Bruce Virk Consulting Providers: Valente Jara Discharge Orders/Prescriptions Prescriptions: New ipratropium-albuterol 0.5 mg-3 mg(2.5 mg base)/3 mL Solution For Nebulization 3 ml inhalation Q6HWA.RT Qty: 120 0RF Mucinex DM 30-600 mg Tablet Extended Release 12 Hr 1 tab PO BID Qty: 0 0RF doxycycline hyclate 100 mg tablet 100 mg PO BID Qty: 11 0RF Rx Instructions: start this evening potassium chloride 20 mEq tablet extended release 20 meq PO DAILY Qty: 30 0RF Continued ipratropium bromide 0.02 % solution 2.5 ml INHALATION Q6H PRN clotrimazole-betamethasone 1-0.05 % cream 1 applic topical BID 14 Days Qty: 45 1RF benzonatate 200 mg capsule 200 mg PO TID PRN (Reason: cough) Qty: 20 0RF fluoxetine 20 mg capsule 40 mg PO DAILY aspirin 81 mg capsule 81 mg PO DAILY diphenhydramine HCl [Banophen] 25 mg capsule 25 mg PO QHS prednisone 20 mg tablet 20 mg PO BID Qty: 10 0RF Rx Instructions: one twice a day for 3 days, then one daily times three days then stop albuterol sulfate [Ventolin HFA] 90 mcg/actuation HFA aerosol inhaler 2 puff INHALATION Q6H PRN (Reason: shortness of breath or wheezing) Qty: 18 2RF Changed metoprolol tartrate 25 mg tablet 25 mg PO BIDCM Qty: 60 0RF furosemide [Lasix] 40 mg tablet 40 mg PO DAILY Qty: 30 0RF Discontinued levofloxacin 500 mg tablet 500 mg PO DAILY Qty: 7 0RF Referrals / Follow Up: Bruce Virk MD [Primary Care Provider] - Within 1 Month Disposition Disposition (needs filled in before D/C Order can be placed): Home, Self Care
--- NOTE | 2023-07-11 10:51 | PCM.DC.SUM ---
Providers Date of Admission: 07/08/23 Date of Discharge: 07/11/23 Primary Care Physician: Dr. Bruce Virk MD Reason For Visit: RLL PNEUMONIA, AE COPD & ACUTE HYPOXIC RESP Diagnosis Discharge Diagnosis (1) COPD with acute exacerbation: Status: Chronic Code(s): J44.1 - Chronic obstructive pulmonary disease with (acute) exacerbation (2) Right lower lobe pneumonia: Status: Acute Code(s): J18.9 - Pneumonia, unspecified organism Qualifiers: Pneumonia type: due to unspecified organism Qualified Code(s): J18.9 - Pneumonia, unspecified organism Plan 1. Right lower lobe pneumonia-continue present treatment at this time including aerosol treatments and IV antibiotics #2 hypoxia secondary to #1-patient is currently on 2 L nasal cannula at this time, pulse ox will be monitored #3 exacerbation of COPD-patient is on IV corticosteroids and aerosol treatments #4 essential hypertension-continue home medications Total clinical time spent by myself addressing the patient's medical issues, reviewing all of the data, and collaborating with patient's care team: 25 minutes Medications at Discharge Home Medications ipratropium bromide 0.02 % solution for inhalation 2.5 ml inhalation Q6H PRN 01/11/20 albuterol sulfate 90 mcg/actuation aerosol inhaler (Ventolin HFA) 2 puff inhalation Q6H PRN shortness of breath or wheezing #18 grams 02/04/23 clotrimazole-betamethasone 1 %-0.05 % topical cream 1 applic topical BID 2 weeks #45 grams 04/19/23 fluoxetine 20 mg capsule 40 mg PO DAILY anxiety 04/19/23 benzonatate 200 mg capsule 200 mg PO TID PRN cough #20 caps 07/06/23 aspirin 81 mg capsule 81 mg PO DAILY 07/07/23 diphenhydramine HCl 25 mg capsule (Banophen) 25 mg PO QHS 07/08/23 dextromethorphan-guaifenesin 30 mg-600 mg tablet extended hr (Mucinex DM) 1 tab PO BID #0 tabs 07/11/23 doxycycline hyclate 100 mg tablet 100 mg PO BID #11 tabs 07/11/23 furosemide 40 mg tablet (Lasix) 40 mg PO DAILY #30 tabs 07/11/23 ipratropium 0.5 mg-albuterol 3 mg (2.5 mg base)/3 mL nebulization soln 3 ml inhalation Q6HWA.RT #120 mL 07/11/23 metoprolol tartrate 25 mg tablet 25 mg PO BIDCM HR #60 tabs 07/11/23 potassium chloride 20 mEq tablet,extended release 20 meq PO DAILY #30 tabs 07/11/23 prednisone 20 mg tablet 20 mg PO BID #10 tabs 07/11/23 prednisone 20 mg tablet 20 mg PO UD #9 tabs 07/11/23 Hospital Course Operations None Procedures None Summary of Care Provided Minutes Spent on Discharge: 31 Hospital Course: This 77-year-old white female was seen in the emergency room at [facility] with complaints of shortness of breath, patient has a history of chronic obstructive pulmonary disease, she complained that she had wheezing at home. Patient stated that she went to an urgent care 1 day prior and was diagnosed with pneumonia in the right lower lobe, her COVID and influenza test were negative, patient was started on Levaquin and she took 2 doses of Levaquin. She also had been on prednisone 40 mg a day, patient had oxygen at home which she used at 2 L at night. Workup in the emergency room revealed an unremarkable CBC, chemistry panel was unremarkable, chest x-ray was not repeated and neither were the COVID or influenza test. Patient was admitted to [facility] for COPD exacerbation with pneumonia, she was treated with IV corticosteroids aerosol treatments and antibiotics, she made progress during her hospitalization but had some wheezing at the time of her discharge on 07/11/2023. On that day, she was seen and examined: On examination she appeared in good health and spirits, she does not appear to be in any distress. Vital signs as documented. Skin warm and dry and without overt rashes. Neck without JVD, thyroid appears normal, trachea is midline, neck is supple. Lungs faint expiratory wheezes are scattered bilaterally, normal air movement was noted. Heart exam notable for regular rhythm, normal sounds and absence of murmurs, rubs or gallops. Abdomen unremarkable and without evidence of organomegaly, masses, or abdominal aortic enlargement, bowel sounds are present in all 4 quadrants, no abdominal tenderness was noted. Extremities nonedematous, no cyanosis was noted, no clubbing was noted. Neuro: Cranial nerves II through XII are grossly intact, no focal motor deficits were noted, sensation to light touch and pinprick is intact, motor exam 5/5 throughout. Psych: Patient is alert and oriented x3, she does not appear anxious or depressed, she does not appear agitated. Patient appear to be stable for discharge home on 07/11/2023. Weight / BMI Weight Weight: 87.317 kg Body Mass Index (BMI) 37.8 ABG / Lab / Microbiology Data 07/09/23 06:25 07/08/23 06:39 Microbiology: Microbiology 07/08/23 07:55 Mucosa - Nasopharyngeal Respiratory Panel (PCR) - Final D/C Instructions Discharge Diet: No restrictions Weight Bearing Status: Full weight bearing Meaningful Use Info Meaningful Use Diagnoses (Choose all that apply): None applicable Discharge Plan Admission Admit Date/Time: 07/08/23 00:24 Primary Reason for Your Visit: pneumonia Attending Provider: Gaston Draper Primary Care Provider: Bruce Virk Consulting Providers: Valente Jara Discharge Orders/Prescriptions Prescriptions: New ipratropium-albuterol 0.5 mg-3 mg(2.5 mg base)/3 mL Solution For Nebulization 3 ml inhalation Q6HWA.RT Qty: 120 0RF Mucinex DM 30-600 mg Tablet Extended Release 12 Hr 1 tab PO BID Qty: 0 0RF doxycycline hyclate 100 mg tablet 100 mg PO BID Qty: 11 0RF Rx Instructions: start this evening potassium chloride 20 mEq tablet extended release 20 meq PO DAILY Qty: 30 0RF prednisone 20 mg tablet 20 mg PO UD Qty: 9 0RF Rx Instructions: 1 twice a day for 3 days, then 1 a day for 3 days then stop Continued ipratropium bromide 0.02 % solution 2.5 ml INHALATION Q6H PRN clotrimazole-betamethasone 1-0.05 % cream 1 applic topical BID 14 Days Qty: 45 1RF benzonatate 200 mg capsule 200 mg PO TID PRN (Reason: cough) Qty: 20 0RF fluoxetine 20 mg capsule 40 mg PO DAILY aspirin 81 mg capsule 81 mg PO DAILY diphenhydramine HCl [Banophen] 25 mg capsule 25 mg PO QHS prednisone 20 mg tablet 20 mg PO BID Qty: 10 0RF Rx Instructions: one twice a day for 3 days, then one daily times three days then stop albuterol sulfate [Ventolin HFA] 90 mcg/actuation HFA aerosol inhaler 2 puff INHALATION Q6H PRN (Reason: shortness of breath or wheezing) Qty: 18 2RF Changed metoprolol tartrate 25 mg tablet 25 mg PO BIDCM Qty: 60 0RF furosemide [Lasix] 40 mg tablet 40 mg PO DAILY Qty: 30 0RF Discontinued levofloxacin 500 mg tablet 500 mg PO DAILY Qty: 7 0RF Referrals / Follow Up: Bruce Virk MD [Primary Care Provider] - Within 1 Month Disposition Disposition (needs filled in before D/C Order can be placed): Home, Self Care Charges/Coding Visit Charges Inpatient E&M: 45363 Disch Hosp >30min
== END 2023-07-11 12:25 | disposition home or self-care (01) | DRG 190 ==
LOC: ED 23:49 → MS3 07-08 01:19
PROVIDERS: Admitting Provider Internal Medicine; Emergency Provider Student in an Organized Health Care Education/Training Program; PCP Family Medicine; Visit Provider Internal Medicine
DX: J44.0 Chronic obstructive pulmonary disease with (acute) lower respiratory infection (principal); J18.9 Pneumonia, unspecified organism; J44.1 Chronic obstructive pulmonary disease with (acute) exacerbation; I10 Essential (primary) hypertension; F32.A Depression, unspecified; E83.52 Hypercalcemia; G47.33 Obstructive sleep apnea (adult) (pediatric); S70.11XA Contusion of right thigh, initial encounter; M19.90 Unspecified osteoarthritis, unspecified site; W01.0XXA Fall on same level from slipping, tripping and stumbling without subsequent striking against object, initial encounter; E66.9 Obesity, unspecified; Z68.32 Body mass index [BMI] 32.0-32.9, adult; Z11.52 Encounter for screening for COVID-19; R09.02 Hypoxemia; Z79.82 Long term (current) use of aspirin; Z79.899 Other long term (current) drug therapy; Z87.891 Personal history of nicotine dependence
CPT/HCPCS: 36415; 71046; 80048; 82652; 83735; 83970; 84100; 84443; 84484; 85025; 87633; 93005; 94640; 94668; 94762; 99252; 99285; J7030; J7050; A4216; G0463

== ENCOUNTER → 2023-08-19 | Outpatient (CLI) | payer MEDICARE, OTHER, SELFPAY ==
--- NOTE | 2023-08-19 13:47 | ECHOD_ITS ---
Reason For Study: Diastolic Dysfunction Procedure This was a 2D Doppler, Color Flow transthoracic echocardiogram. Exam performed in department. Left Ventricle Normal LV size. Left ventricular systolic function is normal. Stage 1 diastolic dysfunction. The left ventricular ejection fraction is 60 %. No regional wall motion abnormalities noted. Right Ventricle Normal RV size. Normal systolic function. Atria The left atrium is moderately enlarged. The right atrium is mildly enlarged. Mitral Valve There is mild to moderate mitral annular calcification. Mild focal mitral valve thickening. Mild (1+) eccentric mitral valve insufficiency. Tricuspid Valve Normal tricuspid valve. Mild to moderate (1-2+) tricuspid valve insufficiency. Pulmonary artery systolic pressure is 43 mmHg. Aortic Valve Trisinus/trileaflet aortic valve. Mild focal aortic valve calcification. Pulmonic Valve Normal pulmonic valve. Mild (1+) pulmonic valve insufficiency. Great Vessels Normal aortic root. The pulmonary artery is normal size. Inferior vena cava collapse with sniff. Pericardium/Pleural No pericardial effusion. MMode/2D Measurements & Calculations LVIDd: 5.1 cm IVSd: 1.2 cm Ao root diam: 3.7 cm LVIDs: 3.1 cm LVPWd: 1.1 cm RVDd: 3.7 cm FS: 38.4 % LAV(MOD-bp): 86.5 ml LVAd ap4: 24.0 cm2 LVAd ap2: 20.1 cm2 LAV(MOD-bp) Indexed: 49.0 ml/m2 LVLd ap4: 6.3 cm LVLd ap2: 6.6 cm LAV(MOD-sp2): 80.2 ml EDV(MOD-sp4): 77.2 ml EDV(MOD-sp2): 53.2 ml LAV(MOD-sp4): 89.5 ml EDV(sp4-el): 77.1 ml EDV(sp2-el): 52.5 ml LVAs ap4: 14.5 cm2 LVAs ap2: 11.7 cm2 LVLs ap4: 5.6 cm LVLs ap2: 6.0 cm ESV(MOD-sp4): 32.5 ml ESV(MOD-sp2): 22.0 ml ESV(sp4-el): 31.9 ml ESV(sp2-el): 19.4 ml EF(MOD-sp4): 57.9 % EF(MOD-sp2): 58.7 % EF(sp4-el): 58.6 % SV(MOD-sp4): 44.7 ml SV(MOD-sp2): 31.2 ml SV(sp4-el): 45.2 ml LA dimension(2D): 4.8 cm LA A4 area: 25.2 cm2 RA A4 area: 21.5 cm2 TAPSE: 1.9 cm Time Measurements MV dec time: 0.19 sec Doppler Measurements & Calculations MV E max zane: 85.5 cm/sec Lat Peak E' Zane: 8.9 cm/sec Med Peak E' Zane: 4.5 cm/sec MV A max zane: 91.1 cm/sec E/E' lat: 9.7 E/E' med: 19.2 MV E/A: 0.94 MV dec slope: 448.4 cm/sec2 Ao V2 max: 191.0 cm/sec LV V1 max: 138.8 cm/sec Ao max P.6 mmHg LV V1 max P.7 mmHg Ao V2 mean: 130.2 cm/sec LV V1 mean P.8 mmHg Ao mean P.8 mmHg LV V1 mean: 89.7 cm/sec Ao V2 VTI: 43.1 cm LV V1 VTI: 30.4 cm AV (velocity ratio): 0.71 PA V2 max: 79.4 cm/sec TR max zane: 312.1 cm/sec TR max P.0 mmHg ECHO/Echo Complete Interpretation Summary Normal LV size. Left ventricular systolic function is normal. Mild focal mitral valve thickening. Mild (1+) eccentric mitral valve insufficiency. Stage 1 diastolic dysfunction. The left ventricular ejection fraction is 60 %. Pulmonary artery systolic pressure is 43 mmHg. Ordering Physician: Bruce Virk Referring Physician: Bruce Virk Performed By: Viky Meadows RDCS
== END | disposition home or self-care (01) ==
LOC: CVS 13:47
PROVIDERS: PCP Family Medicine; Referring Provider Family Medicine; Visit Provider Family Medicine
DX: I51.89 Other ill-defined heart diseases (principal)
CPT/HCPCS: 93306

== ENCOUNTER 2023-09-22 05:48 | Emergency (ER) | payer MEDICARE, OTHER, SELFPAY ==
[2023-09-22] VITALS (7 sets, daily range): BP systolic 106–132; BP diastolic 54–90; PULSE 61–82; RESP 16–20; TEMP 36.6; O2SAT 88–98; BMI 30.2
--- NOTE | 2023-09-22 05:57 | CT_ITS ---
STUDY: CT ABDOMEN AND PELVIS WITH CONTRAST REASON FOR EXAM: Female, 77 years old. Upper abdominal pain with nausea. RADIATION DOSAGE (If Supplied By Facility): CTDIvol = ( 15.58 ) mGy, DLP = ( 939.71 ) mGycm TECHNIQUE: Transaxial images were obtained from the dome of the diaphragm to the symphysis pubis without oral contrast. IV 100mL Isovue-[id number] was administered. Sagittal and coronal images were reconstructed. Individualized dose optimization techniques were used for this CT. COMPARISON: Comparison is made with prior examination dated April 02, 2019. FINDINGS: Minimal linear scarring at the lung bases. There is evidence of coronary artery calcification. There is decreased attenuation of the liver consistent with steatosis. 5 mm cyst is seen in the anterior aspect of the left lobe of the liver. The previously seen dominant cyst is not seen this time. Hepatomegaly. The patient is status post cholecystectomy. Mild splenomegaly. Minimal amount of perisplenic fluid. Findings suggestive of possible varices in the region of the splenic hilum. There is diffuse atrophy of the pancreas. Normal bilateral adrenal glands. Normal right kidney. Normal left kidney. Normal visualized stomach. Normal small intestine. There are multiple colonic diverticula consistent with diverticulosis. The patient is status post appendectomy. There is diffuse atherosclerotic calcification of the abdominal aorta and its major visceral branches, without a demonstrated aneurysm. Normal inferior vena cava. Normal retroperitoneum. Normal urinary bladder. Small amount of free fluid in the pelvis and the cul-de-sac suggestive of a mild degree of ascitic fluid. There is a small umbilical hernia containing fat. Complete collapse of the T12 vertebrae. This is unchanged. CT/Abdomen/Pelvis W IV Cont ONLY IMPRESSION: Hepatosplenomegaly. Findings suggestive of a varicosities in the region of the splenic hilum. Sigmoid diverticulosis. Subcentimeter cyst in the left lobe of the liver. Minimal amount of perisplenic fluid. Small amount of fluid is seen in the pelvis suggestive of minimal ascites. Pancreatic atrophy. Electronically Signed: Phillip Moran MD at 8:25 EDT ,
--- NOTE | 2023-09-22 06:04 | ED.VIS.GI ---
HPI HPI - GI History of Present Illness Chief Complaint: Abd Pain Informant: patient Abdominal Pain/Flank Pain Onset: Today and Hours Context: Gradual Onset Timing: Continuous Quality: Aching Location: Epigastric, RUQ and LUQ Current Severity: Mild Maximum Severity: Mild Worsened by: Nothing Relieved by: Nothing Nausea/Vomiting/Emesis GI Symptom: Positive for Nausea; Negative for Vomiting Onset: Today Severity: Mild Diarrhea/Melena/Hematochezia GI Symptom: Negative for Diarrhea, Melena or Hematochezia Associated Symptoms Associated Symptoms: Negative for Dysuria, Frequency, Hematuria or Urgency Narrative Narrative: 77-year-old female complaining of upper abdominal pain since late Wednesday night. Associated nausea no vomiting or diarrhea. No constipation. Denies any urinary symptoms. No dysuria or hematuria. States she has had a decreased appetite. She feels bloated. No fever. No weight change. She has had a prior cholecystectomy, appendectomy and 2 prior C-sections. She has a history of diverticulosis but denies any lower abdominal pain. Prior similar symptoms: No Recent Illness/Hospitalization: No PFSH PFSH Medical History Acute respiratory failure with hypoxia acute viral bronchitis secondary to influenza A Anxiety Asthma Bronchitis Chest pain COPD (chronic obstructive pulmonary disease) COPD (chronic obstructive pulmonary disease) with chronic bronchitis COPD with acute exacerbation COVID-19 CPAP (continuous positive airway pressure) dependence Depression Diverticulitis Former smoker Hypercalcemia Hypertension Influenza A Irregular heart beat Migraines On home oxygen therapy Osteoarthritis Osteoporosis Pneumonia Right lower lobe pneumonia Sleep apnea Home Medications albuterol sulfate 90 mcg/actuation aerosol inhaler (Ventolin HFA) 2 puff inhalation Q6H PRN shortness of breath or wheezing #18 grams 02/04/23 [Rx Last Taken Unknown] clotrimazole-betamethasone 1 %-0.05 % topical cream 1 applic topical BID 2 weeks #45 grams 04/19/23 [Rx Last Taken Unknown] aspirin 81 mg capsule 81 mg PO DAILY 07/07/23 [History Last Taken Unknown] furosemide 40 mg tablet (Lasix) 40 mg PO DAILY #30 tabs 07/11/23 [Rx Last Taken Unknown] ipratropium 0.5 mg-albuterol 3 mg (2.5 mg base)/3 mL nebulization soln 3 ml inhalation Q6HWA.RT #120 mL 07/11/23 [Rx Last Taken Unknown] potassium chloride 20 mEq tablet,extended release 20 meq PO DAILY #30 tabs 07/11/23 [Rx Last Taken Unknown] dextromethorphan-guaifenesin 30 mg-600 mg tablet extended [id number] hr (Mucinex DM) 1 tab PO BID PRN 09/16/23 [History Last Taken Unknown] diphenhydramine HCl 25 mg capsule (Banophen) 25 mg PO QHS PRN 09/16/23 [History Last Taken Unknown] fluoxetine 40 mg capsule 40 mg PO DAILY 09/16/23 [History Last Taken Unknown] metoprolol tartrate 25 mg tablet 25 mg PO DAILY HR 09/16/23 [History Last Taken Unknown] Allergy/AdvReac Type Severity Reaction Status Date / Time latex AdvReac Other Verified 09/16/23 08:42 Family History Father Hypertension Mother Cancer uterus Surgical History H/O laminectomy H/O tubal ligation History of appendectomy History of bone graft History of cholecystectomy History of tonsillectomy and adenoidectomy Hx of cataract surgery S/P cholecystectomy S/P laparoscopy Social History household members: spouse number of children: 2 current occupational status: retired Smoking Status: Former smoker how long ago did patient quit smokin, 1pk/day second hand exposure: Yes alcohol intake: current alcohol intake frequency: a few times a week Alcohol type: beer, wine and hard liquor substance use type: does not use seatbelt use: always do you feel safe at home: Yes 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 ED ROS Narrative Upper abdominal pain. Nausea. Review of Systems ROS Unobtainable: Denies due to encephalopathy Constitutional Constitutional ED: Denies chills or fever(s) ENT ENT ED: Denies ear pain Cardiovascular Cardiovascular: Denies chest pain Respiratory/Chest Respiratory/Chest: Reports dyspnea and other Details: Chronic dyspnea due to COPD. ; Denies cough Gastrointestinal Gastrointestinal: Reports abdominal pain and nausea; Denies constipation, diarrhea, melena or vomiting Genitourinary Genitourinary ED: Denies dysuria or hematuria Musculoskeletal Musculoskeletal: Denies arthralgias, back pain, myalgias or neck pain Integumentary Denies abscess, Abrasions or rash Neurologic Neurologic: Denies headache(s) or paresthesias Psychiatric Psychiatric: Denies anxiety, depression or suicidal thoughts Endocrine Endocrinology: Denies polydipsia or polyphagia Hematologic/Lymphatic Hematologic/Lymphatic: Denies easy bleeding or easy bruising Allergic/Immunologic Allergic/Immunologic ED: Denies mouth swelling, tongue swelling or urticaria EXAM Physical Exam Narrative Exam Narrative: 77-year-old female vital signs stable afebrile. Sitting upright in bed. at bedside. H EENT exam unremarkable. Moist mucous membranes. Neck nontender no JVD. No lymphadenopathy. Lungs clear to auscultation bilaterally. Heart regular rhythm rate about 60 no murmur. Chest wall and ribs nontender. Abdomen soft mildly distended. No peritoneal signs. Epigastric tenderness. No rebound, guarding or rigidity. No pulsatile mass. No hernia. Both the right upper and right lower quadrants are unremarkable. No lower abdominal tenderness. Moving all 4 extremities. Nontender. No edema. 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 Normal dorsi plantarflexion. Back nontender. Skin unremarkable. Neurologically she is awake and alert with no focal motor deficits. Const Vital Signs: 09/22/23 05:49 09/22/23 06:40 09/22/23 06:41 Temperature 98 F Temperature Source Temporal Pulse Rate 61 82 Respiratory Rate 18 19 H Blood Pressure 132/90 H 107/54 L Blood Pressure Mean 104 71 Pulse Ox 94 88 97 Oxygen Delivery Method Room Air Room Air Nasal Cannula Oxygen Flow Rate (L/min) 2 09/22/23 08:00 09/22/23 07:01 09/22/23 07:30 Temperature Temperature Source Pulse Rate 62 66 Respiratory Rate 16 20 H Blood Pressure 121/66 H 106/54 L 126/62 H Blood Pressure Mean 84 70 83 Pulse Ox 98 97 Oxygen Delivery Method Nasal Cannula Oxygen Flow Rate (L/min) 2 09/22/23 08:00 Temperature Temperature Source Pulse Rate 62 Respiratory Rate 19 H Blood Pressure 121/66 H Blood Pressure Mean 82 Pulse Ox 95 Oxygen Delivery Method Oxygen Flow Rate (L/min) Positive well nourished and well developed; Negative for cachectic, contractures or unkempt General Appearance ED: well developed and NAD; Negative for unkempt, cachectic, contractures or pallor Nutritional Appearance: Negative for cachectic HEENT Reports moist mucous membranes; Denies dry mucous membranes normocephalic and atraumatic; Negative for trauma or tenderness Mouth ED: No dry mucous membranes Mouth: No dry mucous membranes Eyes PERRL and EOMs intact bilaterally General Eye ED: Negative for pale conjunctiva, scleral icterus or other Neck no lymphadenopathy, supple and no JVD General: Negative for tenderness Carotids: Negative for other Lymph Lymphatic: Negative for other Resp normal respiratory effort and clear to auscultation bilaterally Effort and Inspection: Negative for respiratory distress Auscultation: Negative for rales, rhonchi or wheezes Cardio regular rate, regular rhythm, S1 normal heart sound, S2 normal heart sound and no murmurs Rate: Negative for bradycardia or tachycardic Rhythm: Negative for abnormal rhythm GI no masses; Negative for non-tender or non-distended GI Narrative: Epigastric tenderness. Inspection: abdominal distention Palpation: soft and tender; Negative for guarding, rigid, hepatomegaly, splenomegaly, hernia, mass, pulsatile mass or rebound tenderness present Back/Spine no CVA tenderness General Back: Negative for CVA tenderness Cervical Spine: Negative for cervical spine tenderness Thoracic Spine / Upper Back: Negative for thoracic spinal tenderness Lumbar Spine / Lower Back: Negative for lumbar spinal tenderness Coccyx: Negative for other Extremity full ROM General Extremety ED: Negative for edema or tenderness General Extremity: Negative for edema Neuro CN's II-XII intact bilaterally and moves all extremities Sensorium / Orientation: alert, oriented to person, oriented to place and oriented to time; Negative for orientation impaired or confused Motor Exam: strength 5/5 throughout; Negative for general weakness or strength abnormal Psych mental status grossly normal and thought process normal Appearance: Negative for unkempt Attitude: No agitated Mood & Affect: Negative for depressed, anxious or tearful Skin no wounds General Skin Exam: Negative for jaundice or pallor Rashes: no rashes Trauma: Negative for abrasion Nails: Negative for discolored MDM MDM MDM Narrative Medical decision making narrative: 77-year-old female with upper abdominal pain mild bloating and distention. Concern for possible bowel obstruction versus other etiologies. She has had a prior cholecystectomy and appendectomy. She is having no urinary symptoms or lower abdominal pain. CAT scan and labs are pending. Also she will be treated with morphine for pain and Zofran for nausea. Repeat exam patient is feeling better at 8:30 AM. CAT scan shows chronic changes of her abdomen. She and I went over consistently dropping hemoglobin. She has not noticed black or bloody stools. She will follow-up with her primary care physician Dr. Bruce Virk to have that re-evaluated. Her abdominal exam she does have a small ventral hernia that spontaneously reduces. That could be the cause of her pain. I have a primary care physician on page to ensure close follow-up. 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 She is comfortable being discharged home. She understands if her blood counts get any lower she may need a blood transfusion. Also she needs further evaluation to determine why she is becoming anemic. History & Record Review Discussion w/independent historian: Patient and Family Additional record(s) reviewed:: Prior inpatient record, Prior outpatient record, Prior ED visit and Prior labs Lab Data Attestation: I reviewed the patient's lab results. Lab results narrative: CBC shows a normal white count of 4.6. H&H is 7.6 and 24.6. Patient's had a low hemoglobin in the 8.3 range recently. She continues to trend down. Platelet count is also low at 66,000. Electrolytes show sodium 131. Gap 7. Normal BUN is 16 and creatinine 0.8. Glucose 121. Liver enzymes are unremarkable. Lipase is normal at 19 CAT scan of the abdomen shows chronic changes no acute pathology to explain her pain. Labs: Laboratory Results - last 24 hr 09/22/23 06:22 WBC 4.6 RBC 3.22 L Hgb 7.6 L Hct 24.6 L MCV 76.4 L MCH 23.6 L MCHC 30.9 L RDW Std Deviation 57.2 H RDW Coeff of Kimberlyn 20.8 H Plt Count 66 L Immature Gran % (Auto) 0.600 Neut % (Auto) 58.0 Lymph % (Auto) 31.3 Slope % (Auto) 9.7 Eos % (Auto) 0.2 Baso % (Auto) 0.2 Absolute Neuts (auto) 2.7 Absolute Lymphs (auto) 1.45 Nucleated RBC % 0 Differential Comment SCANNED Diff Path Review May foll Platelet Estimate SLT DEC Polychromasia RARE Hypochromasia 1+ Anisocytosis 2+ Rouleaux 3+ Sodium 131 L Potassium 4.7 Chloride 96 L Carbon Dioxide 28.0 Anion Gap 7 BUN 16 Creatinine 0.83 Estim Creat Clear Calc 56.80 Est GFR (MDRD) Af Amer 86 Est GFR (MDRD) Non-Af 71 BUN/Creatinine Ratio 19.2 Glucose 121 H Calcium 9.8 Total Bilirubin 0.70 AST 41 H ALT 18 Alkaline Phosphatase 39 L Total Protein 11.6 H Albumin 1.6 L Globulin 10.0 H Albumin/Globulin Ratio 0.2 L Lipase 19 Radiography Chest X-Ray - ED: 1 View, Read by ED Physician, Read by Radiologist, Unchanged, Normal, Heart, Mediastinum, Bony Structures, No Acute Disease and Chronic Changes Diagnostic Testing: Clinical Impression(s) from Imaging Studies Abdomen/Pelvis CT 09/22/23 05:57 IMPRESSION: Hepatosplenomegaly. Findings suggestive of a varicosities in the region of the splenic hilum. Sigmoid diverticulosis. Subcentimeter cyst in the left lobe of the liver. Minimal amount of perisplenic fluid. Small amount of fluid is seen in the pelvis suggestive of minimal ascites. Pancreatic atrophy. Electronically Signed: Phillip Moran MD at 8:25 EDT , Chest X-Ray 09/22/23 06:10 IMPRESSION: Resolution of right basilar infiltrates except for minimal residual atelectasis or scarring. Chronic blunting of the left lateral costophrenic angle by basilar pleural thickening. Findings suspicious for a mild developing pneumonia in the left infrahilar region. Electronically Signed: Darian Cantu MD at 7:19 EDT , Chest x-ray, portable, single view interpreted both by myself and the radiologist. Shows a resolving right lower lobe infiltrate. Normal cardiac silhouette. No acute abnormality. Discharge Plan Triage Chief Complaint: Abd Pain ED Provider: Arcadio Bhakta Dx/Rx/DC Orders Clinical Impression: Anemia, Thrombocytopenia, Abdominal pain Instructions: Abdominal Pain, Anemia, Thrombocytopenia Prescriptions: No Action clotrimazole-betamethasone 1-0.05 % cream 1 applic topical BID 14 Days Qty: 45 1RF Mucinex DM 30-600 mg tablet extended release 12 hr 1 tab PO BID PRN fluoxetine 40 mg capsule 40 mg PO DAILY metoprolol tartrate 25 mg tablet 25 mg PO DAILY aspirin 81 mg capsule 81 mg PO DAILY ipratropium-albuterol 0.5 mg-3 mg(2.5 mg base)/3 mL Solution For Nebulization 3 ml inhalation Q6HWA.RT Qty: 120 0RF furosemide [Lasix] 40 mg tablet 40 mg PO DAILY Qty: 30 0RF potassium chloride 20 mEq tablet extended release 20 meq PO DAILY Qty: 30 0RF diphenhydramine HCl [Banophen] 25 mg capsule 25 mg PO QHS PRN albuterol sulfate [Ventolin HFA] 90 mcg/actuation HFA aerosol inhaler 2 puff INHALATION Q6H PRN (Reason: shortness of breath or wheezing) Qty: 18 2RF Primary Care Provider: Bruce Virk Referrals: Bruce Virk MD [Primary Care Provider] - As soon as possible Activity Restrictions/Additional Instructions: No specific cause for your abdominal pain today. It could be inflammation of your stomach or a small hernia on your abdominal wall. You need to follow-up your primary care physician to have your blood counts rechecked and need to get to the bottom of why your blood counts keep dropping. Your hemoglobin today was 7.6. That is coming down from the last several months. Your platelets are also low at 66,000. Follow-up with Dr. Bruce Virk as soon as possible. They can recheck your blood counts. Disposition Disposition: Home, Self Care
--- NOTE | 2023-09-22 06:10 | RAD_ITS ---
EXAM: XR CHEST, 1 VIEW CLINICAL INDICATION: copd hx w/ recent pneumonia TECHNIQUE: Frontal view of the chest. COMPARISON: Previous chest radiographs of 07/06/2023, 04/02/2019 and 08/29/2018. FINDINGS: LUNGS AND PLEURAL SPACES: Chronic blunting of the left lateral costophrenic angle indicating pleural thickening. No pleural effusion. Right basilar infiltrate seen on the prior study has resolved except for minimal residual discoid atelectasis or scarring in the right lower lung. On the left, there is developing patchy density in the left infrahilar region, suspicious for a mild developing pneumonia. HEART: Heart size remains mildly enlarged, with normal pulmonary vasculature. MEDIASTINUM: Stable mild elongation and calcification of the thoracic aorta. BONES/JOINTS: No acute osseous abnormality. SOFT TISSUES: Unremarkable. RAD/Chest 1 View (Portable) IMPRESSION: Resolution of right basilar infiltrates except for minimal residual atelectasis or scarring. Chronic blunting of the left lateral costophrenic angle by basilar pleural thickening. Findings suspicious for a mild developing pneumonia in the left infrahilar region. Electronically Signed: Darian Cantu MD at 7:19 EDT ,
[2023-09-22] MEDS: Morphine 4 MG/ML Syringe IV (06:19)
[2023-09-22] MEDS: Ondansetron 4 MG/2 ML Vial IV (06:19)
[2023-09-22 06:29] LABS: Absolute Lymphocyte Count 1.45 X10^3/uL (0.83-4.51); Absolute Neutrophil Count 2.7 X10^3/uL (2.0-7.7); Basophil# 0.01 X10^3/uL; Basophil% 0.2 % (0-1); Eosinophil# 0.01 X10^3/uL; Eosinophils% 0.2 % (0-5); Hematocrit 24.6 % (37-47); Hemoglobin 7.6 g/dL (12.0-15.0); Lymphocyte # 1.45 X10^3/ul (0.83-4.51); Lymphocyte % 31.3 % (19-41); Mean Corp Hgb Conc 30.9 g/dL (32-36); Mean Corpuscular Hgb 23.6 pg (27.0-32.0); Mean Corpuscular Volume 76.4 fL (81-99); Monocyte# 0.45 X10^3/uL; Monocyte% 9.7 % (0-10); NRBC Flagged by Analyzer 0 % (0-5); Neutrophil # 2.69 X10^3/uL (2.7-7.7); POSITIVE COUNT YES; POSITIVE MORPHOLOGY YES; Platelet Count 66 K/mm3 (150-450); RBC Distribution Width CV 20.8 % (11.6-14.6); RBC Distribution Width SD 57.2 fl (35.1-43.9); Red Blood Count 3.22 M/mm3 (4.2-5.4); White Blood Count 4.6 K/mm3 (4.4-11.0)
[2023-09-22 06:46] LABS: ALB/GLOB Ratio 0.2 RATIO (0.9-2.4); AST(SGOT) 41 U/L (15-37); Alanine Aminotransfer ALT/SGPT 18 U/L (13-56); Albumin, Serum 1.6 g/dL (3.2-5.0); Alkaline Phosphatase 39 U/L (45-117); Anion Gap 7 (5-15); BUN 16 mg/dL (7-18); BUN/Creat Ratio 19.2 RATIO (10-20); Calcium,Total 9.8 mg/dL (8.5-10.1); Chloride 96 mmol/L (98-107); Creatinine, Serum 0.83 mg/dL (0.55-1.02); EST Glomerular Filtration Rate 71 mL/min (>60); Est Glom Filt Rate - Afr Amer 86 mL/min (>60); Glucose 121 mg/dL (74-106); Lipase 19 U/L (13-75); Potassium 4.7 mmol/L (3.5-5.1); Protein, Total 11.6 g/dL (6.4-8.2); Sodium Level 131 mmol/L (136-145)
[2023-09-22 07:05] LABS: Differential Indicated SCAN CRITERIA MET
[2023-09-22 07:11] LABS: Anisocytosis 2+; Differential Comment SCANNED; Hypochromasia 1+; Platelet Estimate SLT DEC (ADEQ); Polychromasia RARE; Rouleaux 3+
[2023-09-23 13:25] LABS: Pathologist Review Reviewed
== END 2023-09-22 09:03 | disposition home or self-care (01) ==
PROVIDERS: Emergency Provider Emergency Medicine; PCP Family Medicine; Visit Provider Emergency Medicine
DX: R10.11 Right upper quadrant pain (principal); R10.12 Left upper quadrant pain; R10.13 Epigastric pain; R14.0 Abdominal distension (gaseous); K43.9 Ventral hernia without obstruction or gangrene; D69.6 Thrombocytopenia, unspecified; D64.9 Anemia, unspecified; Z79.82 Long term (current) use of aspirin; Z79.899 Other long term (current) drug therapy; Z87.891 Personal history of nicotine dependence; Z90.49 Acquired absence of other specified parts of digestive tract
CPT/HCPCS: 71045; 74177; 80053; 83690; 85025; 96374; 96375; 99283; Q9967; A4216; J2405

== ENCOUNTER → 2023-09-24 | Outpatient (CLI) | payer MEDICARE, OTHER, SELFPAY ==
[2023-09-24 17:31] LABS: Absolute Lymphocyte Count 1.94 X10^3/uL (0.83-4.51); Absolute Neutrophil Count 1.9 X10^3/uL (2.0-7.7); Basophil# 0.03 X10^3/uL; Basophil% 0.7 % (0-1); Eosinophil# 0.01 X10^3/uL; Eosinophils% 0.2 % (0-5); Hematocrit 24.5 % (37-47); Hemoglobin 7.2 g/dL (12.0-15.0); Lymphocyte # 1.94 X10^3/ul (0.83-4.51); Lymphocyte % 44.4 % (19-41); Mean Corp Hgb Conc 29.4 g/dL (32-36); Mean Corpuscular Hgb 22.9 pg (27.0-32.0); Mean Platelet Vol. 10.1 fl (6.2-12.0); Monocyte# 0.45 X10^3/uL; Monocyte% 10.3 % (0-10); NRBC Flagged by Analyzer 0 % (0-5); Neutrophil # 1.92 X10^3/uL (2.7-7.7); Neutrophil % 43.9 % (47-70); POSITIVE COUNT YES; POSITIVE MORPHOLOGY YES; Platelet Count 75 K/mm3 (150-450); RBC Distribution Width CV 20.8 % (11.6-14.6); RBC Distribution Width SD 58.4 fl (35.1-43.9); Red Blood Count 3.14 M/mm3 (4.2-5.4); White Blood Count 4.4 K/mm3 (4.4-11.0)
[2023-09-24 17:40] LABS: Differential Indicated SCAN CRITERIA MET
[2023-09-24 17:58] LABS: Ferritin 113 ng/mL (8-252); Iron 21 ug/dL (50-170); Iron Binding Capacity,Total 149 ug/dL (250-450); PERCENT IRON SATURATION 14.1 % (15.0-55.0)
[2023-09-24 18:31] LABS: Atypical Lymphocyte 1+ %; Platelet Estimate MOD DEC (ADEQ)
[2023-09-24 18:32] LABS: Anisocytosis 1+; Microcytosis 1+; Red Cell Morphology N CHROM NORMAL (NORM C&C)
== END | disposition home or self-care (01) ==
LOC: MTLAB 16:01
PROVIDERS: PCP Family Medicine; Referring Provider Family Medicine; Visit Provider Family Medicine
DX: D64.9 Anemia, unspecified (principal)
CPT/HCPCS: 36415; 82728; 83540; 83550; 85025

== ENCOUNTER 2023-09-28 07:38 | Outpatient (CLI) | payer MEDICARE, OTHER, SELFPAY ==
[2023-09-28 08:12] VITALS: BP 109/55; PULSE 71; RESP 18; TEMP 36.4; BMI 29.7
[2023-09-28] MEDS: 0.9% Normal Saline (500mL Bag) 500 ML 15 ML IV (08:25)
[2023-09-28 08:45] VITALS: BP 130/56; PULSE 56; RESP 16; TEMP 36.4; O2SAT 97
[2023-09-28 09:43] VITALS: BP 123/82; PULSE 57; RESP 16; TEMP 36.7; O2SAT 95
[2023-09-28] MEDS: Furosemide 20 MG/2 ML VIAL IV (10:19)
[2023-09-28 10:44] VITALS: BP 127/55; PULSE 56; RESP 16; TEMP 36.8
[2023-09-28 11:44] VITALS: BP 135/65; PULSE 63; RESP 16; TEMP 36.6; O2SAT 97
[2023-09-28 12:41] VITALS: BP 121/59; PULSE 57; RESP 16; TEMP 36.6; O2SAT 98
== END 2023-09-28 07:39 | disposition home or self-care (01) ==
LOC: MEDOUTP 07:39
PROVIDERS: PCP Family Medicine; Referring Provider Family Medicine; Visit Provider Family Medicine
DX: D64.9 Anemia, unspecified (principal)
CPT/HCPCS: 36415; 36430; 86850; 86900; 86901; 86920; 86922; J7040; P9016; A4216; J1940

== ENCOUNTER 2023-10-10 09:09 | Inpatient (IN) | payer MEDICARE, OTHER, SELFPAY ==
[2023-10-10] VITALS (8 sets, daily range): BP systolic 96–130; BP diastolic 46–68; PULSE 72–80; RESP 16–20; TEMP 36.4–36.7; O2SAT 95–100; BMI 29.3; BMI 29.7
--- NOTE | 2023-10-10 09:26 | CT_ITS ---
INDICATION: Pain, n/v, now distension - ++ascites vs. SBO EXAMINATION: CT ABDOMEN AND PELVIS WITHOUT CONTRAST - CT Abdomen And Pelvis W/O Contrast Injection TECHNIQUE: Helically acquired images were obtained of the abdomen and pelvis without oral or IV contrast. The protocol utilizes one or more of the following dose reduction techniques: automated exposure control, adjustment of mA and/or kV according to patient size,and/or use of iterative reconstruction technique. IV Contrast dosage and agent: None. Oral contrast: None. RADIATION DOSAGE (If Supplied By Facility): CTDIvol = ( 12.17 ) mGy, DLP = ( 550.44 ) mGycm COMPARISON: September 22, 2023 FINDINGS: LOWER CHEST: Lung bases are clear. No cardiomegaly or pericardial effusion. The lack of intravenous contrast limits evaluation of solid visceral organs. LIVER: Homogeneous. There is a stable too small to characterize low-attenuation focus within the left hepatic lobe. GALLBLADDER AND BILIARY TREE: The gallbladder is surgically absent . No intra- or extrahepatic biliary ductal dilation. PANCREAS: No focal cystic or solid mass. SPLEEN: Normal size without focal cystic or solid mass. ADRENAL GLANDS: No nodules. KIDNEYS AND URETERS: Normal renal size and position. No hydronephrosis. PERITONEUM: There is a moderate amount of ascites that has increased since the prior examination. BOWEL: No evidence of acute appendicitis. No stomach or bowel distension. There are diverticula arising from the colon. No focal inflammatory change. LYMPH NODES: No enlarged mesenteric or retroperitoneal lymph nodes. VESSELS: Aorta is non-dilated. There are peripheral calcifications of the abdominal aorta. URINARY BLADDER: Unremarkable. REPRODUCTIVE ORGANS: No pelvic masses. ABDOMINAL WALL: No discrete abdominal or pelvic wall hernia. BONES: There is a stable T12 mid compression deformity. CT/Abdomen/Pelvis without Cont IMPRESSION: Interval worsening of ascites. Colonic diverticulosis. Atherosclerosis. Electronically Signed: Yumiko Skinner MD at 9:59 EDT ,
--- NOTE | 2023-10-10 09:27 | EDS_ITS ---
HPI HPI - GI History of Present Illness Chief Complaint: Abd Pain Informant: patient and spouse/S.O. Narrative Narrative: Patient seen here a little over 2 weeks ago for similar symptoms, abdominal pain, occasional nausea and vomiting, symptoms have been persistent now she is really distended, and everything is getting worse. Since her visit to the ER which did not show diagnosis or reason on CT, she saw Dr. Alan who is going to do an upper and lower GI on her, she saw her doctor ended up having a blood transfusion because she became more fatigued and her hemoglobin went down to 7.2. She is urinating and states her urine looks dark like she may be dehydrated. She states that gold colored. She denies pruritus all over or scleral icterus. She denies any melena or bright red blood per rectum or problems urinating. [facility] Medical History Hypercalcemia COPD with acute exacerbation Anxiety Osteoporosis Former smoker CPAP (continuous positive airway pressure) dependence Sleep apnea On home oxygen therapy Asthma COPD (chronic obstructive pulmonary disease) Irregular heart beat Chest pain Migraines Right lower lobe pneumonia COVID-19 Osteoarthritis Diverticulitis Depression Bronchitis Pneumonia acute viral bronchitis secondary to influenza A Acute respiratory failure with hypoxia Hypertension COPD (chronic obstructive pulmonary disease) with chronic bronchitis Influenza A Home Medications ?Medication ?Instructions ?Recorded ?Last Taken ?Type albuterol sulfate 90 mcg/actuation 2 puff inhalation Q6H PRN 02/04/23 Unknown Rx aerosol inhaler (Ventolin HFA) shortness of breath or wheezing #18 grams aspirin 81 mg capsule 81 mg PO DAILY 07/07/23 Unknown History furosemide 40 mg tablet (Lasix) 40 mg PO DAILY #30 tabs 07/11/23 10/09/23 Rx fluoxetine 20 mg capsule 40 mg PO DAILY 10/10/23 10/09/23 History ipratropium 0.5 mg-albuterol 3 mg 3 ml inhalation Q6H PRN shortness 10/10/23 Unknown History (2.5 mg base)/3 mL nebulization of breath soln metoprolol succinate 25 mg 25 mg PO DAILY 10/10/23 10/09/23 History tablet,extended release 24 hr omeprazole 20 mg capsule,delayed 20 mg PO DAILY 10/10/23 10/09/23 History release potassium chloride 20 mEq 20 meq PO DAILY 10/10/23 10/09/23 History tablet,extended release(part/cryst) (Klor-Con M) Allergy/AdvReac Type Severity Reaction Status Date / Time latex AdvReac Other Verified 10/10/23 09:10 Family History Father Hypertension Mother Cancer uterus Surgical History History of appendectomy History of cholecystectomy S/P laparoscopy S/P cholecystectomy History of tonsillectomy and adenoidectomy H/O laminectomy Hx of cataract surgery History of bone graft H/O tubal ligation Social History household members: spouse number of children: 2 current occupational status: retired Smoking Status: Former smoker how long ago did patient quit smokin, 1pk/day second hand exposure: Yes alcohol intake: current alcohol intake frequency: a few times a week Alcohol type: beer, wine and hard liquor substance use type: does not use seatbelt use: always do you feel safe at home: Yes 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 ED Constitutional Constitutional ED: Denies chills or fever(s) Eyes Eyes: Denies change in vision or diplopia ENT ENT ED: Denies rhinorrhea or sore throat Cardiovascular Cardiovascular: Denies chest pain or palpitations Respiratory/Chest Respiratory/Chest: Denies cough or dyspnea Gastrointestinal Gastrointestinal: Reports abdominal pain, bloating, nausea and vomiting; Denies diarrhea or melena Genitourinary Genitourinary ED: Reports as per HPI; Denies dysuria or hematuria Musculoskeletal Musculoskeletal: Denies back pain or neck pain Integumentary Denies abscess or rash Neurologic Neurologic: Denies headache(s), paresthesias or weakness Psychiatric Psychiatric: Denies anxiety or suicidal thoughts EXAM Physical Exam Const Vital Signs: 10/10/23 09:10 Temperature 97.8 F Temperature Source Temporal Pulse Rate 76 Respiratory Rate 18 Blood Pressure 120/63 Blood Pressure Mean 82 Pulse Ox 96 Oxygen Delivery Method Room Air Positive well nourished and well developed General Appearance ED: well developed and NAD HEENT Reports moist mucous membranes normocephalic and atraumatic Eyes PERRL and EOMs intact bilaterally Neck full ROM and supple Resp normal respiratory effort and clear to auscultation bilaterally Cardio regular rate, regular rhythm and no murmurs GI GI Narrative: Very distended. Soft. Normal inspection otherwise. Diffusely tender but mostly in the right upper quadrant. Auscultation: normoactive bowel sounds Palpation: soft Back/Spine no CVA tenderness General Back: other FROM Extremity normal to inspection General Extremety ED: Negative for edema, pulses abnormal or tenderness General Extremity: Negative for edema or pulses abnormal Neuro oriented x3, CN's II-XII intact bilaterally and no sensory deficits noted Sensorium / Orientation: awake and alert Motor Exam: strength 5/5 throughout Skin no rashes or lesions noted and no wounds MDM MDM MDM Narrative Medical decision making narrative: I reviewed the prior ED visit and studies. I am very concerned about the re sults. She has thrombocytopenia, high total protein levels with low albumin, splenomegaly, and ascites. My concern would be for some type of cancer here, such as multiple myeloma, lymphoma, leukemia. She does not have a high white blood count, nor did the peripheral smear show a lot of immature cells or anything, just atypical lymphocytes and anisocytosis, and other findings of iron deficiency anemia, her iron levels and stores are low. I am repeating her labs and I and going to repeat her CT in order to differentiate between a partial bowel obstruction and worsening ascites versus ileus or other reason for her distention. She is also hypercalcemic, her numbers look normal but her albumin is quite low and with correction, her levels are high. I reviewed the CT images as well as the report which I agree with, it is basically showing worsening ascites. I discussed with Sheila Tena who is on-call for oncology. My concern is that this could be some type of white blood cell cancer, including the possibility of multiple myeloma. Patient appears to have a compressed T12, although it is old according to the radiologist from a couple weeks ago. Oncology advises adding testing on blood which I did, she can follow-up as an outpatient as a fast-track this week, since today is Wednesday. However when I talked to the patient and , she is so weak, not eating, difficulty getting around due to weakness, he is afraid she is going to fall, and is requesting admission because of all of this. They understand that she does not need an emergent paracentesis, and that service is not available today so she will probably have no testing done today, but she does not meet requirements for transfer since she does not need a paracentesis emergently. History & Record Review Additional record(s) reviewed:: Prior ED visit Lab Data Attestation: I reviewed the patient's lab results. Labs: Laboratory Results - last 24 hr 10/10/23 09:30 WBC 4.6 RBC 3.33 L Hgb 8.3 L Hct 27.1 L MCV 81.4 MCH 24.9 L MCHC 30.6 L RDW Std Deviation 66.6 H RDW Coeff of Kimberlyn 22.9 H Plt Count 66 L MPV 9.5 Immature Gran % (Auto) 0.200 Neut % (Auto) 55.3 Lymph % (Auto) 34.6 [place] % (Auto) 9.3 Eos % (Auto) 0.0 Baso % (Auto) 0.6 Absolute Neuts (auto) 2.6 Absolute Lymphs (auto) 1.60 Nucleated RBC % 0 Platelet Estimate MOD DEC Hypochromasia 1+ Rouleaux 2+ Sodium 129 L Potassium 4.2 Chloride 94 L Carbon Dioxide 26.0 Anion Gap 9 BUN 16 Creatinine 0.84 Estim Creat Clear Calc 54.49 Est GFR (MDRD) Af Amer 85 Est GFR (MDRD) Non-Af 70 BUN/Creatinine Ratio 19.1 Glucose 117 H Calcium 9.6 Total Bilirubin 1.80 H AST 40 H ALT 25 Alkaline Phosphatase 42 L Total Protein 11.8 H Albumin 1.5 L Globulin 10.3 H Albumin/Globulin Ratio 0.1 L Lipase 41 Radiography Diagnostic Testing: Clinical Impression(s) from Imaging Studies Abdomen/Pelvis CT 10/10/23 09:26 IMPRESSION: Interval worsening of ascites. Colonic diverticulosis. Atherosclerosis. Electronically Signed: Yumiko Skinner MD at 9:59 EDT , Management Discussion w/another healthcare provider: Hospitalist and [employer]el [employer]inter (H/O) Discharge Plan Triage Chief Complaint: Abd Pain ED Provider: Lucas Self Dx/Rx/DC Orders Clinical Impression: Debility, Abdominal ascites, Acquired hyperbilirubinemia, Thrombocytopenia, Hypercalcemia, Iron deficiency anemia, Splenomegaly Prescriptions: No Action Mucinex DM 30-600 mg tablet extended release 12 hr 1 tab PO BID PRN (Reason: cough) aspirin 81 mg capsule 81 mg PO DAILY ipratropium-albuterol 0.5 mg-3 mg(2.5 mg base)/3 mL Solution For Nebulization 3 ml inhalation Q6HWA.RT Qty: 120 0RF furosemide [Lasix] 40 mg tablet 40 mg PO DAILY Qty: 30 0RF diphenhydramine HCl [Banophen] 25 mg capsule 25 mg PO QHS PRN (Reason: sleep) potassium chloride [Klor-Con M20] 20 mEq tablet,ER particles/crystals 20 meq PO DAILY omeprazole 20 mg capsule,delayed release(DR/EC) 20 mg PO DAILY metoprolol succinate 25 mg tablet extended release 24 hr 12.5 mg PO DAILY albuterol sulfate [Ventolin HFA] 90 mcg/actuation HFA aerosol inhaler 2 puff INHALATION Q6H PRN (Reason: shortness of breath or wheezing) Qty: 18 2RF Primary Care Provider: Bruce Virk Referrals: Bruce Virk MD [Primary Care Provider] - Print Language: Telugu
[2023-10-10] MEDS: 0.9% Normal Saline (1000mL) 1,000 ML 125 ML IV (09:30)
[2023-10-10] MEDS: Ondansetron 4 MG/2 ML Vial IV (09:31)
[2023-10-10] MEDS: Morphine 4 MG/ML Syringe IV (09:31)
[2023-10-10 09:45] LABS: Absolute Neutrophil Count 2.6 X10^3/uL (2.0-7.7); Basophil# 0.03 X10^3/uL; Basophil% 0.6 % (0-1); Hematocrit 27.1 % (37-47); Hemoglobin 8.3 g/dL (12.0-15.0); Lymphocyte % 34.6 % (19-41); Mean Corp Hgb Conc 30.6 g/dL (32-36); Mean Corpuscular Hgb 24.9 pg (27.0-32.0); Mean Corpuscular Volume 81.4 fL (81-99); Mean Platelet Vol. 9.5 fl (6.2-12.0); Monocyte# 0.43 X10^3/uL; Monocyte% 9.3 % (0-10); NRBC Flagged by Analyzer 0 % (0-5); Neutrophil # 2.55 X10^3/uL (2.7-7.7); Neutrophil % 55.3 % (47-70); POSITIVE COUNT YES; POSITIVE MORPHOLOGY YES; Platelet Count 66 K/mm3 (150-450); RBC Distribution Width CV 22.9 % (11.6-14.6); RBC Distribution Width SD 66.6 fl (35.1-43.9); Red Blood Count 3.33 M/mm3 (4.2-5.4); White Blood Count 4.6 K/mm3 (4.4-11.0)
[2023-10-10 09:48] LABS: Differential Indicated SCAN CRITERIA MET
[2023-10-10 09:51] LABS: ALB/GLOB Ratio 0.1 RATIO (0.9-2.4); AST(SGOT) 40 U/L (15-37); Alanine Aminotransfer ALT/SGPT 25 U/L (13-56); Albumin, Serum 1.5 g/dL (3.2-5.0); Alkaline Phosphatase 42 U/L (45-117); Anion Gap 9 (5-15); BUN 16 mg/dL (7-18); BUN/Creat Ratio 19.1 RATIO (10-20); Calcium,Total 9.6 mg/dL (8.5-10.1); Chloride 94 mmol/L (98-107); Creatinine, Serum 0.84 mg/dL (0.55-1.02); EST Glomerular Filtration Rate 70 mL/min (>60); Est Glom Filt Rate - Afr Amer 85 mL/min (>60); Estimated Creatinine Clearance 54.49 ml/min; Globulin 10.3 g/dL (2.2-4.2); Glucose 117 mg/dL (74-106); Lipase 41 U/L (13-75); Potassium 4.2 mmol/L (3.5-5.1); Protein, Total 11.8 g/dL (6.4-8.2); Sodium Level 129 mmol/L (136-145)
[2023-10-10 10:17] LABS: Rouleaux 2+
[2023-10-10 10:18] LABS: Hypochromasia 1+; Platelet Estimate MOD DEC (ADEQ)
--- NOTE | 2023-10-10 11:03 | HP.PCM.HOS_ITS ---
HPI - General General Date of Admission: 10/10/23 Date of Service: 10/10/23 Chief Complaint: weakness HPI Narrative TAM SANCHEZ, is a 78 F with a PMH as outlined who presents via the ED on 10/10/2023 with a complaint of weakness, abdominal pain, nausea and vomiting. She also noted that she was having abdominal distension which had been going on for several days. Her said her abdominal distension doubled overnight. She also admitted to weight loss of about 30 pounds since June 2023. She has been very weak and lethargic at home. She said she saw her PCP a few days ago and was found to be anemic, so she was sent to the hospital for blood transfusion. However her weakness and lethargy persisted at home so she came in to the ED. She denied any fever, chills, chest pain, palpitations, dizziness or any other symptoms. Review of systems is otherwise negative. Vitals in the ED were BP of 115/57, MN of 75, RR of 16 and oxygen sats of 97% on room air. CBC showed Hb of 8.3, wbc of 4.6, platelets of 66. CHemistry showed sodium of 129, potassium of 4.l2, bicarb of 26 and Cr of 0.84. Total bilirubin was 1.8. Total bilirubin was elevated at 11.8 and albumin was 1.5. Lipase was 41. CT abdomen and pelvis showed interval worsening of ascites with colonic diverticulosis and a stable T12 compression fracture. [facility] Medical History (Updated 10/10/23 @ 12:18 by Ernestina Maciel) GERD (gastroesophageal reflux disease) Hypertension Hypercalcemia COPD with acute exacerbation Anxiety Osteoporosis Former smoker CPAP (continuous positive airway pressure) dependence Sleep apnea On home oxygen therapy Asthma COPD (chronic obstructive pulmonary disease) Irregular heart beat Chest pain Migraines Right lower lobe pneumonia COVID-19 Osteoarthritis Diverticulitis Depression Bronchitis Pneumonia acute viral bronchitis secondary to influenza A Acute respiratory failure with hypoxia Hypertension COPD (chronic obstructive pulmonary disease) with chronic bronchitis Influenza A Home Medications ?Medication ?Instructions ?Recorded ?Last Taken ?Type albuterol sulfate 90 mcg/actuation 2 puff inhalation Q6H PRN 02/04/23 Unknown Rx aerosol inhaler (Ventolin HFA) shortness of breath or wheezing #18 grams aspirin 81 mg capsule 81 mg PO DAILY 07/07/23 Unknown History furosemide 40 mg tablet (Lasix) 40 mg PO DAILY #30 tabs 07/11/23 10/09/23 Rx fluoxetine 20 mg capsule 40 mg PO DAILY 10/10/23 10/09/23 History ipratropium 0.5 mg-albuterol 3 mg 3 ml inhalation Q6H PRN shortness 10/10/23 Unknown History (2.5 mg base)/3 mL nebulization of breath soln metoprolol succinate 25 mg 25 mg PO DAILY 10/10/23 10/09/23 History tablet,extended release 24 hr omeprazole 20 mg capsule,delayed 20 mg PO DAILY 10/10/23 10/09/23 History release potassium chloride 20 mEq 20 meq PO DAILY 10/10/23 10/09/23 History tablet,extended release(part/cryst) (Klor-Con M) Allergy/AdvReac Type Severity Reaction Status Date / Time latex AdvReac Other Verified 10/10/23 09:10 Family History Father Hypertension Mother Cancer uterus Surgical History History of appendectomy History of cholecystectomy S/P laparoscopy S/P cholecystectomy History of tonsillectomy and adenoidectomy H/O laminectomy Hx of cataract surgery History of bone graft H/O tubal ligation Social History household members: spouse number of children: 2 current occupational status: retired Smoking Status: Former smoker how long ago did patient quit smokin, 1pk/day second hand exposure: Yes alcohol intake: current alcohol intake frequency: a few times a week Alcohol type: beer, wine and hard liquor substance use type: does not use seatbelt use: always do you feel safe at home: Yes additional social history: - Redd ROS Review of Systems ROS Unobtainable: Denies due to encephalopathy Constitutional Constitutional: Reports anorexia, change in weight, fatigue, malaise and weakness; Denies chills or fever(s) Eyes Eyes: Denies change in eye color ENT HEENT: Denies dysphagia Cardiovascular Cardiovascular: Denies chest pain, dyspnea on exertion, edema, lightheadedness, orthopnea, palpitations, paroxysmal nocturnal dyspnea, rapid heart rate or syncope Respiratory/Chest Respiratory/Chest: Denies cough, dyspnea, productive cough, shortness of breath at rest, shortness of breath with exertion or wheezing Gastrointestinal Gastrointestinal: Reports abdominal pain and other Details: abdominal distension ; Denies constipation, diarrhea, dyspepsia, nausea or vomiting Genitourinary Genitourinary: Denies dysuria Neurologic Neurologic: Denies confusion, dizziness, focal weakness, headache(s) or numbness Psychiatric Psychiatric: Denies anxiety Hematologic/Lymphatic Hematologic/Lymphatic: Reports anemia; Denies easy bleeding, easy bruising or lymphadenopathy Vital Signs Vital Signs Vital Signs: 10/10/23 09:10 Temperature 97.8 F Temperature Source Temporal Pulse Rate 76 Respiratory Rate 18 Blood Pressure 120/63 Blood Pressure Mean 82 Pulse Ox 96 Oxygen Delivery Method Room Air Weight Weight: 165 lb 14.4 oz Body Mass Index (BMI) 29.3 Physical Exam Const alert, oriented x3 and no apparent distress Constitutional Narrative: weak General Appearance: cooperative HEENT normocephalic, head/scalp atraumatic, hearing grossly normal bilaterally, moist oral mucous membranes and oropharynx normal Mouth: oral and palatal mucosa normal Eyes PERRL, EOMs intact bilaterally and conjunctivae normal Neck no lymphadenopathy and supple Resp normal respiratory effort, no retractions, no use of accessory muscles and clear to auscultation bilaterally Cardio regular rate, regular rhythm, S1 normal heart sound, S2 normal heart sound and no murmurs GI GI Narrative: abdomen distended, positive fluid thrill, moderate epigastric tenderness, no guarding or rebound tenderness. Extremity normal to inspection, full ROM and no clubbing, cyanosis or edema Neuro oriented x3, CN's II-XII intact bilaterally, moves all extremities and no focal motor deficits Sensorium / Orientation: awake Motor Exam: strength 5/5 throughout Psych affect normal Results Lab / Micro Data 10/10/23 09:30 10/10/23 09:30 Labs: Laboratory Results - last 24 hr 10/10/23 09:30: WBC 4.6, RBC 3.33 L, Hgb 8.3 L, Hct 27.1 L, MCV 81.4, MCH 24.9 L , MCHC 30.6 L, RDW Std Deviation 66.6 H, RDW Coeff of Kimberlyn 22.9 H, Plt Count 66 L , MPV 9.5, Immature Gran % (Auto) 0.200, Neut % (Auto) 55.3, Lymph % (Auto) 34.6, [place] % (Auto) 9.3, Eos % (Auto) 0.0, Baso % (Auto) 0.6, Absolute Neuts (auto) 2.6, Absolute Lymphs (auto) 1.60, Nucleated RBC % 0, Platelet Estimate MOD DEC, Hypochromasia 1+, Rouleaux 2+, Sodium 129 L, Potassium 4.2, Chloride 94 L, Carbon Dioxide 26.0, Anion Gap 9, BUN 16, Creatinine 0.84, Estim Creat Clear Calc 54.49, Est GFR (MDRD) Af Amer 85, Est GFR (MDRD) Non-Af 70, BUN/Creatinine Ratio 19.1, Glucose 117 H, Calcium 9.6, Total Bilirubin 1.80 H, AST 40 H, ALT 25, Alkaline Phosphatase 42 L, Total Protein 11.8 H, Albumin 1.5 L, Globulin 10.3 H, Albumin/Globulin Ratio 0.1 L, Lipase 41 Imaging Radiology Impression Abdomen/Pelvis CT 10/10/23 09:26 IMPRESSION: Interval worsening of ascites. Colonic diverticulosis. Atherosclerosis. Electronically Signed: Yumiko Skinner MD at 9:59 EDT , Assessment & Plan Assessment/Plan (1) Iron deficiency anemia: (2) Thrombocytopenia: (3) Abdominal ascites: PLAN: Plan #Probable multiple myeloma * admitted with a complaint of weakness and lethargy. Found to have anemia, with hb of 8.3. Wbc is 4.6 and platelets are low at 66 * she has elevated protein of 11.8, but albumin is low at 1.5. This is concerning for an infiltrative bone marrow disorder such as multiple myeloma * ED doctor spoke to oncology who recommended serum protein electrophoresis and urine electrophresis. * total bilirubin is 1.8 though AST and ALT are low. * consult oncology * will order diagnostic paracentesis and request for cytology of the fuid to aid with the diagnosis * #Hyperbilirubinemia with ascites * bilirubin is 1.8. May be related to underlying suspected hematologic malignancy * AST and ALT are WNL * has ascites; diagnostic paracentesis ordered. * check PT/INR and PTT * #Iron deficiency anemia * Hb is 8.3. Received 2 units of PRBCs recently after Hb was noted to be 7.2 on 09/23/2022 * iron profile from 09/24/2023 showed iron level of 21, TIBC of 149 and iron saturation of 14.1. * Says she has been referred to general surgery for EGD and colonoscopy. * #Hypertension; on metoprolol. #COPD: not in exacerbation. Breathing treatment with bronchodilators. #HFpEF: on in exacerbation. On lasix 40mg daily. #Depression: on fluoxetine. DVT prophylaxis: SCDs, no anticoagulation due to thrombocytopenia COde status: full code * Patient and counseled extensively about different types of CODE STATUS including full code, DNR CCA and DNR CCA. Patient elects to be full code. * Total [id number] time 17 minutes. * Charges/Coding Visit Charges Inpatient E&M: 94266 Init Hosp L3 Procedures Hospitalists Procedures: 27041 Advncd Care Plan 30 Min
[2023-10-10 11:23] LABS: LDH 60 U/L (84-246)
[2023-10-10 14:53] LABS: International Normalized Ratio 1.7
[2023-10-10 14:54] LABS: Partial Thromboplast Time 49.7 Seconds (24.1-36.2)
[2023-10-10] MEDS: 0.9% Normal Saline (1000mL) 1,000 ML 75 ML IV (15:02)
[2023-10-10] MEDS: 0.9% Saline Lock 10 ML Syringe IV (19:21)
[2023-10-10] MEDS: Morphine 2 MG/ML Syringe IV (19:21)
[2023-10-11] VITALS (10 sets, daily range): BP systolic 118–137; BP diastolic 60–93; PULSE 72–84; RESP 16–20; TEMP 36.7–37; O2SAT 92–98
--- NOTE | 2023-10-11 | FLU_PTH ---
PATIENT: TAM SANCHEZ LOC: [facility] U#:[id number] AGE/SX: 78/F ROOM: ICU07 RE10/10/[address]: Dr. Ciro Cloud MD : 1945 BED: 1 DIS: 10/15/2023 SPEC #: [id number] RECD: 10/11/23 14:46 STATUS: TERESA REQ #: [id number] NAVID: 10/11/23 00:[address]: Valente Castro DEPT: CYTOLOGY RECD BY: Shari June ENTERED: 10/11/23 14:46 SP TYPE: Fluid OTHR DR: MD Dr. Valente Townsend MD Dr. Joseph Prah, MD Dr. Mansour Isckarus, MD Dr. Nana Yaa Koram, MD Dr. Paul Nielsen, MD Dr. Robert Field, MD Dr. Ryan Jin, MD Dr. Roger Macklis, MD Dr. Steve Walston, Sheila Weems, STUCCO PLASTERER- Tissues: PARACENTESIS FLUID Procedures: Special Stain Group II Surgery Specimen Level IV Cytospin Fluid HEADER OPERATION: Paracentesis PRE-OP DIAGNOSIS: Ascites TISSUE SUBMITTED: Paracentesis fluid for cytology DIAGNOSIS CYTOLOGY Paracentesis fluid for cytology (cytospin and cellblock): Negative for malignant cells. See comment. AM/ 10/12/2023 COMMENT Immunohistochemistry ([id number]) supports the above diagnosis. CYTOLOGY STUDY Slides are reviewed. CYTOLOGY GROSS Received is 85 ml of hazy-yellow fluid labeled with the patient's name and and designated per the requisition as Paracentesis fluid. Submitted for cytology preparation including cell block. Mr 10/11/2023 TC:5 CPT: 16616
--- NOTE | 2023-10-11 | IMM_PTH ---
PATIENT: TAM SANCHEZ LOC: ICU U#:[id number] AGE/SX: 78/F ROOM: ICU07 RE10/10/[address]: Dr. Ciro Cloud MD : 1945 BED: 1 DIS: 10/15/2023 SPEC #: [id number] RECD: 10/12/23 12:05 STATUS: SOUAly REQ #: [id number] NAVID: 10/11/23 00:[address]: Valente Castro DEPT: IMMUNOHISTOCHEMISTRY RECD BY: Wilfred Lao ENTERED: 10/12/23 12:06 SP TYPE: IMMUNO OTHR DR: MD Dr. Valente Townsend MD Dr. Joseph Prah, MD Dr. Mansour Isckarus, MD Dr. Nana Yaa Koram, MD Dr. Paul Nielsen, MD Dr. Robert Field, MD Dr. Ryan Jin, MD Dr. Roger Macklis, MD Dr. Steve Walston, DO Sheila Weems, GUM MACHINE FILLER-C Tissues: PARACENTESIS FLUID Procedures: CK20 (add) CK5-6 (add) CK7 (add) KI-67 (add) P53 (add) Vimentin (add) Pankeratin (initial) P40 (add) CD68 (ADD) PHYSICIAN & [place] [id number] SPECIMEN INFORMATION: Tissue Source: Paracentesis fluid Clinical Info: Ascites Specimen Number: [id number] CPT code: 46831,[id number] METHODOLOGY: Deparaffinized sections of prefer/formalin-fixed tissue or PAP/DQ stained slides are incubated with monoclonal/polyclonal antibodies/oligonucleotide probes. Localization is made via biotin free immunoperoxidase method. Appropriate controls are performed and reacted as expected. Results on target cell population are indicated in the following table: RESULTS: ANTIBODY / CLONE RESULT AE1-3 (AE1/AE3/PCK26) negative CK7 (OV-TL12/30) negative CK20 (KS20.8) negative Vimentin (V9) positive CD68 (KP-1) positive CK5-6 (D5 & 1684) negative P40 (BC28) negative P53 (DO-7) negative, null pattern Ki-67 (30-9) positive, rare cells These tests were developed and their performance characteristics determined by [facility]. They may not have been cleared or approved by the U.S. Food and Drug Administration. The FDA has determined that such clearance or approval is not necessary. The above immunohistochemical/dualISH markers are ordered and reviewed by the Pathologist. INTERPRETATION: Paracentesis fluid: No evidence of malignancy. COLTEN/ 10/13/2023
--- NOTE | 2023-10-11 00:56 | CPS ---
2L oxygen bled in with home CPAP
[2023-10-11] MEDS: Ipratropium/Albuterol Sulfate 3 ML AMPUL.NEB INHALATION (02:10)
[2023-10-11 06:19] LABS: Absolute Lymphocyte Count 1.28 X10^3/uL (0.83-4.51); Absolute Neutrophil Count 2.2 X10^3/uL (2.0-7.7); Basophil# 0.03 X10^3/uL; Basophil% 0.7 % (0-1); Eosinophil# 0.01 X10^3/uL; Eosinophils% 0.2 % (0-5); Hematocrit 24.6 % (37-47); Hemoglobin 7.3 g/dL (12.0-15.0); Lymphocyte # 1.28 X10^3/ul (0.83-4.51); Lymphocyte % 29.9 % (19-41); Mean Corp Hgb Conc 29.7 g/dL (32-36); Mean Corpuscular Hgb 24.5 pg (27.0-32.0); Mean Corpuscular Volume 82.6 fL (81-99); Mean Platelet Vol. 10.2 fl (6.2-12.0); Monocyte# 0.71 X10^3/uL; Monocyte% 16.6 % (0-10); NRBC Flagged by Analyzer 0.7 % (0-5); Neutrophil # 2.21 X10^3/uL (2.7-7.7); Neutrophil % 51.7 % (47-70); POSITIVE COUNT YES; POSITIVE MORPHOLOGY YES; Platelet Count 61 K/mm3 (150-450); RBC Distribution Width CV 22.8 % (11.6-14.6); RBC Distribution Width SD 67.9 fl (35.1-43.9); Red Blood Count 2.98 M/mm3 (4.2-5.4); White Blood Count 4.3 K/mm3 (4.4-11.0)
[2023-10-11 06:32] LABS: Differential Indicated SCAN CRITERIA MET
[2023-10-11 06:43] LABS: International Normalized Ratio 1.8; Prothrombin Time (Protime)PT. 20.5 SECONDS (11.7-14.9)
[2023-10-11 06:56] LABS: ALB/GLOB Ratio 0.1 RATIO (0.9-2.4); AST(SGOT) 33 U/L (15-37); Alanine Aminotransfer ALT/SGPT 22 U/L (13-56); Albumin, Serum 1.4 g/dL (3.2-5.0); Alkaline Phosphatase 44 U/L (45-117); Anion Gap 11 (5-15); BUN 14 mg/dL (7-18); BUN/Creat Ratio 21.2 RATIO (10-20); Calcium,Total 8.8 mg/dL (8.5-10.1); Chloride 96 mmol/L (98-107); Creatinine, Serum 0.66 mg/dL (0.55-1.02); EST Glomerular Filtration Rate 92 mL/min (>60); Est Glom Filt Rate - Afr Amer 112 mL/min (>60); Estimated Creatinine Clearance 57.57 ml/min; Globulin 9.5 g/dL (2.2-4.2); Glucose 94 mg/dL (74-106); Potassium 4.1 mmol/L (3.5-5.1); Protein, Total 10.9 g/dL (6.4-8.2); Sodium Level 131 mmol/L (136-145)
[2023-10-11 07:56] LABS: Platelet Estimate MOD DEC (ADEQ)
--- NOTE | 2023-10-11 08:17 | PCM.PN.HOSP ---
Reason for Visit Reason for Visit: Diagnoses Iron deficiency anemia, unspecified (10/10/23) Thrombocytopenia, unspecified (10/10/23) Other ascites (10/10/23) Subjective Subjective Patient is a 78-year-old lady admitted with increasing generalized weakness and lethargy as well as abdominal pain found to have low hemoglobin and platelet count with relatively low WBC count. A suspicion of possible underlying hematologic malignancy made admitted to regular nursing floor. Patient was also found to have ascites. Objective Data Objective Data Vital Signs: Vital Signs Temp Pulse Resp BP Pulse Ox O2 Del Method O2 Flow Rate 98.1 F 84 18 128/93 H 93 Room Air 2 10/11/23 03:15 10/11/23 03:15 10/11/23 03:15 10/11/23 03:15 10/11/23 07:34 10/11/23 07:34 10/11/23 03:20 Oxygen Flow Rate (L/min) 2 Oxygen Delivery Method Room Air Weight: 76.204 kg Body Mass Index (BMI) 29.7 Intake & Output: Intake and Output for Last 24 Hours 10/09/23 10/10/23 10/11/23 23:59 23:59 23:59 Intake Total 385.41 / 785.41 1400 / 1400 Balance 385.41 / 785.41 1400 / 1400 Lab / Micro Data 10/11/23 05:43 10/11/23 05:43 Labs: Laboratory Results - last 24 hr 10/10/23 09:30: WBC 4.6, RBC 3.33 L, Hgb 8.3 L, Hct 27.1 L, MCV 81.4, MCH 24.9 L, MCHC 30.6 L, RDW Std Deviation 66.6 H, RDW Coeff of Kimberlyn 22.9 H, Plt Count 66 L, MPV 9.5, Immature Gran % (Auto) 0.200, Neut % (Auto) 55.3, Lymph % (Auto) 34.6, [place] % (Auto) 9.3, Eos % (Auto) 0.0, Baso % (Auto) 0.6, Absolute Neuts (auto) 2.6, Absolute Lymphs (auto) 1.60, Nucleated RBC % 0, Platelet Estimate MOD DEC, Hypochromasia 1+, Rouleaux 2+, Sodium 129 L, Potassium 4.2, Chloride 94 L, Carbon Dioxide 26.0, Anion Gap 9, BUN 16, Creatinine 0.84, Estim Creat Clear Calc 54.49, Est GFR (MDRD) Af Amer 85, Est GFR (MDRD) Non-Af 70, BUN/Creatinine Ratio 19.1, Glucose 117 H, Calcium 9.6, Total Bilirubin 1.80 H, AST 40 H, ALT 25, Alkaline Phosphatase 42 L, Total Protein 11.8 H, Albumin 1.5 L, Globulin 10.3 H, Albumin/Globulin Ratio 0.1 L, Lipase 41 10/10/23 11:00: Lactate Dehydrogenase 60 L 10/10/23 14:30: PT 20.0 H, INR 1.7, APTT 49.7 H 10/11/23 05:43: WBC 4.3 L, RBC 2.98 L, Hgb 7.3 L, Hct 24.6 L, MCV 82.6, MCH 24.5 L, MCHC 29.7 L, RDW Std Deviation 67.9 H, RDW Coeff of Kimberlyn 22.8 H, Plt Count 61 L, MPV 10.2, Immature Gran % (Auto) 0.900, Neut % (Auto) 51.7, Lymph % (Auto) 29.9, [place] % (Auto) 16.6 H, Eos % (Auto) 0.2, Baso % (Auto) 0.7, Absolute Neuts (auto) 2.2, Absolute Lymphs (auto) 1.28, Nucleated RBC % 0.7, Differential Comment , Platelet Estimate MOD DEC, PT 20.5 H, INR 1.8, Sodium 131 L, Potassium 4.1, Chloride 96 L, Carbon Dioxide 24.0, Anion Gap 11, BUN 14, Creatinine 0.66, Estim Creat Clear Calc 57.57, Est GFR (MDRD) Af Amer 112, Est GFR (MDRD) Non-Af 92, BUN/Creatinine Ratio 21.2 H, Glucose 94, Calcium 8.8, Total Bilirubin 1.60 H, AST 33, ALT 22, Alkaline Phosphatase 44 L, Total Protein 10.9 H, Albumin 1.4 L, Globulin 9.5 H, Albumin/Globulin Ratio 0.1 L Radiography Diagnostic Testing: Radiology Impression Abdomen/Pelvis CT 10/10/23 09:26 IMPRESSION: Interval worsening of ascites. Colonic diverticulosis. Atherosclerosis. Electronically Signed: Yumiko Skinner MD at 9:59 EDT , Physical Exam Narrative GENERAL: cooperative HEENT: Atraumatic; normocephalic EYES; Anicteric, Normal Conjunctiva NECK; supple, normal thyroid, RESPIRATORY: Diminished to auscultation CARDIOVASCULAR: Regular S1 S2, GI: soft, normoactive bowel sounds, : No Renal angle tenderness; EXTREMITIES: No edema, no clubbing, MUSCULOSKELETAL: no muscle wasting NEURO: Awake; no lateralizing signs. SKIN: No Rash PSYCH; Flat affect Assessment & Plan Assessment/Plan (1) Iron deficiency anemia: (2) Thrombocytopenia: (3) Abdominal ascites: PLAN: Plan Patient is a 78-year-old lady admitted with increasing generalized weakness and lethargy as well as abdominal pain found to have low hemoglobin and platelet count with relatively low WBC count. A suspicion of possible underlying hematologic malignancy made admitted to regular nursing floor. Patient was also found to have ascites. 1. Suspected myeloproliferative disorder ? Presented with progressive generalized weakness found to be anemic, with thrombocytopenia as well as low WBC count. Oncology recommended serum and urine protein electrophoresis as part of her workup 3. Ascites ? Patient to undergo diagnostic paracentesis 3. Severe anemia ? Patient iron studies came back consistent with iron deficiency anemia. Patient has apparently been evaluated by general surgery as outpatient consult placed Dr. Alan case discussed with patient undergoing EGD and colonoscopy during her hospital stay. 4. COPD ? Stage I?mild. Gold classification bronchodilator treatment as needed 5. Hypertension - Blood pressure controlled, home medications continued with dose adjustment as needed 6. GERD ? On PPI 7. Chronic congestive heart failure with preserved ejection fraction ? Patient is on diuretic therapy with furosemide 8. Depression ? Patient is on fluoxetine 9. Thrombocytopenia ? Thought to be related to patient underlying suspected hematologic malignancy workup as discussed above 10. Class I obesity with BMI of 30 ? Weight loss advised 11. DVT prophylaxis ? Held off chemoprophylaxis given patient anemia and low platelet count Time spent in the patient's overall evaluation,decision-making process, review of diagnostic data, adjustment of management, discussion with other providers, nursing nursing and ancillary staff involved in patient's care documentation, 52 Minutes Charges/Coding Visit Charges Inpatient E&M: 44345 Subs Hosp L3
[2023-10-11] MEDS: 0.9% Saline Lock 10 ML Syringe IV ×3 (08:18→23:52)
[2023-10-11] MEDS: Morphine 4 MG/ML Syringe IV ×2 (08:18→19:19)
--- NOTE | 2023-10-11 10:25 | CASEMGMT ---
RN CM elephant keeper CM to room to meet with patient for initial transition planning/care coordination assessment. 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 Pt is A&Ox4 and agreeable to assessment. Care providers, pharmacy, and demographics verified. PCP: Dr Virk Specialists: Sree Brown, LACTATION CONSULTANT- pulmonology, Dr Alan-KAREN Preferred Pharmacy: [facility] retail @ discharge. Otherwise, utilizes [facility] or mail delivery. Insurance: [facility], [employer] Prescription Benefit: Yes LNOK: Umesh Telles, Living Arrangements: Pt lives with her in one-story home with a basement and handrail and one step to enter. Pt is independent w/ADL's and manages her own medications. Pt and share home mgnt tasks. Transportation: Pt and both drive. will take her home @ discharge. DME: Walk in shower with grab bar, nebulizer, and home O2 through [facility]. Pt states she normally wears 2L through her CPAP at night only. Call placed to [facility]. Current O2 orders are 3 l/m w/exertion and 2 l/m @ rest & via PAP. Pt states that she has a concentrator at home as well as portable tanks and her can bring it in @ dc, if needed. Pt currently on RA. Pt also states that she has a COPD vest shaker vest that she named Valentín. HHC/SNF: Denies history of either. Pt states that she does not want or need HHC, OP therapy, or SNF at this time. 6 clicks: 20. Therapy was just in working w/pt. WW recommended, but pt declines. She states her home is too small to be able to manage around well w/a WW and she just furniture walks and she does not wish to use a walker outside of the home either. Instructed to ask for CM if she changes her mind. Plan: Home w/spousal support and discharge plans in place. Nelly SALAZAR RN CM
[2023-10-11] MEDS: Potassium Chloride Oral Tablet 20 MEQ PO (10:41)
[2023-10-11] MEDS: Furosemide 40 MG Tablet PO (10:41)
[2023-10-11] MEDS: Fluoxetine HCl 40 MG CAPSULE PO (10:41)
[2023-10-11] MEDS: Metoprolol(XL)Succ 25 MG Tablet PO (10:42)
[2023-10-11] MEDS: Pantoprazole Sodium 20 MG Tablet PO (10:46)
--- NOTE | 2023-10-11 11:10 | HP.PCM_ITS ---
History and Physical Date of Admission: 10/10/23 Intake Vital Signs 09/21/2404:49 09/28/2407:12 10/11/23 09:15 Height 5 ft 3 in 5 ft 3 in 5 ft 3 in Weight: 168 lb BMI 29.4 BP 124/69 H Blood Pressure Location Lt brachial Position Sitting Respiration 16 Intake Visit Reasons: Anemia Chief Complaint: anemia Information Technology Advisor Required: No Is patient in pain?: Yes (upper abdomen) Allergies latex Adverse Reaction (Verified 10/06/23 14:08) Other Medications ?Medication ?Instructions ?Recorded ?Confirmed ?Type albuterol sulfate 90 mcg/actuation 2 puff inhalation Q6H PRN 02/04/23 10/11/23 Rx aerosol inhaler (Ventolin HFA) shortness of breath or wheezing #18 grams aspirin 81 mg capsule 81 mg PO DAILY 07/07/23 10/11/23 History furosemide 40 mg tablet (Lasix) 40 mg PO DAILY #30 tabs 07/11/23 10/11/23 Rx ipratropium 0.5 mg-albuterol 3 mg 3 ml inhalation Q6HWA.RT #120 mL 07/11/23 10/11/23 Rx (2.5 mg base)/3 mL nebulization soln potassium chloride 20 mEq 20 meq PO DAILY #30 tabs 07/11/23 10/11/23 Rx tablet,extended release dextromethorphan-guaifenesin 30 1 tab PO BID PRN cough 09/16/23 10/11/23 History mg-600 mg tablet extended [id number] hr (Mucinex DM) diphenhydramine HCl 25 mg capsule 25 mg PO QHS PRN sleep 09/16/23 10/11/23 History (Banophen) fluoxetine 40 mg capsule 40 mg PO DAILY 09/16/23 10/11/23 History metoprolol tartrate 25 mg tablet 25 mg PO DAILY HR 09/16/23 10/11/23 History PFSH Medical History Hypercalcemia COPD with acute exacerbation Anxiety Osteoporosis Former smoker CPAP (continuous positive airway pressure) dependence Sleep apnea On home oxygen therapy Asthma COPD (chronic obstructive pulmonary disease) Irregular heart beat Chest pain Migraines Right lower lobe pneumonia COVID-19 Osteoarthritis Diverticulitis Depression Bronchitis Pneumonia acute viral bronchitis secondary to influenza A Acute respiratory failure with hypoxia Hypertension COPD (chronic obstructive pulmonary disease) with chronic bronchitis Influenza A Surgical History History of appendectomy History of cholecystectomy S/P laparoscopy S/P cholecystectomy History of tonsillectomy and adenoidectomy H/O laminectomy Hx of cataract surgery History of bone graft H/O tubal ligation Family History Father HypertensionMother Cancer uterus Social History household members: spouse number of children: 2 current occupational status: retired Smoking Status: Former smoker how long ago did patient quit smokin, 1pk/day second hand exposure: Yes alcohol intake: current alcohol intake frequency: a few times a week Alcohol type: beer, wine and hard liquor substance use type: does not use seatbelt use: always do you feel safe at home: Yes additional social history: - Redd HPI HPI HPI: Patient is a 78 y/o F I have been consulted on in conjunction with Dr. Alan. Patient was evaluated by Dr. Alan in the office last week for anemia. Patient notes she has been having right sided abdominal pain, weakness and bloating, which has become worse. She notes this is what brought her into the hospital. Patient notes her hemoglobin has been steadily decreasing. She notes having a blood transfusion of 2 units. She states over the past month, she has had an increase in her abdominal girth. She states she has been taking Lasix to assist with the ascites that she has developed. She denies having a paracentesis. She notes she has had previous upper and lower scopes, however she is unsure when and who performed the procedures. Patient recently had an ECHO on 08/18. She is scheduled to see Dr. Wiley as an outpatient next month. She notes a history of COPD and follows with Dr. Castillo. Patient also states that she has lost 65 pounds unintentionally over the last 4 years. She notes currently having a metallic taste in her mouth. Patient notes she is currently being worked-up for possible multiple myeloma. She denies any heartburn or reflux symptoms. She notes pencil-thin stools. She notes her bowel habits have changed within the last month. CT scan of the ab/pel was obtained and demonstrated interval worsening ascites (compared to CT on 09/21), colonic diverticulosis, and atherosclerosis. Patient's Hgb on admission was 8.3. Today, Hgb is 7.3. Patient's previous history per Dr. Alan: Patient is a 78-year-old female here for epigastric pain and bloating and diarrhea. She was seen in the emergency room 2 weeks ago. She was started on a PPI and has been on for a week with no improvement. She says that her abdomen gets very tight and bloated and she is having upper abdominal pain. She also has some nausea and vomiting occasionally. ROS General General: Yes weight change and fatigue; No appetite, colon cancer, breast cancer or weakness HEENT HEENT: No difficulty swallowing, eye injury, eye surgery, swollen glands or hoarseness Endo Endocrine: No thyroid disease, diabetes mellitus, thyroid cancer, Hair loss, heat intolerance or cold intolerance Skin Skin: No rash or changing moles Breast Breast: No left breast lump, right breast lump, nipple discharge, breast pain, abnormal mammogram, abnormal US or breast enlargement Musc Musculoskeletal: Yes back problems, arthritis and rheumatoid arthritis; No gout or joint pain Cardio Cardiovascular: Yes high blood pressure; No murmur, pacemaker, heart disease, atrial fibrillation, heart attack, heart stent, palpitations, shortness of breat with exertion or chest pain Psych Psychiatric: Yes depression and anxiety; No hearing voices Resp Respiratory: Yes shortness of breath, Yes sleep apnea, No cough, No COPD, No asthma, No emphysema and No wheezing Gastro Gastrointestinal: Yes abdominal pain, Yes nausea or vomiting, Yes diarrhea, No constipation, No blood in stool, No acid reflux, Yes hemorrhoids, No ulcers, No gallbladder problem and No black,tarry stools Dom Hematologic: No blood thinners, No blood disorders, No bleeding, Yes anemia and No blood clots Neuro Neurologic: No system reviewed and no additional complaints, except as documented, No as per HPI, No abnormal gait, No abnormal hearing, No abnormal movements, No abnormal speech, No behavioral changes, No burning sensations, No confusion, No convulsions, No disequilibrium, No dizziness, No localized weakness, No frequent falls, No headache(s), No lack of coordination, No loss of vision, No memory loss, No numbness, No other visual disturbances, No radicular pain, No restless legs, No sensory deficit, No syncope, No tingling, No tremor(s), No weakness and No other Exam Const General: cooperative Orientation: alert and oriented x3 HENSD Head: normal to inspection Neck Neck: normal visual inspection and full ROM Chest Chest palpation & inspection: normal inspection of the chest Resp Effort & Inspection: normal respiratory effort Auscultation: clear to auscultation bilaterally Cardio Rate: regular rate Rhythm: regular rhythm GI Inspection: non-distended Palpation: soft and nontender Skin General: no rashes or lesions noted Neuro General: patient alert and patient oriented x3 Extrem General: full ROM Psych Appearance: grossly normal Mental Status: mental status grossly normal Assessment & Plan Assessment/Plan (1) Iron deficiency anemia: QUALIFIERS: Iron deficiency anemia type: unspecified iron deficiency Qualified Code(s): D50.9 - Iron deficiency anemia, unspecified PLAN: I have been consulted in conjunction with Dr. Alan. He will independently evaluate this patient. Plan to start patient on clear liquids, bowel prep today. Dr. Alan will plan to perform an upper and lower scope with possible biopsies, possible cessation of bleeding. Procedure details, risks and benefits have been explained. Patient has had the opportunity to ask and have questions answered. Patient verbally understands and agrees with the plan. Thank you for allowing us to participate in this patient's care. Charges/Coding Visit Charges Office Visits / Consults: 38817 IP Consult L3
[2023-10-11] MEDS: Lidocaine 2% (20 ml mdv) 20 ML Vial INFILT (13:50)
[2023-10-11 14:25] LABS: Cytology, Body Fluid / CSF SEE PATHOLOGY REPORT
[2023-10-11] MEDS: Bisacodyl 5 MG Tablet 20 MG PO (14:26)
--- NOTE | 2023-10-11 14:36 | PRO.PCM_ITS ---
Procedure Report Date of Procedure: 10/11/23 Assessment & Plan Assessment/Plan (1) Abdominal ascites: QUALIFIERS: Ascites type: other type Qualified Code(s): R18.8 - Other ascites PLAN: PROCEDURE: Ultrasound guided paracentesis ORDERING PROVIDER: Dr. Wagner INDICATION: Female, 78 years old. Abdominal ascites. PROVIDER: RONNIE Greene TECHNIQUE: The risks, benefits, and alternatives to the procedure were explained to the patient. The specific risks of bleeding, infection, and damage to bowel were detailed and accepted. Witnessed informed consent was obtained. The abdomen was ultrasonographically surveyed. An appropriate pocket of fluid was identified in the right lower quadrant. The skin was prepped with chlorhexidine and sterile field established. 2% lidocaine was used for local anesthetic. Using ultrasound guidance, the peritoneal cavity was accessed with a 5-Kinyarwanda paracentesis needle/catheter system. The trocar was removed. A total of 1300 ml of clear shari colored fluid was removed from the peritoneal cavity. 100 and mL of this fluid was collected and sent to the laboratory for analysis. The catheter was removed and a sterile dressing was applied. The procedure was well tolerated. IMPRESSION: Successful ultrasound-guided paracentesis with right lower quadrant access site. Procedures Radiology Radiology US Procedures: 64304 Paracentesis
[2023-10-11 14:38] LABS: Body Fluid Mononuclear WBC # 2.083 10^3/uL; Body Fluid Mononuclear WBC % 86.9 %; Body Fluid Polynuclear WBC # 0.313 10^3/uL; Body Fluid Polynuclear WBC % 13.1 %; Body Fluid Total Cells Counted 2.626 10^3/ul; White Blood Count/Body Fluid 2.396 10^3/uL
[2023-10-11 14:39] LABS: Appearance/Body Fluid SL CLDY; Auto B Fluid Analyzer BKGD Ct COUNTS W/IN LIMITS (W/IN LIMITS); Color/Body Fluid YELLOW; Source- Body Fluid ASCITES FLUID
[2023-10-11 15:06] LABS: Red Cell Count/Body Fluid 1210 /mm3
[2023-10-11] MEDS: Polyethylene Glycol 3350 BOWEL PREP 1 BOTTLE PO (15:17)
[2023-10-11 15:36] LABS: Lymphocytes 27 %; Macrophages 30 %; Monocytes 17 %; Neutrophil (Segs) 26 %
[2023-10-11 15:39] LABS: Body Fluid QC Type(s) BF4Q
--- NOTE | 2023-10-11 17:35 | ONC.CONSULT ---
Assessment & Plan Assessment/Plan (1) Iron deficiency anemia: Status: Acute Code(s): D50.9 - Iron deficiency anemia, unspecified Qualifiers: Iron deficiency anemia type: unspecified iron deficiency Qualified Code(s): D50.9 - Iron deficiency anemia, unspecified Plan: EGD/Cscope tomorrow. Transfusion support per primary team. May repeat iron studies and support with IV iron during admission in addition to PRBCs. (2) Thrombocytopenia: Status: Acute Code(s): D69.6 - Thrombocytopenia, unspecified Plan: Plt 66K on admission, with prolonged PT/PTT. No active bleeding. May be related to liver dysfunction. Request GGTP, direct bilirubin and consider liver elastography non urgent following endoscopies tomorrow. (3) Abdominal ascites: Status: Acute Code(s): R18.8 - Other ascites Qualifiers: Ascites type: other type Qualified Code(s): R18.8 - Other ascites Plan: Await cytology results from paracentesis.? (4) High serum protein level: Status: Acute Code(s): R77.9 - Abnormality of plasma protein, unspecified Plan: SPEP with IFIX and kappa lambda assay pending. (5) High globulin level: Status: Acute Code(s): R77.1 - Abnormality of globulin Plan: SPEP with IFIX pending. Case was discussed with Dr. Pack who is in agreement with the aforementioned plan. Will continue to follow and contribute to care as results become available. HPI Consult Data Date of Service:: 10/12/23 PCP / Referring Provider: Dr. Bruce Virk MD Attending: Dr. Valente Catsro MD Chief Complaint Chief Complaint: Pancytopenia History of Present Illness History of Present Illness: Ms. Telles is a very pleasant 78 yr old woman with past medical history positive for HTN, COPD, SHAZIA, arrhythmia, OA, depression who presented to [facility] ED on 10/10/23 with c/o abd pain and occasional N/V.? Lab assessment revealed total protein 11.8 with hypoalbuminemia 1.5, globulin 9.5, total bilirubin 1.8, AST 40, platelets 66K, iron deficiency and ongoing anemia as evidenced by Hgb of 8.3. CT A/P without IV contrast demonstrated a small low-attenuation focus within the left hepatic lobe, moderate amount of ascites (increased from prior exam 09/22/23), colonic diverticula, and stable T12 mild compression deformity. Case was discussed with ED physician, additional labs were requested and planned to follow up in the clinic today, however she was ultimately admitted as she endorsed weakness severe enough that she could not be discharged home with spouse. She underwent a diagnostic paracentesis earlier this afternoon and EGD/colonoscopy planned for tomorrow. Of note, the patient had presented to [facility] ED on 09/22/23 with similar complaints, found to be anemic, Hgb 7.6 microcytic, with iron deficiency. Received 1-unit PRBCs. ?CT A/P with contrast demonstrated hepatosplenomegaly. Findings suggestive of a varicosity in the region of the splenic hilum, sigmoid diverticulosis, sub centimeter cyst in the left lobe of the liver, minimal amount of chyna splenic fluid, small amount of fluid is seen in the pelvis suggestive of minimal ascites, and pancreatic atrophy. She was discharged home and was actively seeking outpatient investigations driven by her pcp. Required 1-unit PRBC transfusion outpatient on 09/28/23 to address Hgb 7.2. ? Interval History Interval History: Upon entering the room the patient is sitting upright on the side of the bed near her bedside commode in the midst of her bowel prep. Advanced Directives Power of Roller Engraver: No Living Will: No [facility], [facility] Medical History (Updated 10/11/23 @ 17:44 by Sheila Weems [employer], [employer]) High globulin level High serum protein level GERD (gastroesophageal reflux disease) Hypertension Hypercalcemia COPD with acute exacerbation Anxiety Osteoporosis Former smoker CPAP (continuous positive airway pressure) dependence Sleep apnea On home oxygen therapy Asthma COPD (chronic obstructive pulmonary disease) Irregular heart beat Chest pain Migraines Right lower lobe pneumonia COVID-19 Osteoarthritis Diverticulitis Depression Bronchitis Pneumonia acute viral bronchitis secondary to influenza A Acute respiratory failure with hypoxia Hypertension COPD (chronic obstructive pulmonary disease) with chronic bronchitis Influenza A Home Medications ?Medication ?Instructions ?Recorded ?Last Taken ?Type albuterol sulfate 90 mcg/actuation 2 puff inhalation Q6H PRN 02/04/23 Unknown Rx aerosol inhaler (Ventolin HFA) shortness of breath or wheezing #18 grams aspirin 81 mg capsule 81 mg PO DAILY 07/07/23 Unknown History furosemide 40 mg tablet (Lasix) 40 mg PO DAILY #30 tabs 07/11/23 10/09/23 Rx fluoxetine 20 mg capsule 40 mg PO DAILY 10/10/23 10/09/23 History ipratropium 0.5 mg-albuterol 3 mg 3 ml inhalation Q6H PRN shortness 10/10/23 Unknown History (2.5 mg base)/3 mL nebulization of breath soln metoprolol succinate 25 mg 25 mg PO DAILY 10/10/23 10/09/23 History tablet,extended release 24 hr omeprazole 20 mg capsule,delayed 20 mg PO DAILY 10/10/23 10/09/23 History release potassium chloride 20 mEq 20 meq PO DAILY 10/10/23 10/09/23 History tablet,extended release(part/cryst) (Klor-Con M) Allergy/AdvReac Type Severity Reaction Status Date / Time latex AdvReac Other Verified 10/10/23 09:10 Family History Father Hypertension Mother Cancer uterus Surgical History History of appendectomy History of cholecystectomy S/P laparoscopy S/P cholecystectomy History of tonsillectomy and adenoidectomy H/O laminectomy Hx of cataract surgery History of bone graft H/O tubal ligation Social History household members: spouse number of children: 2 current occupational status: retired Smoking Status: Former smoker how long ago did patient quit smokin, 1pk/day second hand exposure: Yes alcohol intake: current alcohol intake frequency: a few times a week Alcohol type: beer, wine and hard liquor substance use type: does not use seatbelt use: always do you feel safe at home: Yes additional social history: - [employer] Constitutional Constitutional: Reports anorexia, change in weight, fatigue, malaise and weakness; Denies chills or fever(s) ENT HEENT: Denies dysphagia Cardiovascular Cardiovascular: Denies chest pain, edema, lightheadedness or palpitations Respiratory/Chest Respiratory/Chest: Denies cough Gastrointestinal Gastrointestinal: Reports abdominal pain, change in stool character, diarrhea, nausea and other Details: Reports thin, ribbon like stools x 2 weeks ; Denies hematochezia or melena Neurologic Neurologic: Denies dizziness or headache(s) Hematologic/Lymphatic Hematologic/Lymphatic: Reports easy bruising; Denies lymphadenopathy Physical Exam Const alert and oriented x3 General Appearance: cooperative HEENT normocephalic Mouth: oral and palatal mucosa normal and No lesions Eyes Sclera: sclera normal Neck no lymphadenopathy and supple Resp clear to auscultation bilaterally Effort and Inspection: able to speak in complete sentences Cardio regular rate, regular rhythm, S1 normal heart sound and S2 normal heart sound GI GI Narrative: GI exam deferred as she is in the midst of bowel prep for cscope tomorrow and experiencing abd cramping Extremity normal to inspection, no clubbing, cyanosis or edema and no calf tenderness Skin no rashes or lesions noted, no jaundice and no petechiae General Skin Exam: Negative for ecchymosis Neuro oriented x3 and CN's II-XII intact bilaterally Psych mental status grossly normal and affect normal Attitude: calm and engaged Vital Signs Temperature 98.6 F 10/11/23 09:15 Temperature Source Temporal 10/11/23 09:15 Pulse Rate 78 10/11/23 14:12 Pulse Strength Normal (2+) 10/11/23 10:00 Respiratory Rate 16 10/11/23 14:12 Respiratory Effort Normal, Non-Labored 10/10/23 21:12 Respiratory Depth Normal 10/10/23 21:12 Respiratory Pattern Tachypnea 10/11/23 02:11 Blood Pressure 119/60 10/11/23 14:12 Blood Pressure Mean 87 10/11/23 09:15 Blood Pressure Source Monitor 10/11/23 09:15 Blood Pressure Position Semi-Fowlers 10/11/23 09:15 Blood Pressure Location Left Arm 10/11/23 09:15 Pulse Ox 94 10/11/23 09:15 Oxygen Delivery Method Room Air 10/11/23 14:12 Oxygen Flow Rate (L/min) 2 10/11/23 10:00 Laboratory Results - last 24 hr 10/11/23 05:43: WBC 4.3 L, RBC 2.98 L, Hgb 7.3 L, Hct 24.6 L, MCV 82.6, MCH 24.5 L, MCHC 29.7 L, RDW Std Deviation 67.9 H, RDW Coeff of Kimberlyn 22.8 H, Plt Count 61 L, MPV 10.2, Immature Gran % (Auto) 0.900, Neut % (Auto) 51.7, Lymph % (Auto) 29.9, [place] % (Auto) 16.6 H, Eos % (Auto) 0.2, Baso % (Auto) 0.7, Absolute Neuts (auto) 2.2, Absolute Lymphs (auto) 1.28, Nucleated RBC % 0.7, Differential Comment , Platelet Estimate MOD DEC, PT 20.5 H, INR 1.8, Sodium 131 L, Potassium 4.1, Chloride 96 L, Carbon Dioxide 24.0, Anion Gap 11, BUN 14, Creatinine 0.66, Estim Creat Clear Calc 57.57, Est GFR (MDRD) Af Amer 112, Est GFR (MDRD) Non-Af 92, BUN/Creatinine Ratio 21.2 H, Glucose 94, Calcium 8.8, Total Bilirubin 1.60 H, AST 33, ALT 22, Alkaline Phosphatase 44 L, Total Protein 10.9 H, Albumin 1.4 L, Globulin 9.5 H, Albumin/Globulin Ratio 0.1 L 10/11/23 : Fluid Source ASCITES FLUID, Fluid Color YELLOW, Fluid Appearance SL CLDY, Fluid WBC 2.396, Fluid RBC 1210, Fluid Tot Cell Count 2.626 H, Fld Polynuclear WBCs # 0.313, Fld Polynuclear WBCs % 13.1, Fluid Mononuclear WBCs 2.083, Fld Mononuclear WBCs % 86.9, Fluid Neutrophils 26, Fluid Lymphocytes 27, Fluid Monocytes 17, Fluid Macrophages 30, Fl Pathologist Comment May follow, Fluid Comment 2 SEE COMMENT Microbiology 10/11/23 Unknown Fluid - Ascites Gram Stain - Final Diagnostic Data Abdomen/Pelvis CT 10/10/23 09:26 IMPRESSION: Interval worsening of ascites. Colonic diverticulosis. Atherosclerosis. Electronically Signed: Yumiko Skinner MD at 9:59 EDT ,
[2023-10-11 18:26] LABS: Bilirubin, Direct 1.25 mg/dL (0.00-0.30); Ferritin 341 ng/mL (8-252); GGTP 43 U/L (5-55); Iron 28 ug/dL (50-170); Iron Binding Capacity,Total 134 ug/dL (250-450); PERCENT IRON SATURATION 20.9 % (15.0-55.0)
[2023-10-11] MEDS: Ondansetron 4 MG/2 ML Vial IV (23:52)
[2023-10-12] VITALS (23 sets, daily range): BP systolic 88–137; BP diastolic 52–71; PULSE 70–98; RESP 16–18; TEMP 36.3–36.9; O2SAT 93–100
[2023-10-12] MEDS: Morphine 2 MG/ML Syringe IV (03:22)
[2023-10-12] MEDS: 0.9% Saline Lock 10 ML Syringe IV ×3 (03:22→11:48)
--- NOTE | 2023-10-12 06:00 | EKG12_ITS ---
Test Reason : PRE-OP Blood Pressure : / mmHG Vent. Rate : 086 BPM Atrial Rate : 086 BPM P-R Int : 120 ms QRS Dur : 090 ms QT Int : 406 ms P-R-T Axes : 014 -31 074 degrees QTc Int : 485 ms Normal sinus rhythm Left axis deviation Nonspecific ST and T wave abnormality Abnormal ECG Confirmed by Jonathan Wiley [id number]), senior editor TARIQ VILA ([id number]) on 10/13/2023 8:57:05 AM Referred By: ROSETTA Confirmed By:Jonathan Wiley
[2023-10-12 06:41] LABS: Absolute Lymphocyte Count 1.98 X10^3/uL (0.83-4.51); Absolute Neutrophil Count 2.4 X10^3/uL (2.0-7.7); Basophil# 0.04 X10^3/uL; Basophil% 0.8 % (0-1); Eosinophil# 0.01 X10^3/uL; Eosinophils% 0.2 % (0-5); Hematocrit 22.8 % (37-47); Hemoglobin 6.8 g/dL (12.0-15.0); Lymphocyte # 1.98 X10^3/ul (0.83-4.51); Lymphocyte % 40.3 % (19-41); Mean Corp Hgb Conc 29.8 g/dL (32-36); Mean Corpuscular Hgb 24.8 pg (27.0-32.0); Mean Corpuscular Volume 83.2 fL (81-99); Mean Platelet Vol. 10.5 fl (6.2-12.0); Monocyte% 10.2 % (0-10); NRBC Flagged by Analyzer 0.4 % (0-5); Neutrophil # 2.36 X10^3/uL (2.7-7.7); Neutrophil % 48.1 % (47-70); POSITIVE COUNT YES; POSITIVE MORPHOLOGY YES; Platelet Count 74 K/mm3 (150-450); RBC Distribution Width CV 23.1 % (11.6-14.6); RBC Distribution Width SD 69.9 fl (35.1-43.9); Red Blood Count 2.74 M/mm3 (4.2-5.4); White Blood Count 4.9 K/mm3 (4.4-11.0)
[2023-10-12 06:58] LABS: Glucose, Body Fluid 107 mg/dL (40-70); LDH,Body Fluid 45 Units/L (Not Establ.); Protein, Body Fluid 7.5 g/dL (Not Establ.)
[2023-10-12 07:03] LABS: Differential Indicated SCAN CRITERIA MET
[2023-10-12 07:18] LABS: Anion Gap 8 (5-15); BUN 12 mg/dL (7-18); BUN/Creat Ratio 14.7 RATIO (10-20); Calcium,Total 8.9 mg/dL (8.5-10.1); Chloride 95 mmol/L (98-107); Creatinine, Serum 0.82 mg/dL (0.55-1.02); EST Glomerular Filtration Rate 72 mL/min (>60); Est Glom Filt Rate - Afr Amer 87 mL/min (>60); Estimated Creatinine Clearance 56.16 ml/min; Glucose 118 mg/dL (74-106); Magnesium 2.3 mg/dL (1.6-2.6); Phosphorus 3.2 mg/dL (2.5-4.9); Potassium 4.2 mmol/L (3.5-5.1); Sodium Level 129 mmol/L (136-145)
--- NOTE | 2023-10-12 07:37 | PCM.PN.HOSP ---
Reason for Visit Reason for Visit: Diagnoses Iron deficiency anemia, unspecified (10/10/23) Thrombocytopenia, unspecified (10/10/23) Other ascites (10/10/23) Subjective Subjective Patient is scheduled to undergo EGD and colonoscopy. Hemoglobin down to 6.8 and order has been given for patient to be transfused 1 unit PRBC. Sodium level down to 129 Objective Data Objective Data Vital Signs: Vital Signs Temp Pulse Resp BP Pulse Ox O2 Del Method O2 Flow Rate 97.9 F 81 16 137/69 H 95 Room Air 2 10/12/23 03:28 10/12/23 03:28 10/12/23 03:28 10/12/23 03:28 10/12/23 03:28 10/12/23 03:28 10/12/23 03:09 Oxygen Flow Rate (L/min) 2 Oxygen Delivery Method Room Air Weight: 76.204 kg Body Mass Index (BMI) 29.7 Intake & Output: Intake and Output for Last 24 Hours 10/10/23 10/11/23 10/12/23 23:59 23:59 23:59 Intake Total 385.41 / 785.41 4960 / 4960 Output Total 1300 / 1300 Balance 385.41 / 785.41 3660 / 3660 Lab / Micro Data 10/12/23 05:40 10/12/23 05:40 Labs: Laboratory Results - last 24 hr 10/11/23 05:43: Differential Comment , Platelet Estimate MOD DEC, Iron 28 L, TIBC 134 L, Iron Saturation 20.9, Ferritin 341 H, Direct Bilirubin 1.25 H, GGT 43 10/11/23 : Fluid Source ASCITES FLUID, Fluid Color YELLOW, Fluid Appearance SL CLDY, Fluid WBC 2.396, Fluid RBC 1210, Fluid Tot Cell Count 2.626 H, Fld Polynuclear WBCs # 0.313, Fld Polynuclear WBCs % 13.1, Fluid Mononuclear WBCs 2.083, Fld Mononuclear WBCs % 86.9, Fluid Neutrophils 26, Fluid Lymphocytes 27, Fluid Monocytes 17, Fluid Macrophages 30, Fl Pathologist Comment May follow, Fluid Glucose 107 H, Fluid Total Protein 7.5, Fluid LDH 45, Fluid Comment 2 SEE COMMENT 10/12/23 05:40: WBC 4.9, RBC 2.74 L, Hgb 6.8 L, Hct 22.8 L, MCV 83.2, MCH 24.8 L, MCHC 29.8 L, RDW Std Deviation 69.9 H, RDW Coeff of Kimberlyn 23.1 H, Plt Count 74 L, MPV 10.5, Immature Gran % (Auto) 0.400, Neut % (Auto) 48.1, Lymph % (Auto) 40.3, [place] % (Auto) 10.2 H, Eos % (Auto) 0.2, Baso % (Auto) 0.8, Absolute Neuts (auto) 2.4, Absolute Lymphs (auto) 1.98, Nucleated RBC % 0.4, Sodium 129 L, Potassium 4.2, Chloride 95 L, Carbon Dioxide 26.0, Anion Gap 8, BUN 12, Creatinine 0.82, Estim Creat Clear Calc 56.16, Est GFR (MDRD) Af Amer 87, Est GFR (MDRD) Non-Af 72, BUN/Creatinine Ratio 14.7, Glucose 118 H, Calcium 8.9, Phosphorus 3.2, Magnesium 2.3 Micro: Microbiology 10/11/23 Unknown Fluid - Ascites Gram Stain - Final Physical Exam Narrative GENERAL: cooperative HEENT: Atraumatic; normocephalic EYES; Anicteric, Normal Conjunctiva NECK; supple, normal thyroid, RESPIRATORY: Diminished to auscultation CARDIOVASCULAR: Regular S1 S2, GI: soft, normoactive bowel sounds, : No Renal angle tenderness; EXTREMITIES: No edema, no clubbing, MUSCULOSKELETAL: no muscle wasting NEURO: Awake; no lateralizing signs. SKIN: No Rash PSYCH; Flat affect Assessment & Plan Assessment/Plan (1) Iron deficiency anemia: QUALIFIERS: Iron deficiency anemia type: unspecified iron deficiency Qualified Code(s): D50.9 - Iron deficiency anemia, unspecified (2) Thrombocytopenia: (3) Abdominal ascites: QUALIFIERS: Ascites type: other type Qualified Code(s): R18.8 - Other ascites PLAN: Plan Patient is a 78-year-old lady admitted with increasing generalized weakness and lethargy as well as abdominal pain found to have low hemoglobin and platelet count with relatively low WBC count. A suspicion of possible underlying hematologic malignancy made admitted to regular nursing floor. Patient was also found to have ascites. 1. Suspected myeloproliferative disorder ? Presented with progressive generalized weakness found to be anemic, with thrombocytopenia as well as low WBC count. Oncology recommended serum and urine protein electrophoresis as part of her workup 3. Ascites ? Patient to undergo diagnostic paracentesis ? 10/12/2023 patient underwent diagnostic paracentesis the day prior, 1300 ml of clear shari colored fluid was removed from the peritoneal cavity. Fluid sent for analysis results pending 3. Severe anemia ? Patient iron studies came back consistent with iron deficiency anemia. Patient has apparently been evaluated by general surgery as outpatient consult placed Dr. Alan case discussed with patient undergoing EGD and colonoscopy during her hospital stay. ? 10/12/2023; patient hemoglobin down to 6.8 and order has been given for patient to be transfused 1 unit PRBC. Scheduled to undergo endoscopic evaluation 4. COPD ? Stage I?mild. Gold classification bronchodilator treatment as needed 5. Hypertension - Blood pressure controlled, home medications continued with dose adjustment as needed 6. GERD ? On PPI 7. Chronic congestive heart failure with preserved ejection fraction ? Patient is on diuretic therapy with furosemide 8. Depression ? Patient is on fluoxetine 9. Thrombocytopenia ? Thought to be related to patient underlying suspected hematologic malignancy workup as discussed above 10. Class I obesity with BMI of 30 ? Weight loss advised 11. Hyponatremia ? Patient suspected to be secondary to fluid overload status from CHF as well as ascites patient is on furosemide monitoring with daily BMP 12. DVT prophylaxis ? Held off chemoprophylaxis given patient anemia and low platelet count Time spent in the patient's overall evaluation,decision-making process, review of diagnostic data, adjustment of management, discussion with other providers, nursing nursing and ancillary staff involved in patient's care documentation, 50 Minutes Charges/Coding Visit Charges Inpatient E&M: 06418 [facility] L3
[2023-10-12] MEDS: Morphine 4 MG/ML Syringe IV ×2 (08:30→11:48)
[2023-10-12] MEDS: 0.9% Normal Saline (1000mL) 1,000 ML 15 ML IV (09:40)
--- NOTE | 2023-10-12 10:15 | EGD_PTH ---
PATIENT: TAM SANCHEZ LOC: ICU U#:[id number] AGE/SX: 78/F ROOM: ICU07 RE10/10/[address]: Dr. Ciro Cloud MD : 1945 BED: 1 DIS: 10/15/2023 SPEC #: [id number] RECD: 10/12/23 11:29 STATUS: TERESA REQ #: [id number] NAVID: 10/12/23 10:[address]: Edson Alan DEPT: SURGICAL PATHOLOGY RECD BY: Elvia Koenig ENTERED: 10/12/23 13:14 SP TYPE: EGD BIOPSY OTHR DR: MD Dr. Valente Townsend MD Dr. David Kittoe, MD Dr. Joseph Prah, MD Dr. Mansour Isckarus, MD Dr. Nana Yaa Koram, MD Dr. Paul Nielsen, MD Dr. Robert Field, MD Dr. Ryan Jin, MD Dr. Roger Macklis, MD Dr. Steve Walston, DO Tyra Schlabach, IZZY-C Tissues: Gastric mucous membrane Procedures: Surgery Specimen Level IV Comments: @ Ordering doctor for SUIV edited from to @ anny ROSENBERG at 10/12/23 1346 @ Submitting doctor edited from to @ anny ROSENBERG at 10/12/23 1346 HEADER OPERATION: Colonoscopy, EGD with biopsy PRE-OP DIAGNOSIS: Iron deficiency anemia TISSUE SUBMITTED: Gastric antrum biopsy MICROSCOPIC DIAGNOSIS Gastric antrum, biopsy: Mild chronic inflammation. AM/mr 10/13/2023 COMMENT The results of immunohistochemistry for Helicobacter pylori will be reported separately ([id number]). MICROSCOPIC DESCRIPTION Slides are reviewed. GROSS DESCRIPTION Received in fixative is one container labeled with the patient's name and designated Gastric antrum biopsy. The specimen consists ofone irregular fragment of light nieto soft tissue that measures 0.5 x 0.5 x 0.1 cm. The specimen is totally submitted in one cassette. COLTEN/ 10/12/2023 TC:3 CPT:02342
--- NOTE | 2023-10-12 10:15 | IMM_PTH ---
PATIENT: TAM SANCHEZ LOC: ICU U#:[id number] AGE/SX: 78/F ROOM: ICU07 RE10/10/[address]: Dr. Ciro Cloud MD : 1945 BED: 1 DIS: 10/15/2023 SPEC #: [id number] RECD: 10/12/23 13:48 STATUS: SOUT REQ #: [id number] NAVID: 10/12/23 10:[address]: Edson Alan DEPT: IMMUNOHISTOCHEMISTRY RECD BY: Wilfred Lao ENTERED: 10/12/23 13:48 SP TYPE: IMMUNO OTHR DR: MD Dr. Valente Townsend MD Dr. David Kittoe, MD Dr. Joseph Prah, MD Dr. Mansour Isckarus, MD Dr. Nana Yaa Koram, MD Dr. Paul Nielsen, MD Dr. Robert Field, MD Dr. Ryan Jin, MD Dr. Roger Macklis, MD Dr. Steve Walston, DO Tyra Schlabach, IZZY-C Tissues: Gastric mucous membrane Procedures: H Pylori (initial) Comments: @ Ordering doctor for H.PYLORI edited from to @ by SHAKIRA at 10/12/23 0373 @ Submitting doctor edited from to @ anny ROSENBERG at 10/12/23 3193 [facility]YS[facility]STIT[facility] [address] [address] SPECIMEN INFORMATION: Tissue Source: Gastric antrum biopsy Clinical Info: Iron deficiency anemia Specimen Number: [id number] CPT code: 57110 METHODOLOGY: Deparaffinized sections of prefer/formalin-fixed tissue or PAP/DQ stained slides are incubated with monoclonal/polyclonal antibodies/oligonucleotide probes. Localization is made via biotin free immunoperoxidase method. Appropriate controls are performed and reacted as expected. Results on target cell population are indicated in the following table: RESULTS: ANTIBODY / CLONE RESULT H Pylori (polyclonal) negative These tests were developed and their performance characteristics determined by [facility]. They may not have been cleared or approved by the U.[place]. Food and Drug Administration. The FDA has determined that such clearance or approval is not necessary. The above immunohistochemical/dualISH markers are ordered and reviewed by the Pathologist. INTERPRETATION: Gastric antrum, biopsy: Negative for Helicobacter pylori organisms. AM/ 10/13/2023
[2023-10-12 10:21] LABS: Differential Comment SCANNED
[2023-10-12 10:22] LABS: Anisocytosis 2+; Hypochromasia 1+; Macrocytosis 1+; Microcytosis 1+; Platelet Estimate MKD DEC (ADEQ); Reactive Lymphocyte 1+
--- NOTE | 2023-10-12 11:16 | OP.EGD_ITS ---
Patient Name: Nicole Telles Procedure Date: 10/12/2023 10:07 AM Date of : 1945 Age: 78 Procedure: Upper GI endoscopy Indications: Iron deficiency anemia Providers: Edson Alan MD Medicines: Propofol per Anesthesia Patient Profile: This is a 78 year old female. Refer to note in patient chart for documentation of history and physical. Complications: No immediate complications. Estimated blood loss: Minimal. Procedure: Pre-Anesthesia Assessment: - Prior to the procedure, a History and Physical was performed, and patient medications and allergies were reviewed. The patient's tolerance of previous anesthesia was also reviewed. The risks and benefits of the procedure and the sedation options and risks were discussed with the patient. All questions were answered, and informed consent was obtained. Prior Anticoagulants: The patient has taken no anticoagulant or antiplatelet agents. After reviewing the risks and benefits, the patient was deemed in satisfactory condition to undergo the procedure. After obtaining informed consent, the endoscope was passed under direct vision. Throughout the procedure, the patient's blood pressure, pulse, and oxygen saturations were monitored continuously. The Endoscope was introduced through the mouth, and advanced to the fourth part of duodenum. The upper GI endoscopy was accomplished without difficulty. The patient tolerated the procedure well. Scope In: 10:23:38 AM Scope Out: 10:26:46 AM Total Procedure Duration Time 0 hours 3 minutes 8 seconds Findings: One non-bleeding superficial gastric ulcer with no stigmata of bleeding was found in the prepyloric region of the stomach. Biopsies were taken with a cold forceps for Helicobacter pylori testing. The esophagus was normal. The examined duodenum was normal. A large hiatal hernia was present. Impression: - Non-bleeding gastric ulcer with no stigmata of bleeding. Biopsied. - Normal esophagus. - Normal examined duodenum. Recommendation: - Return patient to [facility] for [facility] care. - Resume previous diet. - Continue present medications. Procedure Code(s): --- Professional --- 88290, Esophagogastroduodenoscopy, flexible, transoral; with biopsy, single or multiple Diagnosis Code(s): --- Professional --- K25.9, Gastric ulcer, unspecified as acute or chronic, without hemorrhage or perforation D50.9, Iron deficiency anemia, unspecified CPT copyright 2021 [employer]. All rights reserved. The codes documented in this report are preliminary and upon tissue technologist review may be revised to meet current compliance requirements. Edson Alan MD 10/12/2023 11:16:00 AM This report has been signed electronically. Number of Addenda: 0 Note Initiated On: 10/12/2023 10:07 AM
--- NOTE | 2023-10-12 11:16 | OP.CCLET_ITS ---
10/12/2023 Bruce Virk MD [address] [place] [address] Re : Upper GI endoscopy procedure for Nicole Pinonconrado Dear Dr. Virk This procedure was performed on Thursday, October 12, 2023. My impressions and recommendations are as follows: Impressions : - Non-bleeding gastric ulcer with no stigmata of bleeding. Biopsied. - Normal esophagus. - Normal examined duodenum. Recommendations : - Return patient to [facility] for ongoing care. - Resume previous diet. - Continue present medications. My findings are described in the full procedure note, which is enclosed. If I can be of further assistance, please feel free to contact me at Doctor phone number(s): , Work: . Sincerely, Edson Alan MD 10/12/2023 11:16:00 AM This report has been signed electronically.
--- NOTE | 2023-10-12 11:17 | OP.COLON_ITS ---
Patient Name: Nicole Telles Procedure Date: 10/12/2023 10:28 AM Date of : 1945 Age: 78 Procedure: Colonoscopy Indications: Iron deficiency anemia Providers: Edson Alan MD Medicines: Propofol per Anesthesia Patient Profile: This is a 78 year old female. Refer to note in patient chart for documentation of history and physical. Last Colonoscopy: more than 3 years ago. Complications: No immediate complications. Procedure: Pre-Anesthesia Assessment: - Prior to the procedure, a History and Physical was performed, and patient medications and allergies were reviewed. The patient's tolerance of previous anesthesia was also reviewed. The risks and benefits of the procedure and the sedation options and risks were discussed with the patient. All questions were answered, and informed consent was obtained. Prior Anticoagulants: The patient has taken no anticoagulant or antiplatelet agents. After reviewing the risks and benefits, the patient was deemed in satisfactory condition to undergo the procedure. After I obtained informed consent, the scope was passed under direct vision. Throughout the procedure, the patient's blood pressure, pulse, and oxygen saturations were monitored continuously. The pediatric colonoscope was introduced through the anus and advanced to the cecum, identified by appendiceal orifice and ileocecal valve. The colonoscopy was performed without difficulty. The patient tolerated the procedure well. The quality of the bowel preparation was good. The ileocecal valve, appendiceal orifice, and rectum were photographed. Scope In: 10:29:51 AM Scope Withdrawal Time 0 hours 5 minutes 24 seconds Scope Out: 10:38:12 AM Total Procedure Duration Time 0 hours 8 minutes 21 seconds Findings: The entire examined colon appeared normal on direct and retroflexion views. Impression: - The entire examined colon is normal on direct and retroflexion views. - No specimens collected. Recommendation: - Discharge patient to home. - Resume previous diet. - Continue present medications. - Repeat colonoscopy is not recommended due to current age (66 years or older) for screening purposes. Procedure Code(s): --- Professional --- 86759, Colonoscopy, flexible; diagnostic, including collection of specimen(s) by brushing or washing, when performed (separate procedure) Diagnosis Code(s): --- Professional --- D50.9, Iron deficiency anemia, unspecified CPT copyright 2021 [employer]. All rights reserved. The codes documented in this report are preliminary and upon wire frame lampshade maker review may be revised to meet current compliance requirements. Edson Alan MD 10/12/2023 11:17:18 AM This report has been signed electronically. Number of Addenda: 0 Note Initiated On: 10/12/2023 10:28 AM
--- NOTE | 2023-10-12 11:18 | OP.CCLET_ITS ---
10/12/2023 Bruce Virk MD [address] [place] [address] Re : Colonoscopy procedure for Nicole Telles Dear Dr. Virk This procedure was performed on Thursday, October 12, 2023. My impressions and recommendations are as follows: Impressions : - The entire examined colon is normal on direct and retroflexion views. - No specimens collected. Recommendations : - Discharge patient to home. - Resume previous diet. - Continue present medications. - Repeat colonoscopy is not recommended due to current age (66 years or older) for screening purposes. My findings are described in the full procedure note, which is enclosed. If I can be of further assistance, please feel free to contact me at Doctor phone number(s): , Work: . Sincerely, Edson Alan MD 10/12/2023 11:17:18 AM This report has been signed electronically.
--- NOTE | 2023-10-12 14:19 | CHAPLAIN ---
Type of Pastoral Visit _x__ Initial Visit ___ Follow-up Visit ___ On-call Visit ___ General Patient Visit ___ Spiritual Assessment ___ Family Conference ___ Bereavement ___ Rapid Response ___ Code Blue ___ Other (describe below) Pastoral Care Referral From _x__ Patient ___ Family ___ Nurse ___ Physician ___ Transcriber ___ Mate Chief ___ Other (describe below) Sacrament/Intervention _x__ Active listening ___ Anointing ___ Mu-Ism ___ Bereavement ___ Communion ___ Promise exploration ___ ___ Life review _x__ Prayer ___ Reconciliation ___ Sacrament of Sick _x__ Supportive presence ___ Wedding ___ Other (describe below) Pastoral Comments patient approached the visit with some humor about dying; explored with pt her comments about not doing well, not having answers or progress and how she is coping with it all; pt welcomed a prayer but does not use spiritual resources in general; pt acknowledges her busy day with testing and that she is ready to nap
[2023-10-12] MEDS: Pantoprazole Sodium 20 MG Tablet PO (14:40)
[2023-10-12] MEDS: Fluoxetine HCl 40 MG CAPSULE PO (14:40)
[2023-10-12] MEDS: Potassium Chloride Oral Tablet 20 MEQ PO (14:40)
[2023-10-12] MEDS: Metoprolol(XL)Succ 25 MG Tablet PO (14:40)
[2023-10-12] MEDS: Ondansetron 4 MG/2 ML Vial IV (17:15)
[2023-10-12] MEDS: Ceftriaxone 1 GM/50 ML BAG IV (17:20)
[2023-10-12] MEDS: Ipratropium/Albuterol Sulfate 3 ML AMPUL.NEB INHALATION (17:39)
[2023-10-12 17:47] LABS: Absolute Lymphocyte Count 1.11 X10^3/uL (0.83-4.51); Absolute Neutrophil Count 3.3 X10^3/uL (2.0-7.7); Basophil# 0.02 X10^3/uL; Basophil% 0.4 % (0-1); Hematocrit 20.8 % (37-47); Hemoglobin 6.4 g/dL (12.0-15.0); Lymphocyte # 1.11 X10^3/ul (0.83-4.51); Lymphocyte % 22.3 % (19-41); Mean Corp Hgb Conc 30.8 g/dL (32-36); Mean Corpuscular Hgb 25.3 pg (27.0-32.0); Mean Corpuscular Volume 82.2 fL (81-99); Mean Platelet Vol. 10.6 fl (6.2-12.0); Monocyte# 0.47 X10^3/uL; Monocyte% 9.5 % (0-10); NRBC Flagged by Analyzer 0.6 % (0-5); Neutrophil # 3.34 X10^3/uL (2.7-7.7); Neutrophil % 67.2 % (47-70); POSITIVE COUNT YES; POSITIVE MORPHOLOGY YES; Platelet Count 80 K/mm3 (150-450); RBC Distribution Width CV 21.7 % (11.6-14.6); Red Blood Count 2.53 M/mm3 (4.2-5.4)
[2023-10-12 17:53] LABS: Differential Indicated SCAN CRITERIA MET
[2023-10-12 18:15] LABS: Anion Gap 12 (5-15); BUN 18 mg/dL (7-18); BUN/Creat Ratio 10.2 RATIO (10-20); Calcium,Total 8.5 mg/dL (8.5-10.1); Chloride 98 mmol/L (98-107); Creatinine, Serum 1.77 mg/dL (0.55-1.02); EST Glomerular Filtration Rate 30 mL/min (>60); Est Glom Filt Rate - Afr Amer 36 mL/min (>60); Estimated Creatinine Clearance 26.02 ml/min; Glucose 165 mg/dL (74-106); Potassium 4.9 mmol/L (3.5-5.1); Sodium Level 130 mmol/L (136-145)
[2023-10-12 18:34] LABS: Differential Comment SCANNED; Platelet Estimate MKD DEC (ADEQ); Reactive Lymphocyte 1+
[2023-10-12 18:35] LABS: Anisocytosis 2+; Hypochromasia 1+; Macrocytosis 1+; Microcytosis 1+
[2023-10-13] VITALS (28 sets, daily range): BP systolic 92–180; BP diastolic 47–73; PULSE 69–84; RESP 13–23; TEMP 36.1–36.8; O2SAT 96–100; BMI 31.1
[2023-10-13] MEDS: 0.9% Saline Lock 10 ML Syringe IV ×4 (00:05→19:47)
[2023-10-13] MEDS: Morphine 2 MG/ML Syringe IV ×5 (00:05→19:46)
[2023-10-13] MEDS: proMETHazine 25 MG/ML Syringe IM (00:05)
--- NOTE | 2023-10-13 01:33 | NURSING ---
attempted to cath to get urine sample, pt unable to void except for a small red size red in hat. other rn also attempted but unable. pt asked staff to stop and attempted on bsc for second time without a result. bladder scan for 77. charge nurse notified and lab called to check am labs now. pt returned to bed, bed alarm on.
[2023-10-13 01:51] LABS: Absolute Lymphocyte Count 1.01 X10^3/uL (0.83-4.51); Absolute Neutrophil Count 4.2 X10^3/uL (2.0-7.7); Basophil# 0.02 X10^3/uL; Basophil% 0.3 % (0-1); Hematocrit 20.4 % (37-47); Hemoglobin 6.4 g/dL (12.0-15.0); Lymphocyte # 1.01 X10^3/ul (0.83-4.51); Lymphocyte % 16.9 % (19-41); Mean Corp Hgb Conc 31.4 g/dL (32-36); Mean Corpuscular Hgb 26.1 pg (27.0-32.0); Mean Corpuscular Volume 83.3 fL (81-99); Mean Platelet Vol. 10.7 fl (6.2-12.0); Monocyte# 0.68 X10^3/uL; Monocyte% 11.4 % (0-10); NRBC Flagged by Analyzer 0.3 % (0-5); Neutrophil # 4.24 X10^3/uL (2.7-7.7); Neutrophil % 70.7 % (47-70); POSITIVE COUNT YES; POSITIVE MORPHOLOGY YES; Platelet Count 88 K/mm3 (150-450); RBC Distribution Width CV 20.9 % (11.6-14.6); RBC Distribution Width SD 62.9 fl (35.1-43.9); Red Blood Count 2.45 M/mm3 (4.2-5.4)
[2023-10-13 01:54] LABS: Differential Indicated SCAN CRITERIA MET
[2023-10-13 02:04] LABS: Anion Gap 13 (5-15); BUN 22 mg/dL (7-18); BUN/Creat Ratio 9.2 RATIO (10-20); Calcium,Total 8.5 mg/dL (8.5-10.1); Chloride 98 mmol/L (98-107); Creatinine, Serum 2.39 mg/dL (0.55-1.02); EST Glomerular Filtration Rate 21 mL/min (>60); Est Glom Filt Rate - Afr Amer 25 mL/min (>60); Estimated Creatinine Clearance 19.27 ml/min; Glucose 169 mg/dL (74-106); Potassium 5.5 mmol/L (3.5-5.1); Sodium Level 129 mmol/L (136-145)
[2023-10-13 02:22] LABS: Anisocytosis 3+; Atypical Lymphocyte 2+ %
--- NOTE | 2023-10-13 02:32 | CT_ITS ---
EXAM: CT CHEST, ABDOMEN AND PELVIS WITHOUT INTRAVENOUS CONTRAST CLINICAL INDICATION: low hgb,pain,unable to void, post colonoscopy,egd TECHNIQUE: Helically acquired images were obtained of the chest, abdomen and pelvis without intravenous contrast. This CT exam was performed using one or more of the following dose reduction techniques: automated exposure control, adjustment of the mA and/or kV according to patient size, and/or use of iterative reconstruction technique. RADIATION DOSE: CTDIvol = 20.83 mGy, DLP = 1721.62 mGy-cm COMPARISON: 10/10/2023. FINDINGS: LIMITATIONS: Exam is limited for the evaluation of active bleeding due to the lack of IV contrast. CHEST: LUNGS AND PLEURAL SPACES: Bilateral mosaic attenuation in the lungs. No mass. No pleural effusion or thickening. No pneumothorax. HEART: Coronary artery calcifications. Heart size is normal. No pericardial effusion. MEDIASTINUM: Small hiatal hernia. No mediastinal or hilar adenopathy. Esophagus is unremarkable. THYROID: Unremarkable. No thyroid lesions. ABDOMEN: LIVER: Hepatomegaly. GALLBLADDER AND BILE DUCTS: Cholecystectomy. No intra- or extrahepatic biliary ductal dilation. PANCREAS: Unremarkable. No focal cystic mass. SPLEEN: Unremarkable. Normal size without focal cystic or solid mass. ADRENALS: Unremarkable. No nodules. KIDNEYS AND URETERS: Unremarkable. Normal renal size and position. No hydronephrosis. STOMACH AND BOWEL: Unremarkable. No stomach or bowel distention. No focal inflammatory change. PELVIS: APPENDIX: No evidence of acute appendicitis. BLADDER: Unremarkable. REPRODUCTIVE: Atrophic uterus. SUBPERITONEAL SPACE: Large hematoma measuring 10 x 9 x 14 cm in the prevesical space extending superior anteriorly in the preperitoneal space and extensive involvement of the retroperitoneum and the anterior and posterior pararenal spaces. CHEST, ABDOMEN and PELVIS: INTRAPERITONEAL SPACE: Slight hemoperitoneum. No free air. BONES/JOINTS: Unremarkable. No suspicious lytic or blastic abnormality. SOFT TISSUES: Unremarkable. No discrete abdominal or pelvic wall hernia. VASCULATURE: See above. LYMPH NODES: Unremarkable. No enlarged lymph nodes. CT/CT Chest, Abd, Pelvis WO Cont IMPRESSION: 1. Large hematoma measuring 10 x 9 x 14 cm in the prevesical space extending superior anteriorly in the preperitoneal space and extensive involvement of the retroperitoneum and the anterior and posterior pararenal spaces. The exam is limited for the detection of active bleeding due to the lack of IV contrast. 2. Slight hemoperitoneum. 3. Bilateral mosaic attenuation in the lungs. This can be seen with small airways disease, chronic thromboembolic disease, and primary parenchymal diseases such as organizing pneumonia and interstitial lung disease. 4. Hepatomegaly. 5. Small hiatal hernia. 6. Cholecystectomy. 7. Coronary artery disease. N.B. : The above Results were Read Back by Jonathan Cherry MD to MAEGAN CONRAD RN, and understanding confirmed on 10/13/2023 04:34:25 (ET). Electronically Signed: Jonathan Cherry MD at 4:37 EDT ,
[2023-10-13] MEDS: Furosemide 40 MG/4 ML Vial IV (03:23)
[2023-10-13] MEDS: Dextrose 50%-Water 25 GM/50 ML DISP.SYRIN IV (03:41)
[2023-10-13 03:46] LABS: Allen Test Positive; Base Excess -7 mmol/L (-2 to +2); Bicarbonate 18.4 mmol/L (22-26); Blood Gas Specimen Type ART; Mode Not entered; O2 Delivery Device Cannula; PO2 80 mmHG (75-100); SITE R Radial; SO2 96 % (95-99); Total Carbon Dioxide 19 mmol/L; pCO2 32.1 mmHg (35-45); pH 7.37 (7.35-7.45)
[2023-10-13 04:03] LABS: Lactic Acid 3.1 mmol/L (0.4-1.9)
--- NOTE | 2023-10-13 05:00 | NURSING ---
pt to transfer to icu 107 report called to myrtle franco
--- NOTE | 2023-10-13 05:29 | NURSING ---
pt updated and notified of transfer to ICU per request of pt.
[2023-10-13] MEDS: Ondansetron 4 MG/2 ML Vial IV ×2 (05:30→19:47)
--- NOTE | 2023-10-13 06:22 | PN.HOSP_ITS ---
Hospitalist Note I was contacted overnight by the third floor RN that patient appeared to be clinically worsening with poor urinary output and abdominal discomfort. Her laboratory test revealed critical anemia with hemoglobin of 6.4 g/dL and spite of recent transfusion and she was noted to have hyperkalemia of 5.5 mmol/L with an elevated creatinine of 2.39 mg/dL and estimated GFR of 19.27 mL/min. Therefore, stat CT scan of the chest abdomen pelvis without contrast was ordered with results noted below. Patient was found to have massive ~10 cm X ~9 cm X ~1 4 cm hematoma in the prevesical space extending superiorly in the peritoneal space and extensive involvement of the retroperitoneum in the anterior and posterior pararenal spaces. The source of bleeding could not be identified due to lack of IV contrast because of patient's elevated creatinine. She was also noted to have slight hemoperitoneum and bilateral mosaic attenuation in the lungs. Patient was transferred to the ICU and the general surgeon on her case spoke with the radiologist and right now the source of her bleeding is unclear but she was noted to have a recent paracentesis with patient currently on no antiplatelet or anticoagulant medications that would otherwise explain the severity of her bleeding. The patient is having difficulty urinating therefore a Reyes catheter will be attempted be placed after patient could not be straight cathed on the floor after multiple attempts. I have spoken with ETL DATA ARCHITECT about this case and ordered a coagulation panel as per the general surgeons recommendations. [facility] Imaging Services [address] [place] [address] CT Chest, Abd, Pelvis WO Cont MR#: [id number] Acct: [id number] Name: TAM SANCHEZ Rep #: [id number] : 1945 F 78 From: Jonathan Cherry MD PCP: Dr. Bruce Virk MD Status: ADM IN Study: CT Chest, Abd, Pelvis WO Cont Date of Exam: 10/13/23 Exam# [id number] Ordering Dr: Valente Jara DO ADDENDUM by Dr. Jonathan Cherry MD on 10/13/23 at 0437 EXAM: CT CHEST, ABDOMEN AND PELVIS WITHOUT INTRAVENOUS CONTRAST CLINICAL INDICATION: low hgb,pain,unable to void, post colonoscopy,egd TECHNIQUE: Helically acquired images were obtained of the chest, abdomen and pelvis without intravenous contrast. This CT exam was performed using one or more of the following dose reduction techniques: automated exposure control, adjustment of the mA and/or kV according to patient size, and/or use of iterative reconstruction technique. RADIATION DOSE: CTDIvol = 20.83 mGy, DLP = 1721.62 mGy-cm COMPARISON: 10/10/2023. FINDINGS: LIMITATIONS: Exam is limited for the evaluation of active bleeding due to the lack of IV contrast. CHEST: LUNGS AND PLEURAL SPACES: Bilateral mosaic attenuation in the lungs. No mass. No pleural effusion or thickening. No pneumothorax. HEART: Coronary artery calcifications. Heart size is normal. No pericardial effusion. MEDIASTINUM: Small hiatal hernia. No mediastinal or hilar adenopathy. Esophagus is unremarkable. THYROID: Unremarkable. No thyroid lesions. ABDOMEN: LIVER: Hepatomegaly. GALLBLADDER AND BILE DUCTS: Cholecystectomy. No intra- or extrahepatic biliary ductal dilation. PANCREAS: Unremarkable. No focal cystic mass. SPLEEN: Unremarkable. Normal size without focal cystic or solid mass. ADRENALS: Unremarkable. No nodules. KIDNEYS AND URETERS: Unremarkable. Normal renal size and position. No hydronephrosis. STOMACH AND BOWEL: Unremarkable. No stomach or bowel distention. No focal inflammatory change. PELVIS: APPENDIX: No evidence of acute appendicitis. BLADDER: Unremarkable. REPRODUCTIVE: Atrophic uterus. SUBPERITONEAL SPACE: Large hematoma measuring 10 x 9 x 14 cm in the prevesical space extending superior anteriorly in the preperitoneal space and extensive involvement of the retroperitoneum and the anterior and posterior pararenal spaces. CHEST, ABDOMEN and PELVIS: INTRAPERITONEAL SPACE: Slight hemoperitoneum. No free air. BONES/JOINTS: Unremarkable. No suspicious lytic or blastic abnormality. SOFT TISSUES: Unremarkable. No discrete abdominal or pelvic wall hernia. VASCULATURE: See above. LYMPH NODES: Unremarkable. No enlarged lymph nodes. 10/13/23 043 Date cc: Dr. Valente Jara DO; Dr. Bruce Virk MD ~* Signed ADDENDUM by Dr. Jonathan Cherry MD on 10/13/[address]/CT Chest, Abd, Pelvis WO Cont IMPRESSION: 1. Large hematoma measuring 10 x 9 x 14 cm in the prevesical space extending superior anteriorly in the preperitoneal space and extensive involvement of the retroperitoneum and the anterior and posterior pararenal spaces. The exam is limited for the detection of active bleeding due to the lack of IV contrast. 2. Slight hemoperitoneum. 3. Bilateral mosaic attenuation in the lungs. This can be seen with small airways disease, chronic thromboembolic disease, and primary parenchymal diseases such as organizing pneumonia and interstitial lung disease. 4. Hepatomegaly. 5. Small hiatal hernia. 6. Cholecystectomy. 7. Coronary artery disease. N.B. : The above Results were Read Back by Jonathan Cherry MD to MAEGAN CONRAD RN, and understanding confirmed on 10/13/2023 04:34:25 (ET). Electronically Signed: Jonathan Cherry MD at 4:37 EDT , 10/13/23 0444 Date cc: Dr. Valente Jara, DO; Dr. Bruce Virk MD ~* Signed EXAM: CT CHEST, ABDOMEN AND PELVIS WITHOUT INTRAVENOUS CONTRAST CLINICAL INDICATION: low hgb,pain,unable to void, post colonoscopy,egd TECHNIQUE: Helically acquired images were obtained of the chest, abdomen and pelvis without intravenous contrast. This CT exam was performed using one or more of the following dose reduction techniques: automated exposure control, adjustment of the mA and/or kV according to patient size, and/or use of iterative reconstruction technique. RADIATION DOSE: CTDIvol = 20.83 mGy, DLP = 1721.62 mGy-cm COMPARISON: 10/10/2023. FINDINGS: LIMITATIONS: Exam is limited for the evaluation of active bleeding due to the lack of IV contrast. CHEST: LUNGS AND PLEURAL SPACES: Bilateral mosaic attenuation in the lungs. No mass. No pleural effusion or thickening. No pneumothorax. HEART: Coronary artery calcifications. Heart size is normal. No pericardial effusion. MEDIASTINUM: Small hiatal hernia. No mediastinal or hilar adenopathy. Esophagus is unremarkable. THYROID: Unremarkable. No thyroid lesions. ABDOMEN: LIVER: Hepatomegaly. GALLBLADDER AND BILE DUCTS: Cholecystectomy. No intra- or extrahepatic biliary ductal dilation. PANCREAS: Unremarkable. No focal cystic mass. SPLEEN: Unremarkable. Normal size without focal cystic or solid mass. ADRENALS: Unremarkable. No nodules. KIDNEYS AND URETERS: Unremarkable. Normal renal size and position. No hydronephrosis. STOMACH AND BOWEL: Unremarkable. No stomach or bowel distention. No focal inflammatory change. PELVIS: APPENDIX: No evidence of acute appendicitis. BLADDER: Unremarkable. REPRODUCTIVE: Atrophic uterus. SUBPERITONEAL SPACE: Large hematoma measuring 10 x 9 x 14 cm in the prevesical space extending superior anteriorly in the preperitoneal space and extensive involvement of the retroperitoneum and the anterior and posterior pararenal spaces. CHEST, ABDOMEN and PELVIS: INTRAPERITONEAL SPACE: Slight hemoperitoneum. No free air. BONES/JOINTS: Unremarkable. No suspicious lytic or blastic abnormality. SOFT TISSUES: Unremarkable. No discrete abdominal or pelvic wall hernia. VASCULATURE: See above. LYMPH NODES: Unremarkable. No enlarged lymph nodes. CT/CT Chest, Abd, Pelvis WO Cont IMPRESSION: 1. Large hematoma measuring 10 x 9 x 14 cm in the prevesical space extending superior anteriorly in the preperitoneal space and extensive involvement of the retroperitoneum and the anterior and posterior pararenal spaces. The exam is limited for the detection of active bleeding due to the lack of IV contrast. 2. Slight hemoperitoneum. 3. Bilateral mosaic attenuation in the lungs. This can be seen with small airways disease, chronic thromboembolic disease, and primary parenchymal diseases such as organizing pneumonia and interstitial lung disease. 4. Hepatomegaly. 5. Small hiatal hernia. 6. Cholecystectomy. 7. Coronary artery disease. N.B. : The above Results were Read Back by Joanthan Cherry MD to MAEGAN CONRAD RN, and understanding confirmed on 10/13/2023 04:34:25 (ET). Electronically Signed: Jonathan Cherry MD at 4:37 EDT , CC: Dr. Valente Jara DO; Dr. Bruce Virk MD ~ Html Web Developer: Signed
[2023-10-13 06:54] LABS: Absolute Lymphocyte Count 0.96 X10^3/uL (0.83-4.51); Absolute Neutrophil Count 4.3 X10^3/uL (2.0-7.7); Basophil# 0.01 X10^3/uL; Basophil% 0.2 % (0-1); Hematocrit 22.6 % (37-47); Hemoglobin 7.2 g/dL (12.0-15.0); Lymphocyte # 0.96 X10^3/ul (0.83-4.51); Lymphocyte % 15.6 % (19-41); Mean Corp Hgb Conc 31.9 g/dL (32-36); Mean Corpuscular Hgb 26.8 pg (27.0-32.0); Mean Platelet Vol. 10.7 fl (6.2-12.0); NRBC Flagged by Analyzer 0.7 % (0-5); Neutrophil # 4.33 X10^3/uL (2.7-7.7); Neutrophil % 70.4 % (47-70); POSITIVE COUNT YES; POSITIVE MORPHOLOGY YES; Platelet Count 87 K/mm3 (150-450); RBC Distribution Width CV 19.4 % (11.6-14.6); RBC Distribution Width SD 58.7 fl (35.1-43.9); Red Blood Count 2.69 M/mm3 (4.2-5.4); White Blood Count 6.2 K/mm3 (4.4-11.0)
[2023-10-13 07:01] LABS: Differential Indicated SCAN CRITERIA MET; International Normalized Ratio 2.2; Partial Thromboplast Time 41.9 Seconds (24.1-36.2); Prothrombin Time (Protime)PT. 23.9 SECONDS (11.7-14.9)
--- NOTE | 2023-10-13 07:13 | PCM.PN.HOSP ---
Reason for Visit Reason for Visit: Diagnoses Iron deficiency anemia, unspecified (10/10/23) Thrombocytopenia, unspecified (10/10/23) Other ascites (10/10/23) Abnormality of globulin (10/10/23) Abnormality of plasma protein, unspecified (10/10/23) Subjective Subjective Patient was transferred to the intensive care unit after finding of l Large hematoma measuring 10 x 9 x 14 cm in the prevesical space extending superior anteriorly in the preperitoneal space and extensive involvement of the retroperitoneum and the anterior and posterior pararenal spaces On her CT abdomen. Additional units of PRBC transfused. Attempt to place Reyes catheter unsuccessful consult placed to urology for possible cystoscopy Objective Data Objective Data Vital Signs: Vital Signs Temp Pulse Resp BP Pulse Ox O2 Del Method O2 Flow Rate 98.1 F 69 15 112/62 100 Nasal Cannula 2 10/13/23 04:19 10/13/23 06:00 10/13/23 06:00 10/13/23 06:00 10/13/23 06:00 10/13/23 06:00 10/13/23 06:00 Oxygen Flow Rate (L/min) 2 Oxygen Delivery Method Nasal Cannula Weight: 79.8 kg Body Mass Index (BMI) 31.1 Intake & Output: Intake and Output for Last 24 Hours 10/11/23 10/12/23 10/13/23 23:59 23:59 23:59 Intake Total 4960 / 4960 82.75 / 82.75 Output Total 1300 / 1300 0 / 0 Balance 3660 / 3660 82.75 / 82.75 Lab / Micro Data 10/13/23 12:40 10/13/23 13:47 Labs: Laboratory Results - last 24 hr 10/12/23 05:40: Differential Comment SCANNED, Reactive Lymphocytes 1+, Platelet Estimate MKD DEC, Hypochromasia 1+, Anisocytosis 2+, Microcytosis 1+, Macrocytosis 1+, Sodium 129 L, Potassium 4.2, Chloride 95 L, Carbon Dioxide 26.0, Anion Gap 8, BUN 12, Creatinine 0.82, Estim Creat Clear Calc 56.16, Est GFR (MDRD) Af Amer 87, Est GFR (MDRD) Non-Af 72, BUN/Creatinine Ratio 14.7, Glucose 118 H, Calcium 8.9, Phosphorus 3.2, Magnesium 2.3 10/12/23 08:25: Blood Type A POSITIVE, Antibody Screen NEGATIVE, Crossmatch See Detail 10/12/23 08:25: Crossmatch See Detail 10/12/23 17:30: WBC 5.0, RBC 2.53 L, Hgb 6.4 L, Hct 20.8 L, MCV 82.2, MCH 25.3 L, MCHC 30.8 L, RDW Std Deviation 64.0 H, RDW Coeff of Kimberlyn 21.7 H, Plt Count 80 L, MPV 10.6, Immature Gran % (Auto) 0.600, Neut % (Auto) 67.2, Lymph % (Auto) 22.3, [place] % (Auto) 9.5, Eos % (Auto) 0.0, Baso % (Auto) 0.4, Absolute Neuts (auto) 3.3, Absolute Lymphs (auto) 1.11, Nucleated RBC % 0.6, Differential Comment SCANNED, Reactive Lymphocytes 1+, Platelet Estimate MKD DEC, Hypochromasia 1+, Anisocytosis 2+, Microcytosis 1+, Macrocytosis 1+, Sodium 130 L, Potassium 4.9, Chloride 98, Carbon Dioxide 20.0 L, Anion Gap 12, BUN 18, Creatinine 1.77 H, Estim Creat Clear Calc 26.02, Est GFR (MDRD) Af Amer 36 L, Est GFR (MDRD) Non-Af 30 L, BUN/Creatinine Ratio 10.2, Glucose 165 H, Calcium 8.5, Ammonia 52.0 H 10/13/23 01:37: WBC 6.0, RBC 2.45 L, Hgb 6.4 L, Hct 20.4 L, MCV 83.3, MCH 26.1 L, MCHC 31.4 L, RDW Std Deviation 62.9 H, RDW Coeff of Kimberlyn 20.9 H, Plt Count 88 L, MPV 10.7, Immature Gran % (Auto) 0.700, Neut % (Auto) 70.7 H, Lymph % (Auto) 16.9 L, [place] % (Auto) 11.4 H, Eos % (Auto) 0.0, Baso % (Auto) 0.3, Absolute Neuts (auto) 4.2, Absolute Lymphs (auto) 1.01, Nucleated RBC % 0.3, Atypical Lymphocytes 2+, Anisocytosis 3+, Sodium 129 L, Potassium 5.5 H, Chloride 98, Carbon Dioxide 18.0 L, Anion Gap 13, BUN 22 H, Creatinine 2.39 H, Estim Creat Clear Calc 19.27, Est GFR (MDRD) Af Amer 25 L, Est GFR (MDRD) Non-Af 21 L, BUN/Creatinine Ratio 9.2 L, Glucose 169 H, Calcium 8.5 10/13/23 03:15: Lactic Acid 3.1 H* 10/13/23 06:40: WBC 6.2, RBC 2.69 L, Hgb 7.2 L, Hct 22.6 L, MCV 84.0, MCH 26.8 L, MCHC 31.9 L, RDW Std Deviation 58.7 H, RDW Coeff of Kimberlyn 19.4 H, Plt Count 87 L, MPV 10.7, Immature Gran % (Auto) 0.800, Neut % (Auto) 70.4 H, Lymph % (Auto) 15.6 L, [place] % (Auto) 13.0 H, Eos % (Auto) 0.0, Baso % (Auto) 0.2, Absolute Neuts (auto) 4.3, Absolute Lymphs (auto) 0.96, Nucleated RBC % 0.7, PT 23.9 H, INR 2.2, APTT 41.9 H Micro: Microbiology 10/11/23 Unknown Fluid - Ascites Gram Stain - Final ABG Data ABG results: ABG 10/13/23 03:43 Specimen Type ART Sample Site R Radial pH 7.37 Bicarbonate Actual 18.4 L Total CO2 19 Base Excess -7 L O2 Saturation 96 O2 % 2.0 ABG pCO2 32.1 L ABG pO2 80 Chandrakant Test Positive O2 Delivery Device Cannula Vent Mode Not entered Radiography Diagnostic Testing: Radiology Impression Chest/Abdomen/Pelvis CT 10/13/23 02:32 IMPRESSION: 1. Large hematoma measuring 10 x 9 x 14 cm in the prevesical space extending superior anteriorly in the preperitoneal space and extensive involvement of the retroperitoneum and the anterior and posterior pararenal spaces. The exam is limited for the detection of active bleeding due to the lack of IV contrast. 2. Slight hemoperitoneum. 3. Bilateral mosaic attenuation in the lungs. This can be seen with small airways disease, chronic thromboembolic disease, and primary parenchymal diseases such as organizing pneumonia and interstitial lung disease. 4. Hepatomegaly. 5. Small hiatal hernia. 6. Cholecystectomy. 7. Coronary artery disease. N.B. : The above Results were Read Back by Jonathan Cherry MD to MAEGAN CONRAD RN, and understanding confirmed on 10/13/2023 04:34:25 (ET). Electronically Signed: Jonathan Cherry MD at 4:37 EDT , ADDENDUM: 10/13/23 0444 IMPRESSION: 1. Large hematoma measuring 10 x 9 x 14 cm in the prevesical space extending superior anteriorly in the preperitoneal space and extensive involvement of the retroperitoneum and the anterior and posterior pararenal spaces. The exam is limited for the detection of active bleeding due to the lack of IV contrast. 2. Slight hemoperitoneum. 3. Bilateral mosaic attenuation in the lungs. This can be seen with small airways disease, chronic thromboembolic disease, and primary parenchymal diseases such as organizing pneumonia and interstitial lung disease. 4. Hepatomegaly. 5. Small hiatal hernia. 6. Cholecystectomy. 7. Coronary artery disease. N.B. : The above Results were Read Back by Jonathan Cherry MD to MAEGAN CONRAD RN, and understanding confirmed on 10/13/2023 04:34:25 (ET). Electronically Signed: Jonathan Cherry MD at 4:37 EDT , Physical Exam Narrative GENERAL: Patient appears ill looking and pale HEENT: Atraumatic; normocephalic EYES; Anicteric, Normal Conjunctiva NECK; supple, normal thyroid, RESPIRATORY: Diminished to auscultation CARDIOVASCULAR: Regular S1 S2, GI: soft, normoactive bowel sounds, abdominal distention : No Renal angle tenderness; EXTREMITIES: No edema, no clubbing, MUSCULOSKELETAL: no muscle wasting NEURO: Awake; no lateralizing signs. SKIN: No Rash PSYCH; Flat affect Assessment & Plan Assessment/Plan (1) Iron deficiency anemia: QUALIFIERS: Iron deficiency anemia type: unspecified iron deficiency Qualified Code(s): D50.9 - Iron deficiency anemia, unspecified (2) Thrombocytopenia: (3) Abdominal ascites: QUALIFIERS: Ascites type: other type Qualified Code(s): R18.8 - Other ascites PLAN: Plan Patient is a 78-year-old lady admitted with increasing generalized weakness and lethargy as well as abdominal pain found to have low hemoglobin and platelet count with relatively low WBC count. A suspicion of possible underlying hematologic malignancy made admitted to regular nursing floor. Patient was also found to have ascites. 1. Suspected myeloproliferative disorder ? Presented with progressive generalized weakness found to be anemic, with thrombocytopenia as well as low WBC count. Oncology recommended serum and urine protein electrophoresis as part of her workup 3. Ascites ? Patient to undergo diagnostic paracentesis ? 10/12/2023 patient underwent diagnostic paracentesis the day prior, 1300 ml of clear shari colored fluid was removed from the peritoneal cavity. Fluid sent for analysis results pending 3. Severe anemia ? Patient iron studies came back consistent with iron deficiency anemia. Patient has apparently been evaluated by general surgery as outpatient consult placed Dr. Alan case discussed with patient undergoing EGD and colonoscopy during her hospital stay. ? 10/12/2023; patient hemoglobin down to 6.8 and order has been given for patient to be transfused 1 unit PRBC. Scheduled to undergo endoscopic evaluation -10/13/2023; patient colonoscopy was unremarkable. Upper EGD non-bleeding gastric ulcer with no stigmata of bleeding. Biopsied. -Patient was transfused 2 additional PRBC units 4 Large hematoma -measuring 10 x 9 x 14 cm in the prevesical space extending superior anteriorly in the preperitoneal space and extensive involvement of the retroperitoneum and the anterior and posterior pararenal spaces. This is suspected to be secondary to patient recent paracentesis in the context of her thrombocytopenia. Patient admitted to the intensive care unit for close monitoring for suspected abdominal compartment syndrome. 5. Acute urinary retention ? Consult has been placed to urology for possible cystoscopy with Reyes catheter placement 6. Acute kidney injury ? Secondary to obstructive uropathy plan is for patient to undergo cystoscopy with possible Reyes catheter placement consult also placed to urology 6. COPD ? Stage I?mild. Gold classification bronchodilator treatment as needed 7. Hypertension - Blood pressure controlled, home medications continued with dose adjustment as needed 8. GERD ? On PPI 9. Chronic congestive heart failure with preserved ejection fraction ? Patient is on diuretic therapy with furosemide -10/13/2023; patient diuretic therapy held given her worsening kidney function 10. Class I obesity with BMI of 30 ? Weight loss advised 11. Hyponatremia ? Patient suspected to be secondary to fluid overload status from CHF as well as ascites patient is on furosemide monitoring with daily BMP 12. Depression ? Patient is on fluoxetine 13. Thrombocytopenia ? Thought to be related to patient underlying suspected hematologic malignancy workup as discussed above 14. DVT prophylaxis ? Held off chemoprophylaxis given patient anemia and low platelet count 15. Suspected abdominal compartment syndrome ? Case discussed with counter checker plan is for patient to be transferred to tertiary care center for higher level of care. In the meantime ultrasound-guided paracentesis ordered to relieve patient intra-abdominal pressure Critical time spent in the patient's overall evaluation,decision-making process, review of diagnostic data, adjustment of management, discussion with other providers, nursing nursing and ancillary staff involved in patient's care documentation, as well as patient's family and her and her daughter in [place]; 75 Minutes Charges/Coding Multi Select Codes Hospitalists' Procedures Procedures: 63631 Critical Care 1st Hr and 51501 Critical Care Addl 30 Min
[2023-10-13] MEDS: Ipratropium/Albuterol Sulfate 3 ML AMPUL.NEB INHALATION (07:26)
[2023-10-13 07:27] LABS: Reflex Lactate? Y
--- NOTE | 2023-10-13 07:29 | PN.SURG_ITS ---
Subjective Subjective Patient developed worsening pain overnight and CT scan revealed a free vesicular hematoma in the pelvis Objective Data Objective Data Vital Signs: Vital Signs Temp Pulse Resp BP Pulse Ox O2 Del Method O2 Flow Rate 98.1 F 69 15 112/62 100 Nasal Cannula 2 10/13/23 04:19 10/13/23 06:00 10/13/23 06:00 10/13/23 06:00 10/13/23 06:00 10/13/23 06:00 10/13/23 06:00 Oxygen Flow Rate (L/min) 2 Oxygen Delivery Method Nasal Cannula Weight: 175 lb 14.862 oz Body Mass Index (BMI) 31.1 Intake & Output: Intake and Output for Last 24 Hours 10/11/23 10/12/23 10/13/23 23:59 23:59 23:59 Intake Total 4960 / 4960 82.75 / 82.75 Output Total 1300 / 1300 0 / 0 Balance 3660 / 3660 82.75 / 82.75 Lab / Micro Data 10/13/23 06:40 10/13/23 01:37 Labs: Laboratory Results - last 24 hr 10/12/23 05:40: Differential Comment SCANNED, Reactive Lymphocytes 1+, Platelet Estimate MKD DEC, Hypochromasia 1+, Anisocytosis 2+, Microcytosis 1+, Macrocytosis 1+ 10/12/23 08:25: Blood Type A POSITIVE, Antibody Screen NEGATIVE, Crossmatch See Detail 10/12/23 08:25: Crossmatch See Detail 10/12/23 17:30: WBC 5.0, RBC 2.53 L, Hgb 6.4 L, Hct 20.8 L, MCV 82.2, MCH 25.3 L , MCHC 30.8 L, RDW Std Deviation 64.0 H, RDW Coeff of Kimberlyn 21.7 H, Plt Count 80 L , MPV 10.6, Immature Gran % (Auto) 0.600, Neut % (Auto) 67.2, Lymph % (Auto) 22.3, [place] % (Auto) 9.5, Eos % (Auto) 0.0, Baso % (Auto) 0.4, Absolute Neuts (auto) 3.3, Absolute Lymphs (auto) 1.11, Nucleated RBC % 0.6, Differential Comment SCANNED, Reactive Lymphocytes 1+, Platelet Estimate MKD DEC, Hypochromasia 1+, Anisocytosis 2+, Microcytosis 1+, Macrocytosis 1+, Sodium 130 L, Potassium 4.9, Chloride 98, Carbon Dioxide 20.0 L, Anion Gap 12, BUN 18, C reatinine 1.77 H, Estim Creat Clear Calc 26.02, Est GFR (MDRD) Af Amer 36 L, Est GFR (MDRD) Non-Af 30 L, BUN/Creatinine Ratio 10.2, Glucose 165 H, Calcium 8.5, A mmonia 52.0 H 10/13/23 01:37: WBC 6.0, RBC 2.45 L, Hgb 6.4 L, Hct 20.4 L, MCV 83.3, MCH 26.1 L , MCHC 31.4 L, RDW Std Deviation 62.9 H, RDW Coeff of Kimberlyn 20.9 H, Plt Count 88 L , MPV 10.7, Immature Gran % (Auto) 0.700, Neut % (Auto) 70.7 H, Lymph % (Auto) 16.9 L, [place] % (Auto) 11.4 H, Eos % (Auto) 0.0, Baso % (Auto) 0.3, Absolute Neuts (auto) 4.2, Absolute Lymphs (auto) 1.01, Nucleated RBC % 0.3, Atypical Lymphocytes 2+, Anisocytosis 3+, Sodium 129 L, Potassium 5.5 H, Chloride 98, C arbon Dioxide 18.0 L, Anion Gap 13, BUN 22 H, Creatinine 2.39 H, Estim Creat Clear Calc 19.27, Est GFR (MDRD) Af Amer 25 L, Est GFR (MDRD) Non-Af 21 L, B UN/Creatinine Ratio 9.2 L, Glucose 169 H, Calcium 8.5 10/13/23 03:15: Lactic Acid 3.1 H* 10/13/23 06:40: WBC 6.2, RBC 2.69 L, Hgb 7.2 L, Hct 22.6 L, MCV 84.0, MCH 26.8 L , MCHC 31.9 L, RDW Std Deviation 58.7 H, RDW Coeff of Kimberlyn 19.4 H, Plt Count 87 L , MPV 10.7, Immature Gran % (Auto) 0.800, Neut % (Auto) 70.4 H, Lymph % (Auto) 15.6 L, [place] % (Auto) 13.0 H, Eos % (Auto) 0.0, Baso % (Auto) 0.2, Absolute Neuts (auto) 4.3, Absolute Lymphs (auto) 0.96, Nucleated RBC % 0.7, PT 23.9 H, INR 2.2, APTT 41.9 H Micro: Microbiology 10/11/23 Unknown Fluid - Ascites Gram Stain - Final ABG Data ABG results: ABG 10/13/23 03:43 Specimen Type ART Sample Site R Radial pH 7.37 Bicarbonate Actual 18.4 L Total CO2 19 Base Excess -7 L O2 Saturation 96 O2 % 2.0 ABG pCO2 32.1 L ABG pO2 80 Chandrakant Test Positive O2 Delivery Device Cannula Vent Mode Not entered Radiography Diagnostic Testing: Radiology Impression Chest/Abdomen/Pelvis CT 10/13/23 02:32 IMPRESSION: 1. Large hematoma measuring 10 x 9 x 14 cm in the prevesical space extending superior anteriorly in the preperitoneal space and extensive involvement of the retroperitoneum and the anterior and posterior pararenal spaces. The exam is limited for the detection of active bleeding due to the lack of IV contrast. 2. Slight hemoperitoneum. 3. Bilateral mosaic attenuation in the lungs. This can be seen with small airways disease, chronic thromboembolic disease, and primary parenchymal diseases such as organizing pneumonia and interstitial lung disease. 4. Hepatomegaly. 5. Small hiatal hernia. 6. Cholecystectomy. 7. Coronary artery disease. N.B. : The above Results were Read Back by Jonathan Cherry MD to MAEGAN CONARD RN, and understanding confirmed on 10/13/2023 04:34:25 (ET). Electronically Signed: Jonathan Cherry MD at 4:37 EDT , ADDENDUM: 10/13/23 5764 IMPRESSION: 1. Large hematoma measuring 10 x 9 x 14 cm in the prevesical space extending superior anteriorly in the preperitoneal space and extensive involvement of the retroperitoneum and the anterior and posterior pararenal spaces. The exam is limited for the detection of active bleeding due to the lack of IV contrast. 2. Slight hemoperitoneum. 3. Bilateral mosaic attenuation in the lungs. This can be seen with small airways disease, chronic thromboembolic disease, and primary parenchymal diseases such as organizing pneumonia and interstitial lung disease. 4. Hepatomegaly. 5. Small hiatal hernia. 6. Cholecystectomy. 7. Coronary artery disease. N.B. : The above Results were Read Back by Jonathan Cherry MD to MAEGAN CONRAD RN, and understanding confirmed on 10/13/2023 04:34:25 (ET). Electronically Signed: Jonathan Cherry MD at 4:37 EDT , Physical Exam Const oriented x3 Resp normal respiratory effort GI soft to palpation Inspection: abdominal distention Palpation: tender suprapubic Assessment & Plan Assessment/Plan (1) Hematoma: PLAN: Plan Patient came in with anemia and I performed an EGD and colonoscopy yesterday and she had a paracentesis yesterday. Overnight she developed worsening abdominal pain and CT scan revealed a large hematoma in the previous saccular preperitoneal space. It was not associated with the colon or the likely site of paracentesis. I presented to the ICU and the patient was having lower abdominal pain. The nurses were attempting to obtain a Reyes placement. Once the Reyes was placed blood was returned through the Reyes. I advised the nurses to upsized to a larger irrigating catheter and I advised the hospitalist team to consult urology. Edson Alan MD Pager: [facility] [address] [place] [address], [address] [place] [address] Office:
[2023-10-13 08:06] LABS: Atypical Lymphocyte RARE %; Platelet Estimate MOD DEC (ADEQ)
[2023-10-13] MEDS: Lidocaine Jelly 2% 20 ML Syringe (URO-JET) 1 APPLIC TOPICAL (08:55)
--- NOTE | 2023-10-13 08:55 | PCM.CONS.GEN ---
Assessment & Plan Assessment/Plan (1) Gross hematuria: (2) Hematoma: (3) Abdominal ascites: QUALIFIERS: Ascites type: other type Qualified Code(s): R18.8 - Other ascites PLAN: Plan Simplastic Reyes catheter is in place and draining. Okay to irrigate as needed to keep the urine clear and titrate the CBI. Continue antibiotics while she is on a continuous bladder irrigation. Urine should be sent for culture and cytology. At some point in the future, she will need a cystoscopic evaluation. Continue ICU and supportive care. HPI Consult Data Date of Consult: 10/13/23 HPI Narrative Reason for Consultation: Reyes catheter placement, gross hematuria HPI Narrative: TAM SANCHEZ, is a 78 F who was admitted from the emergency department with significant ascites, anemia and thrombocytopenia. Over the course of her stay she has had a paracentesis and has developed a perivesical hematoma. She started to have gross hematuria. Nursing staff was unable to place a Reyes catheter to straight drain. I was called for Reyes catheter placement and hematuria. The patient is pleasant but uncomfortable. She reports that her abdomen is less distended than it was. She denies a history of urinary issues other than some incontinence and occasional urinary tract infection over the course of years. 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 [facility] Medical History (Updated 10/13/23 @ 09:[address] Yazmin Bowens MD) Gross hematuria High globulin level High serum protein level GERD (gastroesophageal reflux disease) Hypertension Hypercalcemia COPD with acute exacerbation Anxiety Osteoporosis Former smoker CPAP (continuous positive airway pressure) dependence Sleep apnea On home oxygen therapy Asthma COPD (chronic obstructive pulmonary disease) Irregular heart beat Chest pain Migraines Right lower lobe pneumonia COVID-19 Osteoarthritis Diverticulitis Depression Bronchitis Pneumonia acute viral bronchitis secondary to influenza A Acute respiratory failure with hypoxia Hypertension COPD (chronic obstructive pulmonary disease) with chronic bronchitis Influenza A Home Medications ?Medication ?Instructions ?Recorded ?Last Taken ?Type albuterol sulfate 90 mcg/actuation 2 puff inhalation Q6H PRN 02/04/23 Unknown Rx aerosol inhaler (Ventolin HFA) shortness of breath or wheezing #18 grams aspirin 81 mg capsule 81 mg PO DAILY 07/07/23 Unknown History furosemide 40 mg tablet (Lasix) 40 mg PO DAILY #30 tabs 07/11/23 10/09/23 Rx fluoxetine 20 mg capsule 40 mg PO DAILY 10/10/23 10/09/23 History ipratropium 0.5 mg-albuterol 3 mg 3 ml inhalation Q6H PRN shortness 10/10/23 Unknown History (2.5 mg base)/3 mL nebulization of breath soln metoprolol succinate 25 mg 25 mg PO DAILY 10/10/23 10/09/23 History tablet,extended release 24 hr omeprazole 20 mg capsule,delayed 20 mg PO DAILY 10/10/23 10/09/23 History release potassium chloride 20 mEq 20 meq PO DAILY 10/10/23 10/09/23 History tablet,extended release(part/cryst) (Klor-Con M) Allergy/AdvReac Type Severity Reaction Status Date / Time latex AdvReac Other Verified 10/10/23 09:10 Family History Father Hypertension Mother Cancer uterus Surgical History History of appendectomy History of cholecystectomy S/P laparoscopy S/P cholecystectomy History of tonsillectomy and adenoidectomy H/O laminectomy Hx of cataract surgery History of bone graft H/O tubal ligation Social History household members: spouse number of children: 2 current occupational status: retired Smoking Status: Former smoker how long ago did patient quit smokin, 1pk/day second hand exposure: Yes alcohol intake: current alcohol intake frequency: a few times a week Alcohol type: beer, wine and hard liquor substance use type: does not use seatbelt use: always do you feel safe at home: Yes additional social history: - [employer] ECHOLS Narrative She is having difficulty keeping her mind on track with conversation. Eyes Eyes: Reports systems reviewed and no addt'l complaints, except as documented ENT HEENT: Reports systems reviewed and no addt'l complaints, except as documented Cardiovascular Cardiovascular: Reports systems reviewed and no addt'l complaints, except as documented Respiratory/Chest Respiratory/Chest: Reports systems reviewed and no addt'l complaints, except as documented Gastrointestinal Gastrointestinal: Reports abdominal pain, bloating, cramping, nausea and vomiting Genitourinary Genitourinary: Reports hematuria and urinary incontinence; Denies burning urination, urinary frequency or urinary hesitancy Musculoskeletal Musculoskeletal: Reports systems reviewed and no addt'l complaints, except as documented Integumentary Integumentary: Reports systems reviewed and no addt'l complaints, except as documented Neurologic Neurologic: Reports systems reviewed and no addt'l complaints, except as documented Psychiatric Psychiatric: Reports systems reviewed and no addt'l complaints, except as documented Endocrine Endocrinology: Reports systems reviewed and no addt'l complaints, except as documented Hematologic/Lymphatic Hematologic/Lymphatic: Reports anemia Allergic/Immunologic Allergic/Immunologic: Reports systems reviewed and no addt'l complaints, except as documented Physical Exam Const alert and oriented x3 General Appearance: ill appearing Positive for acutely Orientation / Consciousness: awake, oriented to person and oriented to place HEENT normocephalic, head/scalp atraumatic, hearing grossly normal bilaterally and external ears normal Eyes General Eye: normal appearance of both eyes Neck supple General: normal visual inspection and trachea midline Lymph Lymphatic: no lymphedema noted Chest inspection of chest normal Chest: symmetrical chest wall rise Resp normal respiratory effort, normal air movement and no retractions Cardio regular rate GI Inspection: abdominal distention Palpation: soft and ascites Narrative: There is labial edema and tenderness. There is no obvious prolapse. The urethra was cleansed with Betadine and a 24 three-way Simplastic Reyes was inserted with minimal tenderness. A lidocaine jet was used for local anesthetic. 20 cc was placed in the balloon secondary to patient discomfort. It irrigates easily and flushed pink urine without clots. Continuous bladder irrigation was set up and ran until the urine cleared. There will be a need for following her urine output. Extremity normal to inspection Extremity Narrative: SCDs in place. Skin no rashes or lesions noted and no wounds Neuro oriented x3, CN's II-XII intact bilaterally and moves all extremities Lab / Micro Data 10/13/23 06:40 10/13/23 01:37 Labs: Laboratory Results - last 24 hr 10/12/23 05:40: Differential Comment SCANNED, Reactive Lymphocytes 1+, Platelet Estimate MKD DEC, Hypochromasia 1+, Anisocytosis 2+, Microcytosis 1+, Macrocytosis 1+ 10/12/23 08:25: Blood Type A POSITIVE, Antibody Screen NEGATIVE, Crossmatch See Detail 10/12/23 08:25: Crossmatch See Detail 10/12/23 17:30: WBC 5.0, RBC 2.53 L, Hgb 6.4 L, Hct 20.8 L, MCV 82.2, MCH 25.3 L, MCHC 30.8 L, RDW Std Deviation 64.0 H, RDW Coeff of Kimberlyn 21.7 H, Plt Count 80 L, MPV 10.6, Immature Gran % (Auto) 0.600, Neut % (Auto) 67.2, Lymph % (Auto) 22.3, [place] % (Auto) 9.5, Eos % (Auto) 0.0, Baso % (Auto) 0.4, Absolute Neuts (auto) 3.3, Absolute Lymphs (auto) 1.11, Nucleated RBC % 0.6, Differential Comment SCANNED, Reactive Lymphocytes 1+, Platelet Estimate MKD DEC, Hypochromasia 1+, Anisocytosis 2+, Microcytosis 1+, Macrocytosis 1+, Sodium 130 L, Potassium 4.9, Chloride 98, Carbon Dioxide 20.0 L, Anion Gap 12, BUN 18, Creatinine 1.77 H, Estim Creat Clear Calc 26.02, Est GFR (MDRD) Af Amer 36 L, Est GFR (MDRD) Non-Af 30 L, BUN/Creatinine Ratio 10.2, Glucose 165 H, Calcium 8.5, Ammonia 52.0 H 10/13/23 01:37: WBC 6.0, RBC 2.45 L, Hgb 6.4 L, Hct 20.4 L, MCV 83.3, MCH 26.1 L, MCHC 31.4 L, RDW Std Deviation 62.9 H, RDW Coeff of Kimberlyn 20.9 H, Plt Count 88 L, MPV 10.7, Immature Gran % (Auto) 0.700, Neut % (Auto) 70.7 H, Lymph % (Auto) 16.9 L, [place] % (Auto) 11.4 H, Eos % (Auto) 0.0, Baso % (Auto) 0.3, Absolute Neuts (auto) 4.2, Absolute Lymphs (auto) 1.01, Nucleated RBC % 0.3, Atypical Lymphocytes 2+, Anisocytosis 3+, Sodium 129 L, Potassium 5.5 H, Chloride 98, Carbon Dioxide 18.0 L, Anion Gap 13, BUN 22 H, Creatinine 2.39 H, Estim Creat Clear Calc 19.27, Est GFR (MDRD) Af Amer 25 L, Est GFR (MDRD) Non-Af 21 L, BUN/Creatinine Ratio 9.2 L, Glucose 169 H, Calcium 8.5 10/13/23 03:15: Lactic Acid 3.1 H* 10/13/23 06:40: WBC 6.2, RBC 2.69 L, Hgb 7.2 L, Hct 22.6 L, MCV 84.0, MCH 26.8 L, MCHC 31.9 L, RDW Std Deviation 58.7 H, RDW Coeff of Kimberlyn 19.4 H, Plt Count 87 L, MPV 10.7, Immature Gran % (Auto) 0.800, Neut % (Auto) 70.4 H, Lymph % (Auto) 15.6 L, [place] % (Auto) 13.0 H, Eos % (Auto) 0.0, Baso % (Auto) 0.2, Absolute Neuts (auto) 4.3, Absolute Lymphs (auto) 0.96, Nucleated RBC % 0.7, Atypical Lymphocytes RARE, Platelet Estimate MOD DEC, PT 23.9 H, INR 2.2, APTT 41.9 H Micro: Microbiology 10/11/23 Unknown Fluid - Ascites Gram Stain - Final 10/11/23 Unknown Fluid - Ascites Anaerobic Culture - Preliminary No growth in 48 hours. ABG Data ABG results: ABG 10/13/23 03:43 Specimen Type ART Sample Site R Radial pH 7.37 Bicarbonate Actual 18.4 L Total CO2 19 Base Excess -7 L O2 Saturation 96 O2 % 2.0 ABG pCO2 32.1 L ABG pO2 80 Chandrakant Test Positive O2 Delivery Device Cannula Vent Mode Not entered Imaging Radiology Impression Chest/Abdomen/Pelvis CT 10/13/23 02:32 IMPRESSION: 1. Large hematoma measuring 10 x 9 x 14 cm in the prevesical space extending superior anteriorly in the preperitoneal space and extensive involvement of the retroperitoneum and the anterior and posterior pararenal spaces. The exam is limited for the detection of active bleeding due to the lack of IV contrast. 2. Slight hemoperitoneum. 3. Bilateral mosaic attenuation in the lungs. This can be seen with small airways disease, chronic thromboembolic disease, and primary parenchymal diseases such as organizing pneumonia and interstitial lung disease. 4. Hepatomegaly. 5. Small hiatal hernia. 6. Cholecystectomy. 7. Coronary artery disease. N.B. : The above Results were Read Back by Jonathan Cherry MD to MAEGAN CONRAD RN, and understanding confirmed on 10/13/2023 04:34:25 (ET). Electronically Signed: Jonathan Cherry MD at 4:37 EDT , ADDENDUM: 10/13/23 0444
--- NOTE | 2023-10-13 08:58 | CON.PCM.CC_ITS ---
Assessment & Plan Assessment/Plan (1) YEFRI (acute kidney injury): (2) High serum protein level: (3) Iron deficiency anemia: QUALIFIERS: Iron deficiency anemia type: unspecified iron deficiency Qualified Code(s): D50.9 - Iron deficiency anemia, unspecified (4) Thrombocytopenia: (5) Abdominal ascites: QUALIFIERS: Ascites type: other type Qualified Code(s): R18.8 - Other ascites PLAN: Plan RECOMMENDATIONS: 1. Continue to monitor blood counts and transfuse if hemoglobin drops below 7 g/dL. 2. If the patient develops worsening anemia or compromised hemodynamics, consider transfer to tertiary care facility. 3. Continue empiric antibiotics. 4. Supplemental oxygen to maintain saturations at or above 90%. 5. Continue bronchodilator therapy. 6. Consider measurement of intra-abdominal pressures via Reyes. (Will discuss with nursing staff) IMPRESSIONS: 1. Clinical concern for underlying myeloproliferative disorder with ascites and severe anemia The patient is currently being worked up for possible myeloproliferative disorder by oncology. Plan to continue supportive measures including transfusion of blood products to maintain a hemoglobin at or above 7 g/dL. Unfortunately, the patient developed a large hematoma in the preperitoneal and retroperitoneal space overnight. Nevertheless, she remains hemodynamically stable. The patient has also developed acute kidney injury, which may be multifactorial in etiology. My concern would be that the patient may be developing abdominal compartment syndrome. Will plan to discuss the feasibility of measuring intra-abdominal pressures via the Reyes catheter with the ICU nursing staff. If the patient worsens clinically, she would need to be transferred to a tertiary care facility with IR capabilities. 2. Acute kidney injury Nephrology is currently following to assist with medical management. Will attempt to transduce bladder pressures to evaluate for abdominal compartment syndrome. Otherwise, continue to monitor the patient clinically. Avoid nephrotoxic medications. 3. History of COPD/hypertension/heart failure with preserved ejection fraction/depression Complicates care, management, recovery and prognosis. Continue supportive measures as noted above. This note was generated with [employer] dictation software. It may contain incorrect words, spelling, and punctuation that were not noted in checking the note before signing. HPI Consult Data Date of Consult: 10/13/23 HPI Narrative Reason for Consultation: ICU management HPI Narrative: The patient is a 78-year-old female, with a history as outlined below, who presented to the emergency department on October 09 with generalized weakness, nausea, vomiting and abdominal pain. The patient has a known history of mild obstructive lung disease and obstructive sleep apnea. She is followed on an outpatient basis in the pulmonary medicine clinic. The patient was also recently seen by Dr. Alan due to a history of anemia. The patient also reported that she had lost approximately 65 pounds over the course of the last 4 years. As a consequence of her presenting symptoms, the patient was evaluated by general surgery. She underwent upper and lower endoscopic evaluation. Her hospital course has also included a successful ultrasound-guided paracentesis of the right lower quadrant on October 10, during which time, 1.3 L of fluid was removed. She has required transfusion of blood products throughout her hospital course due to worsening anemia. The patient was seen in consultation by oncology on account of her high serum protein level and ascites, for which SPEP with IFIX and kappa lambda assay were sent. During the flight paramedic hours of October 12, the overnight hospitalist was contacted by floor nursing staff over concerns of the patient was decompensating clinically. She was experiencing decreasing urine output along with worsening abdominal discomfort. CT imaging of the abdomen demonstrated a large hematoma in the preperitoneal space with extensive involvement in the retroperitoneum. The exam was limited for the detection of active bleeding due to the lack of IV contrast. Given these findings, the patient was transferred to the medical intensive care unit for closer monitoring. However, her hemoglobin remained stable at 7.2 g/dL. The patient is hemodynamically stable and maintaining appropriate oxygen saturations on 2 L/min via nasal cannula. A Reyes catheter was placed early this morning with the assistance of urology. Nephrology consultation is currently pending as well. [facility] Medical History (Updated 10/13/23 @ 09:36 by Emily Norton, IZZY-C) Anemia Gross hematuria High globulin level High serum protein level GERD (gastroesophageal reflux disease) Hypertension Hypercalcemia COPD with acute exacerbation Anxiety Osteoporosis Former smoker CPAP (continuous positive airway pressure) dependence Sleep apnea On home oxygen therapy Asthma COPD (chronic obstructive pulmonary disease) Irregular heart beat Chest pain Migraines Right lower lobe pneumonia COVID-19 Osteoarthritis Diverticulitis Depression Bronchitis Pneumonia acute viral bronchitis secondary to influenza A Acute respiratory failure with hypoxia Hypertension COPD (chronic obstructive pulmonary disease) with chronic bronchitis Influenza A Home Medications ?Medication ?Instructions ?Recorded ?Last Taken ?Type albuterol sulfate 90 mcg/actuation 2 puff inhalation Q6H PRN 02/04/23 Unknown Rx aerosol inhaler (Ventolin HFA) shortness of breath or wheezing #18 grams aspirin 81 mg capsule 81 mg PO DAILY 07/07/23 Unknown History furosemide 40 mg tablet (Lasix) 40 mg PO DAILY #30 tabs 07/11/23 10/09/23 Rx fluoxetine 20 mg capsule 40 mg PO DAILY 10/10/23 10/09/23 History ipratropium 0.5 mg-albuterol 3 mg 3 ml inhalation Q6H PRN shortness 10/10/23 Unknown History (2.5 mg base)/3 mL nebulization of breath soln metoprolol succinate 25 mg 25 mg PO DAILY 10/10/23 10/09/23 History tablet,extended release 24 hr omeprazole 20 mg capsule,delayed 20 mg PO DAILY 10/10/23 10/09/23 History release potassium chloride 20 mEq 20 meq PO DAILY 10/10/23 10/09/23 History tablet,extended release(part/cryst) (Klor-Con M) Allergy/AdvReac Type Severity Reaction Status Date / Time latex AdvReac Other Verified 10/10/23 09:10 Family History Father Hypertension Mother Cancer uterus Surgical History History of appendectomy History of cholecystectomy S/P laparoscopy S/P cholecystectomy History of tonsillectomy and adenoidectomy H/O laminectomy Hx of cataract surgery History of bone graft H/O tubal ligation Social History household members: spouse number of children: 2 current occupational status: retired Smoking Status: Former smoker how long ago did patient quit smokin, 1pk/day second hand exposure: Yes alcohol intake: current alcohol intake frequency: a few times a week Alcohol type: beer, wine and hard liquor substance use type: does not use seatbelt use: always do you feel safe at home: Yes 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 Narrative 10 systems were reviewed with pertinent positives as noted in the HPI above. Physical Exam Const alert and no apparent distress General Appearance: cooperative HEENT normocephalic and head/scalp atraumatic Eyes PERRL, EOMs intact bilaterally and conjunctivae normal Neck supple General: trachea midline Chest inspection of chest normal Resp normal respiratory effort Auscultation: Negative for rales, rhonchi or wheezes Cardio regular rate and regular rhythm GI GI Narrative: The patient's abdomen is distended with diffuse, nonfocal tenderness, which appears most pronounced in the right lower quadrant. Bowel sounds are hypoactive. Extremity no clubbing, cyanosis or edema Skin no rashes or lesions noted Neuro CN's II-XII intact bilaterally, moves all extremities and no focal motor deficits Psych cooperative Lab / Micro Data 10/13/23 09:50 10/13/23 01:37 Labs: Laboratory Results - last 24 hr 10/12/23 05:40: Differential Comment SCANNED, Reactive Lymphocytes 1+, Platelet Estimate MKD DEC, Hypochromasia 1+, Anisocytosis 2+, Microcytosis 1+, Macrocytosis 1+ 10/12/23 08:25: Blood Type A POSITIVE, Antibody Screen NEGATIVE, Crossmatch See Detail 10/12/23 08:25: Crossmatch See Detail 10/12/23 17:30: WBC 5.0, RBC 2.53 L, Hgb 6.4 L, Hct 20.8 L, MCV 82.2, MCH 25.3 L , MCHC 30.8 L, RDW Std Deviation 64.0 H, RDW Coeff of Kimberlyn 21.7 H, Plt Count 80 L , MPV 10.6, Immature Gran % (Auto) 0.600, Neut % (Auto) 67.2, Lymph % (Auto) 22.3, [place] % (Auto) 9.5, Eos % (Auto) 0.0, Baso % (Auto) 0.4, Absolute Neuts (auto) 3.3, Absolute Lymphs (auto) 1.11, Nucleated RBC % 0.6, Differential Comment SCANNED, Reactive Lymphocytes 1+, Platelet Estimate MKD DEC, Hypochromasia 1+, Anisocytosis 2+, Microcytosis 1+, Macrocytosis 1+, Sodium 130 L, Potassium 4.9, Chloride 98, Carbon Dioxide 20.0 L, Anion Gap 12, BUN 18, C reatinine 1.77 H, Estim Creat Clear Calc 26.02, Est GFR (MDRD) Af Amer 36 L, Est GFR (MDRD) Non-Af 30 L, BUN/Creatinine Ratio 10.2, Glucose 165 H, Calcium 8.5, A mmonia 52.0 H 10/13/23 01:37: WBC 6.0, RBC 2.45 L, Hgb 6.4 L, Hct 20.4 L, MCV 83.3, MCH 26.1 L , MCHC 31.4 L, RDW Std Deviation 62.9 H, RDW Coeff of Kimberlyn 20.9 H, Plt Count 88 L , MPV 10.7, Immature Gran % (Auto) 0.700, Neut % (Auto) 70.7 H, Lymph % (Auto) 16.9 L, [place] % (Auto) 11.4 H, Eos % (Auto) 0.0, Baso % (Auto) 0.3, Absolute Neuts (auto) 4.2, Absolute Lymphs (auto) 1.01, Nucleated RBC % 0.3, Atypical Lymphocytes 2+, Anisocytosis 3+, Sodium 129 L, Potassium 5.5 H, Chloride 98, C arbon Dioxide 18.0 L, Anion Gap 13, BUN 22 H, Creatinine 2.39 H, Estim Creat Clear Calc 19.27, Est GFR (MDRD) Af Amer 25 L, Est GFR (MDRD) Non-Af 21 L, B UN/Creatinine Ratio 9.2 L, Glucose 169 H, Calcium 8.5 10/13/23 03:15: Lactic Acid 3.1 H* 10/13/23 06:40: WBC 6.2, RBC 2.69 L, Hgb 7.2 L, Hct 22.6 L, MCV 84.0, MCH 26.8 L , MCHC 31.9 L, RDW Std Deviation 58.7 H, RDW Coeff of Kimberlyn 19.4 H, Plt Count 87 L , MPV 10.7, Immature Gran % (Auto) 0.800, Neut % (Auto) 70.4 H, Lymph % (Auto) 15.6 L, [place] % (Auto) 13.0 H, Eos % (Auto) 0.0, Baso % (Auto) 0.2, Absolute Neuts (auto) 4.3, Absolute Lymphs (auto) 0.96, Nucleated RBC % 0.7, Atypical Lymphocytes RARE, Platelet Estimate MOD DEC, PT 23.9 H, INR 2.2, APTT 41.9 H Micro: Microbiology 10/11/23 Unknown Fluid - Ascites Gram Stain - Final 10/11/23 Unknown Fluid - Ascites Anaerobic Culture - Preliminary No growth in 48 hours. ABG Data ABG results: ABG 10/13/23 03:43 Specimen Type ART Sample Site R Radial pH 7.37 Bicarbonate Actual 18.4 L Total CO2 19 Base Excess -7 L O2 Saturation 96 O2 % 2.0 ABG pCO2 32.1 L ABG pO2 80 Chandrakant Test Positive O2 Delivery Device Cannula Vent Mode Not entered Imaging Radiology Impression Chest/Abdomen/Pelvis CT 10/13/23 02:32 IMPRESSION: 1. Large hematoma measuring 10 x 9 x 14 cm in the prevesical space extending superior anteriorly in the preperitoneal space and extensive involvement of the retroperitoneum and the anterior and posterior pararenal spaces. The exam is limited for the detection of active bleeding due to the lack of IV contrast. 2. Slight hemoperitoneum. 3. Bilateral mosaic attenuation in the lungs. This can be seen with small airways disease, chronic thromboembolic disease, and primary parenchymal diseases such as organizing pneumonia and interstitial lung disease. 4. Hepatomegaly. 5. Small hiatal hernia. 6. Cholecystectomy. 7. Coronary artery disease. N.B. : The above Results were Read Back by Jonathan Cherry MD to MAEGAN CONRAD RN, and understanding confirmed on 10/13/2023 04:34:25 (ET). Electronically Signed: Jonathan Cherry MD at 4:37 EDT , ADDENDUM: 10/13/23 [id number] IMPRESSION: 1. Large hematoma measuring 10 x 9 x 14 cm in the prevesical space extending superior anteriorly in the preperitoneal space and extensive involvement of the retroperitoneum and the anterior and posterior pararenal spaces. The exam is limited for the detection of active bleeding due to the lack of IV contrast. 2. Slight hemoperitoneum. 3. Bilateral mosaic attenuation in the lungs. This can be seen with small airways disease, chronic thromboembolic disease, and primary parenchymal diseases such as organizing pneumonia and interstitial lung disease. 4. Hepatomegaly. 5. Small hiatal hernia. 6. Cholecystectomy. 7. Coronary artery disease. N.B. : The above Results were Read Back by Jonathan Cherry MD to MAEGAN CONRAD RN, and understanding confirmed on 10/13/2023 04:34:25 (ET). Electronically Signed: Jonathan Cherry MD at 4:37 EDT , Charges/Coding Visit Charges Inpatient E&M: 07101 Init Hosp L3
[2023-10-13 09:02] LABS: Lactic Acid 2.1 mmol/L (0.4-1.9)
--- NOTE | 2023-10-13 09:20 | CASEMGMT ---
Addendum entered by Rj Scott 10/13/23 10:03: Dr. Castro updated with this information Original Note: Insurance review for hospitals In-network with [facility] insurance if transfer is recommended is as follows:?[facility], [employer], [facility], [facility], [facility], [facility], [facility]), and . Lanette Perez, Discharge Planning Asst.
--- NOTE | 2023-10-13 09:28 | PCM.CONS.R ---
Assessment & Plan Assessment/Plan (1) YEFRI (acute kidney injury): (2) Anemia: (3) Thrombocytopenia: (4) Abdominal ascites: QUALIFIERS: Ascites type: other type Qualified Code(s): R18.8 - Other ascites PLAN: Plan This is a 78-year-old female who presented to the emergency room with complaints of feeling unwell, lethargic, abdominal pain, unintentional weight loss. Workup in the emergency room showed hemoglobin of 8.3, platelet count 66, white count 4.6, creatinine 0.84, noncontrast CT of abdomen and pelvis showed interval worsening of the ascites. Patient was admitted. She did undergo paracentesis, fluid sent for analysis. Hematology has been consulted, workup including immunofixation pending. Surgery team consulted and patient had colonoscopy which showed normal colon; EGD nonbleeding gastric ulcer, biopsied, normal esophagus and duodenum. Patient also underwent paracentesis on October 10 with around 1.3 L fluid removal, fluid sent for analysis. Overnight patient developed abdominal pain with difficulty urinating, stat noncontrast CT of abdomen and pelvis revealed large hematoma. Reyes catheter was attempted but unsuccessful by nursing therefore urology consulted and Reyes was successfully placed to CBI. Patient has small amount of urine in Reyes bag now. Nephrology consulted in view of rising serum creatinine. Patient has normal baseline creatinine. Today her creatinine is up to 2.4 mg/dL. YEFRI likely secondary to large hematoma compressing on bladder, Reyes was successfully placed today. Patient was also noted to be significantly hypotensive over the last 24 hours which may also be contributing to YEFRI. No recent TAYO inhibitor's or ARB's. Patient did receive a one-time dose of IV Lasix early this morning. She is off oral diuretics. No hydronephrosis per CT. Potassium was 5.5 this morning, patient did receive IV Lasix, D50 and insulin. Mild hyperkalemia possibly secondary to YEFRI and on oral potassium supplement. Patient is off oral potassium, she is ordered liquid diet, will follow potassium trends. Will continue monitor renal function along with you. Possible transfer to tertiary center. Further orders forthcoming as hospitalization evolves, thank you for allowing us participate in the care of Ms. Telles. HPI Consult Data Date of Consult: 10/13/23 HPI Narrative HPI Narrative: TAM TELLES, is a 78 F with past medical history significant for hypertension, asthma, COPD, osteoporosis who presented to the emergency room on October 09 with complaints of generalized weakness, nausea and vomiting, poor appetite, and abdominal pain. Patient admitted to 30 pound weight loss since June 2023. Workup in the emergency room included CT of abdomen and pelvis which showed worsening of ascites, colonic diverticulosis. Also found to have hemoglobin of 8.3, white count 4.6, platelets 66,000. Patient was admitted for further evaluation and treatment. Nephrology consulted in view of rising serum creatinine today. Patient has normal baseline creatinine. On 10/11/2023 creatinine 0.66, 521 creatinine 1.77 and today patient's creatinine is 2.39. Patient had paracentesis yesterday. Patient also had EGD and colonoscopy. Overnight patient was complaining of difficulty urinating, noncontrast CT of abdomen pelvis showed large hematoma 10 x 9 x 14 cm in prevesical space extending superior anteriorly in preperitoneal space, extensive involvement of retroperitoneum and anterior and posterior pararenal spaces. Patient was transferred to ICU. Reyes catheter was attempted with no success. Urology consulted and was able to place Reyes with CBI. Patient is alert and oriented but complains of feeling sleepy and groggy. She reports abdominal pain some improvement. [facility] Medical History (Updated 10/13/23 @ 09:36 by GAMAL Louis) Anemia Gross hematuria High globulin level High serum protein level GERD (gastroesophageal reflux disease) Hypertension Hypercalcemia COPD with acute exacerbation Anxiety Osteoporosis Former smoker CPAP (continuous positive airway pressure) dependence Sleep apnea On home oxygen therapy Asthma COPD (chronic obstructive pulmonary disease) Irregular heart beat Chest pain Migraines Right lower lobe pneumonia COVID-19 Osteoarthritis Diverticulitis Depression Bronchitis Pneumonia acute viral bronchitis secondary to influenza A Acute respiratory failure with hypoxia Hypertension COPD (chronic obstructive pulmonary disease) with chronic bronchitis Influenza A Home Medications ?Medication ?Instructions ?Recorded ?Last Taken ?Type albuterol sulfate 90 mcg/actuation 2 puff inhalation Q6H PRN 02/04/23 Unknown Rx aerosol inhaler (Ventolin HFA) shortness of breath or wheezing #18 grams aspirin 81 mg capsule 81 mg PO DAILY 07/07/23 Unknown History furosemide 40 mg tablet (Lasix) 40 mg PO DAILY #30 tabs 07/11/23 10/09/23 Rx fluoxetine 20 mg capsule 40 mg PO DAILY 10/10/23 10/09/23 History ipratropium 0.5 mg-albuterol 3 mg 3 ml inhalation Q6H PRN shortness 10/10/23 Unknown History (2.5 mg base)/3 mL nebulization of breath soln metoprolol succinate 25 mg 25 mg PO DAILY 10/10/23 10/09/23 History tablet,extended release 24 hr omeprazole 20 mg capsule,delayed 20 mg PO DAILY 10/10/23 10/09/23 History release potassium chloride 20 mEq 20 meq PO DAILY 10/10/23 10/09/23 History tablet,extended release(part/cryst) (Klor-Con M) Allergy/AdvReac Type Severity Reaction Status Date / Time latex AdvReac Other Verified 10/10/23 09:10 Family History Father Hypertension Mother Cancer uterus Surgical History History of appendectomy History of cholecystectomy S/P laparoscopy S/P cholecystectomy History of tonsillectomy and adenoidectomy H/O laminectomy Hx of cataract surgery History of bone graft H/O tubal ligation Social History household members: spouse number of children: 2 current occupational status: retired Smoking Status: Former smoker how long ago did patient quit smokin, 1pk/day second hand exposure: Yes alcohol intake: current alcohol intake frequency: a few times a week Alcohol type: beer, wine and hard liquor substance use type: does not use seatbelt use: always do you feel safe at home: Yes additional social history: - [employer] Narrative As in HPI and past medical history Physical Exam Narrative Alert and oriented, no apparent distress S1, S2, RRR Lung sounds clear anteriorly and posteriorly. No wheezes, rhonchi rales Abdomen soft, tender upon palpation No edema Reyes with pinkish colored urine noted in bag Lab / Micro Data 10/13/23 06:40 10/13/23 01:37 Labs: Laboratory Results - last 24 hr 10/12/23 05:40: Differential Comment SCANNED, Reactive Lymphocytes 1+, Platelet Estimate MKD DEC, Hypochromasia 1+, Anisocytosis 2+, Microcytosis 1+, Macrocytosis 1+ 10/12/23 08:25: Blood Type A POSITIVE, Antibody Screen NEGATIVE, Crossmatch See Detail 10/12/23 08:25: Crossmatch See Detail 10/12/23 17:30: WBC 5.0, RBC 2.53 L, Hgb 6.4 L, Hct 20.8 L, MCV 82.2, MCH 25.3 L, MCHC 30.8 L, RDW Std Deviation 64.0 H, RDW Coeff of [place] 21.7 H, Plt Count 80 L, MPV 10.6, Immature Gran % (Auto) 0.600, Neut % (Auto) 67.2, Lymph % (Auto) 22.3, [place] % (Auto) 9.5, Eos % (Auto) 0.0, Baso % (Auto) 0.4, Absolute Neuts (auto) 3.3, Absolute Lymphs (auto) 1.11, Nucleated RBC % 0.6, Differential Comment SCANNED, Reactive Lymphocytes 1+, Platelet Estimate MKD DEC, Hypochromasia 1+, Anisocytosis 2+, Microcytosis 1+, Macrocytosis 1+, Sodium 130 L, Potassium 4.9, Chloride 98, Carbon Dioxide 20.0 L, Anion Gap 12, BUN 18, Creatinine 1.77 H, Estim Creat Clear Calc 26.02, Est GFR (MDRD) Af Amer 36 L, Est GFR (MDRD) Non-Af 30 L, BUN/Creatinine Ratio 10.2, Glucose 165 H, Calcium 8.5, Ammonia 52.0 H 10/13/23 01:37: WBC 6.0, RBC 2.45 L, Hgb 6.4 L, Hct 20.4 L, MCV 83.3, MCH 26.1 L, MCHC 31.4 L, RDW Std Deviation 62.9 H, RDW Coeff of [place] 20.9 H, Plt Count 88 L, MPV 10.7, Immature Gran % (Auto) 0.700, Neut % (Auto) 70.7 H, Lymph % (Auto) 16.9 L, [place] % (Auto) 11.4 H, Eos % (Auto) 0.0, Baso % (Auto) 0.3, Absolute Neuts (auto) 4.2, Absolute Lymphs (auto) 1.01, Nucleated RBC % 0.3, Atypical Lymphocytes 2+, Anisocytosis 3+, Sodium 129 L, Potassium 5.5 H, Chloride 98, Carbon Dioxide 18.0 L, Anion Gap 13, BUN 22 H, Creatinine 2.39 H, Estim Creat Clear Calc 19.27, Est GFR (MDRD) Af Amer 25 L, Est GFR (MDRD) Non-Af 21 L, BUN/Creatinine Ratio 9.2 L, Glucose 169 H, Calcium 8.5 10/13/23 03:15: Lactic Acid 3.1 H* 10/13/23 06:40: WBC 6.2, RBC 2.69 L, Hgb 7.2 L, Hct 22.6 L, MCV 84.0, MCH 26.8 L, MCHC 31.9 L, RDW Std Deviation 58.7 H, RDW Coeff of [place] 19.4 H, Plt Count 87 L, MPV 10.7, Immature Gran % (Auto) 0.800, Neut % (Auto) 70.4 H, Lymph % (Auto) 15.6 L, [place] % (Auto) 13.0 H, Eos % (Auto) 0.0, Baso % (Auto) 0.2, Absolute Neuts (auto) 4.3, Absolute Lymphs (auto) 0.96, Nucleated RBC % 0.7, Atypical Lymphocytes RARE, Platelet Estimate MOD DEC, PT 23.9 H, INR 2.2, APTT 41.9 H 10/13/23 07:52: Lactic Acid 2.1 H* Micro: Microbiology 10/11/23 Unknown Fluid - Ascites Gram Stain - Final 10/11/23 Unknown Fluid - Ascites Anaerobic Culture - Preliminary No growth in 48 hours. ABG Data ABG results: ABG 10/13/23 03:43 Specimen Type ART Sample Site R Radial pH 7.37 Bicarbonate Actual 18.4 L Total CO2 19 Base Excess -7 L O2 Saturation 96 O2 % 2.0 ABG pCO2 32.1 L ABG pO2 80 Chandrakant Test Positive O2 Delivery Device Cannula Vent Mode Not entered Imaging Radiology Impression Chest/Abdomen/Pelvis CT 10/13/23 02:32 IMPRESSION: 1. Large hematoma measuring 10 x 9 x 14 cm in the prevesical space extending superior anteriorly in the preperitoneal space and extensive involvement of the retroperitoneum and the anterior and posterior pararenal spaces. The exam is limited for the detection of active bleeding due to the lack of IV contrast. 2. Slight hemoperitoneum. 3. Bilateral mosaic attenuation in the lungs. This can be seen with small airways disease, chronic thromboembolic disease, and primary parenchymal diseases such as organizing pneumonia and interstitial lung disease. 4. Hepatomegaly. 5. Small hiatal hernia. 6. Cholecystectomy. 7. Coronary artery disease. N.B. : The above Results were Read Back by Jonathan Cherry MD to MAEGAN CONRAD RN, and understanding confirmed on 10/13/2023 04:34:25 (ET). Electronically Signed: Jonathan Cherry MD at 4:37 EDT , ADDENDUM: 10/13/23 [id number]
[2023-10-13 09:58] LABS: Hematocrit 21.8 % (37-47); Hemoglobin 7.2 g/dL (12.0-15.0)
[2023-10-13] MEDS: Fluoxetine HCl 40 MG CAPSULE PO (10:05)
[2023-10-13] MEDS: Metoprolol(XL)Succ 25 MG Tablet PO (10:05)
[2023-10-13] MEDS: Ceftriaxone 1 GM/50 ML BAG IV (10:05)
[2023-10-13] MEDS: Pantoprazole Sodium 20 MG Tablet PO (10:05)
[2023-10-13 12:09] LABS: Albumin 2.9 g/dL (2.9-4.4); Alpha-1-Globulins 0.2 g/dL (0.0-0.4); Alpha-2-Globulins 0.4 g/dL (0.4-1.0); Free Kappa Light Chains 1439.2 mg/L (3.3-19.4); Free Lambda Light Chains 1.7 mg/L (5.7-26.3); Gamma Globulin 0.1 g/dL (0.4-1.8); Haptoglobin 23 mg/dL (42-346); Immunoglobulin A > 6400 mg/dL (64-422); Immunoglobulin G 62 mg/dL (586-1602); Immunoglobulin M 7 mg/dL (26-217); PROEL- TOTAL PROTEIN 10.8 g/dL (6.0-8.5)
[2023-10-13 12:09] LABS: Albumin, Body Fluid 1.6 g/dL (Not Estab.)
--- NOTE | 2023-10-13 12:28 | US_ITS ---
EXAM: US ABDOMEN LIMITED CLINICAL INDICATION: ascites TECHNIQUE: Real-time ultrasound of the abdomen with image documentation. COMPARISON: No relevant prior studies available. FINDINGS: FREE FLUID: Minimal ascites noted within 3 of the 4 quadrants of the abdominal cavity which was determined to be inadequate for paracentesis. US/Abdomen Limited IMPRESSION: As above. Electronically Signed: Lance Ruiz MD at 15:02 EDT ,
--- NOTE | 2023-10-13 12:33 | NURSING ---
Intra-abdominal pressure monitoring performed reading was [address] Castillo.
[2023-10-13 12:49] LABS: Hematocrit 20.5 % (37-47); Hemoglobin 6.6 g/dL (12.0-15.0)
[2023-10-13 14:08] LABS: Anion Gap 12 (5-15); BUN 28 mg/dL (7-18); Calcium,Total 8.4 mg/dL (8.5-10.1); Chloride 99 mmol/L (98-107); Creatinine, Serum 3.12 mg/dL (0.55-1.02); EST Glomerular Filtration Rate 15 mL/min (>60); Est Glom Filt Rate - Afr Amer 19 mL/min (>60); Glucose 143 mg/dL (74-106); Potassium 5.7 mmol/L (3.5-5.1); Sodium Level 130 mmol/L (136-145)
[2023-10-13 15:28] LABS: Glucose, Dipstick Normal (Normal); Ketone-Dipstick Negative (Negative); Leukocyte Esterase-Dipstick 25 /ul (Negative); Nitrite-Dipstick Positive (Negative); Occult Blood-Urine 250 /ul (Negative); Protein-Dipstick 100 mg/dl (Negative); Specific Gravity, Urine 1.005 (1.002-1.030); Urine Bilirubin Dipstick Negative (Negative); Urine Clarity Sl. Cloudy (Clear); Urine Urobilinogen Normal (Normal)
[2023-10-13 15:31] LABS: Color, Urine SEE COMMENT BELOW (Yellow)
[2023-10-13 15:31] LABS: Pathologist Comment/Body Fluid Reviewed
[2023-10-13] MEDS: Sodium Polystyrene Sulfonate 15 GM/60 ML UDC 30 GM PO (17:36)
[2023-10-13 18:36] LABS: Hemoglobin 7.9 g/dL (12.0-15.0)
[2023-10-14] VITALS (26 sets, daily range): BP systolic 100–127; BP diastolic 50–88; PULSE 78–89; RESP 13–22; TEMP 36.1–36.7; O2SAT 94–100; BMI 32.1
[2023-10-14] MEDS: 0.9% Saline Lock 10 ML Syringe IV (02:47)
[2023-10-14] MEDS: Morphine 2 MG/ML Syringe IV ×2 (02:47→07:53)
[2023-10-14 03:28] LABS: Hematocrit 22.9 % (37-47); Hemoglobin 7.4 g/dL (12.0-15.0); POSITIVE MORPHOLOGY YES
[2023-10-14 06:08] LABS: Absolute Lymphocyte Count 1.48 X10^3/uL (0.83-4.51); Absolute Neutrophil Count 4.7 X10^3/uL (2.0-7.7); Basophil# 0.04 X10^3/uL; Basophil% 0.6 % (0-1); Hematocrit 22.4 % (37-47); Hemoglobin 7.5 g/dL (12.0-15.0); Lymphocyte # 1.48 X10^3/ul (0.83-4.51); Mean Corp Hgb Conc 33.5 g/dL (32-36); Mean Corpuscular Hgb 27.9 pg (27.0-32.0); Mean Corpuscular Volume 83.3 fL (81-99); Mean Platelet Vol. 12.2 fl (6.2-12.0); Monocyte# 0.81 X10^3/uL; Monocyte% 11.5 % (0-10); NRBC Flagged by Analyzer 1.3 % (0-5); Neutrophil # 4.67 X10^3/uL (2.7-7.7); Neutrophil % 66.3 % (47-70); POSITIVE MORPHOLOGY YES; Platelet Count 305 K/mm3 (150-450); RBC Distribution Width CV 20.9 % (11.6-14.6); RBC Distribution Width SD 58.7 fl (35.1-43.9); Red Blood Count 2.69 M/mm3 (4.2-5.4)
[2023-10-14 06:22] LABS: Differential Indicated SCAN CRITERIA MET
--- NOTE | 2023-10-14 06:45 | US_ITS ---
STUDY: RENAL ULTRASOUND - COMPLETE REASON FOR EXAM: Female, 78 years old. Elevated BUN and creatinine TECHNIQUE: Ultrasound evaluation of the kidneys was performed with real-time and static rollins-scale imaging. Study limited by patient condition COMPARISON: None. FINDINGS: RIGHT KIDNEY: Normal location of the right kidney, which is normal in size. The right kidney measures 9.1 x 4.1 x 4.2 cm. There is a normal cortex of the right kidney. The renal cortex measures 1.1 cm. There is no right renal mass or cyst. There are no right renal calculi. There is no right hydronephrosis. DISTAL RIGHT URETER: There is non-visualization of the distal right ureter. There is no demonstrated right ureterovesical junction calculus. There is a visualized right ureteral jet. LEFT KIDNEY: Normal location of the left kidney, which is normal in size. The left kidney measures 9.1 x 3.8 x 5.5 cm. There is a normal cortex of the left kidney. The renal cortex measures 1.1 cm. There is no left renal mass or cyst. There are no left renal calculi. There is no left hydronephrosis. DISTAL LEFT URETER: There is non-visualization of the distal left ureter. There is no demonstrated left ureterovesical junction calculus. There is a visualized left ureteral jet. AORTA: There is no elongation or tortuosity of the abdominal aorta. I.V.C.: The IVC is patent. BLADDER: The bladder is collapsed around a Reyes catheter US/Kidney and Bladder IMPRESSION: No suspicious sonographic findings Electronically Signed: Maynor Reno MD at 12:28 EDT ,
[2023-10-14 07:08] LABS: Beta-2-Microglobulin, S 5.3 mg/L (0.6-2.4)
--- NOTE | 2023-10-14 07:12 | PN.HOSP_ITS ---
Reason for Visit Reason for Visit: Diagnoses Iron deficiency anemia, unspecified (10/10/23) Thrombocytopenia, unspecified (10/10/23) Acute kidney failure, unspecified (10/10/23) Other ascites (10/10/23) Gross hematuria (10/10/23) Abnormality of globulin (10/10/23) Abnormality of plasma protein, unspecified (10/10/23) Other injury of unspecified body region, initial encounter (10/10/23) Subjective Subjective Call was placed for patient to be transferred to [facility] for suspected abdominal compartment syndrome. Patient continues to experience hematuria. She is currently on continuous bladder irrigation repeat planned paracentesis ordered on 10/13/2023 was canceled. Patient hemoglobin has remained fairly stable Objective Data Objective Data Vital Signs: Vital Signs Temp Pulse Resp BP Pulse Ox O2 Del Method O2 Flow Rate 97.8 F 84 13 116/70 98 Nasal Cannula 2 10/14/23 02:00 10/14/23 07:00 10/14/23 07:00 10/14/23 07:00 10/14/23 07:00 10/14/23 07:00 10/14/23 07:00 Oxygen Flow Rate (L/min) 2 Oxygen Delivery Method Nasal Cannula Weight: 82.1 kg Body Mass Index (BMI) 32.1 Intake & Output: Intake and Output for Last 24 Hours 10/12/23 10/13/23 10/14/23 23:59 23:59 23:59 Intake Total 82.75 / 82.75 52 / 202 390 / 390 Output Total 1250 / 1350 350 / 350 Balance 82.75 / 82.75 -1198 / -1148 40 / 40 Lab / Micro Data 10/14/23 06:00 10/13/23 13:47 Labs: Laboratory Results - last 24 hr 10/10/23 11:00: Haptoglobin 23 L, Total Protein (PEP) 10.8 H, Globulin 7.9 H, B ghs-6-Mkdkzgdckkjeh 5.3 H, IgG 62 L, IgA > 6400 H, IgM 7 L, Immunofixation Screen Comment H, Albumin (NOBLE) 2.9, Albumin/Globulin (NOBLE) 0.4 L, Ooubs-9-Bkojratfg NOBLE 0.2, Vactb-1-Liogaizxm NOBLE 0.4, Beta-Globulins (NOBLE) 7.1 H , Gamma Globulins (NOBLE) 0.1 L, NOBLE M-Landon 6.7 H, NOBLE Comments Comment, Free [place] LC, Quant 1439.2 H, Free Lambda LC, Quant 1.7 L, Free [place]/Lambda Ratio 846.59 H 10/11/23 : Fl Pathologist Comment Reviewed, Fluid Albumin 1.6 10/12/23 08:25: Crossmatch See Detail 10/12/23 08:25: Crossmatch See Detail 10/13/23 06:40: Atypical Lymphocytes RARE, Platelet Estimate MOD 10/13/23 07:52: Lactic Acid 2.1 H* 10/13/23 09:50: Hgb 7.2 L, Hct 21.8 L 10/13/23 12:40: Hgb 6.6 L, Hct 20.5 L 10/13/23 13:47: Sodium 130 L, Potassium 5.7 H, Chloride 99, Carbon Dioxide 19.0 L, Anion Gap 12, BUN 28 H, Creatinine 3.12 H, Estim Creat Clear Calc 15.10, Est GFR (MDRD) Af Amer 19 L, Est GFR (MDRD) Non-Af 15 L, BUN/Creatinine Ratio 9.0 L, Glucose 143 H, Calcium 8.4 L 10/13/23 15:00: Urine Color SEE COMMENT BELOW, Urine Clarity Sl. Cloudy, Urine pH 7.0, Ur Specific [place] 1.005, Urine Protein 100 H, Urine Glucose (UA) Normal, Urine Ketones Negative, Urine Occult Blood 250 H, Urine Nitrite Positive H, Urine Bilirubin Negative, Urine Urobilinogen Normal, Ur Leukocyte Esterase 25 H, Urine RBC Cancelled, Urine WBC Cancelled, Ur Squamous Epith Cells Cancelled, Ur Transition Epith Cell Cancelled, Ur Renal Epithelial Cell Cancelled, Calcium Oxalate Crystal Cancelled, Uric Acid Crystals Cancelled, Triple Phos Crystals Cancelled, Other Crystals Cancelled, Amorphous Sediment Cancelled, Urine Bacteria Cancelled, Hyaline Casts Cancelled, Fine Granular Casts Cancelled, Coarse Granular Casts Cancelled, Waxy Casts Cancelled, RBC Casts Cancelled, WBC Casts Cancelled, Urine Mucus Cancelled, Urine Trichomonas Cancelled, Urine Yeast Cancelled 10/13/23 18:30: Hgb 7.9 L, Hct 24.0 L 10/13/23 22:42: Hgb 8.0 L, Hct 24.0 L 10/14/23 02:55: Hgb 7.4 L, Hct 22.9 L 10/14/23 06:00: WBC 7.0, RBC 2.69 L, Hgb 7.5 L, Hct 22.4 L, MCV 83.3, MCH 27.9, MCHC 33.5 D, RDW Std Deviation 58.7 H, RDW Coeff of Kimberlyn 20.9 H, Plt Count 305, MPV 12.2 H, Immature Gran % (Auto) 0.600, Neut % (Auto) 66.3, Lymph % (Auto) 21.0, [place] % (Auto) 11.5 H, Eos % (Auto) 0.0, Baso % (Auto) 0.6, Absolute Neuts (auto) 4.7, Absolute Lymphs (auto) 1.48, Nucleated RBC % 1.3, Sodium Cancelled, Potassium Cancelled, Chloride Cancelled, Carbon Dioxide Cancelled, Anion Gap Cancelled, BUN Cancelled, Creatinine Cancelled, Estim Creat Clear Calc Cancelled, Est GFR (MDRD) Af Amer Cancelled, Est GFR (MDRD) Non-Af Cancelled, BUN/Creatinine Ratio Cancelled, Glucose Cancelled, Calcium Cancelled 10/14/23 06:20: Sodium Cancelled, Potassium Cancelled, Chloride Cancelled, Carbon Dioxide Cancelled, Anion Gap Cancelled, BUN Cancelled, Creatinine Cancelled, Estim Creat Clear Calc Cancelled, Est GFR (MDRD) Af Amer Cancelled, Est GFR (MDRD) Non-Af Cancelled, BUN/Creatinine Ratio Cancelled, Glucose Cancelled, Calcium Cancelled 10/14/23 06:46: Sodium Cancelled, Potassium Cancelled, Chloride Cancelled, Carbon Dioxide Cancelled, Anion Gap Cancelled, BUN Cancelled, Creatinine Cancelled, Estim Creat Clear Calc Cancelled, Est GFR (MDRD) Af Amer Cancelled, Est GFR (MDRD) Non-Af Cancelled, BUN/Creatinine Ratio Cancelled, Glucose Cancelled, Calcium Cancelled Micro: Microbiology 10/11/23 Unknown Fluid - Ascites Gram Stain - Final 10/11/23 Unknown Fluid - Ascites Anaerobic Culture - Preliminary No growth in 48 hours. Radiography Diagnostic Testing: Radiology Impression Abdomen Ultrasound 10/13/23 12:28 IMPRESSION: As above. Electronically Signed: Lance Ruiz MD at 15:02 EDT Reading Location ID and State: [facility] / [place] Tel , Service support , Physical Exam Narrative GENERAL: Patient appears ill looking and pale HEENT: Atraumatic; normocephalic EYES; Anicteric, Normal Conjunctiva NECK; supple, normal thyroid, RESPIRATORY: Diminished to auscultation CARDIOVASCULAR: Regular S1 S2, GI: soft, normoactive bowel sounds, abdominal distention : No Renal angle tenderness; EXTREMITIES: No edema, no clubbing, MUSCULOSKELETAL: no muscle wasting NEURO: Awake; no lateralizing signs. SKIN: No Rash PSYCH; Flat affect Assessment & Plan Assessment/Plan (1) Iron deficiency anemia: QUALIFIERS: Iron deficiency anemia type: unspecified iron deficiency Qualified Code(s): D50.9 - Iron deficiency anemia, unspecified (2) Thrombocytopenia: (3) Abdominal ascites: QUALIFIERS: Ascites type: other type Qualified Code(s): R18.8 - Other ascites PLAN: Plan Patient is a 78-year-old lady admitted with increasing generalized weakness and lethargy as well as abdominal pain found to have low hemoglobin and platelet count with relatively low WBC count. A suspicion of possible underlying hematologic malignancy made admitted to regular nursing floor. Patient was also found to have ascites. 1. Suspected myeloproliferative disorder ? Presented with progressive generalized weakness found to be anemic, with thrombocytopenia as well as low WBC count. Oncology recommended serum and urine protein electrophoresis as part of her workup 3. Ascites ? Patient to undergo diagnostic paracentesis ? 10/12/2023 patient underwent diagnostic paracentesis the day prior, 1300 ml of clear shari colored fluid was removed from the peritoneal cavity. Fluid sent for analysis results pending 3. Severe anemia ? Patient iron studies came back consistent with iron deficiency anemia. Patient has apparently been evaluated by general surgery as outpatient consult placed Dr. Alan case discussed with patient undergoing EGD and colonoscopy during her hospital stay. ? 10/12/2023; patient hemoglobin down to 6.8 and order has been given for patient to be transfused 1 unit PRBC. Scheduled to undergo endoscopic evaluation -10/13/2023; patient colonoscopy was unremarkable. Upper EGD non-bleeding gastric ulcer with no stigmata of bleeding. Biopsied. -Patient was transfused 2 additional PRBC units ? 10/14/2023; patient has received total of 4 unit of PRBC transfusion. H&H being monitored. 4 Large hematoma -measuring 10 x 9 x 14 cm in the prevesical space extending superior anteriorly in the preperitoneal space and extensive involvement of the retroperitoneum and the anterior and posterior pararenal spaces. This is suspected to be secondary to patient recent paracentesis in the context of her thrombocytopenia. Patient admitted to the intensive care unit for close monitoring for suspected abdominal compartment syndrome. 5. Acute urinary retention ? Consult has been placed to urology for possible cystoscopy with Reyes catheter placement ? 10/14/2023; patient did develop hematuria currently on continuous bladder irrigation 6. Acute kidney injury ? Secondary to obstructive uropathy plan is for patient to undergo cystoscopy with possible Reyes catheter placement consult also placed to urology 6. COPD ? Stage I?mild. Gold classification bronchodilator treatment as needed 7. Hypertension - Blood pressure controlled, home medications continued with dose adjustment as needed 8. GERD ? On PPI 9. Chronic congestive heart failure with preserved ejection fraction ? Patient is on diuretic therapy with furosemide -10/13/2023; patient diuretic therapy held given her worsening kidney function 10. Class I obesity with BMI of 30 ? Weight loss advised 11. Hyponatremia ? Patient suspected to be secondary to fluid overload status from CHF as well as ascites patient is on furosemide monitoring with daily BMP 12. Depression ? Patient is on fluoxetine 13. Thrombocytopenia ? Thought to be related to patient underlying suspected hematologic malignancy workup as discussed above 14. DVT prophylaxis ? Held off chemoprophylaxis given patient anemia and low platelet count 15. Suspected abdominal compartment syndrome ? Case discussed with electron gun assembler plan is for patient to be transferred to tertiary care center for higher level of care. In the meantime ultrasound- guided paracentesis ordered to relieve patient intra-abdominal pressure ? 10/14/2023; transfer to [facility] still pending Critical time spent in the patient's overall evaluation,decision-making process, review of diagnostic data, adjustment of management, discussion with other providers, nursing nursing and ancillary staff involved in patient's care documentation, as well as patient's family and her and her daughter in [place]; 52 Minutes Charges/Coding Visit Charges Inpatient E&M: 10362 Subs Hosp L3
[2023-10-14] MEDS: Fluoxetine HCl 40 MG CAPSULE PO (07:53)
[2023-10-14] MEDS: Metoprolol(XL)Succ 25 MG Tablet PO (07:54)
[2023-10-14] MEDS: Pantoprazole Sodium 20 MG Tablet PO (07:54)
[2023-10-14 08:36] LABS: Anion Gap 13 (5-15); BUN 40 mg/dL (7-18); BUN/Creat Ratio 9.1 RATIO (10-20); Chloride 98 mmol/L (98-107); Creatinine, Serum 4.39 mg/dL (0.55-1.02); EST Glomerular Filtration Rate 10 mL/min (>60); Est Glom Filt Rate - Afr Amer 13 mL/min (>60); Estimated Creatinine Clearance 10.89 ml/min; Glucose 142 mg/dL (74-106); Potassium 5.5 mmol/L (3.5-5.1); Sodium Level 128 mmol/L (136-145)
[2023-10-14] MEDS: Ceftriaxone 1 GM/50 ML BAG IV (09:18)
[2023-10-14 09:31] LABS: Anisocytosis 3+; Differential Comment SCANNED; Hypochromasia 1+; Macrocytosis 1+; Microcytosis 2+; Reactive Lymphocyte 1+
[2023-10-14 10:17] LABS: Hematocrit 21.6 % (37-47)
--- NOTE | 2023-10-14 10:40 | PCM.PN.SRG ---
Subjective Subjective Patient evaluated resting in bed. Patient has been belching and spitting out phlegm. She is tolerating liquids at this point. She was transfused another unit of blood over night. Patient continues to note generalized abdominal pain, bloating feeling. Objective Data Objective Data Vital Signs: Vital Signs Temp Pulse Resp BP Pulse Ox O2 Del Method O2 Flow Rate 97.0 F L 85 14 118/60 99 Nasal Cannula 2 10/14/23 08:00 10/14/23 09:00 10/14/23 09:00 10/14/23 09:00 10/14/23 09:00 10/14/23 09:00 10/14/23 09:00 Oxygen Flow Rate (L/min) 2 Oxygen Delivery Method Nasal Cannula Weight: 180 lb 15.992 oz Body Mass Index (BMI) 32.1 Intake & Output: Intake and Output for Last 24 Hours 10/12/23 10/13/23 10/14/23 23:59 23:59 23:59 Intake Total 82.75 / 82.75 52 / 202 440 / 440 Output Total 1250 / 1350 350 / 350 Balance 82.75 / 82.75 -1198 / -1148 90 / 90 Lab / Micro Data 10/14/23 10:07 10/14/23 08:00 Labs: Laboratory Results - last 24 hr 10/10/23 11:00: Haptoglobin 23 L, Total Protein (PEP) 10.8 H, Globulin 7.9 H, Wjdt-1-Yltgycvkpjkaa 5.3 H, IgG 62 L, IgA > 6400 H, IgM 7 L, Immunofixation Screen Comment H, Albumin (NOBLE) 2.9, Albumin/Globulin (NOBLE) 0.4 L, Eqqxx-2-Pqhsvouow NOBLE 0.2, Yntzl-1-Noqwdixne NOBLE 0.4, Beta-Globulins (NOBLE) 7.1 H, Gamma Globulins (NOBLE) 0.1 L, NOBLE M-Landon 6.7 H, NOBLE Comments Comment, Free [place] LC, Quant 1439.2 H, Free Lambda LC, Quant 1.7 L, Free [place]/Lambda Ratio 846.59 H 10/11/23 : Fl Pathologist Comment Reviewed, Fluid Albumin 1.6 10/12/23 08:25: Crossmatch See Detail 10/12/23 08:25: Crossmatch See Detail 10/13/23 12:40: Hgb 6.6 L, Hct 20.5 L 10/13/23 13:47: Sodium 130 L, Potassium 5.7 H, Chloride 99, Carbon Dioxide 19.0 L, Anion Gap 12, BUN 28 H, Creatinine 3.12 H, Estim Creat Clear Calc 15.10, Est GFR (MDRD) Af Amer 19 L, Est GFR (MDRD) Non-Af 15 L, BUN/Creatinine Ratio 9.0 L, Glucose 143 H, Calcium 8.4 L 10/13/23 15:00: Urine Color SEE COMMENT BELOW, Urine Clarity Sl. Cloudy, Urine pH 7.0, Ur Specific [place] 1.005, Urine Protein 100 H, Urine Glucose (UA) Normal, Urine Ketones Negative, Urine Occult Blood 250 H, Urine Nitrite Positive H, Urine Bilirubin Negative, Urine Urobilinogen Normal, Ur Leukocyte Esterase 25 H, Urine RBC Cancelled, Urine WBC Cancelled, Ur Squamous Epith Cells Cancelled, Ur Transition Epith Cell Cancelled, Ur Renal Epithelial Cell Cancelled, Calcium Oxalate Crystal Cancelled, Uric Acid Crystals Cancelled, Triple Phos Crystals Cancelled, Other Crystals Cancelled, Amorphous Sediment Cancelled, Urine Bacteria Cancelled, Hyaline Casts Cancelled, Fine Granular Casts Cancelled, Coarse Granular Casts Cancelled, Waxy Casts Cancelled, RBC Casts Cancelled, WBC Casts Cancelled, Urine Mucus Cancelled, Urine Trichomonas Cancelled, Urine Yeast Cancelled 10/13/23 18:30: Hgb 7.9 L, Hct 24.0 L 10/13/23 22:42: Hgb 8.0 L, Hct 24.0 L 10/14/23 02:55: Hgb 7.4 L, Hct 22.9 L 10/14/23 06:00: WBC 7.0, RBC 2.69 L, Hgb 7.5 L, Hct 22.4 L, MCV 83.3, MCH 27.9, MCHC 33.5 D, RDW Std Deviation 58.7 H, RDW Coeff of [place] 20.9 H, Plt Count 305, MPV 12.2 H, Immature Gran % (Auto) 0.600, Neut % (Auto) 66.3, Lymph % (Auto) 21.0, [place] % (Auto) 11.5 H, Eos % (Auto) 0.0, Baso % (Auto) 0.6, Absolute Neuts (auto) 4.7, Absolute Lymphs (auto) 1.48, Nucleated RBC % 1.3, Differential Comment SCANNED, Reactive Lymphocytes 1+, Hypochromasia 1+, Anisocytosis 3+, Microcytosis 2+, Macrocytosis 1+, Sodium Cancelled, Potassium Cancelled, Chloride Cancelled, Carbon Dioxide Cancelled, Anion Gap Cancelled, BUN Cancelled, Creatinine Cancelled, Estim Creat Clear Calc Cancelled, Est GFR (MDRD) Af Amer Cancelled, Est GFR (MDRD) Non-Af Cancelled, BUN/Creatinine Ratio Cancelled, Glucose Cancelled, Calcium Cancelled 10/14/23 06:20: Sodium Cancelled, Potassium Cancelled, Chloride Cancelled, Carbon Dioxide Cancelled, Anion Gap Cancelled, BUN Cancelled, Creatinine Cancelled, Estim Creat Clear Calc Cancelled, Est GFR (MDRD) Af Amer Cancelled, Est GFR (MDRD) Non-Af Cancelled, BUN/Creatinine Ratio Cancelled, Glucose Cancelled, Calcium Cancelled 10/14/23 06:46: Sodium Cancelled, Potassium Cancelled, Chloride Cancelled, Carbon Dioxide Cancelled, Anion Gap Cancelled, BUN Cancelled, Creatinine Cancelled, Estim Creat Clear Calc Cancelled, Est GFR (MDRD) Af Amer Cancelled, Est GFR (MDRD) Non-Af Cancelled, BUN/Creatinine Ratio Cancelled, Glucose Cancelled, Calcium Cancelled 10/14/23 08:00: Sodium 128 L, Potassium 5.5 H, Chloride 98, Carbon Dioxide 17.0 L, Anion Gap 13, BUN 40 H, Creatinine 4.39 H, Estim Creat Clear Calc 10.89, Est GFR (MDRD) Af Amer 13 L, Est GFR (MDRD) Non-Af 10 L, BUN/Creatinine Ratio 9.1 L, Glucose 142 H, Calcium 8.0 L 10/14/23 10:07: Hgb 7.0 L, Hct 21.6 L Micro: Microbiology 10/11/23 Unknown Fluid - Ascites Gram Stain - Final 10/11/23 Unknown Fluid - Ascites Body Fluid Culture - Final Culture exhibits no growth. 10/11/23 Unknown Fluid - Ascites Anaerobic Culture - Preliminary No growth in 48 hours. Radiography Diagnostic Testing: Radiology Impression Abdomen Ultrasound 10/13/23 12:28 IMPRESSION: As above. Electronically Signed: Lance Ruiz MD at 15:02 EDT , Physical Exam GI GI Narrative: Abdomen- firm, distended, hypoactive bowel sounds, generalized abdominal pain to palpation Assessment & Plan Assessment/Plan (1) Iron deficiency anemia: QUALIFIERS: Iron deficiency anemia type: unspecified iron deficiency Qualified Code(s): D50.9 - Iron deficiency anemia, unspecified PLAN: Dr. Alan performed an upper and lower scope on 10/12/23. She tolerated the procedure well. Entire colonoscopy exam was unremarkable and no specimens were collected. EGD demonstrated large hiatal hernia, normal esophagus, single non-bleeding superficial gastric ulcer was noted. Biopsies taken. Normal duodenum. (2) Hematoma: PLAN: Night of 10/11, patient was noted to develop abdominal pain with hypotension. CT scan of the ab/pel was ordered and demonstrated: ADDENDUM by Dr. Jonathan Cherry MD on 10/13/[address]/CT Chest, Abd, Pelvis WO Cont IMPRESSION: 1. Large hematoma measuring 10 x 9 x 14 cm in the prevesical space extending superior anteriorly in the preperitoneal space and extensive involvement of the retroperitoneum and the anterior and posterior pararenal spaces. The exam is limited for the detection of active bleeding due to the lack of IV contrast. 2. Slight hemoperitoneum. 3. Bilateral mosaic attenuation in the lungs. This can be seen with small airways disease, chronic thromboembolic disease, and primary parenchymal diseases such as organizing pneumonia and interstitial lung disease. 4. Hepatomegaly. 5. Small hiatal hernia. 6. Cholecystectomy. 7. Coronary artery disease. Patient's hematoma is likely from her paracentesis that was performed on 10/10. Patient awaiting transfer bed at [facility] for suspected abdominal compartment syndrome. Patient's Hgb continue to decline despite 4 units of PRBC to this point. Agree with transfer. PLAN: Plan I am following this patient in conjunction with Dr. Toledo in Dr. Alan's absence. He has independently evaluated this patient. Charges/Coding Visit Charges Inpatient E&M: 68673 Subs Hosp L1
--- NOTE | 2023-10-14 11:09 | PN.CC_ITS ---
Assessment & Plan Assessment/Plan (1) YEFRI (acute kidney injury): (2) High serum protein level: (3) Iron deficiency anemia: QUALIFIERS: Iron deficiency anemia type: unspecified iron deficiency Qualified Code(s): D50.9 - Iron deficiency anemia, unspecified (4) Thrombocytopenia: (5) Abdominal ascites: QUALIFIERS: Ascites type: other type Qualified Code(s): R18.8 - Other ascites PLAN: Plan RECOMMENDATIONS: 1. Continue to monitor blood counts and transfuse if hemoglobin drops below 7 g/dL. 2. Agree with transfer to tertiary care facility. 3. Continue empiric antibiotics. 4. Supplemental oxygen to maintain saturations at or above 90%. 5. Continue bronchodilator therapy. 6. Recommend discontinuation of IV morphine on account of worsening renal insufficiency. IMPRESSIONS: 1. Clinical concern for underlying myeloproliferative disorder with ascites and severe anemia The patient is currently being worked up for possible myeloproliferative disorder by oncology. Plan to continue supportive measures including transfusion of blood products to maintain a hemoglobin at or above 7 g/dL. Unfortunately, the patient developed a large hematoma in the preperitoneal and retroperitoneal space, which could have been related to a recent paracentesis. Nevertheless, she remains hemodynamically stable. The patient has also developed acute kidney injury, which may be multifactorial in etiology. The patient most likely has a component of abdominal compartment syndrome given her elevated bladder pressures. She is awaiting transfer to a tertiary care facility. 2. Acute kidney injury Nephrology is currently following to assist with medical management. Renal ultrasound is going to be obtained this morning given the patient's worsening renal function. 3. History of COPD/hypertension/heart failure with preserved ejection fraction/depression Complicates care, management, recovery and prognosis. Continue supportive measures as noted above. This note was generated with [employer] dictation software. It may contain incorrect words, spelling, and punctuation that were not noted in checking the note before signing. Subjective Subjective The patient was seen and examined at the bedside this morning. Events from the last 24 hours have been reviewed. The patient is currently afebrile, hemodynamically stable and maintaining appropriate oxygen saturations on 2 L/min via nasal cannula. The patient seems a bit more confused this morning on account of the IV morphine that she has been receiving for pain control. Her repeat paracentesis that was scheduled for yesterday was canceled due to the lack of a significant amount of ascites. Her blood counts remained tenuous with a hemoglobin this morning noted to be 7.5 g/dL. Her platelet count is stable at 305,000. Unfortunately, the patient's creatinine has increased significantly to 4.39 with a BUN of 40. The patient is awaiting transfer to a tertiary care facility. The patient did have elevated bladder pressures yesterday. Objective Data Objective Data The patient's most recent lab work, culture data and imaging studies have all been personally reviewed. Urine culture is pending. Ascites fluid has not demonstrated any growth to date. Vital Signs: Vital Signs Temp Pulse Resp BP Pulse Ox O2 Del Method O2 Flow Rate 97.0 F L 85 18 100/78 98 Nasal Cannula 2 10/14/23 08:00 10/14/23 10:00 10/14/23 10:00 10/14/23 10:00 10/14/23 10:00 10/14/23 10:00 10/14/23 10:00 Oxygen Flow Rate (L/min) 2 Oxygen Delivery Method Nasal Cannula Weight: 180 lb 15.992 oz Body Mass Index (BMI) 32.1 Intake & Output: Intake and Output for Last 24 Hours 10/12/23 10/13/23 10/14/23 23:59 23:59 23:59 Intake Total 82.75 / 82.75 52 / 202 440 / 440 Output Total 1250 / 1350 350 / 350 Balance 82.75 / 82.75 -1198 / -1148 90 / 90 Lab / Micro Data Attestation: I reviewed the patient's lab results. 10/14/23 10:07 10/14/23 08:00 Labs: Laboratory Results - last 24 hr 10/10/23 11:00: Haptoglobin 23 L, Total Protein (PEP) 10.8 H, Globulin 7.9 H, B wod-4-Zxxbosoazbrwr 5.3 H, IgG 62 L, IgA > 6400 H, IgM 7 L, Immunofixation Screen Comment H, Albumin (NOBLE) 2.9, Albumin/Globulin (NOBLE) 0.4 L, Wklhp-0-Nimqprufw NOBLE 0.2, Ffacq-4-Wgiprevsl NOBLE 0.4, Beta-Globulins (NOBLE) 7.1 H , Gamma Globulins (NOBLE) 0.1 L, NOBLE M-Landon 6.7 H, NOBLE Comments Comment, Free [place] LC, Quant 1439.2 H, Free Lambda LC, Quant 1.7 L, Free [place]/Lambda Ratio 846.59 H 10/11/23 : Fl Pathologist Comment Reviewed, Fluid Albumin 1.6 10/12/23 08:25: Crossmatch See Detail 10/12/23 08:25: Crossmatch See Detail 10/13/23 12:40: Hgb 6.6 L, Hct 20.5 L 10/13/23 13:47: Sodium 130 L, Potassium 5.7 H, Chloride 99, Carbon Dioxide 19.0 L, Anion Gap 12, BUN 28 H, Creatinine 3.12 H, Estim Creat Clear Calc 15.10, Est GFR (MDRD) Af Amer 19 L, Est GFR (MDRD) Non-Af 15 L, BUN/Creatinine Ratio 9.0 L, Glucose 143 H, Calcium 8.4 L 10/13/23 15:00: Urine Color SEE COMMENT BELOW, Urine Clarity Sl. Cloudy, Urine pH 7.0, Ur Specific [place] 1.005, Urine Protein 100 H, Urine Glucose (UA) Normal, Urine Ketones Negative, Urine Occult Blood 250 H, Urine Nitrite Positive H, Urine Bilirubin Negative, Urine Urobilinogen Normal, Ur Leukocyte Esterase 25 H, Urine RBC Cancelled, Urine WBC Cancelled, Ur Squamous Epith Cells Cancelled, Ur Transition Epith Cell Cancelled, Ur Renal Epithelial Cell Cancelled, Calcium Oxalate Crystal Cancelled, Uric Acid Crystals Cancelled, Triple Phos Crystals Cancelled, Other Crystals Cancelled, Amorphous Sediment Cancelled, Urine Bacteria Cancelled, Hyaline Casts Cancelled, Fine Granular Casts Cancelled, Coarse Granular Casts Cancelled, Waxy Casts Cancelled, RBC Casts Cancelled, WBC Casts Cancelled, Urine Mucus Cancelled, Urine Trichomonas Cancelled, Urine Yeast Cancelled 10/13/23 18:30: Hgb 7.9 L, Hct 24.0 L 10/13/23 22:42: Hgb 8.0 L, Hct 24.0 L 10/14/23 02:55: Hgb 7.4 L, Hct 22.9 L 10/14/23 06:00: WBC 7.0, RBC 2.69 L, Hgb 7.5 L, Hct 22.4 L, MCV 83.3, MCH 27.9, MCHC 33.5 D, RDW Std Deviation 58.7 H, RDW Coeff of Kimberlyn 20.9 H, Plt Count 305, MPV 12.2 H, Immature Gran % (Auto) 0.600, Neut % (Auto) 66.3, Lymph % (Auto) 21.0, [place] % (Auto) 11.5 H, Eos % (Auto) 0.0, Baso % (Auto) 0.6, Absolute Neuts (auto) 4.7, Absolute Lymphs (auto) 1.48, Nucleated RBC % 1.3, Differential Comment SCANNED, Reactive Lymphocytes 1+, Hypochromasia 1+, Anisocytosis 3+, Microcytosis 2+, Macrocytosis 1+, Sodium Cancelled, Potassium Cancelled, Chloride Cancelled, Carbon Dioxide Cancelled, Anion Gap Cancelled, BUN Cancelled, Creatinine Cancelled, Estim Creat Clear Calc Cancelled, Est GFR (MDRD) Af Amer Cancelled, Est GFR (MDRD) Non-Af Cancelled, BUN/Creatinine Ratio Cancelled, Glucose Cancelled, Calcium Cancelled 10/14/23 06:20: Sodium Cancelled, Potassium Cancelled, Chloride Cancelled, Carbon Dioxide Cancelled, Anion Gap Cancelled, BUN Cancelled, Creatinine Cancelled, Estim Creat Clear Calc Cancelled, Est GFR (MDRD) Af Amer Cancelled, Est GFR (MDRD) Non-Af Cancelled, BUN/Creatinine Ratio Cancelled, Glucose Cancelled, Calcium Cancelled 10/14/23 06:46: Sodium Cancelled, Potassium Cancelled, Chloride Cancelled, Carbon Dioxide Cancelled, Anion Gap Cancelled, BUN Cancelled, Creatinine Cancelled, Estim Creat Clear Calc Cancelled, Est GFR (MDRD) Af Amer Cancelled, Est GFR (MDRD) Non-Af Cancelled, BUN/Creatinine Ratio Cancelled, Glucose Cancelled, Calcium Cancelled 10/14/23 08:00: Sodium 128 L, Potassium 5.5 H, Chloride 98, Carbon Dioxide 17.0 L, Anion Gap 13, BUN 40 H, Creatinine 4.39 H, Estim Creat Clear Calc 10.89, Est GFR (MDRD) Af Amer 13 L, Est GFR (MDRD) Non-Af 10 L, BUN/Creatinine Ratio 9.1 L, Glucose 142 H, Calcium 8.0 L 10/14/23 10:07: Hgb 7.0 L, Hct 21.6 L Micro: Microbiology 10/11/23 Unknown Fluid - Ascites Gram Stain - Final 10/11/23 Unknown Fluid - Ascites Body Fluid Culture - Final Culture exhibits no growth. 10/11/23 Unknown Fluid - Ascites Anaerobic Culture - Preliminary No growth in 48 hours. Radiography Diagnostic Testing: Radiology Impression Abdomen Ultrasound 10/13/23 12:28 IMPRESSION: As above. Electronically Signed: Lance Ruiz MD at 15:02 EDT , Physical Exam Const alert and no apparent distress Constitutional Narrative: A bit more confused and disoriented than yesterday. General Appearance: cooperative HEENT normocephalic and head/scalp atraumatic Eyes PERRL, EOMs intact bilaterally and conjunctivae normal Neck supple General: trachea midline Chest inspection of chest normal Resp normal respiratory effort Auscultation: Negative for rales, rhonchi or wheezes Cardio regular rate and regular rhythm GI GI Narrative: The patient's abdomen remains distended and tender. Extremity no clubbing, cyanosis or edema Skin no rashes or lesions noted Neuro CN's II-XII intact bilaterally, moves all extremities and no focal motor deficits Psych cooperative Charges/Coding Visit Charges Inpatient E&M: 67345 Subs Hosp L3
--- NOTE | 2023-10-14 13:56 | PCM.OP.PRO ---
Procedure Report Date of Procedure: 10/14/23 Assessment & Plan Assessment/Plan (1) Iron deficiency anemia: QUALIFIERS: Iron deficiency anemia type: unspecified iron deficiency Qualified Code(s): D50.9 - Iron deficiency anemia, unspecified Procedures Radiology Radiology Access Procedures: PICC Procedure Time Out Time Out Informed consent given: Yes Consent signed: Yes Time out checklist: patient, procedure, site marked/identified, positioning of patient, supplies available and allergies confirmed Time out verified: Yes Time out date: 10/14/23 Time out time: 12:40 PICC Line Consent Screening tool completed:: Yes Consent obtained:: Yes Consent given by (patient or responsible constitution party):: daughter via phone Line successful (if no, document why in comments):: Yes Insertion Reason for Insertion: Poor Venous Access Date of Insertion: 10/14/23 Ok to use: Yes Type of PICC inserted: Dual Power PICC PICC Lot #: [id number] PICC Reference #: [id number] Microintroducer Used: Yes (in kit) Ultrasound/Equipment Used: Probe Cover Kit Trimmed Length (cm): 45 Insertion Length (cm): 45 Exposed Length (cm): 0 Tip Placement: Caval Atrial Junction Placement Confirmation: 3CG Insertion Vein: Right Basilic Insertion Attempts: 1 Local Anesthesia Used: Lidocaine 1% (in kit) Dressing Applied: Statlock and Tegaderm CHG Arm Measurement above site (in cm): 29 Patient Tolerated Procedure: Well Threading Difficulties: No Comments Comment: Patient identity was verified with two patient identifiers. Informed consent was obtained from the patient's daughter via phone and time-out was completed. Hands were sanitized. The patient was positioned supine with right arm at 90 degrees. The patient's upper arm vasculature was assessed using ultrasound. Patency of the right basilic vein was confirmed and the vein was externally marked. An external measurement was obtained of 45 cm. External leads were applied to the patient's right upper chest and laterally and inferior of the umbilicus on the mid axillary line. Cap, mask, and prep gloves were donned. The underdrape was placed under the patient's arm. The site was prepped with chlorhexidine, and tourniquet was loosely applied. Prep gloves were discarded, and hands were sanitized. The sterile kit was opened with additional supplies dropped in. Sterile gown and gloves were donned, and the patient was draped. The sterile kit was assembled with needle, introducer, needless connectors, and each catheter lumen flushed with sterile normal saline. The marked site of insertion was anesthetized with 1% lidocaine from the kit. Patient tolerated well. The right basilic vein was then accessed using ultrasound guidance and guidewire was inserted to safety monica. The tourniquet was released. The access needle was removed while securing the guidewire in place. The site was again anesthetized with 1% lidocaine, prior to insertion of introducer sheath and dilator. Patient tolerated the insertion well. The catheter was trimmed to a length of 45 cm. Using 3C guidance, the catheter was then inserted through the introducer sheath, slowly. There was no resistance on insertion. The catheter followed the expected course of the vessel using 3CG tracking. The introducer sheath was retracted and peeled away, incrementally, while keeping the catheter secured. Maximal p-wave, without deflection, confirming placement in the cavoatrial junction, was obtained at an insertion length of 45 cm, leaving 0 cm external. The stylet was removed. A flushed needleless connector was attached to the lumen. Aspiration of the lumen was performed to remove any air and confirm blood return. Blood return was verified and each lumen was flushed with 10 ml of sterile normal saline in a pulsatile fashion. The each lumen was clamped with the last pulsed flush. Total sterile flushes used for the insertion was 6 10 ml syringes, 2 from the kit. Finally, the insertion site was cleaned with chlorhexidine, and the catheter was secured using a StatLock. The site was covered with a Tegaderm CHG Dressing and disinfecting caps were applied. Baseline arm circumference was obtained at the insertion site and measured 29 cm. The patient was provided with a patient education handout on PICC line care of infection prevention, heavy lifting restriction, maintaining mobility, and watching for any signs of infection. The primary nurse is aware that the PICC line is ready for use.
--- NOTE | 2023-10-14 15:01 | CHAPLAIN ---
Type of Pastoral Visit ___ Initial Visit _x__ Follow-up Visit ___ On-call Visit ___ General Patient Visit ___ Spiritual Assessment ___ Family Conference ___ Bereavement ___ Rapid Response ___ Code Blue ___ Other (describe below) Pastoral Care Referral From _x__ Patient ___ Family ___ Nurse ___ Physician ___ [employer] Pilot ___ Fluid Jet Cutter Operator ___ Other (describe below) Sacrament/Intervention _x__ Active listening ___ Anointing ___ Jewish ___ Bereavement ___ Communion ___ Promise exploration ___ ___ Life review _x__ Prayer ___ Reconciliation ___ Sacrament of Sick _x__ Supportive presence ___ Wedding ___ Other (describe below) Pastoral Comments patient was moved to ICU; this follow up visit the patient is resting quietly on the bed; pt is reminded of visit of vehicle operator and offer of new support; pt is lethargic and responds quietly and slowly; pt agrees that a prayer would be good; pt says it is too hard to do anything else;
--- NOTE | 2023-10-14 16:23 | PCM.DC.SUM ---
Providers Date of Admission: 10/10/23 Primary Care Physician: Dr. Bruce Virk MD Consultations 10/11/23 09:06 Consult: General Surgery Routine Consulting Provider: Edson Alan Reason for Consult: EGD EMERGENT Consult: No Notified: Yes Date Notified: 10/11/23 Time Notified: 09:07 Method of Notification: Verbal 10/11/23 10:01 Consult: Oncology/Hematology [facility]ine [facility] Reason for Consult: Pancytopenia EMERGENT Consult: No Notified: Yes Date Notified: 10/11/23 Time Notified: 10:01 Method of Notification: Verbal Comments:: Texted Irving Weems 10/12/23 18:42 Consult: Gastroenterology Routine Consulting Provider: [facility] Reason for Consult: Ascites EMERGENT Consult: Yes Notified: Yes Date Notified: 10/12/23 Time Notified: 18:42 Method of Notification: Text 10/13/23 07:09 Consult: Live Truck Technician / Pulmonary Medicine Routine Consulting Provider: Intensivists/Pulmonary Med Reason for Consult: icu management EMERGENT Consult: No Notified: Yes Date Notified: 10/13/23 Time Notified: 07:09 Method of Notification: Verbal 10/13/23 07:11 Consult: Nephrology Routine Consulting Provider: Adrien Bansal Reason for Consult: YEFRI EMERGENT Consult: No Notified: Yes Date Notified: 10/13/23 Time Notified: 07:11 Method of Notification: Verbal 10/13/23 07:56 Consult: Urology Routine Consulting Provider: Yazmin Bowens Reason for Consult: urinary retention EMERGENT Consult: No Notified: Yes Date Notified: 10/13/23 Time Notified: 07:56 Method of Notification: Verbal Reason For Visit: WEAKNESS, ASCITES Diagnosis Discharge Diagnosis (1) Iron deficiency anemia: Status: Acute Code(s): D50.9 - Iron deficiency anemia, unspecified Qualifiers: Iron deficiency anemia type: unspecified iron deficiency Qualified Code(s): D50.9 - Iron deficiency anemia, unspecified Plan Patient is a 78-year-old lady admitted with increasing generalized weakness and lethargy as well as abdominal pain found to have low hemoglobin and platelet count with relatively low WBC count. A suspicion of possible underlying hematologic malignancy made admitted to regular nursing floor. Patient was also found to have ascites. 1. Suspected myeloproliferative disorder ? Presented with progressive generalized weakness found to be anemic, with thrombocytopenia as well as low WBC count. Oncology recommended serum and urine protein electrophoresis as part of her workup 3. Ascites ? Patient to undergo diagnostic paracentesis ? 10/12/2023 patient underwent diagnostic paracentesis the day prior, 1300 ml of clear shari colored fluid was removed from the peritoneal cavity. Fluid sent for analysis results pending 3. Severe anemia ? Patient iron studies came back consistent with iron deficiency anemia. Patient has apparently been evaluated by general surgery as outpatient consult placed Dr. Alan case discussed with patient undergoing EGD and colonoscopy during her hospital stay. ? 10/12/2023; patient hemoglobin down to 6.8 and order has been given for patient to be transfused 1 unit PRBC. Scheduled to undergo endoscopic evaluation -10/13/2023; patient colonoscopy was unremarkable. Upper EGD non-bleeding gastric ulcer with no stigmata of bleeding. Biopsied. -Patient was transfused 2 additional PRBC units ? 10/14/2023; patient has received total of 4 unit of PRBC transfusion. H&H being monitored. 4 Large hematoma -measuring 10 x 9 x 14 cm in the prevesical space extending superior anteriorly in the preperitoneal space and extensive involvement of the retroperitoneum and the anterior and posterior pararenal spaces. This is suspected to be secondary to patient recent paracentesis in the context of her thrombocytopenia. Patient admitted to the intensive care unit for close monitoring for suspected abdominal compartment syndrome. 5. Acute urinary retention ? Consult has been placed to urology for possible cystoscopy with Reyes catheter placement ? 10/14/2023; patient did develop hematuria currently on continuous bladder irrigation 6. Acute kidney injury ? Secondary to obstructive uropathy plan is for patient to undergo cystoscopy with possible Reyes catheter placement consult also placed to urology 6. COPD ? Stage I?mild. Gold classification bronchodilator treatment as needed 7. Hypertension - Blood pressure controlled, home medications continued with dose adjustment as needed 8. GERD ? On PPI 9. Chronic congestive heart failure with preserved ejection fraction ? Patient is on diuretic therapy with furosemide -10/13/2023; patient diuretic therapy held given her worsening kidney function 10. Class I obesity with BMI of 30 ? Weight loss advised 11. Hyponatremia ? Patient suspected to be secondary to fluid overload status from CHF as well as ascites patient is on furosemide monitoring with daily BMP 12. Depression ? Patient is on fluoxetine 13. Thrombocytopenia ? Thought to be related to patient underlying suspected hematologic malignancy workup as discussed above 14. DVT prophylaxis ? Held off chemoprophylaxis given patient anemia and low platelet count 15. Suspected abdominal compartment syndrome ? Case discussed with import/export specialist plan is for patient to be transferred to tertiary care center for higher level of care. In the meantime ultrasound-guided paracentesis ordered to relieve patient intra-abdominal pressure ? 10/14/2023; transfer to [facility] still pending Critical time spent in the patient's overall evaluation,decision-making process, review of diagnostic data, adjustment of management, discussion with other providers, nursing nursing and ancillary staff involved in patient's care documentation, as well as patient's family and her and her daughter in [place]; 52 Minutes Medications at Discharge Home Medications albuterol sulfate 90 mcg/actuation aerosol inhaler (Ventolin HFA) 2 puff inhalation Q6H PRN shortness of breath or wheezing #18 grams 02/04/23 aspirin 81 mg capsule 81 mg PO DAILY 07/07/23 furosemide 40 mg tablet (Lasix) 40 mg PO DAILY #30 tabs 07/11/23 fluoxetine 20 mg capsule 40 mg PO DAILY 10/10/23 ipratropium 0.5 mg-albuterol 3 mg (2.5 mg base)/3 mL nebulization soln 3 ml inhalation Q6H PRN shortness of breath 10/10/23 metoprolol succinate 25 mg tablet,extended release 24 hr 25 mg PO DAILY 10/10/23 omeprazole 20 mg capsule,delayed release 20 mg PO DAILY 10/10/23 potassium chloride 20 mEq tablet,extended release(part/cryst) (Klor-Con M) 20 meq PO DAILY 10/10/23 Physical Exam Narrative GENERAL: Patient appears ill looking and pale HEENT: Atraumatic; normocephalic EYES; Anicteric, Normal Conjunctiva NECK; supple, normal thyroid, RESPIRATORY: Diminished to auscultation CARDIOVASCULAR: Regular S1 S2, GI: soft, normoactive bowel sounds, abdominal distention : No Renal angle tenderness; EXTREMITIES: No edema, no clubbing, MUSCULOSKELETAL: no muscle wasting NEURO: Awake; no lateralizing signs. SKIN: No Rash PSYCH; Flat affect Weight / BMI Weight Weight: 82.1 kg Body Mass Index (BMI) 32.1 ABG / Lab / Microbiology Data 10/14/23 10:07 10/14/23 08:00 Laboratory: Laboratory Results - last 24 hr 10/10/23 11:00: Qieq-1-Hurchtslrften 5.3 H 10/12/23 08:25: Crossmatch See Detail 10/13/23 18:30: Hgb 7.9 L, Hct 24.0 L 10/13/23 22:42: Hgb 8.0 L, Hct 24.0 L 10/14/23 02:55: Hgb 7.4 L, Hct 22.9 L 10/14/23 06:00: WBC 7.0, RBC 2.69 L, Hgb 7.5 L, Hct 22.4 L, MCV 83.3, MCH 27.9, MCHC 33.5 D, RDW Std Deviation 58.7 H, RDW Coeff of Kimberlyn 20.9 H, Plt Count 305, MPV 12.2 H, Immature Gran % (Auto) 0.600, Neut % (Auto) 66.3, Lymph % (Auto) 21.0, Taylor % (Auto) 11.5 H, Eos % (Auto) 0.0, Baso % (Auto) 0.6, Absolute Neuts (auto) 4.7, Absolute Lymphs (auto) 1.48, Nucleated RBC % 1.3, Differential Comment SCANNED, Reactive Lymphocytes 1+, Hypochromasia 1+, Anisocytosis 3+, Microcytosis 2+, Macrocytosis 1+, Sodium Cancelled, Potassium Cancelled, Chloride Cancelled, Carbon Dioxide Cancelled, Anion Gap Cancelled, BUN Cancelled, Creatinine Cancelled, Estim Creat Clear Calc Cancelled, Est GFR (MDRD) Af Amer Cancelled, Est GFR (MDRD) Non-Af Cancelled, BUN/Creatinine Ratio Cancelled, Glucose Cancelled, Calcium Cancelled 10/14/23 06:20: Sodium Cancelled, Potassium Cancelled, Chloride Cancelled, Carbon Dioxide Cancelled, Anion Gap Cancelled, BUN Cancelled, Creatinine Cancelled, Estim Creat Clear Calc Cancelled, Est GFR (MDRD) Af Amer Cancelled, Est GFR (MDRD) Non-Af Cancelled, BUN/Creatinine Ratio Cancelled, Glucose Cancelled, Calcium Cancelled 10/14/23 06:46: Sodium Cancelled, Potassium Cancelled, Chloride Cancelled, Carbon Dioxide Cancelled, Anion Gap Cancelled, BUN Cancelled, Creatinine Cancelled, Estim Creat Clear Calc Cancelled, Est GFR (MDRD) Af Amer Cancelled, Est GFR (MDRD) Non-Af Cancelled, BUN/Creatinine Ratio Cancelled, Glucose Cancelled, Calcium Cancelled 10/14/23 08:00: Sodium 128 L, Potassium 5.5 H, Chloride 98, Carbon Dioxide 17.0 L, Anion Gap 13, BUN 40 H, Creatinine 4.39 H, Estim Creat Clear Calc 10.89, Est GFR (MDRD) Af Amer 13 L, Est GFR (MDRD) Non-Af 10 L, BUN/Creatinine Ratio 9.1 L, Glucose 142 H, Calcium 8.0 L 10/14/23 10:07: Hgb 7.0 L, Hct 21.6 L Microbiology: Microbiology 10/11/23 Unknown Fluid - Ascites Gram Stain - Final 10/11/23 Unknown Fluid - Ascites Body Fluid Culture - Final Culture exhibits no growth. 10/11/23 Unknown Fluid - Ascites Anaerobic Culture - Preliminary No growth in 48 hours. Radiography Diagnostic Testing: Radiology Impression Renal Ultrasound 10/14/23 06:45 IMPRESSION: No suspicious sonographic findings Electronically Signed: Maynor Reno MD at 12:28 EDT Reading Location ID and State: [address] [place] [address] , Service support , D/C Instructions Discharge Diet: No restrictions Discharge Activity: Return to Normal Activity Call your doctor if you observe: Fever of 101 or Higher, Shortness of breath, Fainting spells and Chest pain Meaningful Use Info Meaningful Use Meaningful Use Diagnoses (Choose all that apply): None applicable Ischemic Stroke Statin Dosing Therapy Reference: STATIN DOSE THERAPY REFERENCE: * Patients > 75 years receive moderate or high dose statin therapy. * Patients 75 years or YOUNGER should receive HIGH intensity statin dose unless contraindicated. You will be required to document reason for non-treatment if statin daily dose does not meet guidelines. HIGH DOSE STATIN THERAPY DAILY Atorvastatin > than or = to 40 mg Rosuvastatin > than or = to 20 mg Amlodipine + Atorvastatin > than or = to 2.5/40 mg Ezetimibe + Simvastatin 10/80 mg Simvastatin 80mg Discharge Plan Admission Admit Date/Time: 10/10/23 11:15 Attending Provider: Valente Castro Primary Care Provider: Burce Virk Consulting Providers: Martha Wagner; Edson Alan; Valente Velasquez; Santiago Pack; Kenzie Pérez; Leeroy Macario; Shilo Su; Lenard Valdes; Tomás Lombardi; Sheila Weems NP; Samuel Guzmán; Terrence Denise; Florentino Castillo; Víctor Delaney; Eliot Harp; Sophie Ferraro; Stanley Bermudez; Vicenta Denise; Lyssa Edwards; Ronald Castellanos; Devin Chahal; Rahul Lawson; James Londono; Jesus Abbott; Adrien Bansal; Yazmin Bowens Discharge Orders/Prescriptions Prescriptions: No Action aspirin 81 mg capsule 81 mg PO DAILY Patient Comments: one of pts md's stopped a few weeks ago per pt furosemide [Lasix] 40 mg tablet 40 mg PO DAILY Qty: 30 0RF potassium chloride [Klor-Con M20] 20 mEq tablet,ER particles/crystals 20 meq PO DAILY omeprazole 20 mg capsule,delayed release(DR/EC) 20 mg PO DAILY metoprolol succinate 25 mg tablet extended release 24 hr 25 mg PO DAILY fluoxetine 20 mg capsule 40 mg PO DAILY ipratropium-albuterol 0.5 mg-3 mg(2.5 mg base)/3 mL Solution For Nebulization 3 ml inhalation Q6H PRN (Reason: shortness of breath) albuterol sulfate [Ventolin HFA] 90 mcg/actuation HFA aerosol inhaler 2 puff INHALATION Q6H PRN (Reason: shortness of breath or wheezing) Qty: 18 2RF Referrals / Follow Up: Bruce Virk MD [Primary Care Provider] - Disposition Disposition (needs filled in before D/C Order can be placed): Acute Care Hospital Charges/Coding Visit Charges Inpatient E&M: 93485 Disch Hosp >30min
[2023-10-14] MEDS: oxyCODONE 5 MG Tablet PO (16:49)
--- NOTE | 2023-10-14 17:33 | PCM.PN.GU ---
Subjective Subjective This is delayed note from earlier today. Having PICC line inserted, unable to speak to her. Objective Data Objective Data urine is draining, remains pink. Vital Signs: Vital Signs Temp Pulse Resp BP Pulse Ox O2 Del Method O2 Flow Rate 98.1 F 86 20 H 122/60 H 95 Room Air 2 10/14/23 12:00 10/14/23 17:00 10/14/23 17:00 10/14/23 17:00 10/14/23 17:00 10/14/23 17:00 10/14/23 12:17 Oxygen Flow Rate (L/min) 2 Oxygen Delivery Method Room Air Weight: 82.1 kg Body Mass Index (BMI) 32.1 Intake & Output: Intake and Output for Last 24 Hours 10/12/23 10/13/23 10/14/23 23:59 23:59 23:59 Intake Total 82.75 / 82.75 52 / 202 440 / 440 Output Total 1250 / 1350 500 / 500 Balance 82.75 / 82.75 -1198 / -1148 -60 / -60 Lab / Micro Data 10/14/23 10:07 10/14/23 08:00 Labs: Laboratory Results - last 24 hr 10/10/23 11:00: Hcss-0-Ntldjikehqvxi 5.3 H 10/13/23 18:30: Hgb 7.9 L, Hct 24.0 L 10/13/23 22:42: Hgb 8.0 L, Hct 24.0 L 10/14/23 02:55: Hgb 7.4 L, Hct 22.9 L 10/14/23 06:00: WBC 7.0, RBC 2.69 L, Hgb 7.5 L, Hct 22.4 L, MCV 83.3, MCH 27.9, MCHC 33.5 D, RDW Std Deviation 58.7 H, RDW Coeff of Kimberlyn 20.9 H, Plt Count 305, MPV 12.2 H, Immature Gran % (Auto) 0.600, Neut % (Auto) 66.3, Lymph % (Auto) 21.0, [place] % (Auto) 11.5 H, Eos % (Auto) 0.0, Baso % (Auto) 0.6, Absolute Neuts (auto) 4.7, Absolute Lymphs (auto) 1.48, Nucleated RBC % 1.3, Differential Comment SCANNED, Reactive Lymphocytes 1+, Hypochromasia 1+, Anisocytosis 3+, Microcytosis 2+, Macrocytosis 1+, Sodium Cancelled, Potassium Cancelled, Chloride Cancelled, Carbon Dioxide Cancelled, Anion Gap Cancelled, BUN Cancelled, Creatinine Cancelled, Estim Creat Clear Calc Cancelled, Est GFR (MDRD) Af Amer Cancelled, Est GFR (MDRD) Non-Af Cancelled, BUN/Creatinine Ratio Cancelled, Glucose Cancelled, Calcium Cancelled 10/14/23 06:20: Sodium Cancelled, Potassium Cancelled, Chloride Cancelled, Carbon Dioxide Cancelled, Anion Gap Cancelled, BUN Cancelled, Creatinine Cancelled, Estim Creat Clear Calc Cancelled, Est GFR (MDRD) Af Amer Cancelled, Est GFR (MDRD) Non-Af Cancelled, BUN/Creatinine Ratio Cancelled, Glucose Cancelled, Calcium Cancelled 10/14/23 06:46: Sodium Cancelled, Potassium Cancelled, Chloride Cancelled, Carbon Dioxide Cancelled, Anion Gap Cancelled, BUN Cancelled, Creatinine Cancelled, Estim Creat Clear Calc Cancelled, Est GFR (MDRD) Af Amer Cancelled, Est GFR (MDRD) Non-Af Cancelled, BUN/Creatinine Ratio Cancelled, Glucose Cancelled, Calcium Cancelled 10/14/23 08:00: Sodium 128 L, Potassium 5.5 H, Chloride 98, Carbon Dioxide 17.0 L, Anion Gap 13, BUN 40 H, Creatinine 4.39 H, Estim Creat Clear Calc 10.89, Est GFR (MDRD) Af Amer 13 L, Est GFR (MDRD) Non-Af 10 L, BUN/Creatinine Ratio 9.1 L, Glucose 142 H, Calcium 8.0 L 10/14/23 10:07: Hgb 7.0 L, Hct 21.6 L Micro: Microbiology 10/11/23 Unknown Fluid - Ascites Gram Stain - Final 10/11/23 Unknown Fluid - Ascites Body Fluid Culture - Final Culture exhibits no growth. 10/11/23 Unknown Fluid - Ascites Anaerobic Culture - Preliminary No growth in 48 hours. Radiography Diagnostic Testing: Radiology Impression Renal Ultrasound 10/14/23 06:45 IMPRESSION: No suspicious sonographic findings Electronically Signed: Maynor Reno MD at 12:28 EDT , No evidence of urinary obstruction. Assessment & Plan Assessment/Plan (1) Gross hematuria: (2) Thrombocytopenia: (3) YEFRI (acute kidney injury): PLAN: Plan continue Simplastic catheter with irrigation as needed. will follow.
--- NOTE | 2023-10-14 21:08 | CYSPIN_PTH ---
PATIENT: TAM SANCHEZ LOC: ICU U#:[id number] AGE/SX: 78/F ROOM: ICU07 RE10/10/[address]: Dr. Ciro Cloud MD : [id number] BED: 1 DIS: 10/15/2023 SPEC #: [id number] RECD: 10/15/23 10:50 STATUS: SOUT REQ #: [id number] NAVID: 10/14/23 21:[address]: Yazmin Bowens DEPT: CYTOLOGY RECD BY: Elvia Koenig ENTERED: 10/15/23 10:51 SP TYPE: CYSPIN FL OTHR DR: MD Dr. Samuel Townsend MD Dr. Adan Mora, MD Dr. Derek Brown, DO Dr. David Kantorowitz, MD Dr. David Kittoe, MD Dr. Edward Matheis, MD Dr. Gautam Baskaran, MD Dr. Yordanos Habtegebriel, MD Dr. Hemant Dand, MD Dr. Holly Wyneski, MD Dr. Jayaprakas Dasari, MD Dr. Joseph Prah, MD Dr. Kimber Foust, MD Dr. Lamia Aljundi, MD Dr. Mansour Isckarus, MD Dr. Nana Yaa Koram, MD Dr. Prakash Chand, MD Dr. Pritam Ghosh, MD Dr. Pavan Irukulla, MD Dr. Paul Nielsen, MD Dr. Robert Field, MD Dr. Ryan Jin, MD Dr. Roger Macklis, MD Dr. Saad Farooqi, MD Dr. Steve Walston, DO Dr. Vikram Anand, MD Dr. William Haden, MD Tyra Schlabach, EXPLOSION WELDER-C Tissues: Urine Procedures: Pap Stain (control) Special Stain Group II Cytospin Fluid Comments: @ Ordering doctor for PAPS edited from to @ by SHAKIRA at 10/15/23 111 @ Ordering doctor for SSII edited from to DR.HWYNES Nelson by SHAKIRA at 10/15/23 1117 @ Ordering doctor for CYSPIN edited from to DR.HWYNES Nelson by SHAKIRA at 10/15/23 1117 @ Submitting doctor edited from to DR.HWYNES Nelson by SHAKIRA at 10/15/23 1117 HEADER OPERATION: Not noted PRE-OP DIAGNOSIS: Weakness, ascites TISSUE SUBMITTED: Urine for cytology DIAGNOSIS CYTOLOGY Urine for cytology (ctyospin); Atypical urothelial cells are present (Latoya Category System III). See comment. Faye 10/15/2023 COMMENT Two clusters of atypical urothelial cells are identified. Clinical correlation is necessary. The Latoya System for urine cytology diagnostic categorization was used in the evaluation of this case. CYTOLOGY STUDY Slides are reviewed. CYTOLOGY GROSS Received is 5 ml of pink-cloudy fluid labeled with the patient's name and and designated per the requisition as urine. Submitted for cytology preparation. Mr 10/15/2023 TC:? CPT: 89309
--- NOTE | 2023-10-14 22:00 | PCM.PN.REN ---
Subjective Subjective Somewhat confused today Objective Data Objective Data Vital Signs: Vital Signs Temp Pulse Resp BP Pulse Ox O2 Del Method O2 Flow Rate 97.8 F 80 15 105/62 97 Nasal Cannula 2 10/14/23 21:00 10/14/23 21:00 10/14/23 21:00 10/14/23 21:00 10/14/23 21:00 10/14/23 21:00 10/14/23 21:00 Oxygen Flow Rate (L/min) 2 Oxygen Delivery Method Nasal Cannula Weight: 82.1 kg Body Mass Index (BMI) 32.1 Intake & Output: Intake and Output for Last 24 Hours 10/12/23 10/13/23 10/14/23 23:59 23:59 23:59 Intake Total 82.75 / 82.75 52 / 202 440 / 440 Output Total 1250 / 1350 600 / 600 Balance 82.75 / 82.75 -1198 / -1148 -160 / -160 Lab / Micro Data 10/14/23 10:07 10/14/23 08:00 Labs: Laboratory Results - last 24 hr 10/10/23 11:00: Dubw-5-Yvvsoydkquilk 5.3 H 10/13/23 22:42: Hgb 8.0 L, Hct 24.0 L 10/14/23 02:55: Hgb 7.4 L, Hct 22.9 L 10/14/23 06:00: WBC 7.0, RBC 2.69 L, Hgb 7.5 L, Hct 22.4 L, MCV 83.3, MCH 27.9, MCHC 33.5 D, RDW Std Deviation 58.7 H, RDW Coeff of Kimberlyn 20.9 H, Plt Count 305, MPV 12.2 H, Immature Gran % (Auto) 0.600, Neut % (Auto) 66.3, Lymph % (Auto) 21.0, [place] % (Auto) 11.5 H, Eos % (Auto) 0.0, Baso % (Auto) 0.6, Absolute Neuts (auto) 4.7, Absolute Lymphs (auto) 1.48, Nucleated RBC % 1.3, Differential Comment SCANNED, Reactive Lymphocytes 1+, Hypochromasia 1+, Anisocytosis 3+, Microcytosis 2+, Macrocytosis 1+, Sodium Cancelled, Potassium Cancelled, Chloride Cancelled, Carbon Dioxide Cancelled, Anion Gap Cancelled, BUN Cancelled, Creatinine Cancelled, Estim Creat Clear Calc Cancelled, Est GFR (MDRD) Af Amer Cancelled, Est GFR (MDRD) Non-Af Cancelled, BUN/Creatinine Ratio Cancelled, Glucose Cancelled, Calcium Cancelled 10/14/23 06:20: Sodium Cancelled, Potassium Cancelled, Chloride Cancelled, Carbon Dioxide Cancelled, Anion Gap Cancelled, BUN Cancelled, Creatinine Cancelled, Estim Creat Clear Calc Cancelled, Est GFR (MDRD) Af Amer Cancelled, Est GFR (MDRD) Non-Af Cancelled, BUN/Creatinine Ratio Cancelled, Glucose Cancelled, Calcium Cancelled 10/14/23 06:46: Sodium Cancelled, Potassium Cancelled, Chloride Cancelled, Carbon Dioxide Cancelled, Anion Gap Cancelled, BUN Cancelled, Creatinine Cancelled, Estim Creat Clear Calc Cancelled, Est GFR (MDRD) Af Amer Cancelled, Est GFR (MDRD) Non-Af Cancelled, BUN/Creatinine Ratio Cancelled, Glucose Cancelled, Calcium Cancelled 10/14/23 08:00: Sodium 128 L, Potassium 5.5 H, Chloride 98, Carbon Dioxide 17.0 L, Anion Gap 13, BUN 40 H, Creatinine 4.39 H, Estim Creat Clear Calc 10.89, Est GFR (MDRD) Af Amer 13 L, Est GFR (MDRD) Non-Af 10 L, BUN/Creatinine Ratio 9.1 L, Glucose 142 H, Calcium 8.0 L 10/14/23 10:07: Hgb 7.0 L, Hct 21.6 L Micro: Microbiology 10/11/23 Unknown Fluid - Ascites Gram Stain - Final 10/11/23 Unknown Fluid - Ascites Body Fluid Culture - Final Culture exhibits no growth. 10/11/23 Unknown Fluid - Ascites Anaerobic Culture - Preliminary No growth in 48 hours. Radiography Diagnostic Testing: Radiology Impression Renal Ultrasound 10/14/23 06:45 IMPRESSION: No suspicious sonographic findings Electronically Signed: Maynor Reno MD at 12:28 EDT , Physical Exam Narrative Alert , no apparent distress S1, S2, RRR Lung sounds clear anteriorly and posteriorly. No wheezes, rhonchi rales Abdomen soft, tender upon palpation No edema Reyse with pinkish colored urine noted in bag Assessment & Plan Assessment/Plan (1) YEFRI (acute kidney injury): (2) Anemia: (3) Thrombocytopenia: (4) Abdominal ascites: QUALIFIERS: Ascites type: other type Qualified Code(s): R18.8 - Other ascites PLAN: Plan Baseline creatinine is normal. Creatinine has worsened over the last 2 days. Pelvic hematoma pressing on the bladder. Repeat renal ultrasound does not show any hydronephrosis, likely not making much urine. Reyes catheter indwelling, urine output is about 200 cc or so. Serum protein electrophoresis positive for significantly elevated IgA, kappa, monoclonality confirmed. Most likely has myeloma. YEFRI could be related to ATN, myeloma kidney, not much urine output. Hyperkalemia borderline. Will likely need dialysis. I called and spoke to family. They will discuss among themselves and let me know. Also note she is on the transfer list to [facility] with no confirmed bed. Discussed with ICU attending. Later in the day I received call mentioning family is now agreeable for dialysis. We will probably plan for dialysis tomorrow. If she gets a bed in the meantime, can transfer to [facility].
[2023-10-14 22:12] LABS: Cytology, Body Fluid / CSF SEE PATHOLOGY REPORT
[2023-10-15] VITALS (37 sets, daily range): BP systolic 92–187; BP diastolic 38–87; PULSE 69–81; RESP 13–22; TEMP 36.3–36.6; O2SAT 94–100; BMI 31.8; BMI 31.7
[2023-10-15 06:54] LABS: International Normalized Ratio 2.3; Prothrombin Time (Protime)PT. 25.3 SECONDS (11.7-14.9)
[2023-10-15 06:59] LABS: Absolute Lymphocyte Count 1.82 X10^3/uL (0.83-4.51); Absolute Neutrophil Count 4.4 X10^3/uL (2.0-7.7); Basophil# 0.02 X10^3/uL; Basophil% 0.3 % (0-1); Eosinophil# 0.13 X10^3/uL; Eosinophils% 1.8 % (0-5); Hematocrit 17.6 % (37-47); Lymphocyte # 1.82 X10^3/ul (0.83-4.51); Lymphocyte % 24.8 % (19-41); Mean Corpuscular Hgb 27.6 pg (27.0-32.0); Mean Corpuscular Volume 83.8 fL (81-99); Mean Platelet Vol. 10.2 fl (6.2-12.0); Monocyte# 0.93 X10^3/uL; Monocyte% 12.7 % (0-10); NRBC Flagged by Analyzer 2.3 % (0-5); Neutrophil % 59.7 % (47-70); POSITIVE COUNT YES; POSITIVE MORPHOLOGY YES; Platelet Count 102 K/mm3 (150-450); RBC Distribution Width CV 19.5 % (11.6-14.6); RBC Distribution Width SD 58.5 fl (35.1-43.9); White Blood Count 7.4 K/mm3 (4.4-11.0)
--- NOTE | 2023-10-15 07:02 | PN.CC_ITS ---
Assessment & Plan Assessment/Plan (1) YEFRI (acute kidney injury): (2) High serum protein level: (3) Iron deficiency anemia: QUALIFIERS: Iron deficiency anemia type: unspecified iron deficiency Qualified Code(s): D50.9 - Iron deficiency anemia, unspecified (4) Thrombocytopenia: (5) Abdominal ascites: QUALIFIERS: Ascites type: other type Qualified Code(s): R18.8 - Other ascites PLAN: Plan RECOMMENDATIONS: 1. Continue to monitor blood counts and transfuse if hemoglobin drops below 7 g/dL. 2. Awaiting transfer to tertiary care facility. 3. Continue empiric antibiotics. 4. Supplemental oxygen to maintain saturations at or above 90%. 5. Continue bronchodilator therapy. 6. Dialysis support per nephrology recommendations. IMPRESSIONS: 1. Clinical concern for underlying myeloproliferative disorder with ascites and severe anemia The patient is currently being worked up for possible myeloproliferative disorder by oncology. Plan to continue supportive measures including transfusion of blood products to maintain a hemoglobin at or above 7 g/dL. Unfortunately, the patient developed a large hematoma in the preperitoneal and retroperitoneal space, which could have been related to a recent paracentesis. Nevertheless, she remains hemodynamically stable. The patient has also developed acute kidney injury, which may be multifactorial in etiology. The patient most likely has a component of abdominal compartment syndrome given her elevated bladder pressures. She is awaiting transfer to a tertiary care facility. 2. Acute kidney injury Nephrology is currently following to assist with medical management. Renal ultrasound was unremarkable. Tentatively planning to proceed with dialysis support. 3. History of COPD/hypertension/heart failure with preserved ejection fraction/depression Complicates care, management, recovery and prognosis. Continue supportive measures as noted above. This note was generated with [employer] dictation software. It may contain incorrect words, spelling, and punctuation that were not noted in checking the note before signing. Subjective Subjective The patient was seen and examined at the bedside this morning. Events from the last 24 hours have been reviewed. The patient is currently afebrile, hemodynamically stable and maintaining appropriate oxygen saturations on room air. Hemoglobin has once again dropped this morning. Platelet count remains low at 102,000. INR was noted to be 2.3. The patient is still awaiting transfer to a tertiary care facility. Nephrology is planning for dialysis. Therefore temporary HD line was placed this morning. The patient continues to report abdominal pain. Objective Data Objective Data The patient's most recent lab work, culture data and imaging studies have all been personally reviewed. Urine culture is pending. Ascites fluid has not demonstrated any growth to date. Vital Signs: Vital Signs Temp Pulse Resp BP Pulse Ox O2 Del Method O2 Flow Rate 97.9 F 73 14 105/50 L 96 Room Air 2 10/15/23 03:00 10/15/23 07:00 10/15/23 07:00 10/15/23 07:00 10/15/23 07:00 10/15/23 07:00 10/14/23 22:00 Oxygen Flow Rate (L/min) 2 Oxygen Delivery Method Room Air Weight: 179 lb 14.355 oz Body Mass Index (BMI) 31.8 Intake & Output: Intake and Output for Last 24 Hours 10/13/23 10/14/23 10/15/23 23:59 23:59 23:59 Intake Total 52 / 202 440 / 440 100 / 100 Output Total 1250 / 1350 600 / 600 375 / 375 Balance -1198 / -1148 -160 / -160 -275 / -275 Lab / Micro Data Attestation: I reviewed the patient's lab results. 10/15/23 05:30 10/15/23 05:30 Labs: Laboratory Results - last 24 hr 10/10/23 11:00: Cavo-3-Bkyvhjossflqc 5.3 H 10/14/23 06:00: Differential Comment SCANNED, Reactive Lymphocytes 1+, Hypochromasia 1+, Anisocytosis 3+, Microcytosis 2+, Macrocytosis 1+ 10/14/23 06:46: Sodium Cancelled, Potassium Cancelled, Chloride Cancelled, Carbon Dioxide Cancelled, Anion Gap Cancelled, BUN Cancelled, Creatinine Cancelled, Estim Creat Clear Calc Cancelled, Est GFR (MDRD) Af Amer Cancelled, Est GFR (MDRD) Non-Af Cancelled, BUN/Creatinine Ratio Cancelled, Glucose Cancelled, Calcium Cancelled 10/14/23 08:00: Sodium 128 L, Potassium 5.5 H, Chloride 98, Carbon Dioxide 17.0 L, Anion Gap 13, BUN 40 H, Creatinine 4.39 H, Estim Creat Clear Calc 10.89, Est GFR (MDRD) Af Amer 13 L, Est GFR (MDRD) Non-Af 10 L, BUN/Creatinine Ratio 9.1 L, Glucose 142 H, Calcium 8.0 L 10/14/23 10:07: Hgb 7.0 L, Hct 21.6 L 10/15/23 05:30: PT 25.3 H, INR 2.3 Micro: Microbiology 10/11/23 Unknown Fluid - Ascites Gram Stain - Final 10/11/23 Unknown Fluid - Ascites Body Fluid Culture - Final Culture exhibits no growth. 10/11/23 Unknown Fluid - Ascites Anaerobic Culture - Preliminary No growth in 48 hours. Radiography Diagnostic Testing: Radiology Impression Renal Ultrasound 10/14/23 06:45 IMPRESSION: No suspicious sonographic findings Electronically Signed: Maynor Reno MD at 12:28 EDT , Physical Exam Const alert and no apparent distress General Appearance: cooperative HEENT normocephalic and head/scalp atraumatic Eyes PERRL, EOMs intact bilaterally and conjunctivae normal Neck supple General: trachea midline Chest inspection of chest normal Resp normal respiratory effort Auscultation: Negative for rales, rhonchi or wheezes Cardio regular rate and regular rhythm GI GI Narrative: The patient's abdomen remains distended and tender. Extremity no clubbing, cyanosis or edema Skin no rashes or lesions noted Neuro CN's II-XII intact bilaterally, moves all extremities and no focal motor deficits Psych cooperative and affect normal Charges/Coding Visit Charges Inpatient E&M: 77135 Subs Hosp L3
[2023-10-15 07:14] LABS: Differential Indicated SCAN CRITERIA MET; Hemoglobin 5.8 g/dL (12.0-15.0)
--- NOTE | 2023-10-15 07:20 | PN.HOSP_ITS ---
Reason for Visit Reason for Visit: Diagnoses Iron deficiency anemia, unspecified (10/10/23) Anemia, unspecified (10/10/23) Thrombocytopenia, unspecified (10/10/23) Acute kidney failure, unspecified (10/10/23) Other ascites (10/10/23) Gross hematuria (10/10/23) Abnormality of globulin (10/10/23) Abnormality of plasma protein, unspecified (10/10/23) Other injury of unspecified body region, initial encounter (10/10/23) Objective Data Objective Data Vital Signs: Vital Signs Temp Pulse Resp BP Pulse Ox O2 Del Method O2 Flow Rate 97.9 F 73 14 105/50 L 96 Room Air 2 10/15/23 03:00 10/15/23 07:00 10/15/23 07:00 10/15/23 07:00 10/15/23 07:03 10/15/23 07:03 10/14/23 22:00 Oxygen Flow Rate (L/min) 2 Oxygen Delivery Method Room Air Weight: 179 lb 14.355 oz Body Mass Index (BMI) 31.8 Intake & Output: Intake and Output for Last 24 Hours 10/13/23 10/14/23 10/15/23 23:59 23:59 23:59 Intake Total 52 / 202 440 / 440 100 / 100 Output Total 1250 / 1350 600 / 600 375 / 375 Balance -1198 / -1148 -160 / -160 -275 / -275 Lab / Micro Data 10/15/23 05:30 10/15/23 05:30 Labs: Laboratory Results - last 24 hr 10/14/23 06:00: Differential Comment SCANNED, Reactive Lymphocytes 1+, Hypochromasia 1+, Anisocytosis 3+, Microcytosis 2+, Macrocytosis 1+ 10/14/23 08:00: Sodium 128 L, Potassium 5.5 H, Chloride 98, Carbon Dioxide 17.0 L, Anion Gap 13, BUN 40 H, Creatinine 4.39 H, Estim Creat Clear Calc 10.89, Est GFR (MDRD) Af Amer 13 L, Est GFR (MDRD) Non-Af 10 L, BUN/Creatinine Ratio 9.1 L, Glucose 142 H, Calcium 8.0 L 10/14/23 10:07: Hgb 7.0 L, Hct 21.6 L 10/15/23 05:30: WBC 7.4, RBC 2.10 L, Hct 17.6 L, MCV 83.8, MCH 27.6, MCHC 33.0, RDW Std Deviation 58.5 H, RDW Coeff of Kimberlyn 19.5 H, Plt Count 102 L, MPV 10.2, Immature Gran % (Auto) 0.700, Neut % (Auto) 59.7, Lymph % (Auto) 24.8, Thomas % (Auto) 12.7 H, Eos % (Auto) 1.8, Baso % (Auto) 0.3, Absolute Neuts (auto) 4.4, Absolute Lymphs (auto) 1.82, Nucleated RBC % 2.3, PT 25.3 H, INR 2.3 Micro: Microbiology 10/11/23 Unknown Fluid - Ascites Gram Stain - Final 10/11/23 Unknown Fluid - Ascites Body Fluid Culture - Final Culture exhibits no growth. 10/11/23 Unknown Fluid - Ascites Anaerobic Culture - Preliminary No growth in 48 hours. Radiography Diagnostic Testing: Radiology Impression Renal Ultrasound 10/14/23 06:45 IMPRESSION: No suspicious sonographic findings Electronically Signed: Maynor Reno MD at 12:28 EDT , Physical Exam Narrative Patient is states she feels abdominal discomfort but not pain while staying flat and steady but when she moves she had severe abdominal pain. She is passing flatus and had several bowel movement. Physical exam General: Alert, Oriented x3, Cooperative. Fatigue HEENT: Atraumatic, PERRLA, EOMI, Normocephalic Oral: No Gingival or Mucosal Lesions/ Ulcerations Neck: Supple, No JVD, Negative Carotid Bruits Chest wall/Lungs: Air entry diminished in bilateral lung bases. No crepitation/rhonchi Cardiovascular: Regular rate, Regular Rhythm, Normal S1, Normal S2, No M/G/R Abdomen: Soft, diffuse tenderness with mild distention. Bowel sounds sluggish. : No dysuria. No renal angle tenderness. No suprapubic tenderness. Extremities: Mild ankle edema, Capillary Refill Less than 3 Seconds Skin: No rashes, No breakdown Musculoskeletal: No Tenderness to Palpation of Joints or Extremities Neurological: Cranial nerves II-XII grossly intact, DTR 2+/4. Detailed neuroexam unobtainable as patient gets pain on movement Psych/Mental Status: Flat affect Assessment & Plan Assessment/Plan (1) Iron deficiency anemia: QUALIFIERS: Iron deficiency anemia type: unspecified iron deficiency Qualified Code(s): D50.9 - Iron deficiency anemia, unspecified PLAN: Plan Patient is a 78-year-old lady admitted with increasing generalized weakness and lethargy as well as abdominal pain found to have low hemoglobin and platelet count with relatively low WBC count. A suspicion of possible underlying hematologic malignancy made admitted to regular nursing floor. Patient was also found to have ascites. 1. Suspected myeloproliferative disorder with possible de elysia bleeding tendency: ? Presented with progressive generalized weakness found to be anemic, with thrombocytopenia as well as low WBC count. Oncology recommended serum and urine protein electrophoresis as part of her workup 10/14: [place] lambda ratio 846. Total protein 10.8. IgA high more than 6400. IgG and low. 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 PT/INR is elevated but not on anticoagulant/antiplatelet agent. Fibrinogen and D-dimer ordered. Vitamin K ordered. Discussed with the Dr. Tamayo, hospitalist in [place]/[facility] and wanted D-dimer and fibrinogen level ordered for suspicion of possible DIC. They are ordered along with Kcentra/Belfaxar 3. Ascites ? Patient to undergo diagnostic paracentesis ? 10/12/2023 patient underwent diagnostic paracentesis the day prior, 1300 ml of clear shari colored fluid was removed from the peritoneal cavity. Fluid sent for analysis results pending 3. Severe anemia ? Patient iron studies came back consistent with iron deficiency anemia. Patient has apparently been evaluated by general surgery as outpatient consult placed Dr. Alan case discussed with patient undergoing EGD and colonoscopy during her hospital stay. ? 10/12/2023; patient hemoglobin down to 6.8 and order has been given for patient to be transfused 1 unit PRBC. Scheduled to undergo endoscopic evaluation -10/13/2023; patient colonoscopy was unremarkable. Upper EGD non-bleeding gastric ulcer with no stigmata of bleeding. Biopsied. 10/14:De elysia bleeding along with patient had so far 6 PRBC transfusion. Hemoglobin is still low 5.8 and getting blood transfusion support. 4 Large hematoma -measuring 10 x 9 x 14 cm in the prevesical space extending superior anteriorly in the preperitoneal space and extensive involvement of the retroperitoneum and the anterior and posterior pararenal spaces. This is suspected to be secondary to patient recent paracentesis in the context of her thrombocytopenia. Patient admitted to the intensive care unit for close monitoring for suspected abdominal compartment syndrome. 10/14: I talked to the [place] claims coordinator and then Dr. Tamayo regarding transfer. Currently they do not have bed but may be possible tomorrow. 5. Acute urinary retention ? Consult has been placed to urology for possible cystoscopy with Reyes catheter placement ? 10/14/2023; patient did develop hematuria currently on continuous bladder irrigation 10/14: 6. Acute kidney injury ? Secondary to obstructive uropathy plan is for patient to undergo cystoscopy with possible Reyes catheter placement consult also placed to urology 6. COPD ? Stage I?mild. Gold classification bronchodilator treatment as needed 7. Hypertension - Blood pressure controlled, home medications continued with dose adjustment as needed 8. GERD ? On PPI 9. Chronic congestive heart failure with preserved ejection fraction ? Patient is on diuretic therapy with furosemide -10/13/2023; patient diuretic therapy held given her worsening kidney function 10. Class I obesity with BMI of 30 ? Weight loss advised 11. Hyponatremia ? Patient suspected to be secondary to fluid overload status from CHF as well as ascites patient is on furosemide monitoring with daily BMP 12. Depression ? Patient is on fluoxetine 13. Thrombocytopenia ? Thought to be related to patient underlying suspected hematologic malignancy workup as discussed above 14. DVT prophylaxis ? Held off chemoprophylaxis given patient anemia and low platelet count 15. Suspected abdominal compartment syndrome ? Case discussed with reproductive endocrinologist plan is for patient to be transferred to tertiary care center for higher level of care. In the meantime ultrasound- guided paracentesis ordered to relieve patient intra-abdominal pressure ? 10/14/2023; transfer to [facility] [place] [facility] still pending Critical time spent in the patient's overall evaluation,decision-making process, review of diagnostic data, adjustment of management, discussion with other providers, nursing nursing and ancillary staff involved in patient's care documentation, as well as patient's family and her and her daughter in [place]; 52 Minutes
[2023-10-15 07:21] LABS: ALB/GLOB Ratio 0.1 RATIO (0.9-2.4); AST(SGOT) 27 U/L (15-37); Alanine Aminotransfer ALT/SGPT 17 U/L (13-56); Albumin, Serum 1.2 g/dL (3.2-5.0); Alkaline Phosphatase 53 U/L (45-117); Anion Gap 17 (5-15); BUN 60 mg/dL (7-18); BUN/Creat Ratio 11.1 RATIO (10-20); Calcium,Total 7.6 mg/dL (8.5-10.1); Chloride 95 mmol/L (98-107); Creatinine, Serum 5.42 mg/dL (0.55-1.02); EST Glomerular Filtration Rate 8 mL/min (>60); Est Glom Filt Rate - Afr Amer 10 mL/min (>60); Estimated Creatinine Clearance 8.79 ml/min; Globulin 8.9 g/dL (2.2-4.2); Glucose 114 mg/dL (74-106); Potassium 5.5 mmol/L (3.5-5.1); Protein, Total 10.1 g/dL (6.4-8.2); Sodium Level 130 mmol/L (136-145)
[2023-10-15] MEDS: oxyCODONE 5 MG Tablet PO ×2 (08:30→15:21)
--- NOTE | 2023-10-15 08:58 | RAD_ITS ---
STUDY: X-RAY CHEST REASON FOR EXAM: Female, 78 years old. Right Temporary Dialysis cath placement TECHNIQUE: Single AP portable view of the chest. COMPARISON: 09/22/2023 FINDINGS: EKG leads overlie the chest. A right IJ catheter is in place since the previous study. No complications The lungs are clear and expanded. There is no demonstrated pleural abnormality. Normal size heart. Normal mediastinum and mika. Normal visualized pulmonary arteries. Normal visualized aortic arch and descending thoracic aorta. There are diffuse degenerative changes of the visualized thoracic spine. Normal visualized ribs, clavicles, and shoulders. There is no demonstrated abnormality of the visualized soft tissue structures of the upper abdomen. RAD/CXR for Line Placement IMPRESSION: No acute pulmonary process Electronically Signed: Maynor Reno MD at 9:28 EDT ,
--- NOTE | 2023-10-15 09:14 | PCM.OP.PRO ---
Procedure Report Date of Procedure: 10/15/23 Temporary Hemodialysis Catheter Indication: Need for dialysis support Consent was obtained from: Patient A time-out was completed verifying correct patient, procedure, site, positioning, and special equipment if applicable. The patient was placed in a dependent position appropriate for hemodialysis line placement based on the vein to be cannulated. The patient's right neck was prepped and draped in the sterile fashion. 1% Lidocaine was used and emphasized the surrounding skin area. A 16 cm catheter was introduced into the right internal jugular vein, following sequential dilations, using the Seldinger technique and under ultrasound guidance. The catheter was threaded smoothly over the guidewire and appropriate blood return was obtained. Each lumen of the catheter was evacuated of air and flushed with sterile saline. The catheter was then sutured in place to the skin and a sterile dressing applied. Chest x-ray to confirm appropriate positioning is pending. ULTRASOUND GUIDANCE STATEMENT (Vascular Access): I performed an ultrasound image acquisition and interpretation for needle placement during the procedure. The vessel was identified and was found to be free of thrombosis by compression technique. A safe point of entry was marked at the skin in an angle for axis was determined. The needle was guided by obtaining free-flowing fluid and by real-time visualization. Procedures Hospitalists Procedures: 58500 Insert Non-tunnel CV Cath
[2023-10-15 09:57] LABS: Atypical Lymphocyte 1+ %; Differential Comment SCANNED
[2023-10-15] MEDS: PureFlow B 2K Dialysis Soln 1 BAG 6 BAG PF (10:48)
[2023-10-15] MEDS: 0.9% Normal Saline 1,000 ML IV.SOLN. 1000 ML OPERA.SITE (10:48)
[2023-10-15] MEDS: 0.9% Saline Lock 10 ML Syringe IV ×2 (10:49→13:18)
--- NOTE | 2023-10-15 12:16 | PCM.PN.REN ---
Subjective Subjective Looks somewhat better today. She is more alert, awake. Still on bladder irrigation, pinkish. Breathing looks comfortable. Creatinine worsening. Potassium still on the higher side. Abdomen distended, about the same as yesterday. Objective Data Objective Data Vital Signs: Vital Signs Temp Pulse Resp BP Pulse Ox O2 Del Method O2 Flow Rate 97.7 F L 73 16 115/87 H 99 Room Air 2 10/15/23 11:31 10/15/23 12:00 10/15/23 12:00 10/15/23 12:00 10/15/23 12:00 10/15/23 12:00 10/14/23 22:00 Oxygen Flow Rate (L/min) 2 Oxygen Delivery Method Room Air Weight: 81.6 kg Body Mass Index (BMI) 31.8 Intake & Output: Intake and Output for Last 24 Hours 10/13/23 10/14/23 10/15/23 23:59 23:59 23:59 Intake Total 52 / 202 440 / 440 100 / 100 Output Total 1250 / 1350 600 / 600 375 / 375 Balance -1198 / -1148 -160 / -160 -275 / -275 Lab / Micro Data 10/15/23 05:30 10/15/23 05:30 Labs: Laboratory Results - last 24 hr 10/12/23 08:25: Crossmatch See Detail 10/15/23 05:30: WBC 7.4, RBC 2.10 L, Hgb 5.8 L*, Hct 17.6 L, MCV 83.8, MCH 27.6, MCHC 33.0, RDW Std Deviation 58.5 H, RDW Coeff of Kimberlyn 19.5 H, Plt Count 102 L, MPV 10.2, Immature Gran % (Auto) 0.700, Neut % (Auto) 59.7, Lymph % (Auto) 24.8, [place] % (Auto) 12.7 H, Eos % (Auto) 1.8, Baso % (Auto) 0.3, Absolute Neuts (auto) 4.4, Absolute Lymphs (auto) 1.82, Nucleated RBC % 2.3, Differential Comment SCANNED, Diff Path Review May foll, Atypical Lymphocytes 1+, PT 25.3 H, INR 2.3, Sodium 130 L, Potassium 5.5 H, Chloride 95 L, Carbon Dioxide 18.0 L, Anion Gap 17 H, BUN 60 H, Creatinine 5.42 H, Estim Creat Clear Calc 8.79, Est GFR (MDRD) Af Amer 10 L, Est GFR (MDRD) Non-Af 8 L, BUN/Creatinine Ratio 11.1, Glucose 114 H, Calcium 7.6 L, Total Bilirubin 2.00 H, AST 27, ALT 17, Alkaline Phosphatase 53, Total Protein 10.1 H, Albumin 1.2 L, Globulin 8.9 H, Albumin/Globulin Ratio 0.1 L 10/15/23 08:05: Blood Type A POSITIVE, Antibody Screen NEGATIVE, Crossmatch See Detail Micro: Microbiology 10/13/23 15:00 Urine Catheter - Reyes Urine Culture - Preliminary Culture exhibits no growth. 10/11/23 Unknown Fluid - Ascites Gram Stain - Final 10/11/23 Unknown Fluid - Ascites Body Fluid Culture - Final Culture exhibits no growth. 10/11/23 Unknown Fluid - Ascites Anaerobic Culture - Preliminary No growth in 48 hours. Radiography Diagnostic Testing: Radiology Impression Renal Ultrasound 10/14/23 06:45 IMPRESSION: No suspicious sonographic findings Electronically Signed: Maynor Reno MD at 12:28 EDT , Chest X-Ray 10/15/23 08:58 IMPRESSION: No acute pulmonary process Electronically Signed: Maynor Reno MD at 9:28 EDT , Physical Exam Narrative Alert , no apparent distress S1, S2, RRR Lung sounds clear anteriorly and posteriorly. No wheezes, rhonchi rales Abdomen soft, tender upon palpation No edema Reyes with pinkish colored urine noted in bag Assessment & Plan Assessment/Plan (1) YEFRI (acute kidney injury): (2) Anemia: (3) Thrombocytopenia: (4) Abdominal ascites: QUALIFIERS: Ascites type: other type Qualified Code(s): R18.8 - Other ascites PLAN: Plan Baseline creatinine was normal. Creatinine worsened over the last [address] abdomen with massive pelvic hematoma pushing on her bladder. Currently she has a Reyes catheter for constant drainage. Currently on continuous bladder irrigation, unable to assess urine output. Intra-abdominal pressures were high, she is on transfer list to [facility] Recently diagnosed anemia, serum protein electrophoresis positive. Eventually will need a bone marrow. Differential diagnosis include ATN in the setting of increased abdominal pressures, myeloma kidney Creatinine continues to worsen. Potassium is 5.8. Dialysis planned for today. Discussed with ICU attending. Right IJ temporary dialysis catheter placed earlier. Seen on dialysis today, posttreatment. Discussed with family at bedside. She is on transfer list to the hospital in [place]. Hyperkalemia. Dialysis on 2K bath. Once medically stable otherwise, she will need workup for myeloma.
--- NOTE | 2023-10-15 13:12 | PN.URO_ITS ---
Subjective Subjective The patient is awake, daughters at bedside. She is currently on hemodialysis. Objective Data Objective Data Vital Signs: Vital Signs Temp Pulse Resp BP Pulse Ox O2 Del Method O2 Flow Rate 97.5 F L 71 16 111/53 L 99 Room Air 2 10/15/23 12:31 10/15/23 13:00 10/15/23 13:00 10/15/23 13:00 10/15/23 13:00 10/15/23 13:00 10/14/23 22:00 Oxygen Flow Rate (L/min) 2 Oxygen Delivery Method Room Air Weight: 81.6 kg Body Mass Index (BMI) 31.8 Intake & Output: Intake and Output for Last 24 Hours 10/13/23 10/14/23 10/15/23 23:59 23:59 23:59 Intake Total 52 / 202 440 / 440 100 / 100 Output Total 1250 / 1350 600 / 600 375 / 375 Balance -1198 / -1148 -160 / -160 -275 / -275 Lab / Micro Data 10/15/23 05:30 10/15/23 05:30 Labs: Laboratory Results - last 24 hr 10/12/23 08:25: Crossmatch See Detail 10/15/23 05:30: WBC 7.4, RBC 2.10 L, Hgb 5.8 L*, Hct 17.6 L, MCV 83.8, MCH 27.6, MCHC 33.0, RDW Std Deviation 58.5 H, RDW Coeff of Kimberlyn 19.5 H, Plt Count 102 L, MPV 10.2, Immature Gran % (Auto) 0.700, Neut % (Auto) 59.7, Lymph % (Auto) 24.8, Andrew % (Auto) 12.7 H, Eos % (Auto) 1.8, Baso % (Auto) 0.3, Absolute Neuts (auto) 4.4, Absolute Lymphs (auto) 1.82, Nucleated RBC % 2.3, Differential Comment SCANNED, Diff Path Review May foll, Atypical Lymphocytes 1+, PT 25.3 H, INR 2.3, Sodium 130 L, Potassium 5.5 H, Chloride 95 L, Carbon Dioxide 18.0 L, Anion Gap 17 H, BUN 60 H, Creatinine 5.42 H, Estim Creat Clear Calc 8.79, Est GFR (MDRD) Af Amer 10 L, Est GFR (MDRD) Non-Af 8 L, BUN/Creatinine Ratio 11.1, Glucose 114 H, Calcium 7.6 L, Total Bilirubin 2.00 H, AST 27, ALT 17, Alkaline Phosphatase 53, Total Protein 10.1 H, Albumin 1.2 L, Globulin 8.9 H, Albumin/Globulin Ratio 0.1 L 10/15/23 08:05: Blood Type A POSITIVE, Antibody Screen NEGATIVE, Crossmatch See Detail Micro: Microbiology 10/13/23 15:00 Urine Catheter - Reyes Urine Culture - Preliminary Culture exhibits no growth. 10/11/23 Unknown Fluid - Ascites Gram Stain - Final 10/11/23 Unknown Fluid - Ascites Body Fluid Culture - Final Culture exhibits no growth. 10/11/23 Unknown Fluid - Ascites Anaerobic Culture - Preliminary No growth in 48 hours. Radiography Diagnostic Testing: Radiology Impression Chest X-Ray 10/15/23 08:58 IMPRESSION: No acute pulmonary process Electronically Signed: Maynor Reno MD at 9:28 EDT Reading Location ID and State: [facility] / ID , Service support , Physical Exam Narrative The Reyes catheter is draining clear urine today. Assessment & Plan Assessment/Plan (1) Gross hematuria: PLAN: Plan Continue was transferred to [place] I will be available for local urologic management in the future as she will need a cystoscopic evaluation at some point
[2023-10-15] MEDS: Heparin 10,000 UNITS/10 ML Vial IV (13:18)
[2023-10-15] MEDS: HUM PROTHROMBIN CPLX(PCC)-LANS 2,160 UNIT in Viaflex Bag 1 BAG 500 UNIT IV (13:51)
[2023-10-15] MEDS: Metoprolol(XL)Succ 25 MG Tablet PO (13:53)
[2023-10-15] MEDS: Phytonadione (Vit K) 10 MG in 0.9% Normal Saline (50mL Bag) 50 ML 153 MG IV (13:53)
[2023-10-15] MEDS: Pantoprazole Sodium 20 MG Tablet PO (13:53)
[2023-10-15] MEDS: Fluoxetine HCl 40 MG CAPSULE PO (13:54)
[2023-10-15] MEDS: Ceftriaxone 1 GM/50 ML BAG IV (14:02)
--- NOTE | 2023-10-15 17:02 | DS.PCM_ITS ---
Providers Date of Admission: 10/10/23 Date of Discharge: 10/15/23 Primary Care Physician: Dr. Bruce Virk MD Consultations 10/11/23 09:06 Consult: General Surgery Routine Consulting Provider: Edson Alan Reason for Consult: EGD EMERGENT Consult: No Notified: Yes Date Notified: 10/11/23 Time Notified: 09:07 Method of Notification: Verbal 10/11/23 10:01 Consult: Oncology/Hematology Routine Consulting Provider: [facility] Reason for Consult: Pancytopenia EMERGENT Consult: No Notified: Yes Date Notified: 10/11/23 Time Notified: 10:01 Method of Notification: Verbal Comments:: Texted Irving Weems 10/12/23 18:42 Consult: Gastroenterology Routine Consulting Provider: [facility] Reason for Consult: Ascites EMERGENT Consult: Yes Notified: Yes Date Notified: 10/12/23 Time Notified: 18:42 Method of Notification: Text 10/13/23 07:09 Consult: Traffic Routing Engineer / Pulmonary Medicine Routine Consulting Provider: [facility] Reason for Consult: icu management EMERGENT Consult: No Notified: Yes Date Notified: 10/13/23 Time Notified: 07:09 Method of Notification: Verbal 10/13/23 07:11 Consult: Nephrology Routine Consulting Provider: Adrien Bansal Reason for Consult: YEFRI EMERGENT Consult: No Notified: Yes Date Notified: 10/13/23 Time Notified: 07:11 Method of Notification: Verbal 10/13/23 07:56 Consult: Urology Routine Consulting Provider: Yazmin Bowens Reason for Consult: urinary retention EMERGENT Consult: No Notified: Yes Date Notified: 10/13/23 Time Notified: 07:56 Method of Notification: Verbal Reason For Visit: WEAKNESS, ASCITES Diagnosis Discharge Diagnosis (1) Iron deficiency anemia: Status: Acute Code(s): D50.9 - Iron deficiency anemia, unspecified Qualifiers: Iron deficiency anemia type: unspecified iron deficiency Qualified Code(s): D50.9 - Iron deficiency anemia, unspecified Plan Patient is a 78-year-old lady admitted with increasing generalized weakness and lethargy as well as abdominal pain found to have low hemoglobin and platelet count with relatively low WBC count. A suspicion of possible underlying hematologic malignancy made admitted to regular nursing floor. Patient was also found to have ascites. 1. Suspected myeloproliferative disorder with possible de elysia bleeding tendency: ? Presented with progressive generalized weakness found to be anemic, with thrombocytopenia as well as low WBC count. Oncology recommended serum and urine protein electrophoresis as part of her workup 10/14: Springer lambda ratio 846. Total protein 10.8. IgA high more than 6400. IgG and low. 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 PT/INR is elevated but not on anticoagulant/antiplatelet agent. Fibrinogen and D-dimer ordered. Vitamin K ordered. Discussed with the Dr. Tamayo, hospitalist in [facility] and wanted D-dimer and fibrinogen level ordered for suspicion of possible DIC. They are ordered along with Kcentra/Belfaxar Patient subsequently transferred to [facility] for further care 3. Ascites ? Patient to undergo diagnostic paracentesis ? 10/12/2023 patient underwent diagnostic paracentesis the day prior, 1300 ml of clear shari colored fluid was removed from the peritoneal cavity. Fluid sent for analysis results pending 3. Severe anemia ? Patient iron studies came back consistent with iron deficiency anemia. Patient has apparently been evaluated by general surgery as outpatient consult placed Dr. Alan case discussed with patient undergoing EGD and colonoscopy during her hospital stay. ? 10/12/2023; patient hemoglobin down to 6.8 and order has been given for patient to be transfused 1 unit PRBC. Scheduled to undergo endoscopic evaluation -10/13/2023; patient colonoscopy was unremarkable. Upper EGD non-bleeding gastric ulcer with no stigmata of bleeding. Biopsied. 10/14:De elysia bleeding along with patient had so far 6 PRBC transfusion. Hemoglobin is still low 5.8 and getting blood transfusion support. 4 Large hematoma -measuring 10 x 9 x 14 cm in the prevesical space extending superior anteriorly in the preperitoneal space and extensive involvement of the retroperitoneum and the anterior and posterior pararenal spaces. This is suspected to be secondary to patient recent paracentesis in the context of her thrombocytopenia. Patient admitted to the intensive care unit for close monitoring for suspected abdominal compartment syndrome. 10/14: I talked to the [facility] advertising operations coordinator and then Dr. Tamayo regarding transfer. Currently they do not have bed but may be possible tomorrow. 5. Acute urinary retention ? Consult has been placed to urology for possible cystoscopy with Reyes catheter placement ? 10/14/2023; patient did develop hematuria currently on continuous bladder irrigation 10/14: Patient had hematuria intermittently and in the morning urine was clear but later on pinkish urine mixed with blood therefore CBI started 6. Acute kidney injury ? Secondary to obstructive uropathy plan is for patient to undergo cystoscopy with possible Reyes catheter placement consult also placed to urology 10/14: Creatinine increased from 4.39-5.42. Catalogue Illustrator and urologist are consulted 6. COPD ? Stage I?mild. Gold classification bronchodilator treatment as needed 7. Hypertension - Blood pressure controlled, home medications continued with dose adjustment as needed 8. GERD ? On PPI 9. Chronic congestive heart failure with preserved ejection fraction ? Patient is on diuretic therapy with furosemide -10/13/2023; patient diuretic therapy held given her worsening kidney function 10. Class I obesity with BMI of 30 ? Weight loss advised 11. Hyponatremia ? Patient suspected to be secondary to fluid overload status from CHF as well as ascites patient is on furosemide monitoring with daily BMP 12. Depression ? Patient is on fluoxetine 13. Thrombocytopenia ? Thought to be related to patient underlying suspected hematologic malignancy workup as discussed above 14. DVT prophylaxis ? Held off chemoprophylaxis given patient anemia and low platelet count 15. Suspected abdominal compartment syndrome ? Case discussed with fashion merchandiser plan is for patient to be transferred to tertiary care center for higher level of care. In the meantime ultrasound- guided paracentesis ordered to relieve patient intra-abdominal pressure ? 10/14/2023; transfer to [facility] [place] still pending Total time of the visit including total time spent in counseling or coordination of care, (more than 50% of the total time, spent in obtaining medical information from nurses and other ancillary care providers,explaining to the patient about labs, imaging, diagnosis and management of active complex medical conditions), high complexity with multiple active medical issues as discussed above, clinical discussion with the advertising operations coordinator and [facility] review of labs and imaging is 60 minutes. Medications at Discharge Home Medications albuterol sulfate 90 mcg/actuation aerosol inhaler (Ventolin HFA) 2 puff inhalation Q6H PRN shortness of breath or wheezing #18 grams 02/04/23 aspirin 81 mg capsule 81 mg PO DAILY 07/07/23 furosemide 40 mg tablet (Lasix) 40 mg PO DAILY #30 tabs 07/11/23 fluoxetine 20 mg capsule 40 mg PO DAILY 10/10/23 ipratropium 0.5 mg-albuterol 3 mg (2.5 mg base)/3 mL nebulization soln 3 ml inhalation Q6H PRN shortness of breath 10/10/23 metoprolol succinate 25 mg tablet,extended release 24 hr 25 mg PO DAILY 10/10/23 omeprazole 20 mg capsule,delayed release 20 mg PO DAILY 10/10/23 potassium chloride 20 mEq tablet,extended release(part/cryst) (Klor-Con M) 20 meq PO DAILY 10/10/23 Physical Exam Narrative Please see progress note on the same day. Weight / BMI Weight Weight: 179 lb 3.773 oz Body Mass Index (BMI) 31.7 ABG / Lab / Microbiology Data 10/15/23 05:30 10/15/23 05:30 Laboratory: Laboratory Results - last 24 hr 10/12/23 08:25: Crossmatch See Detail 10/15/23 05:30: WBC 7.4, RBC 2.10 L, Hgb 5.8 L*, Hct 17.6 L, MCV 83.8, MCH 27.6, MCHC 33.0, RDW Std Deviation 58.5 H, RDW Coeff of Kimberlyn 19.5 H, Plt Count 102 L, MPV 10.2, Immature Gran % (Auto) 0.700, Neut % (Auto) 59.7, Lymph % (Auto) 24.8, [place] % (Auto) 12.7 H, Eos % (Auto) 1.8, Baso % (Auto) 0.3, Absolute Neuts (auto) 4.4, Absolute Lymphs (auto) 1.82, Nucleated RBC % 2.3, Differential Comment SCANNED, Diff Path Review May foll, Atypical Lymphocytes 1+, PT 25.3 H, INR 2.3, Sodium 130 L, Potassium 5.5 H, Chloride 95 L, Carbon Dioxide 18.0 L, Anion Gap 17 H, BUN 60 H, Creatinine 5.42 H, Estim Creat Clear Calc 8.79, Est GFR (MDRD) Af Amer 10 L, Est GFR (MDRD) Non-Af 8 L, BUN/Creatinine Ratio 11.1, Glucose 114 H, Calcium 7.6 L, Total Bilirubin 2.00 H, AST 27, ALT 17, Alkaline Phosphatase 53, Total Protein 10.1 H, Albumin 1.2 L, Globulin 8.9 H, Albumin/Globulin Ratio 0.1 L 10/15/23 08:05: Blood Type A POSITIVE, Antibody Screen NEGATIVE, Crossmatch See Detail Microbiology: Microbiology 10/13/23 15:00 Urine Catheter - Reyes Urine Culture - Preliminary Culture exhibits no growth. 10/11/23 Unknown Fluid - Ascites Gram Stain - Final 10/11/23 Unknown Fluid - Ascites Body Fluid Culture - Final Culture exhibits no growth. 10/11/23 Unknown Fluid - Ascites Anaerobic Culture - Preliminary No growth in 48 hours. Radiography Diagnostic Testing: Radiology Impression Chest X-Ray 10/15/23 08:58 IMPRESSION: No acute pulmonary process Electronically Signed: Maynor Reno MD at 9:28 EDT Reading Location ID and State: [address] [place] [address] , Service support , D/C Instructions Discharge Diet: No restrictions Call your doctor if you observe: Fever of 101 or Higher, Shortness of breath, Fainting spells and Chest pain Meaningful Use Info Meaningful Use Meaningful Use Diagnoses (Choose all that apply): None applicable Ischemic Stroke Statin Dosing Therapy Reference: STATIN DOSE THERAPY REFERENCE: * Patients > 75 years receive moderate or high dose statin therapy. * Patients 75 years or YOUNGER should receive HIGH intensity statin dose unless contraindicated. You will be required to document reason for non-treatment if statin daily dose does not meet guidelines. HIGH DOSE STATIN THERAPY DAILY Atorvastatin > than or = to 40 mg Rosuvastatin > than or = to 20 mg Amlodipine + Atorvastatin > than or = to 2.5/40 mg Ezetimibe + Simvastatin 10/80 mg Simvastatin 80mg Discharge Plan Admission Admit Date/Time: 10/10/23 11:15 Attending Provider: Ciro Cloud Primary Care Provider: Bruce Virk Consulting Providers: Martha Wagner; Edson Alan; Valente Velasquez; Santiago Pack; Kenzie Pérez; Leeroy Macario; Shilo Su; Lenard Valdes; Tomás Lombardi; Sheila Weems NP; Samuel Guzmán; Terrence Denise; Florentino Castillo; Víctor Delaney; Eliot Harp; Sophie Ferraro; Stanley Bermudez; Vicenta Denise; Lyssa Edwards; Ronald Castellanos; Devin Chahal; Rahul Lawson; James Londono; Jesus Abbott; Adrien Bansal; Yazmin Bowens; Valente Castro Discharge Orders/Prescriptions Prescriptions: No Action aspirin 81 mg capsule 81 mg PO DAILY Patient Comments: one of pts md's stopped a few weeks ago per pt furosemide [Lasix] 40 mg tablet 40 mg PO DAILY Qty: 30 0RF potassium chloride [Klor-Con M20] 20 mEq tablet,ER particles/crystals 20 meq PO DAILY omeprazole 20 mg capsule,delayed release(DR/EC) 20 mg PO DAILY metoprolol succinate 25 mg tablet extended release 24 hr 25 mg PO DAILY fluoxetine 20 mg capsule 40 mg PO DAILY ipratropium-albuterol 0.5 mg-3 mg(2.5 mg base)/3 mL Solution For Nebulization 3 ml inhalation Q6H PRN (Reason: shortness of breath) albuterol sulfate [Ventolin HFA] 90 mcg/actuation HFA aerosol inhaler 2 puff INHALATION Q6H PRN (Reason: shortness of breath or wheezing) Qty: 18 2RF Referrals / Follow Up: Bruce Virk MD [Primary Care Provider] - Disposition Disposition (needs filled in before D/C Order can be placed): Acute Care Hospital Charges/Coding Visit Charges Inpatient E&M: 93977 Disch Hosp >30min
[2023-10-19 14:37] LABS: Pathologist Review Reviewed
== END 2023-10-15 15:25 | disposition short-term general hospital (02) | DRG 840 ==
LOC: ED 11:10 → MS3 11:24 → ICU 10-13 04:54
PROVIDERS: Internal Medicine; Internal Medicine Critical Care Medicine; Nurse Practitioner Family; Surgery; Urology; Admitting Provider Student in an Organized Health Care Education/Training Program; Emergency Provider Emergency Medicine; PCP Family Medicine; Visit Provider Internal Medicine
PROC: 0DJD8ZZ Inspection of Lower Intestinal Tract, Via Natural or Artificial Opening Endoscopic (ICD-10-PCS; CPT 45378; principal; 2023-10-12 10:10)
DX: D47.1 Chronic myeloproliferative disease (principal); K66.1 Hemoperitoneum; K25.4 Chronic or unspecified gastric ulcer with hemorrhage; M79.A3 Nontraumatic compartment syndrome of abdomen; E87.1 Hypo-osmolality and hyponatremia; L76.32 Postprocedural hematoma of skin and subcutaneous tissue following other procedure; N17.9 Acute kidney failure, unspecified; R18.8 Other ascites; C90.00 Multiple myeloma not having achieved remission; I50.32 Chronic diastolic (congestive) heart failure; N99.841 Postprocedural hematoma of a genitourinary system organ or structure following other procedure; D69.6 Thrombocytopenia, unspecified; I95.9 Hypotension, unspecified; I11.0 Hypertensive heart disease with heart failure; J44.9 Chronic obstructive pulmonary disease, unspecified; D50.9 Iron deficiency anemia, unspecified; F32.A Depression, unspecified; K21.9 Gastro-esophageal reflux disease without esophagitis; E83.52 Hypercalcemia; E80.7 Disorder of bilirubin metabolism, unspecified; K57.30 Diverticulosis of large intestine without perforation or abscess without bleeding; S30.1XXA Contusion of abdominal wall, initial encounter; E87.5 Hyperkalemia; I25.10 Atherosclerotic heart disease of native coronary artery without angina pectoris; G47.33 Obstructive sleep apnea (adult) (pediatric); K25.9 Gastric ulcer, unspecified as acute or chronic, without hemorrhage or perforation; R63.4 Abnormal weight loss; E66.9 Obesity, unspecified; R33.9 Retention of urine, unspecified; Y92.239 Unspecified place in hospital as the place of occurrence of the external cause; Y84.4 Aspiration of fluid as the cause of abnormal reaction of the patient, or of later complication, without mention of misadventure at the time of the procedure; R77.1 Abnormality of globulin; N13.9 Obstructive and reflux uropathy, unspecified; R16.2 Hepatomegaly with splenomegaly, not elsewhere classified; R31.0 Gross hematuria; R53.81 Other malaise; Z68.30 Body mass index [BMI] 30.0-30.9, adult; Z79.82 Long term (current) use of aspirin; Z79.899 Other long term (current) drug therapy; Z86.16 Personal history of COVID-19; Z87.891 Personal history of nicotine dependence; Z99.81 Dependence on supplemental oxygen
CPT/HCPCS: 36415; 36569; 36600; 49083; 71045; 71250; 74176; 76705; 76770; 80048; 80053; 81002; 82042; 82140; 82232; 82248; 82728; 82784; 82803; 82945; 82977; 83010; 83540; 83550; 83605; 83615; 83690; 83735; 83883; 84100; 84157; 84165; 85014; 85018; 85025; 85610; 85730; 86334; 86850; 86900; 86901; 86920; 86922; 87070; 87075; 87086; 87205; 88108; 88305; 88313; 88341; 88342; 89050; 90937; 93005; 94640; 97161; 97162; 97166; 99284; J7030; J7040; P9016; A4216; C1752; C9159; G0257; J1940; J2405; J3490